=== PATIENT | male | born 1945 | race Caucasian/White ===

== ENCOUNTER 2021-11-15 13:23 | Inpatient (IN) | payer MEDICARE, OTHER, SELFPAY ==
[2021-11-15] VITALS (14 sets, daily range): BP systolic 136–173; BP diastolic 62–85; PULSE 50–70; RESP 15–18; TEMP 36.4–36.9; O2SAT 88–98; BMI 30.4
--- NOTE | 2021-11-15 | IR_ITS ---
APPROVED REPORT Patient Location: Outpatient [facility] Compliance Coordinator: BRIAN Jules RT (R) PROCEDURES Left heart catheterization Left ventriculogram Selective coronary angiogram Drug-eluting stent deployment to the mid dominant right coronary artery Drug-eluting stent deployment to the proximal mid LAD Right selective renal angiogram Left nonselective renal angiogram Informed consent was obtained prior to the procedure. COMPLICATIONS None Estimated Blood Loss: Less than 10 mls TECHNIQUE One percent lidocaine used to anesthetize the right anterior aspect of the wrist. The right radial artery was accessed via the Seldinger technique. A 6 Cambodian sheath was placed in the right radial artery. 2.5 mg of verapamil, 800 mcg of nitroglycerin, 1mg Lidocaine and 5000 U Heparin were given through the arterial sheath. The papa catheter was also used to perform left heart catheterization, left ventriculogram and selective coronary angiogram. At the end the diagnostic angiogram therapeutic heparin was administered giving a therapeutic ACT and the guide catheter was placed in the right coronary artery followed by a Choice PT extra-support wire. A 3.5 x 15 mm resolute Alloway stent was deployed at 18 francisca reducing the severe stenosis to 0%. The wire was then pulled back and placed into the left main artery with the wire being placed on the LAD. A 3 mm x 38 mm resolute Colby stent was then placed in the proximal to mid LAD and deployed at 24 francisca reducing the tandem critical stenosis to 0% LAUREN-3 flow was present down the LAD and right coronary before and after the procedure. At the end of the procedure the guide catheter was pulled back and right selective renal angiography was performed. Short sheath was exchanged for 110 cm long sheath. I was unable to do direct left coronary artery angiography despite catheter manipulation. At the end the procedure the apparatus was removed the sheath was removed and hemostasis was achieved using TR banding patient was transferred to the postop putting in stable condition ANGIOGRAPHIC RESULTS The left main artery Normal The left anterior descending artery Is a proximal complex 90% stenosis with a mid vessel 90% stenosis. LAUREN II flow was present initially. Following stenting LAUREN-3 flow was present The circumflex artery Is a nondominant vessel with mild 10% atheromatous plaque. 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 The midportion has a concentric 80% stenosis. The FARFAN ventriculogram reveals Left ventricular dilatation with ejection fraction of 35 to 40% The left ventricular end-diastolic pressure Severely elevated at 45 to 50 mmHg Right renal artery singular and has mild nonflow limiting proximal 10 to 20% atheromatous plaque Left renal artery appears singular and has an ostial 90% stenosis IMPRESSION Critical two-vessel coronary disease as described above Successful stenting of the proximal and mid LAD critical disease reduced to 0% with 1 drug-eluting stent Severe disease in the mid dominant right coronary artery with successful stenting reducing the stenosis to 0% with 1 drug-eluting stent Reduced ejection fraction accompanied by severe to critically elevated LVEDP Mild right renal artery stenosisL Severe left renal artery stenosis PLAN 1. Aspirin Plavix plus Coumadin for 30 days then discontinue the aspirin and continue Plavix and Coumadin 2. LDL less than 55 to be achieved with high intensity statin 3. Patient requires significant diuresis. Currently his LVEDP is critically elevated. Patient will require admission over the weekend followed by diuresis. 4. Start Lasix 40 mg IV every 12 hours closely monitor chemistry
--- NOTE | 2021-11-15 14:00 | SUR.PREOP ---
NOTIFIED DR GROVE THAT PATIENT HAS A ALLERGY TO IODINE, MD STATED TO HOLD OFF ON HEART CATH FOR ONE HOUR AND PRE MEDICATE FOR ALLERGY, SEE MAR FOR MED ORDERS AND DETAILS
--- NOTE | 2021-11-15 16:17 | CA_ITS ---
APPROVED REPORT EXAM: Comprehensive 2D, Doppler, and color-flow Echocardiogram Radiology Services Manager: Christal Lamb RVT Ht: 5 ft 8 in Wt: 180lbs BSA: 1.95 BP: 125/62 mmHg Indications: NSTEMI,CP,CAD,STENTS TDS-PT FLAT ON BACK S/P CATH 2D Dimensions LVOT 2.45 cm (M/F) 1.5-2.5 LA Volume 62.40 mL LA Volume Index 32.00 mL/m2 (M/F) 16-34 M-Mode Dimensions RVDd 2.94 cm (0.9-2.6) LA Diam 4.77 cm (1.9-4.0) LVDd 5.67 cm (3.5-5.7) Ao Diam 3.85 cm (2.0-3.7) LVDs 4.14 cm (3.5-5.7) IVSd 0.90 cm (0.6-1.1) PWd 0.90 cm (0.6-1.1) EF (Teich) 52.00% FS 27.00% EDV (Teich) 158.10 mL ESV (Teich) 75.90 mL LV Diastology E Decel Time 180.00 (160-240 msec) E/A Ratio 2.7 MED E' 5.20 (< 7 cm/sec) E'/MED E' Ratio 13.27 (>14) LAT E' 8.60 (<10 cm/sec) E/LAT E' Ratio 8.02 (>14) Aortic Valve AI PHT 3507.00 ms AO Peak GR. 3.30 mmHg Mitral Valve MV E Max Boubacar. 69.00 (40-130 cm/s) MV A Velocity 26.00 (40-130 cm/s) E/A Ratio 2.62 MV Decel. Time 180.00 (160-240 ms) MV PHT 53.00 ms Pulmonary Valve PV Peak Velocity 79.00 (50-150 cm/s) Tricuspid Valve TR P. Velocity 287.00 cm/s RAP Estimate 10.00 mmHg RVSP 43.00 mmHg Left Ventricle Technically difficult study because of the patient factors and poor acoustic windows. Left atrium is mildly enlarged, left ventricle is normal size mild concentric left ventricular hypertrophy, estimated ejection fraction approximately 50%, there appears to be mild hypokinesis involving the apex and moderate hypokinesis of the inferior basal wall. Grade 2 diastolic dysfunction seen with tissue Doppler evidence of raise left atrial pressure. Right Ventricle Right atrium and right ventricle are normal size and contractility. Aortic Valve Aortic valve is thickened and calcified without aortic stenosis, there is mild aortic insufficiency. Mitral Valve Mitral valve leaflets are minimally thickened, there is mild mitral regurgitation. Tricuspid Valve Tricuspid valve grossly normal, there is mild tricuspid regurgitation, tricuspid regurgitation jet velocity is inadequate for calculation of the right ventricular systolic pressure. Pulmonic Valve Pulmonic valve is poorly visualized. Great Vessels Aortic root is normal size. Inferior vena cava is poorly visualized. Pericardium No significant pericardial effusion noted. Conclusion 1. Mildly enlarged left atrium, normal left ventricular size, mild concentric left ventricular hypertrophy, estimated ejection fraction 50% with segmental wall motion abnormality described above, grade 2 diastolic dysfunction seen with tissue Doppler evidence of raise left atrial pressure. 2. Mild aortic, mitral and tricuspid regurgitation. 3. No significant pericardial effusion. 4. Inferior vena cava is poorly visualized. Electronically signed by : Case Johnson MD 11/17/2021 06:43:25
[2021-11-15 16:29] LABS: CATHL Activated Clotting Time > 400 SEC (74-125)
[2021-11-15 16:30] LABS: CATHL Activated Clotting Time > 400 SEC (74-125)
[2021-11-15 17:16] LABS: Microscopic, Urine URINE MICROSCOPIC (MICROSCOPIC)
[2021-11-15 17:20] LABS: Coronavirus 19, PCR Not Detected (NotDetected); Influenza A, PCR Not Detected (NotDetected); Influenza B, PCR Not Detected (NotDetected)
[2021-11-15 18:22] LABS: Appearance,Urine CLEAR (Clear); Bilirubin,Urine Negative (Negative); Blood, Urine 3+ (Negative); Color,Urine YELLOW (Yellow); Glucose,Urine (UA) Negative (Negative); Ketones,Urine Negative (Negative); Leukocyte Esterase,Urine Negative (Negative); Nitrate,Urine Negative (Negative); Protein,Urine Negative (Negative); Specific Gravity, Urine <= 1.005 (1.005-1.030); Urobilinogen,Urine 0.2 EU/dl (0.2)
[2021-11-15 18:33] LABS: RBC,Urine 20-50 #/hpf (0-3)
--- NOTE | 2021-11-15 20:53 | HMH.HP ---
*Admission Date: 11/15/21 *Chief complaint: chest pain *History of present illness: this patient presented to [facility] with progressive sob and chest pain and felt to has acute cad and was transfered to [facility] for card eval and was sent to cardiac cath lab manager and was admitted - [facility] History I have reviewed the patient's past medical history: Yes Medical History: Reports:: Atrial Fibrillation, Cardiomyopathy, Congestive Heart Failure, Myocardial Infarction Denies:: Diabetes Mellitus Type 1, Diabetes Mellitus Type 2, MRSA *Have you ever received a pneumonia vaccine?: No *Have you received a flu vaccine this season?: No Other Surgeries: Yes: Cardiac Catheterization - *Social History Smoking Status: Former smoker Tobacco Type: cigarettes Alcohol Intake: never *Occupational Status:: retired *Travel in the last 8 weeks: None Family Hx:: Coronary Artery Disease Review of Systems - Review of Systems Review of systems:: pertinent systems reviewed and negative unless documented below - Constitutional Denies fever(s) - Eyes Denies change in vision - ENT Denies sore throat - *Cardiovascular Reports chest pain at rest, Reports shortness of breath with activity - *Respiratory Denies cough - *Gastrointestinal Denies abdominal pain - *Genitourinary Denies blood in urine - *Musculoskeletal Denies joint pain - Integumentary/Breasts Denies rash - *Neurologic Denies headache(s), Denies seizure-like activity - Psychiatric Denies anxiety Meds Home Medications Medication Instructions Recorded Confirmed Type Aspirin [Aspirin 81mg chewable 81 mg PO DAILY 11/15/21 11/15/21 History tab] Furosemide [Lasix 40mg tab] 40 mg PO DAILY 11/15/21 11/15/21 History Metoprolol Succinate [Metoprolol 100 mg PO DAILY 11/15/21 11/15/21 History Succinate 100mg Tablet*] Warfarin Sodium 5 mg PO MOFR 11/15/21 11/16/21 History dilTIAZem HCL [Diltiazem HCl] 120 mg PO DAILY 11/15/21 11/15/21 History Warfarin Sodium 2.5 mg PO SUTUWETHSA 11/16/21 11/16/21 History Allergies Allergy/AdvReac Type Severity Reaction Status Date / Time Penicillins Allergy Verified 11/15/21 13:45 sotalol Allergy Verified 11/15/21 13:45 iodine AdvReac Severe Anaphylaxis Verified 11/15/21 13:43 codeine AdvReac Verified 11/15/21 13:45 Exam Vital signs and Labs for Last 24 Hours: Temp Pulse Resp BP Pulse Ox 98.4 F 63 16 153/68 H 91 L 11/15/21 16:25 11/15/21 18:40 11/15/21 18:40 11/15/21 18:40 11/15/21 18:40 Laboratory Results - last 24 hr 11/15/21 15:34: Activated Clotting Time > 400 H* 11/15/21 16:02: Activated Clotting Time > 400 H* 11/15/21 16:35: SARS-CoV-2 (PCR) Not detected, Influenza A Untype (PCR) Not detected, Influenza Type B (PCR) Not detected 11/15/21 17:05: Urine Color Yellow, Urine Appearance Clear, Urine pH 5.0, Ur Specific [place] <= 1.005, Urine Protein Negative, Urine Glucose (UA) Negative, Urine Ketones Negative, Urine Blood 3+, Urine Nitrate Negative, Urine Bilirubin Negative, Urine Urobilinogen 0.2, Ur Leukocyte Esterase Negative, Urine RBC 20-50 I & O for Last 24 hours: Intake & Output 11/13/21 11/14/21 11/15/21 11/16/21 11:59 11:59 11:59 11:59 Intake Total 360 / 360 Balance 360 / 360 Weight 199 lb 15.348 oz - Constitutional no acute distress, obese - *Routine HEENT Exam Head: Present: normocephalic Eye: Present: EOMI, PERRL ENT: Present: mucous membranes dry - *Routine Neck Exam Absent: JVD - *Routine Respiratory Exam Present: decreased breath sounds - *Routine Cardiovascular Exam Present: RRR, murmur, S4 - *Routine Abdominal Exam Present: soft - *Routine Rectal Exam Rectal:: deferred - *Routine Genitalia Exam Genitalia:: deferred - *Routine Extremities Exam Absent: calf tenderness - *Routine Skin Exam Present: intact - *Routine Neurological Exam Present: alert, oriented X3. Absent: motor deficit - Routine Psychiatric Exam Present: cooperative
--- NOTE | 2021-11-15 21:54 | PC.NURSE ---
2039: 2ML OF AIR REMOVED FROM TRACELET 2099: 2ML OF AIR REMOVED FROM TRACELET 2129: 2ML OF AIR REMOVED FROM TRACELET 2154: TRACELET REMOVED AND TELFA WITH TEGADERM APPLIED. WILL MONITOR SITE CLOSELY
[2021-11-16] VITALS (7 sets, daily range): BP systolic 129–151; BP diastolic 54–67; PULSE 60–86; RESP 16–20; TEMP 36.5–37; O2SAT 90–98; BMI 30.3
--- NOTE | 2021-11-16 04:37 | PC.NURSE ---
PT HAS RESTED WELL THIS SHIFT WITH NO COMPLAINTS. NO ACUTE CHANGES FROM PREVIOUS ASSESSMENT. CATHETERIZATION SITE IS CDI WITH DRESSING IN PLACE (R RADIAL). PT HAS SLEPT WITH BIPAP IN PLACE. VS STABLE CHARTED.
[2021-11-16 07:22] LABS: Basophils # 0.1 K/mm3 (0-0.2); Basophils % 0.7 % (0.1-2.0); Eosinophils % 0.1 % (0.1-12.0); Hematocrit 43.8 % (42.0-52.0); Lymphocytes # 0.3 K/mm3 (0.7-4.5); Mean Corpuscular Hemoglobin 32.6 pg (27.0-31.2); Mean Corpuscular Volume 101.8 fl (80-94); Mean Platelet Volume 9.2 fl (7.4-10.4); Monocytes # 0.1 K/mm3 (0.1-1.0); Neutrophils # 6.2 K/mm3 (1.8-7.8); Neutrophils % 92.2 % (37.0-80.0); Platelet Count 188 K/mm3 (142-424); Red Blood Count 4.31 M/mm3 (4.60-6.20); Red Cell Distribution Width 15.5 % (11.5-17.5); White Blood Count 6.7 K/mm3 (4.8-10.8)
[2021-11-16 07:28] LABS: Chloride 103 mmol/L (98-107); Potassium 3.8 mmoL/L (3.5-5.1); Sodium 139 mmol/L (136-145)
[2021-11-16 07:31] LABS: Blood Urea Nitrogen 27 mg/dl (9-20); Creatinine Clearance Estimated 48 mL/min (50-200); Estimated Glomerular Filt Rate 39 ml/min (>60); GFR (African American) 48 ML/MIN (>60)
[2021-11-16 07:32] LABS: Anion Gap 12.8 mEq/L (5-15); Calcium 9.7 mg/dl (8.4-10.2); Carbon Dioxide 27 mmol/L (22.0-30.0); Glucose 149 mg/dl (74-100)
[2021-11-16 07:33] LABS: MANUAL DIFFERENTIAL MANUAL DIFFERENTIAL (MANUAL DIFF)
--- NOTE | 2021-11-16 09:07 | P.PN_ITS ---
Internal Medicine - PN: Subj *Date: 11/16/21 *Time: 18:38 Interval history: feel better- no chest pain- reviewed labs Exam Vital signs and Labs for Last 24 Hours: Temp Pulse Resp BP Pulse Ox 98.0 F 63 20 137/62 94 L 11/16/21 04:00 11/16/21 04:00 11/16/21 04:00 11/16/21 04:00 11/16/21 07:04 Laboratory Results - last 24 hr 11/15/21 15:34: Activated Clotting Time > 400 H* 11/15/21 16:02: Activated Clotting Time > 400 H* 11/15/21 16:35: SARS-CoV-2 (PCR) Not detected, Influenza A Untype (PCR) Not detected, Influenza Type B (PCR) Not detected 11/15/21 17:05: Urine Color Yellow, Urine Appearance Clear, Urine pH 5.0, Ur Specific [place] <= 1.005, Urine Protein Negative, Urine Glucose (UA) Negative, Urine Ketones Negative, Urine Blood 3+, Urine Nitrate Negative, Urine Bilirubin Negative, Urine Urobilinogen 0.2, Ur Leukocyte Esterase Negative, Urine RBC 20- 50 11/16/21 06:08: WBC 6.7, RBC 4.31 L, Hgb 14.0 L, Hct 43.8, MCV 101.8 H, MCH 32.6 H, MCHC 32.0, RDW 15.5, Plt Count 188, MPV 9.2, Neut % (Auto) 92.2 H, Lymph % (Auto) 5.0 L, [place] % (Auto) 2.0, Eos % (Auto) 0.1, Baso % (Auto) 0.7, Neut # (Auto) 6.2, Lymph # (Auto) 0.3 L, [place] # (Auto) 0.1, Eos # (Auto) 0.0, Baso # (Auto) 0.1 11/16/21 06:08: Sodium 139, Potassium 3.8, Chloride 103, Carbon Dioxide 27, Anion Gap 12.8, BUN 27 H, Creatinine 1.70 H, Estimated Creat Clear 48, Estimated GFR 39 L, Est GFR ( Amer) 48 L, Glucose 149 H, Calcium 9.7 I & O for Last 24 hours: Intake & Output 06/0111/14/21 11/15/21 11/16/21 11:59 11:59 11:59 11:59 Intake Total 360 / 360 Output Total 1999 Balance -1640 / -1640 Weight 200 lb - Constitutional no acute distress - *Routine HEENT Exam Head: Present: normocephalic Eye: Present: EOMI, PERRL ENT: Present: mucous membranes dry - *Routine Neck Exam Present: supple. Absent: JVD - *Routine Respiratory Exam Present: CTA bilaterally - *Routine Cardiovascular Exam Present: RRR, murmur - *Routine Abdominal Exam Present: soft - *Routine Extremities Exam Absent: calf tenderness - *Routine Skin Exam Present: intact - *Routine Neurological Exam Present: alert, CN II-XII intact - Routine Psychiatric Exam Present: normal affect Assessment and Plan (1) CAD (coronary artery disease) Status: Acute Qualifiers: Coronary Disease-Associated Artery/Lesion type: [place] artery [place] vs. transplanted heart: [place] heart Associated angina: with unspecified form of angina Qualified Code(s): I25.119 - Atherosclerotic heart disease of [place] coronary artery with unspecified angina pectoris Category: Medical Code(s): I25.10 - Atherosclerotic heart disease of [place] coronary artery without angina pectoris (2) Elevated left ventricular end-diastolic pressure (LVEDP) Status: Acute Category: Medical Code(s): R94.30 - Abnormal result of cardiovascular function study, unspecified (3) Renal artery stenosis Status: Acute Category: Medical Code(s): I70.1 - Atherosclerosis of renal artery (4) Obesity (BMI 30-39.9) Status: Acute Category: Medical Code(s): E66.9 - Obesity, unspecified (5) Renal insufficiency Status: Acute Category: Medical Code(s): N28.9 - Disorder of kidney and ureter, unspecified
[2021-11-16 10:51] LABS: Lymphocytes % 6 % (10-50); Neutrophils % 94 % (42-76); Platelet Estimate Normal; RBC Morphology Normal; Total Cells Counted 100
--- NOTE | 2021-11-16 11:20 | HMH.PHAINT ---
MEDICATION RECONCILIATION COMPLETE VIA PATIENT INTERVIEW.
--- NOTE | 2021-11-16 11:39 | HMH.PHAVTE ---
[facility] Pharmacy VTE Monitoring - Patient Demographics Admission date: 11/15/21 Report Date: 11/16/21 Time: 11:39 Allergies/Adverse Reactions: Patient Allergies Penicillins Allergy (Verified 11/15/21 13:45) sotalol Allergy (Verified 11/15/21 13:45) iodine Adverse Reaction (Severe, Verified 11/15/21 13:43) Anaphylaxis codeine Adverse Reaction (Verified 11/15/21 13:45) Height: 1.73 m Weight: 90.718 kg Patient Problems: Current Active Problems CAD (coronary artery disease) (Acute) Elevated left ventricular end-diastolic pressure (LVEDP) (Acute) Renal artery stenosis (Acute) Obesity (BMI 30-39.9) (Acute) - VTE Risk Labs: VTE Related Lab Results Hgb 14.0 g/dL (14.1-18.0) L 11/16/21 06:08 Hct 43.8 % (42.0-52.0) 11/16/21 06:08 Plt Count 188 K/mm3 (142-424) 11/16/21 06:08 BUN 27 mg/dl (9-20) H 11/16/21 06:08 Creatinine 1.70 mg/dl (0.66-1.25) H 11/16/21 06:08 Estimated Creat Clear 48 mL/min (50-200) 11/16/21 06:08 Was VTE Risk Assessment Performed: Yes VTE Score: 6 VTE Risk Level: Moderate Risk - Prophylaxis VTE Prophylaxis Ordered?: Yes Types of VTE Prophylaxis: TEDS Knee High Location of Applied Device: Bilateral Lower Extremeties
[2021-11-16 15:04] LABS: INR 2.99 (0.9-1.1); Prothrombin Time 31.2 seconds (10.1-12.5)
--- NOTE | 2021-11-16 17:32 | PC.NURSE ---
PT IS ALERT AND ORIENTED X4. NO ACUTE CHANGES THIS SHIFT. RIGHT RADIAL CATH SITE AND DRESSING IS C/D/I. NO C/O N/V/D OR CHEST PAIN. HE IS RESTING COMFORTABLY EITH FAMILY AT BEDSIDE.
[2021-11-17] VITALS (7 sets, daily range): BP systolic 117–146; BP diastolic 51–77; PULSE 53–80; RESP 16–20; TEMP 36.4–36.8; O2SAT 96–98; BMI 30.3
[2021-11-17 07:26] LABS: Prothrombin Time 25.4 seconds (10.1-12.5)
[2021-11-17 10:10] LABS: Basophils # 0.1 K/mm3 (0-0.2); Basophils % 0.4 % (0.1-2.0); Hematocrit 39.6 % (42.0-52.0); Hemoglobin 13.3 g/dL (14.1-18.0); Lymphocytes # 0.6 K/mm3 (0.7-4.5); Lymphocytes % 4.1 % (10-50); Mean Corpuscular HGB Conc 33.6 g/dL (31.8-35.4); Mean Corpuscular Hemoglobin 33.9 pg (27.0-31.2); Mean Corpuscular Volume 100.9 fl (80-94); Mean Platelet Volume 9.7 fl (7.4-10.4); Monocytes # 0.8 K/mm3 (0.1-1.0); Monocytes % 5.3 % (1.7-9.3); Neutrophils # 13.1 K/mm3 (1.8-7.8); Neutrophils % 90.2 % (37.0-80.0); Platelet Count 206 K/mm3 (142-424); Red Blood Count 3.93 M/mm3 (4.60-6.20); Red Cell Distribution Width 15.6 % (11.5-17.5); White Blood Count 14.5 K/mm3 (4.8-10.8)
[2021-11-17 10:12] LABS: Chloride 101 mmol/L (98-107)
[2021-11-17 10:13] LABS: Potassium 3.2 mmoL/L (3.5-5.1); Sodium 135 mmol/L (136-145)
[2021-11-17 10:14] LABS: MANUAL DIFFERENTIAL MANUAL DIFFERENTIAL (MANUAL DIFF)
[2021-11-17 10:15] LABS: Blood Urea Nitrogen 38 mg/dl (9-20); Creatinine Clearance Estimated 51 mL/min (50-200); Estimated Glomerular Filt Rate 42 ml/min (>60); GFR (African American) 51 ML/MIN (>60)
[2021-11-17 10:16] LABS: Anion Gap 11.2 mEq/L (5-15); Carbon Dioxide 26 mmol/L (22.0-30.0); Glucose 142 mg/dl (74-100)
[2021-11-17 10:55] LABS: Lymphocytes % 9 % (10-50); Monocytes % 2 % (2-9); Neutrophils % 89 % (42-76); Total Cells Counted 100
[2021-11-17 10:56] LABS: Platelet Estimate Normal; RBC Morphology Normal
--- NOTE | 2021-11-17 11:45 | HMH.ACPN2 ---
Internal Medicine - PN: Subj *Date: 11/17/21 *Time: 19:31 Interval history: doing better this am - no chest pain Exam Vital signs and Labs for Last 24 Hours: Temp Pulse Resp BP Pulse Ox 97.5 F L 68 16 135/61 98 11/17/21 08:00 11/17/21 08:00 11/17/21 08:00 11/17/21 08:00 11/17/21 08:00 Laboratory Results - last 24 hr 11/16/21 14:20: PT 31.2 H, INR 2.99 H 11/17/21 06:37: PT 25.4 H, INR 2.40 H 11/17/21 06:37: WBC 14.5 H D, RBC 3.93 L, Hgb 13.3 L, Hct 39.6 L, MCV 100.9 H, MCH 33.9 H, MCHC 33.6, RDW 15.6, Plt Count 206, MPV 9.7, Neut % (Auto) 90.2 H, Lymph % (Auto) 4.1 L, [place] % (Auto) 5.3, Eos % (Auto) 0.0 L, Baso % (Auto) 0.4, Neut # (Auto) 13.1 H, Lymph # (Auto) 0.6 L, [place] # (Auto) 0.8, Eos # (Auto) 0.0, Baso # (Auto) 0.1, Total Counted 100, Neutrophils % (Manual) 89 H, Lymphocytes % (Manual) 9 L, Monocytes % (Manual) 2, Platelet Estimate Normal, RBC Morphology Normal 11/17/21 06:37: Sodium 135 L, Potassium 3.2 L, Chloride 101, Carbon Dioxide 26, Anion Gap 11.2, BUN 38 H D, Creatinine 1.60 H, Estimated Creat Clear 51, Estimated GFR 42 L, Est GFR ( Amer) 51 L, Glucose 142 H, Calcium 9.0 I & O for Last 24 hours: Intake & Output 11/14/21 11/15/21 11/16/21 11/17/21 11:59 11:59 11:59 11:59 Intake Total 720 / 720 1080 / 1080 Output Total 1999 2775 / 2775 Balance -1280 / -1280 -1695 / -1695 Weight 200 lb 199 lb 15.983 oz - Constitutional no acute distress - *Routine HEENT Exam Head: Present: normocephalic Eye: Present: EOMI, PERRL ENT: Present: mucous membranes dry - *Routine Neck Exam Absent: JVD - *Routine Respiratory Exam Present: CTA bilaterally - *Routine Cardiovascular Exam Present: RRR, murmur - *Routine Abdominal Exam Present: soft - *Routine Extremities Exam Absent: full ROM - *Routine Skin Exam Present: intact - *Routine Neurological Exam Present: alert, CN II-XII intact - Routine Psychiatric Exam Present: normal affect Assessment and Plan (1) CAD (coronary artery disease) Status: Acute Qualifiers: Coronary Disease-Associated Artery/Lesion type: [place] artery [place] vs. transplanted heart: [place] heart Associated angina: with unspecified form of angina Qualified Code(s): I25.119 - Atherosclerotic heart disease of [place] coronary artery with unspecified angina pectoris Category: Medical Code(s): I25.10 - Atherosclerotic heart disease of [place] coronary artery without angina pectoris (2) Elevated left ventricular end-diastolic pressure (LVEDP) Status: Acute Category: Medical Code(s): R94.30 - Abnormal result of cardiovascular function study, unspecified (3) Renal artery stenosis Status: Acute Category: Medical Code(s): I70.1 - Atherosclerosis of renal artery (4) Obesity (BMI 30-39.9) Status: Acute Category: Medical Code(s): E66.9 - Obesity, unspecified (5) Renal insufficiency Status: Acute Category: Medical Code(s): N28.9 - Disorder of kidney and ureter, unspecified
--- NOTE | 2021-11-17 19:15 | PC.NURSE ---
Pt had uneventful day. No change from last assessment. Will continue to monitor.
[2021-11-18] VITALS: BP 138/64; PULSE 58; RESP 18; TEMP 36.8; O2SAT 98
[2021-11-18 04:00] VITALS: BP 123/55; PULSE 50; PULSE 51; RESP 17; TEMP 36.4; O2SAT 99
[2021-11-18 05:00] VITALS: BMI 30.3
--- NOTE | 2021-11-18 05:37 | PC.NURSE ---
Pt is alert and oriented able to make all needs known. Pt continues to have a allen cath. noted that the urine is pink in color. The tubing was unsnapped from the stat lock and it pulled inside the bladder. The tubing was secured again in the stat lock. Pt assisted to the bathroom and able to walk independently. Pt dressing to right wrist was removed and a new dressing applied. The area was bruised and not swollen. Area was scabbed over. PT stated This was one of the better heart caths that I have had. It never hurt and still doesnt.
[2021-11-18 08:00] VITALS: BP 125/59; PULSE 59; PULSE 60; RESP 18; TEMP 36.6; O2SAT 99
[2021-11-18 08:26] LABS: INR 1.96 (0.9-1.1); Prothrombin Time 21.1 seconds (10.1-12.5)
[2021-11-18 09:13] LABS: Basophils # 0.1 K/mm3 (0-0.2); Basophils % 0.7 % (0.1-2.0); Eosinophils # 0.1 K/mm3 (0.0-0.4); Eosinophils % 0.8 % (0.1-12.0); Hemoglobin 14.6 g/dL (14.1-18.0); Lymphocytes # 0.8 K/mm3 (0.7-4.5); Lymphocytes % 9.2 % (10-50); Mean Corpuscular HGB Conc 33.1 g/dL (31.8-35.4); Mean Corpuscular Hemoglobin 33.1 pg (27.0-31.2); Mean Corpuscular Volume 100.3 fl (80-94); Monocytes # 0.7 K/mm3 (0.1-1.0); Monocytes % 8.1 % (1.7-9.3); Neutrophils # 6.9 K/mm3 (1.8-7.8); Neutrophils % 81.2 % (37.0-80.0); Platelet Count 232 K/mm3 (142-424); Red Blood Count 4.39 M/mm3 (4.60-6.20); Red Cell Distribution Width 15.4 % (11.5-17.5); White Blood Count 8.5 K/mm3 (4.8-10.8)
[2021-11-18 09:23] LABS: Chloride 97 mmol/L (98-107)
[2021-11-18 09:24] LABS: Potassium 3.5 mmoL/L (3.5-5.1); Sodium 136 mmol/L (136-145)
[2021-11-18 09:26] LABS: Blood Urea Nitrogen 39 mg/dl (9-20); Creatinine Clearance Estimated 51 mL/min (50-200); Estimated Glomerular Filt Rate 42 ml/min (>60); GFR (African American) 51 ML/MIN (>60)
[2021-11-18 09:27] LABS: Anion Gap 12.5 mEq/L (5-15); Carbon Dioxide 30 mmol/L (22.0-30.0); Glucose 148 mg/dl (74-100)
--- NOTE | 2021-11-18 10:23 | HMH.CNCARD ---
History of Present Illness Consult date: 11/18/21 Requesting physician: Alo Cordova Chief complaint: post stent follow up Additional Medical History:: HX CAD AFIb on coumadin cardiomyopathy History of present illness: 76 year old white male with prior hx of afib s/p 3 ablations on coumadin, CAD with prior stenting in 2004, and hx of cardiomyapthy who follows with Dr. Schmidt at [facility] was transferred to this facility on Thursday for soa to be evaluated by cardiology. patient reports that has experienced increasing and progressive soa over the past few months. Thursday morning had severe soa that was even present at rest. Patient went to [facility] and was transferred to this facility for cardiology consult due to [facility] not having any available beds. Upon transfer patient was taken to [facility] where he received stenting to prox and mid LAD, as well as, the mid dominant RCA. Echo showed EF of 50%. Renal artery stenosis was noted-mild DIANN and severe LAS present. Patient was noted to have an increased LVEDP of 45-50 so he was admitted over the weekend for diureses. Diuresed over 2 liters over weekend. Patient reports is feeling much better today. soa has significantly improved, denies cp. [facility] History Medical History: Reports:: Atrial Fibrillation, Cardiomyopathy, Congestive Heart Failure, Myocardial Infarction Denies:: Diabetes Mellitus Type 1, Diabetes Mellitus Type 2, MRSA *Have you ever received a pneumonia vaccine?: No *Have you received a flu vaccine this season?: No Other Surgeries: Yes: Cardiac Catheterization - *Social History Smoking Status: Former smoker Tobacco Type: cigarettes Alcohol Intake: never *Occupational Status:: retired *Travel in the last 8 weeks: None Family Hx:: Coronary Artery Disease Meds Home Medications Medication Instructions Recorded Confirmed Type Aspirin [Aspirin 81mg chewable 81 mg PO DAILY 11/15/21 11/15/21 History tab] Furosemide [Lasix 40mg tab] 40 mg PO DAILY 11/15/21 11/15/21 History Metoprolol Succinate [Metoprolol 100 mg PO DAILY 11/15/21 11/15/21 History Succinate 100mg Tablet*] Warfarin Sodium 5 mg PO MOFR 11/15/21 11/16/21 History dilTIAZem HCL [Diltiazem HCl] 120 mg PO DAILY 11/15/21 11/15/21 History Warfarin Sodium 2.5 mg PO SUTUWETHSA 11/16/21 11/16/21 History Allergies Allergy/AdvReac Type Severity Reaction Status Date / Time Penicillins Allergy Verified 11/15/21 13:45 sotalol Allergy Verified 11/15/21 13:45 iodine AdvReac Severe Anaphylaxis Verified 11/15/21 13:43 codeine AdvReac Verified 11/15/21 13:45 Exam Vital signs and Labs for Last 24 Hours: Temp Pulse Resp BP Pulse Ox 97.9 F 59 L 18 125/59 L 99 11/18/21 08:00 11/18/21 08:00 11/18/21 08:00 11/18/21 08:00 11/18/21 08:00 Laboratory Results - last 24 hr 11/17/21 06:37: Total Counted 100, Neutrophils % (Manual) 89 H, Lymphocytes % (Manual) 9 L, Monocytes % (Manual) 2, Platelet Estimate Normal, RBC Morphology Normal 11/18/21 08:09: PT 21.1 H, INR 1.96 H 11/18/21 09:05: WBC 8.5 D, RBC 4.39 L, Hgb 14.6, Hct 44.0, MCV 100.3 H, MCH 33.1 H, MCHC 33.1, RDW 15.4, Plt Count 232, MPV 10.0, Neut % (Auto) 81.2 H, Lymph % (Auto) 9.2 L, [place] % (Auto) 8.1, Eos % (Auto) 0.8, Baso % (Auto) 0.7, Neut # (Auto) 6.9, Lymph # (Auto) 0.8, [place] # (Auto) 0.7, Eos # (Auto) 0.1, Baso # (Auto) 0.1 11/18/21 09:05: Sodium 136, Potassium 3.5, Chloride 97 L, Carbon Dioxide 30, Anion Gap 12.5, BUN 39 H, Creatinine 1.60 H, Estimated Creat Clear 51, Estimated GFR 42 L, Est GFR ( Amer) 51 L, Glucose 148 H, Calcium 9.0 I & O for Last 24 hours: Intake & Output 11/15/21 11/16/21 11/17/21 11/18/21 23:59 23:59 23:59 23:59 Intake Total 360 / 360 1080 / 1080 1080 / 1080 120 / 120 Output Total 5570 / 4742 2875 / 8386 2099 / 2099 Balance 360 / -1640 -2820 / -0835 -6775 / -0705 -1979 / Weight 199 lb 15.348 oz 200 lb 199 lb 15.983 oz 200 lb - Constitutional no acute distres
[2021-11-18 12:00] VITALS: BP 108/48; PULSE 50; PULSE 55; RESP 18; TEMP 36.9; O2SAT 98
--- NOTE | 2021-11-18 12:06 | HMH.DCSUM ---
General - General Admission date:: 11/15/21 Discharge date: 11/18/21 HPI HPI: this patient presented to [facility] with progressive sob and chest pain and felt to has acute cad and was transfered to [facility] for card eval and was sent to [facility] and was admitted - Hospital Course Hospital Course: Abnormal Lab Results 11/18/21 08:09: PT 21.1 H, INR 1.96 H 11/18/21 09:05: RBC 4.39 L, MCV 100.3 H, MCH 33.1 H, Neut % (Auto) 81.2 H, Lymph % (Auto) 9.2 L 11/18/21 09:05: Chloride 97 L, BUN 39 H, Creatinine 1.60 H, Estimated GFR 42 L, Est GFR ( Amer) 51 L, Glucose 148 H -CARDIOLOGY CONSULT: Assessment and plan all Dx Assessment and Plan for all problems:: CAD/Nstemi - [facility] 11/15/2021- stenting to proximal and mid LAD and to mid dominant RCA - Continue aspirin, plavix, Coumadin, bb, statin, and shen when bp can tolerate. after 30 days, can hold aspirin and continue plavix and coumadin. Acute on chronic left systolic heart failure with elevated LVEDP- NYHA IV at presentation -LVEDP during heart cath 45-50. Patient diuresed over weekend > 2 liters, doing better -Echo 11/15/2021- EF 50%. Mild aortic,mitral, and tricuspid regurg noted. -Continue lasix 40mg QD at home. Renal artery stenosis - MILD DIANN, Severe LAS - Follow up with Dr. Canada outpatient. - Plavix, aspirin, and statin. shen/arb/arni for bp control when BP can tolerate Chronic renal insufficiency -Creatinine improved to 1.60 from 1.7 Hx of afib, chadsvasc score 7 - NSR currently - Continue home dose of dilt, toprol and coumadin. D CV stable for dc home. please follow up with Dr. Schmidt in [address] Canada for Renal artery stenosis in one week. DC medications Aspirin 81 mg QD Plavix 75 mg QD Coumadin 2.5mg on Thursday, Thursday, Thursday, , and Thursday. Coumadin 5mg Thursday and Thursday Toprol XL 100mg QD Crestor 40mg QD Lasix 40mg QD Discharge Plan (1) CAD (coronary artery disease)-[facility] 11/15/2021- stenting to proximal and mid LAD and to mid dominant RCA, Continue aspirin, plavix, Coumadin, bb, statin, and shen when bp can tolerate. after 30 days, can hold aspirin and continue plavix and coumadin. LDL less than 55 to be achieved with high intensity statin,follow up with Dr. Schmidt in [address] Canada for Renal artery stenosis in one week. (2) Elevated left ventricular end-diastolic pressure (LVEDP)-LVEDP during heart cath 45-50. Patient diuresed over weekend 2 liters, Echo 11/15/2021- EF 50%. Mild aortic,mitral, and tricuspid regurg noted. Continue lasix 40mg QD at home. (3) Renal artery stenosis-Severe left renal artery stenosis, based on heart cath, the severe left renal artery stenosis and needs to be followed by cardiology for more treatment or interventions (4) Renal insufficiency-Creatinine improved to 1.60 from 1.7 (5) Afib-NSR currently, Continue home dose of dilt, Toprol XL 100mg QD and coumadin 2.5mg on Thursday, Thursday, Thursday, , and Thursday. Coumadin 5mg Thursday and Thursday Objective Vital signs: Temp Pulse Resp BP Pulse Ox 97.9 F 59 L 18 125/59 L 99 11/18/21 08:00 11/18/21 08:00 11/18/21 08:00 11/18/21 08:00 11/18/21 08:00 no acute distress - *Routine HEENT Exam Head: Present: normocephalic Eye: Present: PERRL ENT: Present: mucous membranes moist - *Routine Neck Exam Present: supple - *Routine Respiratory Exam Present: CTA bilaterally - *Routine Cardiovascular Exam Present: RRR - *Routine Abdominal Exam Present: soft, normoactive bowel sounds. Absent: tenderness - *Routine Extremities Exam Absent: cyanosis, clubbing, edema - *Routine Skin Exam Present: warm. Absent: rash - *Routine Neurological Exam Present: alert, oriented X3 Results Labs on day of discharge: Labs from last 24 hours 11/18/21 11/18/21 11/18/21 09:05 09:05 08:09 WBC 8.5 D RBC 4.39 L Hgb 14.6 Hct 44.0 MCV 100.3 H
--- NOTE | 2021-11-18 14:19 | HMH.PHACLD ---
Ned Cronin has received discharge medication counseling on the following medications: PATIENT IS CURRENTLY TAKING ASPIRIN 81 MG DAILY AND METOPROLOL SUCCINATE 100 MG DAILY. MD ADDING PLAVIX 75 MG DAILY AND CRESTOR 40 MG HS. MD NOT STARTING ALEXANDRE/ARB UNTIL BLOOD PRESSURE CAN TOLERATE.
--- NOTE | 2021-11-21 14:59 | CARE MANAGER ---
Spoke with patient for post-discharge phone inteview, patient is doing well and has no issues. Today was his follow-up appointment with Dr. Canada.
== END 2021-11-18 13:48 | disposition home or self-care (01) | DRG 246 ==
PROVIDERS: Internal Medicine; Nurse Practitioner Family; Admitting Provider Emergency Medicine; PCP Emergency Medicine; Visit Provider Emergency Medicine
PROC: 027034Z Dilation of Coronary Artery, One Artery with Drug-eluting Intraluminal Device, Percutaneous Approach (ICD-10-PCS; principal; 2021-11-15 14:00)
DX: I21.4 Non-ST elevation (NSTEMI) myocardial infarction (principal); I50.23 Acute on chronic systolic (congestive) heart failure; I42.9 Cardiomyopathy, unspecified; Z87.891 Personal history of nicotine dependence; I25.2 Old myocardial infarction; I48.91 Unspecified atrial fibrillation; I25.10 Atherosclerotic heart disease of native coronary artery without angina pectoris; I70.1 Atherosclerosis of renal artery; E66.9 Obesity, unspecified; Z68.30 Body mass index [BMI] 30.0-30.9, adult; Z95.5 Presence of coronary angioplasty implant and graft; N18.9 Chronic kidney disease, unspecified
CPT/HCPCS: 36252; 36415; 80048; 81001; 85007; 85025; 85347; 85610; 92941; 93306; 93458; 99152; 99153; C1725; C1769; C1874; C9606; C9803; J1644; Q9967; U0003; U0005

== ENCOUNTER → 2021-11-21 11:38 | Outpatient (CLI) | payer MEDICARE, OTHER, SELFPAY ==
[2021-11-21 12:19] LABS: Hematocrit 41.1 % (42.0-52.0); Hemoglobin 13.8 g/dL (14.1-18.0)
[2021-11-21 12:48] LABS: Blood Urea Nitrogen 34 mg/dl (9-20); Estimated Glomerular Filt Rate 39 ml/min (>60); GFR (African American) 48 ML/MIN (>60)
== END ==
PROVIDERS: Internal Medicine; PCP Family Medicine; Visit Provider Emergency Medicine
DX: I48.0 Paroxysmal atrial fibrillation; I50.9 Heart failure, unspecified; I70.1 Atherosclerosis of renal artery; R11.0 Nausea; R94.30 Abnormal result of cardiovascular function study, unspecified; I25.118 Atherosclerotic heart disease of native coronary artery with other forms of angina pectoris
CPT/HCPCS: 36415; 82565; 84520; 85014; 85018

== ENCOUNTER → 2021-11-26 11:04 | Outpatient (CLI) | payer MEDICARE, OTHER, SELFPAY ==
[2021-11-26 11:23] LABS: Coronavirus 19, PCR Not Detected (NotDetected); Influenza A, PCR Not Detected (NotDetected); Influenza B, PCR Not Detected (NotDetected)
[2021-11-26 12:11] LABS: INR 2.76 (0.9-1.1); Prothrombin Time 28.9 seconds (10.1-12.5)
== END ==
PROVIDERS: PCP Family Medicine; Visit Provider Physician Assistant
DX: I70.1 Atherosclerosis of renal artery (principal); I25.119 Atherosclerotic heart disease of native coronary artery with unspecified angina pectoris; Z01.812 Encounter for preprocedural laboratory examination; Z20.822 Contact with and (suspected) exposure to COVID-19
CPT/HCPCS: 36415; 85610; C9803; U0003; U0005

== ENCOUNTER → 2021-11-27 08:22 | Day surgery (SDC) | payer MEDICARE, OTHER, SELFPAY ==
[2021-11-27 08:27] VITALS: BMI 29.6
[2021-11-27 08:52] VITALS: BP 137/82; PULSE 57; RESP 18; TEMP 36.8; O2SAT 95
[2021-11-27 09:00] VITALS: PULSE 61
[2021-11-27 09:57] LABS: Activated Partial Thrombo Time 46.7 seconds (22.8-30.6); INR 2.56 (0.9-1.1)
--- NOTE | 2021-11-27 10:55 | SUR.PREOP ---
pt had labs redrawn today for PT/INR levels. See labs for results. MD notified of results and cath rescheduled for Thursday.
== END ==
PROVIDERS: PCP Family Medicine; Visit Provider Internal Medicine
DX: Z53.09 Procedure and treatment not carried out because of other contraindication (principal); I70.1 Atherosclerosis of renal artery; I48.91 Unspecified atrial fibrillation; Z79.01 Long term (current) use of anticoagulants; R79.1 Abnormal coagulation profile
CPT/HCPCS: 85610; 85730

== ENCOUNTER 2021-12-02 08:02 | Day surgery (SDC) | payer MEDICARE, OTHER, SELFPAY ==
[2021-12-02] VITALS (14 sets, daily range): BP systolic 120–156; BP diastolic 56–79; PULSE 47–56; RESP 16–18; TEMP 36.9; O2SAT 87–97; BMI 29.6
--- NOTE | 2021-12-02 | IR_ITS ---
APPROVED REPORT Patient Location: Outpatient PROCEDURES Left renal artery selective angiogram Drug-eluting stent deployment to the ostial proximal left renal artery Selective angiogram of the left accessory renal artery Drug-eluting stent deployment to the left accessory renal artery INDICATION Renovascular hypertension, Renal artery stenosis, Chronic renal failure, Informed consent was obtained prior to the procedure. COMPLICATIONS None Estimated Blood Loss: Less than 10 mls TECHNIQUE 1% lidocaine used to anesthetize the right femoral groin. The right femoral artery was accessed via the Seldinger technique. A 7 Setswana sheath was placed in the right femoral artery and a short EDUARDO guide catheter was used to perform left renal artery selective angiography. Following this therapeutic heparin was administered and the guide catheter was placed in the left renal artery followed by a Choice PT extra-support wire. A 5 mm x 12 mm resolute Montague stent was deployed at 20 francisca reducing the stenosis to 0%. Distally there was a small edge dissection therefore a 4 mm x 12 mm resolute Colby stent was placed distal to the first stent yet still overlapping it and deployed at 20 francisca. The balloon was brought between the 2 stents and deployed at 28 francisca. Excellent angiographic results were obtained. Following this the guide catheter was pulled back and used to selectively intubate the accessory renal artery to the left kidney. Same wire was placed distally and a 5 mm x 15 mm resolute Montague stent was placed in the ostial proximal segment at 24 francisca reducing the severe stenosis to 0%. Excellent angiograph results were obtained. At the end of the procedure the apparatus was removed the groin was reprepped closure change sheath was removed good hemostasis was achieved using TR banding patient was transferred to the postop putting in stable condition ANGIOGRAPHIC RESULTS Left kidney has a dual arterial supply. The left renal artery has an ostial concentric 90% stenosis while the large accessory renal artery has an ostial 70 to 80% stenosis IMPRESSION Severe stenosis in the 2 large artery supplying the left kidney Successful drug-eluting stent deployment to the main left renal artery and the accessory left renal artery reducing the stenosis to 0% with 3 drug-eluting stents as described above PLAN 1. Dual antiplatelet therapy for 1 month combined with Coumadin. After 1 month aspirin may be discontinued 2. Risk factor modification Electronically signed by : Azael Canada MD 12/03/2021 15:05:57
[2021-12-02 09:02] LABS: INR 1.26 (0.9-1.1)
[2021-12-02 11:54] LABS: CATHL Activated Clotting Time 357 SEC (74-125)
--- NOTE | 2021-12-02 14:30 | HMH.PHACLD ---
Ned Cronin has received discharge medication counseling on the following medications: -ASA -PLAVIX -WARFARIN (ASKED ABOUT F/U IN COUMADIN CLINIC WITH ALEKSANDR REGARDING WARFARIN DOSE, OBTAINED PHONE NUMBER FOR ALEKSANDR TO CALL) -ROSUVASTATIN -METOPROLOL SUCCINATE
== END 2021-12-02 14:37 | disposition home or self-care (01) ==
PROVIDERS: PCP Family Medicine; Visit Provider Internal Medicine
DX: I77.1 Stricture of artery (principal); I70.1 Atherosclerosis of renal artery; N18.9 Chronic kidney disease, unspecified; I13.0 Hypertensive heart and chronic kidney disease with heart failure and stage 1 through stage 4 chronic kidney disease, or unspecified chronic kidney disease; I25.118 Atherosclerotic heart disease of native coronary artery with other forms of angina pectoris; I50.23 Acute on chronic systolic (congestive) heart failure; I48.0 Paroxysmal atrial fibrillation; I42.9 Cardiomyopathy, unspecified; E78.5 Hyperlipidemia, unspecified; Z79.01 Long term (current) use of anticoagulants
CPT/HCPCS: 37236; 85347; 85610; 99152; C1725; C1760; C1769; C1876; C1894; J1644; Q9967

== ENCOUNTER → 2021-12-10 09:16 | Outpatient (CLI) | payer MEDICARE, OTHER, SELFPAY ==
[2021-12-10 09:24] LABS: MANUAL DIFFERENTIAL MANUAL DIFFERENTIAL (MANUAL DIFF)
[2021-12-10 09:41] LABS: Basophils % 0.6 % (0.1-2.0); Eosinophils # 0.2 K/mm3 (0.0-0.4); Eosinophils % 3.2 % (0.1-12.0); Hematocrit 39.4 % (42.0-52.0); Hemoglobin 12.4 g/dL (14.1-18.0); Lymphocytes # 0.6 K/mm3 (0.7-4.5); Lymphocytes % 8.5 % (10-50); Mean Corpuscular HGB Conc 31.4 g/dL (31.8-35.4); Mean Corpuscular Hemoglobin 32.5 pg (27.0-31.2); Mean Corpuscular Volume 103.6 fl (80-94); Mean Platelet Volume 9.1 fl (7.4-10.4); Monocytes # 0.5 K/mm3 (0.1-1.0); Monocytes % 6.7 % (1.7-9.3); Neutrophils # 5.7 K/mm3 (1.8-7.8); Platelet Count 190 K/mm3 (142-424); Red Blood Count 3.81 M/mm3 (4.60-6.20); Red Cell Distribution Width 14.8 % (11.5-17.5)
[2021-12-10 10:34] LABS: Eosinophils % 4 % (0-3); Lymphocytes % 8 % (10-50); Macrocytosis 1+; Monocytes % 10 % (2-9); Neutrophils % 78 % (42-76); Total Cells Counted 100
[2021-12-10 10:36] LABS: Acanthocytes 1+; Platelet Estimate Normal
[2021-12-10 13:44] LABS: Chloride 103 mmol/L (98-107); Potassium 3.5 mmoL/L (3.5-5.1); Sodium 138 mmol/L (136-145)
[2021-12-10 13:47] LABS: Anion Gap 11.5 mEq/L (5-15); Blood Urea Nitrogen 21 mg/dl (9-20); Carbon Dioxide 27 mmol/L (22.0-30.0); Estimated Glomerular Filt Rate 37 ml/min (>60); GFR (African American) 45 ML/MIN (>60); Glucose 123 mg/dl (74-100)
== END ==
PROVIDERS: PCP Family Medicine; Visit Provider Internal Medicine
DX: I25.10 Atherosclerotic heart disease of native coronary artery without angina pectoris (principal); I70.1 Atherosclerosis of renal artery; N28.9 Disorder of kidney and ureter, unspecified
CPT/HCPCS: 36415; 80048; 85007; 85014; 85018; 85048; 85049

== ENCOUNTER 2021-12-13 12:54 | Outpatient (CLI) | payer MEDICARE, OTHER, SELFPAY ==
[2021-12-13 15:28] LABS: PHA INR Fingerstick 1.4 (0.9-1.1)
== END 2021-12-13 15:29 | disposition home or self-care (01) ==
PROVIDERS: PCP Family Medicine; Visit Provider Physician Assistant
DX: Z51.81 Encounter for therapeutic drug level monitoring (principal); Z79.01 Long term (current) use of anticoagulants; I48.0 Paroxysmal atrial fibrillation
CPT/HCPCS: 85610; 99211; G0463

== ENCOUNTER → 2021-12-17 09:16 | Outpatient (CLI) | payer MEDICARE, OTHER, SELFPAY ==
[2021-12-17 10:20] LABS: Alanine Aminotransferase 21 U/L (12-78); Albumin Level 3.5 g/dl (3.5-5.0); Alkaline Phosphatase 107 U/L (38-126); Aspartate Amino Transferase 29 U/L (17-59); Bilirubin,Direct 0.2 mg/dl (0.0-0.4); Bilirubin,Indirect 0.8 mg/dL (0.0-0.9); Bilirubin,Unconjugated 0.8 mg/dL (0.0-1.1); Chol/HDL Ratio 2.7 (1-3.5); Cholesterol 95 mg/dl (140-200); HDL Cholesterol 35 mg/dl (40-60); Total Protein,Serum 6.4 g/dl (6.3-8.2); Triglycerides 89 mg/dl (30-150); VLDL Cholesterol 18 mg/dL (0-40)
[2021-12-17 10:31] LABS: Direct LDL Cholesterol 39.38 mg/dL (100-129)
== END ==
PROVIDERS: PCP Family Medicine; Visit Provider Nurse Practitioner Family
DX: E78.2 Mixed hyperlipidemia (principal); I25.119 Atherosclerotic heart disease of native coronary artery with unspecified angina pectoris
CPT/HCPCS: 36415; 80061; 80076

== ENCOUNTER → 2021-12-18 11:39 | Outpatient (CLI) | payer MEDICARE, OTHER, SELFPAY ==
--- NOTE | 2021-12-18 11:50 | XR_ITS ---
FINAL REPORT CLINICAL HISTORY: amiodarone, CHF FINDINGS: Two views of the chest were obtained. Cardiomegaly is noted. The mediastinum is normal. There are left lung opacities, atelectasis or pneumonia.. There is no pneumothorax. The bony thorax is intact. IMPRESSION: Left lung atelectasis or pneumonia. Reviewed, Interpreted and Dictated by Emeka Milian III, MD Transcribed by Barbara Pastrana Authenticated and [facility]
[2021-12-18 12:46] LABS: Chloride 105 mmol/L (98-107)
[2021-12-18 12:47] LABS: Potassium 4.4 mmoL/L (3.5-5.1); Sodium 137 mmol/L (136-145)
[2021-12-18 12:50] LABS: Blood Urea Nitrogen 14 mg/dl (9-20); Estimated Glomerular Filt Rate 46 ml/min (>60); GFR (African American) 55 ML/MIN (>60)
[2021-12-18 12:52] LABS: Anion Gap 10.4 mEq/L (5-15); Calcium 9.1 mg/dl (8.4-10.2); Carbon Dioxide 26 mmol/L (22.0-30.0); Glucose 109 mg/dl (74-100)
[2021-12-18 13:27] LABS: Prostate Specific Ag Screen 2.5 ng/ml (0.0-4.0)
[2021-12-18 13:53] LABS: Thyroid Stimulating Hormone 3.32 uIU/mL (0.465-4.68)
== END ==
PROVIDERS: PCP Family Medicine; Visit Provider Physician Assistant
DX: N28.9 Disorder of kidney and ureter, unspecified (principal); Z12.5 Encounter for screening for malignant neoplasm of prostate; I48.91 Unspecified atrial fibrillation; Z76.89 Persons encountering health services in other specified circumstances
CPT/HCPCS: 36415; 71046; 80048; 84443; G0103

== ENCOUNTER 2021-12-18 18:16 | Inpatient (IN) | payer MEDICARE, OTHER, SELFPAY ==
--- NOTE | 2021-12-18 18:26 | ECG_ITS ---
APPROVED REPORT Exam: Resting ECG HR:77 bpm ECG Measurements Heart Rate 77 AXES OK 211 P 54 QRSd 110 QRS 65 QT 425 T 96 QTc 457 Conclusion SINUS RHYTHM WITH FIRST DEGREE AV BLOCK MODERATE T-WAVE ABNORMALITY, CONSIDER LATERAL ISCHEMIA [-0.1+ mV T-WAVE IN I/aVL/V5/V6] ABNORMAL ECG UNCONFIRMED REPORT Electronically signed by : Bob Rowan MD 12/19/2021 17:41:09
[2021-12-18 18:42] VITALS: BP 146/56; PULSE 73; RESP 18; TEMP 36.7; O2SAT 97; BMI 29.2
--- NOTE | 2021-12-18 18:58 | HMH.EDGENADL ---
ED Disposition Clinical Impression: Non-STEMI (non-ST elevated myocardial infarction), COVID-19 virus infection Disposition: Admitted As Inpatient Condition on Discharge: Fair Referrals: Miguel A Bernabe MD [Primary Care Provider] - - Critical Care Critical Care Time: No Attestation: On 12/18/21, the high probability of a clinically significant, sudden or life threatening deterioration of the following system(s) required my full and direct attention, intervention and personal management. The time I documented below is in addition to time spent performing reported procedures but includes the following listed in this critical care notation. Medical Decision Making - Jacobo Inquiry Pt receiving controlled substance: No Vital Signs: 12/18/21 18:42 Temperature 98.1 F Temperature Source Oral Pulse Rate [Left Radial] 73 Respiratory Rate 18 Blood Pressure [Right Arm] 146/56 H Blood Pressure Mean [Right Arm] 86 02 Sat by Pulse Oximetry 97 - Lab Data Lab Results 12/18/21 18:57: WBC 3.6 L, RBC 3.63 L, Hgb 11.6 L, Hct 34.0 L, MCV 93.7, MCH 32.0 H, MCHC 34.1, RDW 14.0, Plt Count 149, MPV 8.6, Neut % (Auto) 80.8 H, Lymph % (Auto) 7.5 L, Banner % (Auto) 10.2 H, Eos % (Auto) 0.9, Baso % (Auto) 0.6, Neut # (Auto) 2.9, Lymph # (Auto) 0.3 L, Banner # (Auto) 0.4, Eos # (Auto) 0.0, Baso # (Auto) 0.0 12/18/21 18:57: Sodium 136, Potassium 4.1, Chloride 103, Carbon Dioxide 26, Anion Gap 11.1, BUN 15, Creatinine 1.60 H, Estimated Creat Clear 49, Estimated GFR 42 L, Est GFR ( Amer) 51 L, Glucose 123 H, Calcium 9.1, Total Bilirubin 1.3, AST 37 D, ALT 24, Alkaline Phosphatase 109, Total Protein 7.2, Albumin 3.8, Globulin 3.4 H, Albumin/Globulin Ratio 1.1 12/18/21 18:57: Lactate 1.2 12/18/21 18:57: SARS-CoV-2 (PCR) Detected A, Influenza A Untype (PCR) Not detected, Influenza Type B (PCR) Not detected 12/18/21 18:57: Troponin I 0.20 H 12/18/21 18:57: PT 29.8 H, INR 2.85 H Result diagrams: 12/18/21 18:57 12/18/21 18:57 Orders (Tests/Meds): ORDERS Category Date Time Status Troponin I Q3H Lab 12/18/21 22:30 Ordered Troponin I Q3H Lab 12/19/21 01:30 Ordered Blood Culture Stat Micro 12/18/21 18:52 Received - Radiology Data #1 Image(s): Chest Image Reviewed: Yes I have reviewed radiologist's interpretation Procedure(s): XR chest 2V Accession Number(s): [id number] cc: Emeka Milian MD; Miguel A Bernabe MD~ FINAL REPORT CLINICAL HISTORY: amiodarone, CHF FINDINGS: Two views of the chest were obtained. Cardiomegaly is noted. The mediastinum is normal. There are left lung opacities, atelectasis or pneumonia.. There is no pneumothorax. The bony thorax is intact. IMPRESSION: Left lung atelectasis or pneumonia. Reviewed, Interpreted and Dictated by Emeka Milian III, MD Transcribed by Barbara Pastrana Authenticated and [facility] - ECG Data Tracing #1 EKG interpreted by Javier Kahn MD: Rhythm: sinus Rate: 77 Drake: normal Ectopy: none Conduction: normal ST Segment Changes: none T Wave Changes: Lateral inversion, new compared to previous EKGs Q Waves: none No evidence of acute ischemia or injury - Physician Consults Physician Consulted: Dread Time: 19:25 Reason -: Cardiology Eval/Care Comment/Response: EKG transmitted to him along with previous EKG and he has reviewed. Concern regarding lateral changes, but does not feel he needs to act now, request to be called back with troponin results. Additional Consult: Dread Time: 20:20 Reason -: Cardiology Eval/Care Comment/Response: Advised of elevated troponin. He requested the patient be admitted, serial cardiac enzymes. No changes in his medications at this time. Additional Consult: Art Time: 20:25 Reason -: Admission Comment/Response: Agrees to admit the patient to the hospital. We discussed the patient's clinical information, including
[2021-12-18 19:09] LABS: Basophils % 0.6 % (0.1-2.0); Eosinophils % 0.9 % (0.1-12.0); Hemoglobin 11.6 g/dL (14.1-18.0); Lymphocytes # 0.3 K/mm3 (0.7-4.5); Lymphocytes % 7.5 % (10-50); Mean Corpuscular HGB Conc 34.1 g/dL (31.8-35.4); Mean Corpuscular Volume 93.7 fl (80-94); Mean Platelet Volume 8.6 fl (7.4-10.4); Monocytes # 0.4 K/mm3 (0.1-1.0); Monocytes % 10.2 % (1.7-9.3); Neutrophils # 2.9 K/mm3 (1.8-7.8); Neutrophils % 80.8 % (37.0-80.0); Platelet Count 149 K/mm3 (142-424); Red Blood Count 3.63 M/mm3 (4.60-6.20); White Blood Count 3.6 K/mm3 (4.8-10.8)
[2021-12-18 19:14] LABS: Influenza A, PCR Not Detected (NotDetected); Influenza B, PCR Not Detected (NotDetected)
--- NOTE | 2021-12-18 19:21 | PC.NURSE ---
Dr. Canada paged for ED doctor
--- NOTE | 2021-12-18 19:25 | PC.NURSE ---
ED doctor on phone with Dr. Canada
[2021-12-18 19:34] LABS: Chloride 103 mmol/L (98-107); Coronavirus 19, PCR Detected (NotDetected); Potassium 4.1 mmoL/L (3.5-5.1); Sodium 136 mmol/L (136-145)
[2021-12-18 19:37] LABS: Alanine Aminotransferase 24 U/L (12-78); Albumin Level 3.8 g/dl (3.5-5.0); Albumin/Globulin Ratio 1.1 (1.1-1.8); Alkaline Phosphatase 109 U/L (38-126); Aspartate Amino Transferase 37 U/L (17-59); Bilirubin,Total 1.3 mg/dl (0.2-1.3); Blood Urea Nitrogen 15 mg/dl (9-20); Calcium 9.1 mg/dl (8.4-10.2); Creatinine Clearance Estimated 49 mL/min (50-200); Estimated Glomerular Filt Rate 42 ml/min (>60); GFR (African American) 51 ML/MIN (>60); Globulin 3.4 g/dL (1.3-3.2); Glucose 123 mg/dl (74-100); INR 2.85 (0.9-1.1); Prothrombin Time 29.8 seconds (10.1-12.5); Total Protein,Serum 7.2 g/dl (6.3-8.2)
[2021-12-18 19:38] LABS: Lactic Acid 1.2 mmol/L (0.7-2.1)
[2021-12-18 19:40] LABS: Anion Gap 11.1 mEq/L (5-15); Carbon Dioxide 26 mmol/L (22.0-30.0)
--- NOTE | 2021-12-18 20:13 | PC.NURSE ---
Dr. Canada paged for ED
[2021-12-18 20:39] VITALS: BP 137/57; PULSE 67; RESP 18; TEMP 37.3; O2SAT 94; BMI 28.5
--- NOTE | 2021-12-18 20:50 | PC.NURSE ---
Patient admitted to [facility] [place] to service of Dr. Bernabe with dx NSTEMI and positive covid.
[2021-12-18 21:46] VITALS: BP 139/58; PULSE 65; RESP 18; TEMP 36.7; O2SAT 97
--- NOTE | 2021-12-18 21:59 | HMH.PHAVTE ---
[facility] Pharmacy VTE Monitoring - Patient Demographics Admission date: 12/18/21 Report Date: 12/18/21 Time: 21:59 Allergies/Adverse Reactions: Patient Allergies Penicillins Allergy (Verified 12/18/21 11:04) sotalol Allergy (Verified 12/18/21 11:04) iodine Adverse Reaction (Severe, Verified 12/18/21 11:04) Anaphylaxis codeine Adverse Reaction (Verified 12/18/21 11:04) Height: 1.73 m Weight: 87.09 kg Patient Problems: Current Active Problems Non-STEMI (non-ST elevated myocardial infarction) (Acute) COVID-19 virus infection (Acute) - VTE Risk Labs: VTE Related Lab Results Hgb 11.6 g/dL (14.1-18.0) L 12/18/21 18:57 Hct 34.0 % (42.0-52.0) L 12/18/21 18:57 Plt Count 149 K/mm3 (142-424) 12/18/21 18:57 PT 29.8 seconds (10.1-12.5) H 12/18/21 18:57 INR 2.85 (0.9-1.1) H 12/18/21 18:57 BUN 15 mg/dl (9-20) 12/18/21 18:57 Creatinine 1.60 mg/dl (0.66-1.25) H 12/18/21 18:57 Estimated Creat Clear 49 mL/min (50-200) 12/18/21 18:57 Clinical Trial Participant: No - Prophylaxis VTE Prophylaxis Ordered?: Yes Types of VTE Prophylaxis: TEDS Knee High
--- NOTE | 2021-12-18 22:03 | PC.NURSE ---
PT ARRIVED TO FLOOR VIA W/C FROM ED W/STAFF @ [id number]
[2021-12-18 22:40] VITALS: PULSE 67; O2SAT 94
[2021-12-18 23:34] VITALS: BP 126/66; PULSE 69; RESP 18; TEMP 37.4; O2SAT 95
[2021-12-18 23:56] VITALS: PULSE 60
[2021-12-19 03:19] VITALS: BP 126/68; PULSE 86; RESP 18; TEMP 36.4; O2SAT 97
[2021-12-19 04:00] VITALS: PULSE 50
--- NOTE | 2021-12-19 04:00 | PC.NURSE ---
pt admitted this shift; pt a+o x4; 02 at 2L pnc with o2 sats 94-95%; pt wore home cpap machine through the night, lung sounds diminished; 1+ scant edema noted to BLE; telemetry reveal sinus to sinus roberto with 1st AV block, rare pvc and pac, no acute distress, VSS, troponins levels unchanged after 3 timed blood draws at 0.20, no skin issues, pt with history of renal stenosis with stents and states trouble voiding at times, no other issues noted.
[2021-12-19 04:38] VITALS: BMI 28.5
--- NOTE | 2021-12-19 06:05 | HMH.HP ---
*Admission Date: 12/18/21 *Chief complaint: Shortness of breath *History of present illness: 76-year-old male patient presents to the [facility] emergency department with reports of shortness of breath and concerns regarding pneumonia. He reports she was seen by PCP day before and was prescribed an inhaler which he has not started yet and had a chest x-ray performed that revealed atelectasis versus pneumonia in the left lung. He decided on coming to the emergency department to follow-up he also reports increasing cough and congestion since seen cardiology earlier earlier in the day. He denies any chest pain. He denies exposure to any illness, uses CPAP at night. He also reports she is on Coumadin, aspirin, and Plavix Troponins were positive Is positive for COVID-19 [facility] History I have reviewed the patient's past medical history: Yes Medical History: Reports:: Atrial Fibrillation, Cardiomyopathy, Congestive Heart Failure, Myocardial Infarction Denies:: Cancer, Diabetes Mellitus Type 1, Diabetes Mellitus Type 2, MRSA, Seizures *Have you ever received a pneumonia vaccine?: No *Have you received a flu vaccine this season?: No Other Surgeries: Yes: Angiogram, Cardiac Catheterization, Coronary Stent Amputation: No Fractures: No - *Social History Smoking Status: Former smoker Tobacco Type: cigarettes # Packs/Day (cigarettes): 0 Alcohol Intake: never *Occupational Status:: retired Housing: house Household Members: spouse *Travel in the last 8 weeks: None Family Hx:: Coronary Artery Disease Review of Systems - Review of Systems Review of systems:: pertinent systems reviewed and negative unless documented below - Constitutional Reports fatigue - Eyes Denies blurry vision, Denies double vision - ENT Denies difficulty swallowing, Denies nasal congestion - *Cardiovascular Reports shortness of breath, Reports shortness of breath with activity, Denies chest pain, Denies chest pain at rest - *Respiratory Reports change in phlegm color, Reports chest congestion, Reports cough, Reports shortness of breath, Reports shortness of breath with activity - *Gastrointestinal Denies abdominal pain, Denies loose stools - *Musculoskeletal Denies abnormal walking, Denies back pain, Denies body aches - Integumentary/Breasts Denies change in skin color, Denies new lesions - *Neurologic Reports weakness, Denies abnormal speech, Denies seizure-like activity - Psychiatric Denies anxiety, Denies sensing things others do not sense - Endocrine Denies cold intolerance, Denies increased urination - Hematologic/Lymphatic Denies easy bleeding, Denies easy bruising - Allergic/Immunologic Denies GI upset with certain foods, Denies itchy eyes Meds Home Medications Medication Instructions Recorded Confirmed Type Aspirin [Aspirin 81mg chewable 81 mg PO DAILY 11/15/21 12/18/21 History tab] Warfarin Sodium [Coumadin 5mg 2.5 mg PO MOWEFR 11/27/21 12/19/21 History tablet] Warfarin Sodium [Coumadin 5mg 5 mg PO SUTUTHSA 11/27/21 12/19/21 History tablet] metoprolol succinate 100 mg 100 mg PO DAILY #90 tab 12/02/21 12/18/21 Rx tablet,extended release 24 hr albuterol sulfate 90 mcg/actuation 2 puff IH QID PRN #8.5 g 12/17/21 12/18/21 Rx aerosol inhaler Clopidogrel Bisulfate [Clopidogrel 75 mg PO DAILY 12/19/21 12/19/21 History 75mg Tab] Furosemide [Furosemide 40MG tAB*] 40 mg PO DAILY 12/19/21 12/19/21 History Rosuvastatin Calcium 40 mg PO DAILY 12/19/21 12/19/21 History Allergies Allergy/AdvReac Type Severity Reaction Status Date / Time Penicillins Allergy Verified 12/18/21 11:04 sotalol Allergy Verified 12/18/21 11:04 iodine AdvReac Severe Anaphylaxis Verified 12/18/21 11:04 amiodarone AdvReac Intermediate Other Verified 12/18/21 22:48 codeine AdvReac Verified 12/18/21 11:04 Exam Vital signs and Labs for Last 24 Hours: Temp Pulse Resp BP Pulse Ox 97.6 F 50
--- NOTE | 2021-12-19 07:03 | PC.NURSE ---
Diego DICKINSON NOTIFIED OF CONSULT
--- NOTE | 2021-12-19 07:10 | ECG_ITS ---
APPROVED REPORT Exam: Resting ECG HR:83 bpm ECG Measurements Heart Rate 83 AXES QRSd 116 QRS -5 QT 384 T 130 QTc 424 Conclusion ATRIAL FLUTTER/TACHYCARDIA LOW QRS VOLTAGE IN EXTREMITY LEADS [QRS DEFLECTION < 0.5 mV IN LIMB LEADS] MODERATE INTRAVENTRICULAR CONDUCTION DELAY [105+ ms QRS DURATION, 80+ ms Q/S IN V1/V2, NO Q AND 60+ ms R IN I/aVL/V5/V6] ST DEVIATION AND MODERATE T-WAVE ABNORMALITY, CONSIDER LATERAL ISCHEMIA [-0.1+ mV T-WAVE IN I/aVL/V5/V6] ABNORMAL ECG UNCONFIRMED REPORT Electronically signed by : Bob Rowan MD 12/19/2021 17:40:21
--- NOTE | 2021-12-19 07:32 | HMH.PHAINT ---
MEDICATION RECONCILIATION COMPLETED ON PATIENT USING EXTERNAL FILL HISTORY FROM PHARMACY AND LIST FROM CARDIOLOGY OFFICE. -JACQUES CHAVARRIAD
[2021-12-19 08:00] VITALS: BP 127/65; PULSE 101; PULSE 80; RESP 18; TEMP 36.4; O2SAT 92
--- NOTE | 2021-12-19 11:53 | HMH.PULMCON ---
*Admission Date: 12/18/21 *Reason for consult:: COVID-19 pneumonia *History of present illness: Mr. 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 fib status post ablation on anticoagulation presented with worsening respiratory distress found to be COVID not having overnight pneumonia and pulmonary was called for further management. Patient received 2 doses of immunization with COVID-19 vaccinations. Did not receive any booster doses. Patient admits significant improvement in his respiratory status almost close to his baseline. [facility] History Medical History: Reports:: Atrial Fibrillation, Cardiomyopathy, Congestive Heart Failure, Hyperlipidemia, Hypertension, Myocardial Infarction Denies:: Cancer, Diabetes Mellitus Type 1, Diabetes Mellitus Type 2, MRSA, Seizures *Have you ever received a pneumonia vaccine?: No *Have you received a flu vaccine this season?: No Other Surgeries: Yes: Angiogram, Cardiac Catheterization, Coronary Stent Amputation: No Fractures: No - *Social History Smoking Status: Former smoker Tobacco Type: cigarettes # Packs/Day (cigarettes): 0 Alcohol Intake: never *Occupational Status:: retired Housing: house Household Members: spouse *Travel in the last 8 weeks: None Family Hx:: Coronary Artery Disease ROS - Cons Reports body ache(s), Reports fatigue, Denies fever(s) - Eyes Reports blurry vision - ENT Denies difficulty swallowing - Card Reports shortness of breath, Reports shortness of breath with activity - Resp Respiratory: Reports chest congestion, Reports cough, Denies excessive phlegm production, Reports cough with sputum production, Reports snoring, Denies wheezing - GI Gastrointestingal: Denies: abdominal pain - [place] Musculoskeletal: Reports back pain - Psych Denies thoughts of hurting/killing others, Denies thoughts of hurting/killing yourself Meds Home Medications Medication Instructions Recorded Confirmed Type Aspirin [Aspirin 81mg chewable 81 mg PO DAILY 11/15/21 12/18/21 History tab] Warfarin Sodium [Coumadin 5mg 2.5 mg PO MOWEFR 11/27/21 12/19/21 History tablet] Warfarin Sodium [Coumadin 5mg 5 mg PO SUTUTHSA 11/27/21 12/19/21 History tablet] metoprolol succinate 100 mg 100 mg PO DAILY #90 tab 12/02/21 12/18/21 Rx tablet,extended release 24 hr albuterol sulfate 90 mcg/actuation 2 puff IH QID PRN #8.5 g 12/17/21 12/18/21 Rx aerosol inhaler Clopidogrel Bisulfate [Clopidogrel 75 mg PO DAILY 12/19/21 12/19/21 History 75mg Tab] Furosemide [Furosemide 40MG tAB*] 40 mg PO DAILY 12/19/21 12/19/21 History Rosuvastatin Calcium 40 mg PO DAILY 12/19/21 12/19/21 History Allergies Allergy/AdvReac Type Severity Reaction Status Date / Time Penicillins Allergy Verified 12/18/21 11:04 sotalol Allergy Verified 12/18/21 11:04 iodine AdvReac Severe Anaphylaxis Verified 12/18/21 11:04 amiodarone AdvReac Intermediate Other Verified 12/18/21 22:48 codeine AdvReac Verified 12/18/21 11:04 Exam - Constitutional Constitutional:: Present: no acute distress, comfortable - HENMT Exam HENMT: Present: normocephalic - Eye Exam Eyes:: Present: normal appearance both eyes and related structures - Neck Exam Neck:: Present: normal visual inspection - Respiratory Exam Respiratory:: Present: able to speak in complete sentences, no respiratory distress - Cardiovascular Exam Cardiac:: Present: S1, S2 - GI Exam GI:: Present: soft - Skin Exam Skin: Present: warm, no rash - Neurological Exam Neurological: Present: alert, awake, normal cognition - Extremities Exam Extremities: Present: no cyanosis, no clubbing, no edema Internal Medicine - CN: Reslt - Labs CBC & Chem 7: 12/18/21 18:57 12/18/21 18:57 Labs: Short CBC 12/18/21 Range/Units 18:57 WBC 3.6 L (4.8-10.8) K/mm3 Hgb 11.6 L (14.1-18.0) g/dL Hct
--- NOTE | 2021-12-19 11:54 | PC.NURSE ---
Pt being taken over to the Covid unit at this time.
[2021-12-19 12:00] VITALS: PULSE 70
--- NOTE | 2021-12-19 14:17 | HMH.CNCARD ---
History of Present Illness Consult date: 12/19/21 Requesting physician: Miguel A Bernabe Consult reason: shortness of breath Chief complaint: Pneumonia, COVID, elevated troponins, A. flutter Additional Medical History:: 1. History of A. fib/atrial flutter with 3 separate ablation procedures (2009, [address] Schmidt) A. Chronic anticoagulation with warfarin 2. Hypertension 3. History of CHF with Cardiomyopathy A. Echo, 11/17/2021, mild LAE, normal LV size with mild concentric LVH. EF 50% with mild hypokinesis involving the apex and moderate hypokinesis of the inferior basal wall. Grade 2 diastolic dysfunction. Mild MR, TR and AR. 4. Renal artery stenosis status post stenting of dual artery supply to the left kidney with 3 MERVIN, 11/2021 5. Coronary artery disease with two-vessel stenting 11/2021 ANGIOGRAPHIC RESULTS The left main artery Normal The left anterior descending artery Is a proximal complex 90% stenosis with a mid vessel 90% stenosis. LAUREN II flow was present initially. Following stenting LAUREN-3 flow was present The circumflex artery Is a nondominant vessel with mild 10% atheromatous plaque. 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 The midportion has a concentric 80% stenosis. The FARFAN ventriculogram reveals Left ventricular dilatation with ejection fraction of 35 to 40% The left ventricular end-diastolic pressure Severely elevated at 45 to 50 mmHg Right renal artery singular and has mild nonflow limiting proximal 10 to 20% atheromatous plaque Left renal artery appears singular and has an ostial 90% stenosis IMPRESSION Critical two-vessel coronary disease as described above Successful stenting of the proximal and mid LAD critical disease reduced to 0% with 1 drug-eluting stent Severe disease in the mid dominant right coronary artery with successful stenting reducing the stenosis to 0% with 1 drug-eluting stent Reduced ejection fraction accompanied by severe to critically elevated LVEDP Mild right renal artery stenosisL Severe left renal artery stenosis PLAN 1. Aspirin Plavix plus Coumadin for 30 days then discontinue the aspirin and continue Plavix and Coumadin 2. LDL less than 55 to be achieved with high intensity statin 3. Patient requires significant diuresis. Currently his LVEDP is critically elevated. Patient will require admission over the weekend followed by diuresis. 4. Start Lasix 40 mg IV every 12 hours closely monitor chemistry panel. Patient is at increased risk for contrast acute tubular necrosis based on the LV dysfunction critically elevated LVEDP with baseline renal dysfunction and advanced age. 5. Has an outpatient we will address the severe left renal artery stenosis and proceed with right groin access for revascularization 6. Cardiac rehabilitation 7. Avoidance of tobacco products 8. Echocardiogram. If ejection fraction via echocardiogram is 35% or less patient should wear a LifeVest prior to discharge home 9. Standard therapy for ischemic heart disease 10. Standard therapy for systolic heart failure which should include carvedilol and ALEXANDRE inhibitor or Entresto Electronically signed by : Azael Canada MD 11/15/2021 16:17:51 History of present illness: 76-year-old male patient presents to the [facility] emergency department with reports of shortness of breath and concerns regarding pneumonia. He reports she was seen by PCP day before and was prescribed an inhaler which he has not started yet and had a chest x-ray performed that revealed atelectasis versus pneumonia in the left lung. He decided on coming to the emergency department to follow-up he also reports increasing cough and congestion since seen cardiology earlier in the day. He denies any chest pain. He denies exposure to any illness, uses CPAP at night. He also reports he is on Coumadin, aspirin, and Plavix Troponins were positive Is
[2021-12-19 16:00] VITALS: BP 113/56; PULSE 60; RESP 18; TEMP 36.9; O2SAT 95
--- NOTE | 2021-12-19 18:48 | PC.NURSE ---
Pt is alert and oriented x4. He remains on RA with O2 sats measuring mid-upper 90's. Afebrile this shift. He's ambulated to the bathroom with standby assist and tolerated well. Telemetry has been 1st degree av block. Bed is locked and in the lowest position. Call light within reach.
[2021-12-19 20:00] VITALS: BP 121/57; PULSE 63; PULSE 70; RESP 16; TEMP 36.8; O2SAT 95
[2021-12-20] VITALS: BP 141/57; PULSE 60; PULSE 66; RESP 20; TEMP 37.3; O2SAT 94
[2021-12-20 04:00] VITALS: BP 122/57; PULSE 60; PULSE 63; RESP 22; TEMP 37.1; O2SAT 94
[2021-12-20 04:43] VITALS: BMI 28.6
--- NOTE | 2021-12-20 05:05 | PC.NURSE ---
Addendum entered by Huong Gamble, RNA 12/20/21 05:20: HR= 60-66. Original Note: Pt is alert and oriented x4, goes to the bathroom independently. Pt wears BiPAP through night. O2 sat 93-95% on room air. Pt has rested throughout night and has had no complaints. Lung sounds are clear bilaterally.
[2021-12-20 06:42] LABS: Basophils % 1.1 % (0.1-2.0); Eosinophils % 1.4 % (0.1-12.0); Hematocrit 33.3 % (42.0-52.0); Hemoglobin 10.9 g/dL (14.1-18.0); Lymphocytes # 0.4 K/mm3 (0.7-4.5); Lymphocytes % 14.2 % (10-50); Mean Corpuscular HGB Conc 32.6 g/dL (31.8-35.4); Mean Corpuscular Hemoglobin 32.2 pg (27.0-31.2); Mean Corpuscular Volume 98.8 fl (80-94); Mean Platelet Volume 9.5 fl (7.4-10.4); Monocytes # 0.5 K/mm3 (0.1-1.0); Monocytes % 15.4 % (1.7-9.3); Neutrophils % 67.8 % (37.0-80.0); Platelet Count 168 K/mm3 (142-424); Red Blood Count 3.37 M/mm3 (4.60-6.20); White Blood Count 2.9 K/mm3 (4.8-10.8)
[2021-12-20 07:02] LABS: INR 2.75 (0.9-1.1); Prothrombin Time 28.8 seconds (10.1-12.5)
[2021-12-20 07:24] LABS: Anion Gap 11.8 mEq/L (5-15); Blood Urea Nitrogen 17 mg/dl (9-20); Calcium 8.3 mg/dl (8.4-10.2); Carbon Dioxide 25 mmol/L (22.0-30.0); Chloride 102 mmol/L (98-107); Creatinine Clearance Estimated 52 mL/min (50-200); Estimated Glomerular Filt Rate 46 ml/min (>60); GFR (African American) 55 ML/MIN (>60); Glucose 93 mg/dl (74-100); Potassium 3.8 mmoL/L (3.5-5.1); Sodium 135 mmol/L (136-145)
[2021-12-20 08:00] VITALS: BP 125/61; PULSE 94; RESP 20; TEMP 36.5; O2SAT 94
--- NOTE | 2021-12-20 09:04 | HMH.DCSUM ---
General - General Admission date:: 12/18/21 Discharge date: 12/20/21 HPI HPI: 76-year-old male patient presents to the [facility] emergency department with reports of shortness of breath and concerns regarding pneumonia. He reports she was seen by PCP day before and was prescribed an inhaler which he has not started yet and had a chest x-ray performed that revealed atelectasis versus pneumonia in the left lung. He decided on coming to the emergency department to follow-up he also reports increasing cough and congestion since seen cardiology earlier earlier in the day. He denies any chest pain. He denies exposure to any illness, uses CPAP at night. He also reports he is on Coumadin, aspirin, and Plavix Troponins were positive Is positive for COVID-19 Hospital Course Hospital Course: 76-year-old male patient presents to the [facility] emergency department with reports of shortness of breath and concerns regarding pneumonia. He reports she was seen by PCP day before and was prescribed an inhaler which he has not started yet and had a chest x-ray performed that revealed atelectasis versus pneumonia in the left lung. He decided on coming to the emergency department to follow-up he also reports increasing cough and congestion since seen cardiology earlier earlier in the day. He denies any chest pain. He denies exposure to any illness, uses CPAP at night. He also reports he is on Coumadin, aspirin, and Plavix Troponins were positive Is positive for COVID-19 Cardiology has seen and recommends: 1. Pneumonia with COVID. Defer to Pulmonary. 2. A. flutter with CVR. Likely reactionary to pulmonary issues. Continue warfarin and metoprolol. 3. Elevated troponins without acute EKG ST segment changes and no chest pain. Also, likely related to pulmonary issues/COVID infection. No further workup at this time. 4. CAD with recent coronary stenting. Continue DAPT until 01/01/2022 then stop ASA and continue plavix and warfarin. 5. DIANN with recent stenting of dual left renal arteries. Continue DAPT as noted above. Patient is stable from cardiac standpoint for discharge home when primary care and pulmonary see fit to discharge. Home medication recommendations: Metoprolol succinate 100 mg daily Warfarin as directed through Coumadin clinic Rosuvastatin 40 mg daily Plavix 75 mg daily Aspirin 81 mg daily until 01/01/2022 then stop Follow-up in our office as previously directed. Pulmonology has seen and recommends: Assessment and Plan for all problems:: #History of COPD: #COVID-19 pneumonia: Greater than 31-yrop-dxeo smoking history, carries a diagnosis COPD but not on any baseline inhalers. Recently prescribed albuterol. Not using any home oxygen. Received 2 dose of COVID-19 vaccine. Presents worsening respiratory distress, COVID-19 PCR positive. X-ray from 12/18/21 showed left lower lobe faint airspace disease with no dense consolidation. Patient examination today on room air saturating 95%. Does not appear to be in any respiratory distress. No wheezing on auscultation. He also carries a diagnosis sleep apnea, using NIV at night, not needing any oxygen with his NIV. Plan: -Given patient's mild symptoms -we will not initiate any active treatment for COVID-19 pneumonia. We will recommend treating the patient with Paxlovid x5 days to prevent progressing to severe COVID-19 pneumonia -Doxycycline x5 days. -Combivent Q6 hrs PRN #Thank you for involving pulmonary in this patient care. We will follow the patient in pulmonary clinic in 4 to 6 weeks with a full PFT and a 6-minute walk testing. COVID-19 Pneumonia Received Paxlovid Doxycycline x5 days. Combivent Q6 hrs PRN Non-STEMI (non-ST elevated myocardial infarction) No acute EKG ST segment changes and no chest pain. Also, likely related to pulmonary issues/COVID infection Afib Metoprolol, Coumadin CAD (coronary
--- NOTE | 2021-12-23 13:52 | CARE MANAGER ---
Contacted patient related to hospital discharge. States he is having some nausea due to antibiotics, but is doing better. Shortness of breath has improved. He is aware of follow up appointments and denies any questions or concerns. MEME Dugan
== END 2021-12-20 10:41 | disposition home or self-care (01) | DRG 177 ==
LOC: ER 20:26 → 2ND 12-19 01:36 → ICU 12-19 11:24
PROVIDERS: Nurse Practitioner Family; Admitting Provider Emergency Medicine; Emergency Provider Emergency Medicine; PCP Family Medicine; Visit Provider Family Medicine
DX: U07.1 COVID-19 (principal); I21.4 Non-ST elevation (NSTEMI) myocardial infarction; J12.82 Pneumonia due to coronavirus disease 2019; I42.9 Cardiomyopathy, unspecified; I50.20 Unspecified systolic (congestive) heart failure; I48.92 Unspecified atrial flutter; Z95.5 Presence of coronary angioplasty implant and graft; I48.0 Paroxysmal atrial fibrillation; I11.0 Hypertensive heart disease with heart failure; I25.118 Atherosclerotic heart disease of native coronary artery with other forms of angina pectoris; Z79.01 Long term (current) use of anticoagulants; Z87.891 Personal history of nicotine dependence; I70.1 Atherosclerosis of renal artery; Z82.49 Family history of ischemic heart disease and other diseases of the circulatory system; I25.2 Old myocardial infarction
CPT/HCPCS: 36415; 71046; 80048; 80053; 80061; 80076; 83605; 84443; 84484; 85025; 85610; 87040; 93005; 94640; 99285; G0103; C9803; U0003; U0005

== ENCOUNTER 2021-12-30 12:54 | Outpatient (CLI) | payer MEDICARE, OTHER, SELFPAY ==
[2021-12-30 13:42] LABS: INR 4.39 (0.9-1.1); Prothrombin Time 44.5 seconds (10.1-12.5)
[2021-12-30 14:36] LABS: PHA INR Fingerstick 4.1 (0.9-1.1)
== END 2021-12-30 14:56 | disposition home or self-care (01) ==
PROVIDERS: PCP Family Medicine; Visit Provider Physician Assistant
DX: Z51.81 Encounter for therapeutic drug level monitoring (principal); Z79.01 Long term (current) use of anticoagulants; I48.0 Paroxysmal atrial fibrillation
CPT/HCPCS: 36415; 85610; 99211; G0463

== ENCOUNTER → 2021-12-31 06:40 | Outpatient (CLI) | payer MEDICARE, OTHER, SELFPAY ==
[2021-12-30 18:48] LABS: Adenovirus,PCR Not Detected (NotDetected); Coronavirus 229E Not Detected (NotDetected); Coronavirus NL63 Not Detected (NotDetected); Coronavirus OC43 Not Detected (NotDetected); Coronovirus HKU1,PCR Not Detected (NotDetected); Human Metapneumovirus Not Detected (NotDetected)
[2021-12-30 18:50] LABS: Bordetella Pertussis Not Detected (NotDetected); Chlamydophila Pneumoniae, PCR Not Detected (NotDetected); Influenza AH1, 2009 Not Detected (NotDetected); Influenza AH1, PCR Not Detected (NotDetected); Influenza AH3,PCR Not Detected (NotDetected); Influenza B, PCR Not Detected (NotDetected); Mycoplasma Pneumoniae, PCR Not Detected (NotDetected); Parainfluenza 1, PCR Not Detected (NotDetected); Parainfluenza 2, PCR Not Detected (NotDetected); Parainfluenza 3, PCR Not Detected (NotDetected); Parainfluenza 4, PCR Not Detected (NotDetected); Respiratory Syncytial Virus Not Detected (NotDetected)
[2021-12-30 22:23] LABS: Influenza A, PCR Not Detected (NotDetected); Rhinovirus/Enterovirus Not Detected (NotDetected)
[2021-12-30 22:24] LABS: Coronavirus 19, PCR Detected (NotDetected)
== END ==
PROVIDERS: PCP Family Medicine; Visit Provider Family Medicine
DX: U07.1 COVID-19 (principal); I48.0 Paroxysmal atrial fibrillation
CPT/HCPCS: 87581; 87632; 87798; C9803; U0003; U0005

== ENCOUNTER 2022-01-09 12:58 | Outpatient (CLI) | payer MEDICARE, OTHER, SELFPAY ==
[2022-01-09 15:54] LABS: PHA INR Fingerstick 3.6 (0.9-1.1)
== END 2022-01-09 16:07 | disposition home or self-care (01) ==
LOC: ACC 12:59
PROVIDERS: PCP Family Medicine; Visit Provider Physician Assistant
DX: Z51.81 Encounter for therapeutic drug level monitoring (principal); Z79.01 Long term (current) use of anticoagulants; I48.0 Paroxysmal atrial fibrillation
CPT/HCPCS: 85610; 99211; G0463

== ENCOUNTER → 2022-01-30 06:31 | Outpatient (CLI) | payer MEDICARE, OTHER, SELFPAY | PROVIDERS: PCP Family Medicine; Visit Provider Family Medicine | DX: Z51.81 Encounter for therapeutic drug level monitoring (principal); Z79.01 Long term (current) use of anticoagulants; I48.0 Paroxysmal atrial fibrillation | CPT/HCPCS: 94762; C9803; U0003; U0005 ==

== ENCOUNTER 2022-01-30 12:55 | Outpatient (CLI) | payer MEDICARE, OTHER, SELFPAY ==
[2022-01-30 14:25] LABS: PHA INR Fingerstick 3.2 (0.9-1.1)
== END 2022-01-30 16:00 | disposition home or self-care (01) ==
PROVIDERS: PCP Family Medicine; Visit Provider Physician Assistant
DX: Z20.822 Contact with and (suspected) exposure to COVID-19 (principal); Z79.01 Long term (current) use of anticoagulants; R06.09 Other forms of dyspnea; Z51.81 Encounter for therapeutic drug level monitoring
CPT/HCPCS: 85610; 94762; 99211; C9803; G0463; U0003; U0005

== ENCOUNTER 2022-02-18 13:04 | Outpatient (CLI) | payer MEDICARE, OTHER, SELFPAY ==
[2022-02-18 14:07] LABS: PHA INR Fingerstick 2.8 (0.9-1.1)
== END 2022-02-18 14:36 ==
LOC: ACC 13:05
PROVIDERS: PCP Family Medicine; Visit Provider Physician Assistant
DX: Z51.81 Encounter for therapeutic drug level monitoring (principal); Z79.01 Long term (current) use of anticoagulants; I48.0 Paroxysmal atrial fibrillation
CPT/HCPCS: 85610; 99211; G0463

== ENCOUNTER → 2022-02-25 09:42 | Outpatient (CLI) | payer MEDICARE, OTHER, SELFPAY ==
[2022-02-25 10:35] VITALS: PULSE 58; PULSE 63
== END ==
PROVIDERS: PCP Family Medicine; Visit Provider Internal Medicine Pulmonary Disease
DX: R06.09 Other forms of dyspnea (principal)
CPT/HCPCS: 94060; 94618; 94640; 94727; 94729

== ENCOUNTER 2022-03-18 12:59 | Outpatient (CLI) | payer MEDICARE, OTHER, SELFPAY ==
[2022-03-18 15:52] LABS: PHA INR Fingerstick 2.3 (0.9-1.1)
== END 2022-03-18 16:21 ==
LOC: ACC 13:00
PROVIDERS: PCP Family Medicine; Visit Provider Physician Assistant
DX: Z51.81 Encounter for therapeutic drug level monitoring (principal); Z79.01 Long term (current) use of anticoagulants; I48.0 Paroxysmal atrial fibrillation
CPT/HCPCS: 85610; 99211; G0463

== ENCOUNTER → 2022-03-26 11:51 | Outpatient (CLI) | payer MEDICARE, OTHER, SELFPAY ==
--- NOTE | 2022-03-26 11:56 | XR_ITS ---
FINAL REPORT CLINICAL HISTORY: soa x 1 month COMPARISON: 12/18/2021 FINDINGS: TWO-VIEW CHEST There is cardiomegaly. The mediastinum is normal. There is mild bibasilar atelectasis or scar. There is no pneumothorax. IMPRESSION: No acute cardiopulmonary process. Reviewed, Interpreted and Dictated by Emeka Milian III, MD Transcribed by Jen Garcia Authenticated and [facility]
== END ==
PROVIDERS: PCP Family Medicine; Visit Provider Physician Assistant
DX: Z51.81 Encounter for therapeutic drug level monitoring (principal); Z79.01 Long term (current) use of anticoagulants; I48.0 Paroxysmal atrial fibrillation
CPT/HCPCS: 71046

== ENCOUNTER 2022-04-29 13:00 | Outpatient (CLI) | payer MEDICARE, OTHER, SELFPAY ==
[2022-04-29 15:27] LABS: PHA INR Fingerstick 3.5 (0.9-1.1)
== END 2022-04-29 15:30 ==
LOC: ACC 13:01
PROVIDERS: PCP Family Medicine; Visit Provider Physician Assistant
DX: Z51.81 Encounter for therapeutic drug level monitoring (principal); Z79.01 Long term (current) use of anticoagulants; I48.0 Paroxysmal atrial fibrillation
CPT/HCPCS: 85610; 99211; G0463

== ENCOUNTER 2022-06-18 12:56 | Outpatient (CLI) | payer MEDICARE, OTHER, SELFPAY ==
[2022-06-18 14:04] LABS: PHA INR Fingerstick 2.1 (0.9-1.1)
== END 2022-06-18 14:08 ==
LOC: ACC 12:56
PROVIDERS: PCP Family Medicine; Visit Provider Physician Assistant
DX: Z51.81 Encounter for therapeutic drug level monitoring (principal); Z79.01 Long term (current) use of anticoagulants; I48.0 Paroxysmal atrial fibrillation
CPT/HCPCS: 85610; 99211; G0463

== ENCOUNTER → 2022-07-01 08:30 | Outpatient (CLI) | payer MEDICARE, OTHER, SELFPAY ==
--- NOTE | 2022-07-01 08:38 | CA_ITS ---
APPROVED REPORT EXAM: Comprehensive 2D, Doppler, and color-flow Echocardiogram [facility] Staff Nurse: Aarti Ortega CRT Ht: 5 ft 8 in Wt: 191lbs BSA: 2.00 BP: 139/47 mmHg Indications: CVA/TIA, Non STEMI, CAD, covid 2019, CVA, Afib, SOB, Ef 50% on echo 11-15-21. 35-40% ef on heart cath 11-15-21 2D Dimensions LVOT 2.07 cm (M/F) 1.5-2.5 LA Volume 46.20 mL LA Volume Index 22.50 mL/m2 (M/F) 16-34 M-Mode Dimensions RVDd 2.97 cm (0.9-2.6) LA Diam 5.09 cm (1.9-4.0) LVDd 6.26 cm (3.5-5.7) Ao Diam 5.04 cm (2.0-3.7) LVDs 3.96 cm (3.5-5.7) IVSd 1.72 cm (0.6-1.1) PWd 0.93 cm (0.6-1.1) EF (Teich) 65.60% FS 36.70% EDV (Teich) 198.30 mL TAPSE 1.70 (<1.7) ESV (Teich) 68.30 mL LV Diastology E Decel Time 207.00 (160-240 msec) E/A Ratio 2.37 MED E' 5.70 (< 7 cm/sec) MED A' 4.50 cm/s E'/MED E' Ratio 16.35 (>14) LAT E' 7.00 (<10 cm/sec) LAT A' 4.00 cm/s E/LAT E' Ratio 13.31 (>14) Aortic Valve AI PHT 465.00 ms AO Peak GR. 6.30 mmHg Mitral Valve MV E Max Boubacar. 93.00 (40-130 cm/s) MV A Velocity 39.00 (40-130 cm/s) E/A Ratio 2.37 MV Decel. Time 207.00 (160-240 ms) MV PHT 61.00 ms Pulmonary Valve PV Peak Velocity 147.00 (50-150 cm/s) Tricuspid Valve TR P. Velocity 382.00 cm/s RAP Estimate 10.00 mmHg RVSP 68.30 mmHg Left Ventricle Left atrium is moderately enlarged the left ventricle is normal size mild concentric left ventricular hypertrophy, estimated ejection fraction 50% with no regional wall motion abnormality diastolic parameters are inconclusive. Right Ventricle Right atrium and right ventricle are mildly enlarged with normal contractility. Aortic Valve Aortic valve is thickened and calcified without aortic stenosis, there is trace aortic insufficiency. Mitral Valve Mitral valve leaflets are minimally thickened, there is mild mitral regurgitation. Tricuspid Valve Tricuspid valve grossly normal, there is mild tricuspid regurgitation, tricuspid regurgitation jet velocity is inadequate for calculation of the right ventricular systolic pressure. Pulmonic Valve Pulmonic valve is poorly visualized. Great Vessels Aortic root and ascending aorta appears to be mildly dilated. Inferior vena cava is mildly dilated with less than 50% inspiratory collapse. Pericardium No significant pericardial effusion noted. Conclusion 1. Biatrial enlargement, normal left ventricular size, mild concentric left ventricular hypertrophy, estimated ejection fraction 50% with no regional wall motion abnormality, diastolic parameters are inconclusive. 2. Mildly enlarged right ventricle with normal contractility. 3. Trace aortic, mild mitral and tricuspid regurgitation. 4. No significant pericardial effusion noted. 5. Inferior vena cava is mildly dilated with less than 50% inspiratory collapse. Electronically signed by : Case Johnson MD 07/02/2022 06:00:45
== END ==
PROVIDERS: PCP Family Medicine; Visit Provider Internal Medicine
DX: E78.2 Mixed hyperlipidemia (principal); I10 Essential (primary) hypertension; I25.119 Atherosclerotic heart disease of native coronary artery with unspecified angina pectoris; I48.0 Paroxysmal atrial fibrillation; I50.9 Heart failure, unspecified; I70.1 Atherosclerosis of renal artery; J44.9 Chronic obstructive pulmonary disease, unspecified; N28.9 Disorder of kidney and ureter, unspecified; R06.09 Other forms of dyspnea; Z86.73 Personal history of transient ischemic attack (TIA), and cerebral infarction without residual deficits
CPT/HCPCS: 93306

== ENCOUNTER → 2022-07-02 12:24 | Outpatient (CLI) | payer MEDICARE, OTHER, SELFPAY ==
[2022-07-02 12:49] LABS: Basophils # 0.1 K/mm3 (0-0.2); Basophils % 0.9 % (0.1-2.0); Eosinophils # 0.1 K/mm3 (0.0-0.4); Hematocrit 39.9 % (42.0-52.0); Hemoglobin 12.8 g/dL (14.1-18.0); Lymphocytes # 0.7 K/mm3 (0.7-4.5); Lymphocytes % 13.1 % (10-50); Mean Corpuscular HGB Conc 32.1 g/dL (31.8-35.4); Mean Corpuscular Hemoglobin 31.6 pg (27.0-31.2); Mean Corpuscular Volume 98.4 fl (80-94); Mean Platelet Volume 8.6 fl (7.4-10.4); Monocytes # 0.4 K/mm3 (0.1-1.0); Monocytes % 7.3 % (1.7-9.3); Neutrophils # 4.1 K/mm3 (1.8-7.8); Neutrophils % 76.7 % (37.0-80.0); Platelet Count 210 K/mm3 (142-424); Red Blood Count 4.06 M/mm3 (4.60-6.20); Red Cell Distribution Width 16.3 % (11.5-17.5); White Blood Count 5.3 K/mm3 (4.8-10.8)
[2022-07-02 14:09] LABS: Anion Gap 12.4 mEq/L (5-15); Bilirubin,Direct 0.3 mg/dl (0.0-0.4); Blood Urea Nitrogen 30 mg/dl (9-20); Calcium 9.7 mg/dl (8.4-10.2); Carbon Dioxide 26 mmol/L (22.0-30.0); Chloride 108 mmol/L (98-107); Estimated Glomerular Filt Rate 46 ml/min (>60); GFR (African American) 55 ML/MIN (>60); Glucose 83 mg/dl (74-100); Magnesium 2.3 mg/dl (1.6-2.3); Potassium 4.4 mmoL/L (3.5-5.1); Sodium 142 mmol/L (136-145)
[2022-07-02 14:10] LABS: Alanine Aminotransferase 29 U/L (12-78); Albumin Level 4.3 g/dl (3.5-5.0); Alkaline Phosphatase 94 U/L (38-126); Aspartate Amino Transferase 38 U/L (17-59); Bilirubin,Indirect 0.7 mg/dL (0.0-0.9); Bilirubin,Unconjugated 0.7 mg/dL (0.0-1.1); Chol/HDL Ratio 3.2 (1-3.5); Cholesterol 111 mg/dl (140-200); HDL Cholesterol 35 mg/dl (40-60); Total Protein,Serum 7.3 g/dl (6.3-8.2); Triglycerides 105 mg/dl (30-150); VLDL Cholesterol 21 mg/dL (0-40)
[2022-07-02 14:19] LABS: NT Pro Brain Natriuretic Pep. 2860 pg/mL (0-450)
[2022-07-02 14:21] LABS: Direct LDL Cholesterol 45.36 mg/dL (100-129)
[2022-07-02 14:26] LABS: Free T4 (Free Thyroxine) 1.14 ng/dl (0.78-2.19)
[2022-07-02 14:41] LABS: Thyroid Stimulating Hormone 3.66 uIU/mL (0.465-4.68)
== END ==
PROVIDERS: PCP Family Medicine; Visit Provider Physician Assistant
DX: E78.2 Mixed hyperlipidemia (principal); I10 Essential (primary) hypertension; I25.119 Atherosclerotic heart disease of native coronary artery with unspecified angina pectoris; I48.0 Paroxysmal atrial fibrillation; I50.9 Heart failure, unspecified; I70.1 Atherosclerosis of renal artery; J44.9 Chronic obstructive pulmonary disease, unspecified; N28.9 Disorder of kidney and ureter, unspecified; R06.09 Other forms of dyspnea; Z86.73 Personal history of transient ischemic attack (TIA), and cerebral infarction without residual deficits
CPT/HCPCS: 36415; 80048; 80061; 80076; 83735; 83880; 84439; 84443; 85025

== ENCOUNTER 2022-07-14 12:59 | Outpatient (RCR) | payer MEDICARE, OTHER, SELFPAY | END 2022-10-15 09:45 | disposition home or self-care (01) | LOC: PT 12:59 | PROVIDERS: Visit Provider Internal Medicine | DX: J44.9 Chronic obstructive pulmonary disease, unspecified (principal); I25.10 Atherosclerotic heart disease of native coronary artery without angina pectoris; R06.09 Other forms of dyspnea; I50.9 Heart failure, unspecified; I48.91 Unspecified atrial fibrillation; Z86.73 Personal history of transient ischemic attack (TIA), and cerebral infarction without residual deficits | CPT/HCPCS: 93798 ==

== ENCOUNTER 2022-07-16 13:12 | Outpatient (CLI) | payer MEDICARE, OTHER, SELFPAY ==
[2022-07-16 15:55] LABS: PHA INR Fingerstick 1.3 (0.9-1.1)
== END 2022-07-16 15:58 ==
LOC: ACC 13:14
PROVIDERS: PCP Family Medicine; Visit Provider Family Medicine
DX: Z51.81 Encounter for therapeutic drug level monitoring (principal); Z79.01 Long term (current) use of anticoagulants; I48.0 Paroxysmal atrial fibrillation
CPT/HCPCS: 85610; 99211; G0463

== ENCOUNTER 2022-07-30 13:56 | Outpatient (CLI) | payer MEDICARE, OTHER, SELFPAY ==
[2022-07-30 15:43] LABS: PHA INR Fingerstick 1.9 (0.9-1.1)
== END 2022-07-30 15:56 ==
LOC: ACC 13:57
PROVIDERS: PCP Family Medicine; Visit Provider Family Medicine
DX: Z51.81 Encounter for therapeutic drug level monitoring (principal); Z79.01 Long term (current) use of anticoagulants
CPT/HCPCS: 85610; 99211; G0463

== ENCOUNTER 2022-08-27 14:24 | Outpatient (CLI) | payer MEDICARE, OTHER, SELFPAY ==
[2022-08-27 15:06] LABS: PHA INR Fingerstick 2.4 (0.9-1.1)
== END 2022-08-27 15:08 ==
LOC: ACC 14:25
PROVIDERS: PCP Family Medicine; Visit Provider Family Medicine
DX: Z51.81 Encounter for therapeutic drug level monitoring (principal); Z79.01 Long term (current) use of anticoagulants; I48.0 Paroxysmal atrial fibrillation
CPT/HCPCS: 85610; 99211; G0463

== ENCOUNTER 2022-09-24 14:19 | Outpatient (CLI) | payer MEDICARE, OTHER, SELFPAY ==
[2022-09-24 15:29] LABS: PHA INR Fingerstick 2.1 (0.9-1.1)
== END 2022-09-24 15:37 ==
LOC: ACC 14:20
PROVIDERS: PCP Family Medicine; Visit Provider Family Medicine
DX: Z51.81 Encounter for therapeutic drug level monitoring (principal); Z79.01 Long term (current) use of anticoagulants; I48.0 Paroxysmal atrial fibrillation
CPT/HCPCS: 85610; 99211; G0463

== ENCOUNTER 2022-10-27 13:03 | Outpatient (CLI) | payer MEDICARE, OTHER, SELFPAY ==
[2022-10-27 14:40] LABS: PHA INR Fingerstick 2.3 (0.9-1.1)
== END 2022-10-27 15:07 ==
PROVIDERS: PCP Family Medicine; Visit Provider Physician Assistant
DX: Z51.81 Encounter for therapeutic drug level monitoring (principal); Z79.01 Long term (current) use of anticoagulants; I48.0 Paroxysmal atrial fibrillation
CPT/HCPCS: 85610; 99211; G0463

== ENCOUNTER 2022-11-21 16:29 | Emergency (ER) | payer MEDICARE, OTHER, SELFPAY ==
[2022-11-21 16:32] VITALS: BP 148/60; PULSE 60; RESP 16; TEMP 36.5; O2SAT 98; BMI 27.6
[2022-11-21 16:37] VITALS: BP 148/60; PULSE 60; O2SAT 98
--- NOTE | 2022-11-21 16:58 | HMH.EDLOEX ---
Discharge Plan Disposition Patient Disposition: Home, Self-Care Prescriptions Prescriptions: New cephalexin 500 mg capsule 500 mg PO QID 10 Days Qty: 40 0RF No Action albuterol sulfate 90 mcg/actuation HFA aerosol inhaler 2 puff IH QID PRN (Reason: shortness of breath or wheezing) Qty: 8.5 10RF diltiazem HCl 120 mg tablet 120 mg PO Bevespi Aerosphere 9-4.8 mcg HFA aerosol inhaler 2 puff inhalation BID 90 Days Qty: 10.7 3RF metoprolol succinate 100 mg tablet extended release 24 hr 100 mg PO DAILY Qty: 90 3RF warfarin 2.5 mg tablet 2.5 mg PO DAILY Qty: 90 3RF spironolactone [Aldactone] 25 mg tablet 25 mg PO DAILY Qty: 90 3RF furosemide 40 MG tablet 40 mg PO DAILY clopidogrel 75 MG tablet 75 mg PO DAILY rosuvastatin 40 MG tablet 40 mg PO DAILY Referrals Follow up/Referrals: Miguel A Bernabe MD [Primary Care Provider] - See instructions Activity Restrictions/Add. Instructions Additional Instructions/Restrictions: Follow-up with your primary care doctor in about 5 days if your symptoms do not improve. Return immediately to the emergency department if you feel worse in any way. Clinical Impressions Clinical Impression: Cellulitis Discharge ED Provider: Raymundo Craig Lower Extremity Injury [facility] General Chief Complaint: Extremity Injury, Lower Stated Complaint: right leg swollen,red and hot Time Seen by Provider: 11/21/22 16:54 Mode of Arrival: Ambulatory Source of Information: Patient Limitations: No Limitations Description of Symptoms (Recalled from ER Triage Doc. by RN): Presents to ED with complaints of bilteral LE injuries due to mechanical fall x 2 weeks ago. +Warfarin. Denies head trauma. History of Present Illness HPI Narrative: The patient presents to the emergency department 2 weeks after having fallen and injured his lower leg. He is accompanied by his . They are concerned for infection. The patient denies having had a fever. He denies having struck his head. There is no nausea vomiting or diarrhea. The patient is unsure of his last tetanus immunization Related Data Home Medications Medication Instructions Recorded Confirmed clopidogrel 75 mg tablet 75 mg PO DAILY PLATELET INHIBITOR 12/19/21 08/21/22 furosemide 40 mg tablet 40 mg PO DAILY Fluid 12/19/21 08/21/22 rosuvastatin 40 mg tablet 40 mg PO DAILY Cholesterol 12/19/21 08/21/22 diltiazem HCl 120 mg tablet 120 mg PO 03/17/22 08/21/22 Previous Rx's Medication Instructions Recorded metoprolol succinate 100 mg 100 mg PO DAILY htn #90 tabs 12/02/21 tablet,extended release 24 hr albuterol sulfate 90 mcg/actuation 2 puff inhalation QID PRN 12/17/21 aerosol inhaler shortness of breath or wheezing #8.5 grams warfarin 2.5 mg tablet 2.5 mg PO DAILY #90 tabs 04/30/22 spironolactone 25 mg tablet 25 mg PO DAILY #90 tabs 07/03/22 (Aldactone) glycopyrrolate 9 mcg-formoterol 2 puff inhalation BID 90 days 08/21/22 4.8 mcg HFA aerosol inhaler #10.7 grams (Bevespi Aerosphere) cephalexin 500 mg capsule 500 mg PO QID 10 days #40 caps 11/21/22 Allergies Allergy/AdvReac Type Severity Reaction Status Date / Time Penicillins Allergy Verified 08/21/22 14:23 sotalol Allergy Verified 08/21/22 14:23 iodine AdvReac Severe Anaphylaxis Verified 08/21/22 14:23 amiodarone AdvReac Intermediate Other Verified 08/21/22 14:23 codeine AdvReac Verified 08/21/22 14:23 PFSH [facility] Disclaimer: The information contained in this section may have been updated after the patient was seen, as this information can be updated by other users. Medical History Amiodarone pulmonary toxicity CHF (congestive heart failure) COPD (chronic obstructive pulmonary disease) Dyspnea on exertion History of 2019 novel coronavirus disease (COVID-19) History of coronary angiogram History of CVA (cerebrovascular accident) HLD (hyperlipidemia) Nausea Obstructive sleep apnea syndrome Pulmonary emphysema Restricti
[2022-11-21 17:00] VITALS: BP 143/53; PULSE 60; O2SAT 99
[2022-11-21 17:21] VITALS: BP 143/53; PULSE 60; RESP 16; TEMP 36.5; O2SAT 99
== END 2022-11-21 17:21 | disposition home or self-care (01) ==
LOC: ER 17:05
PROVIDERS: Emergency Provider Emergency Medicine; PCP Family Medicine
DX: I50.9 Heart failure, unspecified; J44.9 Chronic obstructive pulmonary disease, unspecified; E78.5 Hyperlipidemia, unspecified; G47.33 Obstructive sleep apnea (adult) (pediatric); Z86.73 Personal history of transient ischemic attack (TIA), and cerebral infarction without residual deficits; Z87.891 Personal history of nicotine dependence; Z79.01 Long term (current) use of anticoagulants; L03.115 Cellulitis of right lower limb; S80.811S Abrasion, right lower leg, sequela; W19.XXXS Unspecified fall, sequela; Z23 Encounter for immunization
CPT/HCPCS: 90715; 96372; 99283; 99284

== ENCOUNTER 2022-11-26 13:04 | Outpatient (CLI) | payer MEDICARE, OTHER, SELFPAY ==
[2022-11-26 13:28] LABS: PHA INR Fingerstick 1.9 (0.9-1.1)
== END 2022-11-26 13:27 ==
LOC: ACC 13:05
PROVIDERS: PCP Family Medicine; Visit Provider Physician Assistant
DX: Z51.81 Encounter for therapeutic drug level monitoring (principal); Z79.01 Long term (current) use of anticoagulants; I48.0 Paroxysmal atrial fibrillation
CPT/HCPCS: 85610; 99211; G0463

== ENCOUNTER 2022-12-24 12:50 | Outpatient (CLI) | payer MEDICARE, OTHER, SELFPAY ==
[2022-12-24 13:11] LABS: PHA INR Fingerstick 1.9 (0.9-1.1)
== END 2022-12-24 13:13 ==
LOC: ACC 12:51
PROVIDERS: PCP Family Medicine; Visit Provider Physician Assistant
DX: Z79.01 Long term (current) use of anticoagulants (principal); Z51.81 Encounter for therapeutic drug level monitoring; I48.0 Paroxysmal atrial fibrillation
CPT/HCPCS: 85610; 99211; G0463

== ENCOUNTER → 2022-12-30 13:36 | Outpatient (CLI) | payer MEDICARE, OTHER, SELFPAY ==
[2022-12-30 15:09] LABS: Free T4 (Free Thyroxine) 1.13 ng/dl (0.78-2.19)
[2022-12-30 15:47] LABS: Alanine Aminotransferase 28 U/L (12-78); Albumin Level 3.8 g/dl (3.5-5.0); Alkaline Phosphatase 101 U/L (38-126); Anion Gap 11.5 mEq/L (5-15); Aspartate Amino Transferase 40 U/L (17-59); Bilirubin,Indirect 0.7 mg/dL (0.0-0.9); Bilirubin,Total 0.7 mg/dl (0.2-1.3); Bilirubin,Unconjugated 0.7 mg/dL (0.0-1.1); Blood Urea Nitrogen 27 mg/dl (9-20); Calcium 9.7 mg/dl (8.4-10.2); Carbon Dioxide 26 mmol/L (22.0-30.0); Chloride 107 mmol/L (98-107); Chol/HDL Ratio 2.2 (1-3.5); Cholesterol 95 mg/dl (140-200); Estimated Glomerular Filt Rate 39 ml/min (>60); GFR (African American) 48 ML/MIN (>60); Glucose 102 mg/dl (74-100); HDL Cholesterol 44 mg/dl (40-60); Magnesium 2.3 mg/dl (1.6-2.3); Potassium 4.5 mmoL/L (3.5-5.1); Sodium 140 mmol/L (136-145); Total Protein,Serum 6.8 g/dl (6.3-8.2); Triglycerides 74 mg/dl (30-150); VLDL Cholesterol 15 mg/dL (0-40)
[2022-12-30 15:59] LABS: Direct LDL Cholesterol 38.34 mg/dL (100-129)
[2022-12-30 16:18] LABS: Thyroid Stimulating Hormone 4.47 uIU/mL (0.465-4.68)
[2022-12-30 22:45] LABS: Basophils # 0.1 K/mm3 (0-0.2); Basophils % 0.9 % (0.1-2.0); Eosinophils # 0.5 K/mm3 (0.0-0.4); Eosinophils % 9.4 % (0.1-12.0); Hematocrit 41.3 % (42.0-52.0); Hemoglobin 12.9 g/dL (14.1-18.0); Lymphocytes # 0.6 K/mm3 (0.7-4.5); Lymphocytes % 10.7 % (10-50); Mean Corpuscular HGB Conc 31.3 g/dL (31.8-35.4); Mean Corpuscular Hemoglobin 31.2 pg (27.0-31.2); Mean Corpuscular Volume 99.6 fl (80-94); Mean Platelet Volume 9.9 fl (7.4-10.4); Monocytes # 0.6 K/mm3 (0.1-1.0); Monocytes % 10.8 % (1.7-9.3); Neutrophils # 3.7 K/mm3 (1.8-7.8); Neutrophils % 68.3 % (37.0-80.0); Platelet Count 220 K/mm3 (142-424); Red Blood Count 4.14 M/mm3 (4.60-6.20); Red Cell Distribution Width 15.8 % (11.5-17.5); White Blood Count 5.4 K/mm3 (4.8-10.8)
== END ==
PROVIDERS: PCP Family Medicine; Visit Provider Nurse Practitioner
DX: E78.5 Hyperlipidemia, unspecified (principal); I10 Essential (primary) hypertension; I25.10 Atherosclerotic heart disease of native coronary artery without angina pectoris; I48.91 Unspecified atrial fibrillation; I50.9 Heart failure, unspecified; I70.1 Atherosclerosis of renal artery; N28.9 Disorder of kidney and ureter, unspecified; R06.09 Other forms of dyspnea; Z86.73 Personal history of transient ischemic attack (TIA), and cerebral infarction without residual deficits
CPT/HCPCS: 36415; 80048; 80061; 80076; 83735; 84439; 84443; 85025

== ENCOUNTER 2023-01-21 13:02 | Outpatient (CLI) | payer MEDICARE, OTHER, SELFPAY ==
[2023-01-21 13:27] LABS: PHA INR Fingerstick 1.8 (0.9-1.1)
== END 2023-01-21 13:29 ==
LOC: ACC 13:03
PROVIDERS: PCP Family Medicine; Visit Provider Family Medicine
DX: Z79.01 Long term (current) use of anticoagulants (principal); Z51.81 Encounter for therapeutic drug level monitoring; I48.0 Paroxysmal atrial fibrillation
CPT/HCPCS: 85610; 99211; G0463

== ENCOUNTER 2023-02-18 13:03 | Outpatient (CLI) | payer MEDICARE, OTHER, SELFPAY ==
[2023-02-18 15:05] LABS: PHA INR Fingerstick 1.8 (0.9-1.1)
== END 2023-02-18 15:49 ==
PROVIDERS: PCP Family Medicine; Visit Provider Physician Assistant
DX: Z79.01 Long term (current) use of anticoagulants (principal); Z51.81 Encounter for therapeutic drug level monitoring; I48.0 Paroxysmal atrial fibrillation
CPT/HCPCS: 85610; 99211; G0463

== ENCOUNTER 2023-03-18 12:46 | Outpatient (CLI) | payer MEDICARE, OTHER, SELFPAY ==
[2023-03-18 14:41] LABS: PHA INR Fingerstick 1.8 (0.9-1.1)
== END 2023-03-18 14:44 ==
LOC: ACC 12:47
PROVIDERS: PCP Family Medicine; Visit Provider Physician Assistant
DX: Z79.01 Long term (current) use of anticoagulants (principal); Z51.81 Encounter for therapeutic drug level monitoring; I48.0 Paroxysmal atrial fibrillation
CPT/HCPCS: 85610; 99211; G0463

== ENCOUNTER 2023-04-15 12:51 | Outpatient (CLI) | payer MEDICARE, OTHER, SELFPAY ==
[2023-04-15 13:57] LABS: PHA INR Fingerstick 1.5 (0.9-1.1)
== END 2023-04-15 14:05 ==
LOC: ACC 12:53
PROVIDERS: PCP Family Medicine; Visit Provider Physician Assistant
DX: Z79.01 Long term (current) use of anticoagulants (principal); Z51.81 Encounter for therapeutic drug level monitoring; I48.0 Paroxysmal atrial fibrillation
CPT/HCPCS: 85610; 99211; G0463

== ENCOUNTER 2023-04-29 12:56 | Outpatient (CLI) | payer MEDICARE, OTHER, SELFPAY ==
[2023-04-29 14:43] LABS: PHA INR Fingerstick 2.3 (0.9-1.1)
== END 2023-04-29 16:10 ==
LOC: ACC 12:57
PROVIDERS: PCP Family Medicine; Visit Provider Physician Assistant
DX: Z79.01 Long term (current) use of anticoagulants (principal); Z51.81 Encounter for therapeutic drug level monitoring; I48.0 Paroxysmal atrial fibrillation
CPT/HCPCS: 85610; 99211; G0463

== ENCOUNTER 2023-06-24 13:25 | Outpatient (CLI) | payer MEDICARE, OTHER, SELFPAY ==
[2023-06-24 14:43] LABS: PHA INR Fingerstick 2.7 (0.9-1.1)
== END 2023-06-24 14:59 ==
LOC: ACC 13:26
PROVIDERS: PCP Family Medicine; Visit Provider Physician Assistant
DX: Z79.01 Long term (current) use of anticoagulants (principal); Z51.81 Encounter for therapeutic drug level monitoring; I48.0 Paroxysmal atrial fibrillation
CPT/HCPCS: 85610; 99211; G0463

== ENCOUNTER 2023-07-16 06:15 | Outpatient (CLI) | payer MEDICARE, OTHER, SELFPAY ==
--- NOTE | 2023-07-16 06:22 | NM_ITS ---
APPROVED REPORT Exam: Nuclear Stress Test Indication: soa..palpitations..fatigue Patient Location: Outpatient Stress Tech: Erin Diez AR Tech:BRIAN Tovar RT(R)(N) Ht: 5 ft 8 in Wt: 182 lbs HR: 60 bpm BP: 143/80 mmHg BSA: 1.96 m2 Rhythm: NSR TID: 1.00 BMI: 27.6 History: soa..palpitations..fatigue Procedure: Patient exercised on Chencho protocol 6:16 minutes and sec, resting heart rate 60 bpm, resting blood pressure 143/80 mmHg, with exercise maximum heart rate achived was 116 bpm which is 81 % of the maximum predicted heart rate and blood pressure was 191/52 mmHg. Test was stopped due to fatigue. Patient denied any complaint of chest pain. Patient has suboptimal exercise capacity, achieved 3.5 METs of workload on treadmill, the blood pressure response to exercise was normal. Cardiac Stress and Resting SPECT Images: Cardiac Stress and Resting SPECT images were obtained using technetium 99m Myoview 30.9 mCi stress and 10.75 mCi at rest. Resting and stress imaging in supine and prone positions demonstrate a large sized, severe, predominantly fixed perfusion defect in the inferior LV wall from the base and extending distally towards the inferior apical region. Gated imaging demonstrates mild reduction in global LV systolic function. There is severe hypokinesis of the inferior LV wall. The LV apex is akinetic. LVEF is calculated at 41%. Conclusion: Nondiagnostic and suboptimal stress test in the setting of inability to achieve target HR at peak stress. Of note, the patient also developed 1 episode of 4-beat NSVT during recovery. Large sized, severe, predominantly fixed perfusion defect in the inferior LV wall from the base and extending distally towards the inferior apical region. There is a surrounding region of minimal reversibility. Gated imaging demonstrates mild reduction in global LV systolic function. There is severe hypokinesis of the inferior LV wall. The LV apex is akinetic. LVEF is calculated at 41%. Electronically signed by : Sondra Ricketts MD 07/22/2023 12:59:18
--- NOTE | 2023-07-16 07:41 | CA_ITS ---
APPROVED REPORT EXAM: Comprehensive 2D, Doppler, and color-flow Echocardiogram [employer] Consultant: Sylvia Moss RT(R) Ht: 5 ft 9 in Wt: 190lbs BSA: 2.02 BP: 142/55 mmHg Indications: dyspnea, COPD, ex smoker, HTN, NOGUEIRA, hyperlipidemia, CAD, AFIB, CHF, hx COVID, hx CVA, AR 2D Dimensions LA Volume 134.80 mL LA Volume Index 66.73 mL/m2 (M/F) 16-34 EF AP4 40.60 % GL Strain -9.9 % M-Mode Dimensions RVDd 3.25 cm (0.9-2.6) LA Diam 5.16 cm (1.9-4.0) LVDd 6.06 cm (3.5-5.7) LVDs 4.23 cm (3.5-5.7) IVSd 0.98 cm (0.6-1.1) PWd 0.85 cm (0.6-1.1) EF (Teich) 56.60% FS 30.20% EDV (Teich) 184.10 mL ESV (Teich) 79.90 mL LV Diastology E Decel Time 177 (160-240 msec) E/A Ratio 4.0 Aortic Valve JOMAR Index 1.36 cm2/m2 AoV Peak Boubacar. 121.0 (50-130 cm/s) AI PHT 569.00 ms AO Peak GR. 5.90 mmHg AO Mean GR. 2.90 (<5 mmHg) AO VTI 29.8 (18-25 cm) JOMAR (VTI) 2.82 (2.5-4.5 cm2) Mitral Valve MV E Max Boubacar. 87.0 (40-130 cm/s) MV A Velocity 22.0 (40-130 cm/s) E/A Ratio 3.96 MV PHT 52.0 ms Tricuspid Valve TR P. Velocity 354.00 cm/s RAP Estimate 15.00 mmHg RVSP 65.10 mmHg Left Ventricle The left ventricle is normal size. The left ventricular systolic function is normal. The left ventricular ejection fraction is within the normal range. There is increased LV wall thickness. There LV apex appears akinetic, cannot rule out apical aneurysm or thrombus. Grade 3 diastolic dysfunction is present. LVEF is 60%. Right Ventricle The right ventricle is normal size. The right ventricular systolic function is normal. Atria Left atrium is severely dilated. Right atrium is moderately dilated. There is no Doppler evidence of interatrial shunt. Aortic Valve The aortic valve is mildly thickened. There is no aortic valvular stenosis. Mild aortic regurgitation. Mitral Valve There is possible prolapse of the anterior leaflet of mitral valve. No evidence of mitral valve stenosis. At least moderate mitral regurgitation is present. The MR jet is eccentric and is posteriorly directed. The MR jet may possibly be underestimated due to eccentric jet. Tricuspid Valve The tricuspid valve leaflets are thin and pliable. Mild tricuspid regurgitation. RVSP is 50-55 mmHg. Pulmonic Valve The pulmonary valve is normal in structure. Trace pulmonic regurgitation. Great Vessels The aortic root is not well visualized. IVC is normal in size and collapses >50% with inspiration. Pericardium There is no pericardial effusion. Other Information Study Quality: Fair Conclusion Normal biventricular systolic function. Akinesis of the LV apex, cannot rule out apical anueyrms or apical thrombi (no ultrasound enhancing agent in this study). Biatrial dilation. Mild AI. Possible prolapse of the anterior MV leaflet. At least moderate MR is present (may be underestimated in the setting of eccentric MR jet). Mild TR. Elevated RVSP 50-55 mmHg. In the setting of persistent symptoms and at least moderate MR, further evaluation for the mechanism and severity of MR is recommended with HERNÁN. Electronically signed by : Sondra Ricketts MD 07/19/2023 18:52:24
[2023-07-16] MEDS: ISOTOPE MYOVIEW (PER STUDY) 1 DOSE IV (09:27)
[2023-07-16] MEDS: SODIUM CHLORIDE 0.9% 10ML SYR (RAD ONLY) 10 ML IV ×2 (09:27)
--- NOTE | 2023-07-16 09:27 | CA_ITS ---
APPROVED REPORT Exam: Exercise Treadmill Technologist: Erin Hylton, Ht: 5 ft 8 in Wt: 194 lbs BSA: 2.02 m2 HR: 95 bpm BP: 143/80 mmHg Rhythm: NSR Medical History Medications: Aspirin,,,,, Warfarin,,,,, Metoprolol,,,,, Albuterol,,,,, SpirOnolactone,,,,, RoSUVASTATIN,,,,, Furosemide,,,,, Stress Test Details Test: Modified Chencho HR Resting HR: 60 bpm Max Heart Rate (APMHR): 143 bpm Max HR Achieved: 116 bpm Target HR (85% APMHR): 122 bpm % of APMHR: 81 Recovery HR: 58 bpm HR response to stress: Blunted HR response to stress BP Resting BP: 168.0/60.0 mmHg Max BP: 191.0/52.0 mmHg Recovery BP: 179.0/58.0 mmHg BP response to stress: Normal blood pressure response to stress. ECG Resting ECG: NSR, PVCs, LPFB, cannot R/O old inferior LA, poor R wave progression, PVCs, PACs Stress ECG: < 0.[address] depression Arrhythmia: PVCs, PACs Recovery ECG: Return to baseline within 3 minutes of recovery Recovery Arrhythmia: PVCs, PACs, 4-beat NSVT Clinical Exercise duration: 06:16 min Highest Stage Achieved: III Exercise capacity: 3.5 METs Overall Exercise Capacity for Age: Poor Stress ECG Conclusion The patient was able to walk for a total of 6 minutes, 16 seconds on a modified Chencho protocol. He achieved a total of 3.5 METS. He has poor exercise capacity compared to age and sex matched peers. He has normal BP, but blunted HR, response to exercise. Max HR: 116 % of PM: 81% Max BP: 191/52 METs: 3.5 Test stopped due to: SOA Symptoms: SOA, no CP. Arrhythmias/Ectopy: In recovery there are PACs, PVCs, vent couplets, one vent triplet and one episode of NSVT in recovery ST-T Changes: < 0.[address] depression Conclusion: This is a nondiagnostic stress test due to suboptimal HR achieved. No ischemic EKG changes to HR achieved. During recovery, the patient developed 1 episode of 4-beat NSVT. Ovalisview images in progress. Test Summary REST 00:59 0.0 0.0 60 . . . . Stage 1 01:00 0.0 1.7 61 . . . . Stage 1 02:00 0.0 1.7 69 . . . . Stage 1 03:00 0.0 1.7 72 . 168/ 60 . . Stage 2 01:00 5.0 1.7 76 . . . . Stage 2 02:00 5.0 1.7 78 . . . . Stage 2 . . . . . . . Cardiolite injected Stage 2 03:00 5.0 1.7 112 . . . . Stage 3 00:16 10.0 1.7 113 . . . Stop exercise at 06:16 RECOVERY 01:00 0.0 0.0 112 . . . . RECOVERY 02:00 0.0 0.0 108 . . . . RECOVERY 03:00 0.0 0.0 103 . 162/ 69 . . RECOVERY 04:00 0.0 0.0 65 . 162/ 69 . . RECOVERY 05:00 0.0 0.0 57 . 191/ 52 . . RECOVERY 06:00 0.0 0.0 54 . 191/ 52 . . RECOVERY 07:00 0.0 0.0 58 . 179/ 58 . . RECOVERY 08:00 0.0 0.0 50 . 179/ 58 . . RECOVERY 08:53 0.0 0.0 54 . 165/ 54 . . Electronically signed by : Sondra Ricketts MD 07/22/2023 12:56:25
== END 2023-07-16 23:59 ==
PROVIDERS: PCP Family Medicine; Visit Provider Nurse Practitioner Family
DX: E78.5 Hyperlipidemia, unspecified (principal); I25.10 Atherosclerotic heart disease of native coronary artery without angina pectoris; I48.91 Unspecified atrial fibrillation; I50.9 Heart failure, unspecified; I70.1 Atherosclerosis of renal artery; J44.9 Chronic obstructive pulmonary disease, unspecified; N28.9 Disorder of kidney and ureter, unspecified; R06.09 Other forms of dyspnea; Z86.73 Personal history of transient ischemic attack (TIA), and cerebral infarction without residual deficits; R94.31 Abnormal electrocardiogram [ECG] [EKG]
CPT/HCPCS: 78452; 93017; 93018; 93306; A9502

== ENCOUNTER 2023-07-30 14:03 | Outpatient (CLI) | payer MEDICARE, OTHER, SELFPAY ==
[2023-07-30 15:02] LABS: Anion Gap 10.5 mEq/L (5-15); Blood Urea Nitrogen 25 mg/dl (9-20); Calcium 9.6 mg/dl (8.4-10.2); Carbon Dioxide 28 mmol/L (22.0-30.0); Chloride 106 mmol/L (98-107); Estimated Glomerular Filt Rate 39 ml/min (>60); GFR (African American) 48 ML/MIN (>60); Glucose 85 mg/dl (74-100); Potassium 4.5 mmoL/L (3.5-5.1); Sodium 140 mmol/L (136-145)
== END 2023-07-30 23:59 ==
PROVIDERS: PCP Family Medicine; Visit Provider Physician Assistant
DX: N18.9 Chronic kidney disease, unspecified (principal); I48.0 Paroxysmal atrial fibrillation
CPT/HCPCS: 36415; 80048

== ENCOUNTER 2023-08-05 12:55 | Outpatient (CLI) | payer MEDICARE, OTHER, SELFPAY ==
[2023-08-05 13:16] LABS: PHA INR Fingerstick 2.3 (0.9-1.1)
== END 2023-08-05 13:18 ==
LOC: ACC 12:56
PROVIDERS: PCP Family Medicine; Visit Provider Physician Assistant
DX: Z79.01 Long term (current) use of anticoagulants (principal); I48.0 Paroxysmal atrial fibrillation; Z51.81 Encounter for therapeutic drug level monitoring
CPT/HCPCS: 85610; 99211; G0463

== ENCOUNTER 2023-09-23 12:48 | Outpatient (CLI) | payer MEDICARE, OTHER, SELFPAY | END 2023-09-23 15:19 | LOC: ACC 12:48 | PROVIDERS: PCP Family Medicine; Visit Provider Physician Assistant | DX: Z51.81 Encounter for therapeutic drug level monitoring (principal); Z79.01 Long term (current) use of anticoagulants; I48.0 Paroxysmal atrial fibrillation | CPT/HCPCS: 85610; 99211; G0463 ==

== ENCOUNTER 2023-10-02 08:12 | Day surgery (SDC) | payer MEDICARE, OTHER, SELFPAY ==
[2023-10-02] VITALS (11 sets, daily range): BP systolic 148–213; BP diastolic 64–111; PULSE 51–60; RESP 17–20; O2SAT 90–96; BMI 29.0
--- NOTE | 2023-10-02 07:07 | IR_ITS ---
APPROVED REPORT Patient Location: Outpatient [employer] Supervisor: BRIAN Vieyra RT (R) PROCEDURES Left heart catheterization Selective coronary angiogram Bilateral selective renal angiography INDICATION Known multivessel coronary disease, Abnormal stress test, LV dysfunction, Accelerated angina pectoris, Chronic renal failure creatinine 1.9, Known renovascular hypertension, Known renal artery stenosis Informed consent was obtained prior to the procedure. COMPLICATIONS None Estimated Blood Loss: Less than 10 mls TECHNIQUE One percent lidocaine used to anesthetize the right anterior aspect of the wrist. The right radial artery was accessed via the Seldinger technique. A 6 Turkish sheath was placed in the right radial artery. 2.5 mg of Verapamil, 800 mcg of nitroglycerin, 1mg Lidocaine and 5000 U Heparin were given through the arterial sheath. The papa catheter was also used to perform left heart catheterization and selective coronary angiogram. At the end of the diagnostic angiogram a long JR4 catheter was used to perform bilateral selective renal angiography. At the end the procedure the apparatus was removed the sheath was removed and hemostasis was achieved and TR banding patient was transferred to the postop holding in stable condition ANGIOGRAPHIC RESULTS The left main artery Normal The left anterior descending artery Has proximal calcified 10 to 20% stenosis with a mid LAD stent which is widely patent free of in-stent restenosis with excellent proximal distal transitioning. A first diagonal artery is proximally occluded. The circumflex artery Is nondominant gives rise to a small to medium sized ramus intermedius which has proximal 70 to 80% stenosis however the vessel is 1.75 mm in diameter. The remaining circumflex artery is widely patent The right coronary artery Is a dominant vessel with an anterior takeoff which has a proximal aneurysm which is widely patent with no stenosis proximal or distal to the aneurysm transition. There is additional 30% mid vessel and distal right coronary stenoses The FARFAN ventriculogram reveals Not performed The left ventricular end-diastolic pressure 25 mmHg Right renal artery singular normal Left renal artery has a stent in the ostial proximal site which is widely patent free of in-stent restenosis. Distally there are 30% stenoses IMPRESSION Occluded first diagonal artery as described above Moderate to severe disease in a small ramus intermedius which is best managed medically as it is too small for percutaneous intervention Elevated LVEDP Patent renal arteries PLAN 1. Angina likely stemming from elevated LVEDP. Increased diuretics to improve dyspnea 2. Aggressive risk factor modification Electronically signed by : Azael Canada MD 10/02/2023 10:23:22
[2023-10-02 08:42] LABS: Chloride 106 mmol/L (98-107); Sodium 139 mmol/L (136-145)
[2023-10-02 08:43] LABS: Potassium 4.1 mmoL/L (3.5-5.1)
[2023-10-02 08:45] LABS: Blood Urea Nitrogen 27 mg/dl (9-20); Creatinine Clearance Estimated 40 mL/min (50-200); Estimated Glomerular Filt Rate 35 ml/min (>60); GFR (African American) 42 ML/MIN (>60)
[2023-10-02 08:46] LABS: Anion Gap 15.1 mEq/L (5-15); Calcium 10.3 mg/dl (8.4-10.2); Carbon Dioxide 22 mmol/L (22.0-30.0); Glucose 156 mg/dl (74-100)
[2023-10-02 08:47] LABS: INR 1.49 (0.9-1.1); Prothrombin Time 15.7 seconds (10.1-12.5)
[2023-10-02] MEDS: METHYLPREDNISOLONE SOD SUCC 125MG VIAL 125 MG IV (09:06)
[2023-10-02] MEDS: HEPARIN 1,000 UNITS/500ML NS (CATH LAB) 3000 UNIT IV (09:07)
[2023-10-02] MEDS: 0.9 % SODIUM CHLORIDE 500 ML 25 ML IV (09:07)
[2023-10-02] MEDS: LIDOCAINE 1% 10ML MDV 20 ML IJ (09:07)
[2023-10-02] MEDS: diphenhydrAMINE 50MG/ML VIAL 50 MG IV (09:07)
[2023-10-02] MEDS: HEPARIN 1,000 UNITS/ML 10ML VIAL (CATH LAB) 10000 UNIT IV (09:07)
[2023-10-02] MEDS: NITROGLYCERIN 800MCG/8ML SYR (CATH LAB) 800 MCG IA (09:07)
[2023-10-02] MEDS: FAMOTIDINE 20MG/2ML VIAL 20 MG IV (09:07)
[2023-10-02 09:09] LABS: Basophils % 0.4 % (0.1-2.0); Eosinophils % 0.2 % (0.1-12.0); Hematocrit 50.4 % (42.0-52.0); Hemoglobin 16.1 g/dL (14.1-18.0); Lymphocytes # 0.5 K/mm3 (0.7-4.5); Lymphocytes % 9.1 % (10-50); Mean Corpuscular Hemoglobin 33.6 pg (27.0-31.2); Mean Corpuscular Volume 105.2 fl (80-94); Mean Platelet Volume 9.2 fl (7.4-10.4); Monocytes # 0.1 K/mm3 (0.1-1.0); Neutrophils # 4.4 K/mm3 (1.8-7.8); Neutrophils % 88.4 % (37.0-80.0); Platelet Count 184 K/mm3 (142-424); Red Blood Count 4.79 M/mm3 (4.60-6.20); Red Cell Distribution Width 14.8 % (11.5-17.5)
[2023-10-02 09:14] LABS: MANUAL DIFFERENTIAL MANUAL DIFFERENTIAL (MANUAL DIFF)
[2023-10-02] MEDS: FENTANYL 100MCG/2ML VIAL 50 MCG IV (09:28)
[2023-10-02] MEDS: MIDAZOLAM HCL 1MG/1ML 5ML VIAL 1 MG IV (09:28)
[2023-10-02] MEDS: IOPAMIDOL-370 (76%);100ML BOTTLE 85 ML IV (09:50)
[2023-10-02 11:53] LABS: Lymphocytes % 8 % (10-50); Macrocytosis 1+; Monocytes % 1 % (2-9); Neutrophils % 91 % (42-76); Nucleated Red Blood Cells 2; Platelet Estimate Normal; Total Cells Counted 100
== END 2023-10-02 12:33 | disposition home or self-care (01) ==
LOC: CATHLAB 08:13
PROVIDERS: PCP Family Medicine; Visit Provider Internal Medicine
DX: R94.31 Abnormal electrocardiogram [ECG] [EKG] (principal); I11.0 Hypertensive heart disease with heart failure; R94.39 Abnormal result of other cardiovascular function study; J43.9 Emphysema, unspecified; I25.118 Atherosclerotic heart disease of native coronary artery with other forms of angina pectoris; I70.1 Atherosclerosis of renal artery; I48.0 Paroxysmal atrial fibrillation; R06.09 Other forms of dyspnea; E78.2 Mixed hyperlipidemia; Z86.73 Personal history of transient ischemic attack (TIA), and cerebral infarction without residual deficits; I50.9 Heart failure, unspecified; Z79.01 Long term (current) use of anticoagulants; Z79.899 Other long term (current) drug therapy; I15.0 Renovascular hypertension; Z95.828 Presence of other vascular implants and grafts; I34.0 Nonrheumatic mitral (valve) insufficiency
CPT/HCPCS: 36252; 80048; 85007; 85025; 85610; 93454; 99152; 99153; C1725; C1760; C1769; J1644; Q9967

== ENCOUNTER 2023-10-03 11:00 | Outpatient (CLI) | payer MEDICARE, OTHER, SELFPAY ==
[2023-10-03 12:26] LABS: Anion Gap 13.4 mEq/L (5-15); Blood Urea Nitrogen 35 mg/dl (9-20); Calcium 10.2 mg/dl (8.4-10.2); Carbon Dioxide 23 mmol/L (22.0-30.0); Chloride 109 mmol/L (98-107); Estimated Glomerular Filt Rate 29 ml/min (>60); GFR (African American) 35 ML/MIN (>60); Glucose 114 mg/dl (74-100); Potassium 4.4 mmoL/L (3.5-5.1); Sodium 141 mmol/L (136-145)
== END 2023-10-03 23:59 ==
LOC: LAB 11:01
PROVIDERS: PCP Family Medicine; Visit Provider Internal Medicine
DX: I25.10 Atherosclerotic heart disease of native coronary artery without angina pectoris (principal); Z95.5 Presence of coronary angioplasty implant and graft
CPT/HCPCS: 36415; 80048

== ENCOUNTER 2023-10-06 15:41 | Outpatient (CLI) | payer MEDICARE, OTHER, SELFPAY ==
[2023-10-06 16:01] LABS: Basophils % 0.5 % (0.1-2.0); Eosinophils # 0.1 K/mm3 (0.0-0.4); Eosinophils % 1.5 % (0.1-12.0); Hematocrit 44.4 % (42.0-52.0); Hemoglobin 14.5 g/dL (14.1-18.0); Lymphocytes # 0.8 K/mm3 (0.7-4.5); Lymphocytes % 12.9 % (10-50); Mean Corpuscular HGB Conc 32.6 g/dL (31.8-35.4); Mean Corpuscular Hemoglobin 33.5 pg (27.0-31.2); Mean Corpuscular Volume 102.5 fl (80-94); Mean Platelet Volume 9.2 fl (7.4-10.4); Monocytes # 0.5 K/mm3 (0.1-1.0); Monocytes % 8.8 % (1.7-9.3); Neutrophils # 4.5 K/mm3 (1.8-7.8); Neutrophils % 76.4 % (37.0-80.0); Platelet Count 139 K/mm3 (142-424); Red Blood Count 4.34 M/mm3 (4.60-6.20); Red Cell Distribution Width 14.9 % (11.5-17.5); White Blood Count 5.9 K/mm3 (4.8-10.8)
[2023-10-06 18:02] LABS: Alanine Aminotransferase 42 U/L (12-78); Alkaline Phosphatase 82 U/L (38-126); Aspartate Amino Transferase 41 U/L (17-59); Bilirubin,Direct 0.4 mg/dl (0.0-0.4); Bilirubin,Indirect 1.1 mg/dL (0.0-0.9); Bilirubin,Total 1.5 mg/dl (0.2-1.3); Bilirubin,Unconjugated 1.1 mg/dL (0.0-1.1); Chol/HDL Ratio 3.1 (1-3.5); Cholesterol 127 mg/dl (140-200); HDL Cholesterol 41 mg/dl (40-60); Total Protein,Serum 6.6 g/dl (6.3-8.2); Triglycerides 132 mg/dl (30-150); VLDL Cholesterol 26 mg/dL (0-40)
[2023-10-06 18:03] LABS: Anion Gap 11.4 mEq/L (5-15); Blood Urea Nitrogen 35 mg/dl (9-20); Calcium 9.8 mg/dl (8.4-10.2); Carbon Dioxide 22 mmol/L (22.0-30.0); Chloride 109 mmol/L (98-107); Estimated Glomerular Filt Rate 42 ml/min (>60); GFR (African American) 51 ML/MIN (>60); Glucose 114 mg/dl (74-100); Potassium 4.4 mmoL/L (3.5-5.1); Sodium 138 mmol/L (136-145)
[2023-10-06 18:13] LABS: Direct LDL Cholesterol 52.96 mg/dL (100-129)
[2023-10-06 18:18] LABS: Free T4 (Free Thyroxine) 1.21 ng/dl (0.78-2.19)
[2023-10-06 18:31] LABS: Thyroid Stimulating Hormone 3.93 uIU/mL (0.465-4.68)
== END 2023-10-06 23:59 | disposition home or self-care (01) ==
LOC: LAB 15:42
PROVIDERS: Nurse Practitioner Family; PCP Family Medicine; Visit Provider Physician Assistant
DX: R06.09 Other forms of dyspnea; I25.10 Atherosclerotic heart disease of native coronary artery without angina pectoris; J44.9 Chronic obstructive pulmonary disease, unspecified; I70.1 Atherosclerosis of renal artery; I48.91 Unspecified atrial fibrillation; N28.9 Disorder of kidney and ureter, unspecified; E11.9 Type 2 diabetes mellitus without complications; I11.9 Hypertensive heart disease without heart failure
CPT/HCPCS: 36415; 80048; 80061; 80076; 84439; 84443; 85025

== ENCOUNTER 2023-10-14 08:22 | Day surgery (SDC) | payer MEDICARE, OTHER, SELFPAY ==
[2023-10-13 11:37] VITALS: BMI 29.0
[2023-10-14] VITALS (8 sets, daily range): BP systolic 132–162; BP diastolic 61–78; PULSE 48–92; RESP 16–18; TEMP 36.1–36.6; O2SAT 90–97
[2023-10-14] MEDS: LACTATED RINGERS 1000ML 1,000 ML 25 ML IV (08:31)
--- NOTE | 2023-10-14 08:45 | ECG_ITS ---
APPROVED REPORT Exam: Resting ECG HR:87 bpm ECG Measurements Heart Rate 87 AXES SC 203 P 95 QRSd 128 QRS -18 QT 394 T 128 QTc 439 Conclusion SINUS RHYTHM MODERATE T-WAVE ABNORMALITY, CONSIDER LATERAL ISCHEMIA [-0.1+ mV T-WAVE IN I/aVL/V5/V6] ABNORMAL ECG UNCONFIRMED REPORT Electronically signed by : Bob Rowan MD 10/15/2023 21:29:34
--- NOTE | 2023-10-14 08:52 | EXP.ANES.CKL ---
[facility] Disclaimer: The information contained in this section may have been updated after the patient was seen, as this information can be updated by other users. Medical History Restrictive lung disease History of coronary angiogram Amiodarone pulmonary toxicity COPD (chronic obstructive pulmonary disease) Obstructive sleep apnea syndrome History of 2019 novel coronavirus disease (COVID-19) Pulmonary emphysema Stopped smoking with greater than 30 pack year history Dyspnea on exertion HLD (hyperlipidemia) History of CVA (cerebrovascular accident) Nausea CHF (congestive heart failure) Surgical History History of cardiac cath Family History Other Coronary artery disease Social History Smoking Status: Former smoker tobacco type: cigarettes packs per day: 0 alcohol intake: never substance use type: denies use current occupational status: retired Travel in the last 8 weeks: None household members: spouse housing: house current occupational exposures/hazards: No caffeine: Yes [facility] Anesthesia Checklist Patient Identification Patient Identification: Arm Band and Verbal (Name & ) Structural Data Admitted From: Home Planned Operative Procedure/s: HERNÁN Consent for Planned Operative Procedure(s) Verified: Yes NPO Status Verified Time NPO: 00:00 Additional verifications Anesthesia Reactions: Yes (difficulty coming out of anesthesia) Hx Blood Transfusions: No Airway Assessment Mallampati Score:: Class III C-Spine Mobility Assessed: Yes TMJ Mobility Assessed: Yes Dentition: Poor Dentition Neurological Assessment Level of Consciousness: Awake Hx Seizures: No Numbness or tingling in extremities: No Anesthesia Plan Anesthesia Risk discussed: Yes Anesthesia Plan: Verified ASA Class: III Anesthesia Type: MAC
[2023-10-14 09:00] LABS: Basophils # 0.1 K/mm3 (0-0.2); Basophils % 1.1 % (0.1-2.0); Eosinophils # 0.1 K/mm3 (0.0-0.4); Eosinophils % 2.4 % (0.1-12.0); Hematocrit 45.9 % (42.0-52.0); Hemoglobin 14.7 g/dL (14.1-18.0); Lymphocytes # 0.8 K/mm3 (0.7-4.5); Lymphocytes % 15.1 % (10-50); Mean Corpuscular HGB Conc 31.9 g/dL (31.8-35.4); Mean Corpuscular Hemoglobin 33.1 pg (27.0-31.2); Mean Corpuscular Volume 103.5 fl (80-94); Mean Platelet Volume 8.9 fl (7.4-10.4); Monocytes # 0.3 K/mm3 (0.1-1.0); Monocytes % 5.2 % (1.7-9.3); Neutrophils % 76.2 % (37.0-80.0); Platelet Count 160 K/mm3 (142-424); Red Blood Count 4.43 M/mm3 (4.60-6.20); Red Cell Distribution Width 15.2 % (11.5-17.5); White Blood Count 5.3 K/mm3 (4.8-10.8)
--- NOTE | 2023-10-14 09:06 | CA_ITS ---
APPROVED REPORT EXAM: Comprehensive 2D, Doppler, and color-flow Echocardiogram Cellophaner: Christal Lamb RVT Ht: 5 ft 8 in Wt: 191lbs BSA: 2.00 BP: 149/50 mmHg Indications: ASSESS MR,CHF,AR,A-FIB,CAD,COPD,CP,EX SMOKER,HLD,HTN Procedure After obtaining informed consent, patient underwent transesophageal echo in the [facility]. Type of Sedation : MAC Sedation was administered by Alexander Weston C.R.N.A. Sedation start time: 12:15 Case end Time: 12:30 Transesophageal probe was inserted and advanced into esophagus without difficulty by Dr. Master Ricketts. The HERNÁN was performed with complications. Complication encountered: Transient hypoxia Throughout the procedure, the blood pressure, pulse oximetry, cardiac rhythm, and rate were monitored. The patient tolerated the procedure without adverse effects. Recovery from conscious sedation was uneventful and vital signs were stable. Left Ventricle The left ventricle is normal size. The left ventricular systolic function is normal. The left ventricular ejection fraction is within the normal range. There is increased LV wall thickness. The LV apex is akinetic. A small apical aneurysm is present. LVEF is 55%. Right Ventricle The right ventricle is normal size. The right ventricular systolic function is normal. Atria The left atrium is severely dilated. The right atrium is mildly dilated. Small PFO is noted. Color Doppler demonstrates intermittent left to right interatrial shunt through the PFO. Aortic Valve The aortic valve is mildly thickened. The aortic valve is trileaflet. There is no aortic valvular stenosis. Mild aortic regurgitation. Mitral Valve There is borderline prolapse of the anterior mitral valve leaflet. No evidence of mitral valve stenosis. Mild to moderate mitral regurgitation noted. Tricuspid Valve The tricuspid valve leaflets are thin and pliable. Mild tricuspid regurgitation. RVSP is normal. Pulmonic Valve The pulmonary valve is normal in structure. Trace pulmonic regurgitation. Great Vessels The aortic root is normal in size. The ascending aorta is normal in size. Pericardium There is no pericardial effusion. Other Information Study Quality: Fair Conclusion Normal biventricular systolic function. The LV apex is akinetic. A small apical aneurysm is present. Biatrial dilation. Borderline prolapse of the anterior MV leaflet. Mild to moderate MR. Mild AI, mild TR. Small PFO is noted. Color Doppler demonstrates intermittent left to right interatrial shunt through the PFO. Intra-procedurally, the patient developed hypoxia, for which the HERNÁN probe had to be discontinued, and rapid response was called. The patient then underwent supportive care, after which his SpO2 quickly improved. once stabilized, the HERNÁN probe was re-introduced, no further complications. Post-procedure, he recovered well with no issues. Electronically signed by : Sondra Ricketts MD 10/18/2023 18:57:53
[2023-10-14 09:11] LABS: INR 1.72 (0.9-1.1); Prothrombin Time 17.9 seconds (10.1-12.5)
[2023-10-14 09:16] LABS: Anion Gap 10.8 mEq/L (5-15); Blood Urea Nitrogen 25 mg/dl (9-20); Carbon Dioxide 26 mmol/L (22.0-30.0); Chloride 109 mmol/L (98-107); Creatinine Clearance Estimated 42 mL/min (50-200); Estimated Glomerular Filt Rate 37 ml/min (>60); GFR (African American) 44 ML/MIN (>60); Glucose 102 mg/dl (74-100); Potassium 4.8 mmoL/L (3.5-5.1); Sodium 141 mmol/L (136-145)
== END 2023-10-14 12:57 | disposition home or self-care (01) ==
PROVIDERS: PCP Family Medicine; Visit Provider Internal Medicine
DX: R94.31 Abnormal electrocardiogram [ECG] [EKG] (principal); R94.39 Abnormal result of other cardiovascular function study; J43.9 Emphysema, unspecified; R06.09 Other forms of dyspnea; I25.118 Atherosclerotic heart disease of native coronary artery with other forms of angina pectoris; I70.1 Atherosclerosis of renal artery; N28.9 Disorder of kidney and ureter, unspecified; I11.0 Hypertensive heart disease with heart failure; I48.0 Paroxysmal atrial fibrillation; E78.2 Mixed hyperlipidemia; Z86.73 Personal history of transient ischemic attack (TIA), and cerebral infarction without residual deficits; I50.9 Heart failure, unspecified; I34.0 Nonrheumatic mitral (valve) insufficiency; Z86.16 Personal history of COVID-19; J44.9 Chronic obstructive pulmonary disease, unspecified; Z79.01 Long term (current) use of anticoagulants; Z79.899 Other long term (current) drug therapy
CPT/HCPCS: 80048; 85025; 85610; 93005; 93270; 93312; 93319

== ENCOUNTER 2023-10-30 12:50 | Outpatient (RCR) | payer MEDICARE, OTHER, SELFPAY | END 2024-01-29 10:30 | disposition home or self-care (01) | LOC: PT 12:50 | PROVIDERS: Visit Provider Nurse Practitioner Family | DX: I34.0 Nonrheumatic mitral (valve) insufficiency (principal); R06.09 Other forms of dyspnea; I25.119 Atherosclerotic heart disease of native coronary artery with unspecified angina pectoris | CPT/HCPCS: 93798 ==

== ENCOUNTER 2023-11-04 12:51 | Outpatient (CLI) | payer MEDICARE, OTHER, SELFPAY | END 2023-11-04 13:11 | LOC: ACC 12:52 | PROVIDERS: PCP Family Medicine; Visit Provider Physician Assistant | DX: Z79.01 Long term (current) use of anticoagulants (principal); Z51.81 Encounter for therapeutic drug level monitoring; I48.91 Unspecified atrial fibrillation | CPT/HCPCS: 85610; 99211; G0463 ==

== ENCOUNTER 2023-12-16 12:49 | Outpatient (CLI) | payer MEDICARE, OTHER, SELFPAY ==
[2023-12-16 14:00] LABS: PHA INR Fingerstick 1.7 (0.9-1.1)
== END 2023-12-16 14:11 ==
LOC: ACC 12:50
PROVIDERS: PCP Family Medicine; Visit Provider Physician Assistant
DX: Z79.01 Long term (current) use of anticoagulants (principal); I48.91 Unspecified atrial fibrillation
CPT/HCPCS: 85610; 99211; G0463

== ENCOUNTER 2023-12-23 09:44 | Outpatient (CLI) | payer MEDICARE, OTHER, SELFPAY ==
--- NOTE | 2023-12-23 09:50 | US_ITS ---
FINAL REPORT CLINICAL HISTORY: CALCULUS OF KIDNEY FINDINGS: The right kidney measures 9.6 cm in length. It is normal in echogenicity. There is no hydronephrosis. There are multiple right renal cysts, largest measures 10.7 cm. The left kidney measures 12.5 cm in length. It is normal in echogenicity. There is no hydronephrosis. There are several cysts in the left kidney measuring up to 9.0 cm. Two left renal stones are seen measuring up to 10 mm. The spleen measures in the upper limits of normal in size at 12.8 cm. IMPRESSION: Bilateral renal cysts. Left nephrolithiasis. Reviewed, Interpreted and Dictated by Emeka Milian III, MD Transcribed by Jen Garcia Authenticated and . [facility]
== END 2023-12-23 23:59 | disposition home or self-care (01) ==
LOC: RAD 09:45
PROVIDERS: PCP Family Medicine; Visit Provider Urology
DX: N20.0 Calculus of kidney (principal)
CPT/HCPCS: 76770

== ENCOUNTER 2024-01-25 12:56 | Outpatient (CLI) | payer MEDICARE, OTHER, SELFPAY ==
[2024-01-25 14:31] LABS: PHA INR Fingerstick 2.4 (0.9-1.1)
== END 2024-01-25 14:36 ==
LOC: ACC 12:57
PROVIDERS: PCP Family Medicine; Visit Provider Physician Assistant
DX: Z79.01 Long term (current) use of anticoagulants (principal); I48.91 Unspecified atrial fibrillation
CPT/HCPCS: 85610; 99211; G0463

== ENCOUNTER 2024-02-08 12:31 | Outpatient (CLI) | payer MEDICARE, OTHER, SELFPAY ==
[2024-02-08] MEDS: ALBUTEROL 0.083% 2.5 MG/3 ML NEB IH (13:34)
== END 2024-02-08 23:59 | disposition home or self-care (01) ==
LOC: RT 12:32
PROVIDERS: PCP Family Medicine; Visit Provider Internal Medicine Pulmonary Disease
DX: R06.09 Other forms of dyspnea (principal)
CPT/HCPCS: 94060; 94618; 94726; 94729; J7613

== ENCOUNTER 2024-03-07 13:12 | Outpatient (CLI) | payer MEDICARE, OTHER, SELFPAY ==
[2024-03-07 14:35] LABS: PHA INR Fingerstick 1.5 (0.9-1.1)
== END 2024-03-07 14:49 ==
LOC: ACC 13:13
PROVIDERS: PCP Family Medicine; Visit Provider Physician Assistant
DX: Z79.01 Long term (current) use of anticoagulants (principal); I48.0 Paroxysmal atrial fibrillation
CPT/HCPCS: 85610; 99211; G0463

== ENCOUNTER 2024-03-30 13:14 | Outpatient (CLI) | payer MEDICARE, OTHER, SELFPAY ==
[2024-03-30 14:27] LABS: PHA INR Fingerstick 2.4 (0.9-1.1)
== END 2024-03-30 15:45 ==
LOC: ACC 13:16
PROVIDERS: PCP Family Medicine; Visit Provider Physician Assistant
DX: Z79.01 Long term (current) use of anticoagulants (principal); I48.0 Paroxysmal atrial fibrillation
CPT/HCPCS: 85610; 99211; G0463

== ENCOUNTER 2024-05-11 13:08 | Outpatient (CLI) | payer MEDICARE, OTHER, SELFPAY ==
[2024-05-11 14:32] LABS: PHA INR Fingerstick 2.5 (0.9-1.1)
== END 2024-05-11 15:41 ==
LOC: ACC 13:10
PROVIDERS: PCP Family Medicine; Visit Provider Physician Assistant
DX: Z79.01 Long term (current) use of anticoagulants (principal); I48.91 Unspecified atrial fibrillation
CPT/HCPCS: 85610; 99211; G0463

== ENCOUNTER 2024-08-11 14:07 | Outpatient (CLI) | payer MEDICARE, OTHER, SELFPAY ==
[2024-08-11 15:14] LABS: Basophils # 0.1 K/mm3 (0-0.2); Basophils % 0.9 % (0.1-2.0); Eosinophils % 0.8 % (0.1-12.0); Hematocrit 47.4 % (42.0-52.0); Hemoglobin 15.6 g/dL (14.1-18.0); Lymphocytes # 0.7 K/mm3 (0.7-4.5); Lymphocytes % 13.1 % (10-50); Mean Corpuscular HGB Conc 32.9 g/dL (31.8-35.4); Mean Corpuscular Hemoglobin 32.6 pg (27.0-31.2); Mean Platelet Volume 10.7 fl (7.4-10.4); Monocytes # 0.4 K/mm3 (0.1-1.0); Neutrophils % 76.6 % (37.0-80.0); Platelet Count 175 K/mm3 (142-424); Red Blood Count 4.79 M/mm3 (4.60-6.20); Red Cell Distribution Width 14.5 % (11.5-17.5); White Blood Count 5.3 K/mm3 (4.8-10.8)
[2024-08-11 15:18] LABS: INR 2.25 (0.9-1.1); Prothrombin Time 23.3 seconds (10.1-12.5)
[2024-08-11 15:52] LABS: Alanine Aminotransferase 32 U/L (12-78); Albumin Level 4.1 g/dl (3.5-5.0); Alkaline Phosphatase 79 U/L (38-126); Anion Gap 10.7 mEq/L (5-15); Aspartate Amino Transferase 38 U/L (17-59); Bilirubin,Direct 0.3 mg/dl (0.0-0.4); Bilirubin,Indirect 1.3 mg/dL (0.0-0.9); Bilirubin,Total 1.6 mg/dl (0.2-1.3); Bilirubin,Unconjugated 1.3 mg/dL (0.0-1.1); Blood Urea Nitrogen 28 mg/dl (9-20); Carbon Dioxide 28 mmol/L (22.0-30.0); Chloride 106 mmol/L (98-107); Chol/HDL Ratio 2.9 (1-3.5); Cholesterol 111 mg/dl (140-200); Estimated Glomerular Filt Rate 39 ml/min (>60); GFR (African American) 47 ML/MIN (>60); Glucose 88 mg/dl (74-100); HDL Cholesterol 38 mg/dl (40-60); Potassium 4.7 mmoL/L (3.5-5.1); Sodium 140 mmol/L (136-145); Total Protein,Serum 6.3 g/dl (6.3-8.2); Triglycerides 98 mg/dl (30-150); VLDL Cholesterol 20 mg/dL (0-40)
[2024-08-11 16:03] LABS: Direct LDL Cholesterol 38.67 mg/dL (100-129)
== END 2024-08-11 23:59 | disposition home or self-care (01) ==
LOC: ACC 14:09 → LAB 14:17
PROVIDERS: Nurse Practitioner Family; PCP Family Medicine; Visit Provider Physician Assistant
DX: E78.5 Hyperlipidemia, unspecified (principal); I11.0 Hypertensive heart disease with heart failure; I50.9 Heart failure, unspecified; I25.10 Atherosclerotic heart disease of native coronary artery without angina pectoris; Z79.01 Long term (current) use of anticoagulants; Z87.891 Personal history of nicotine dependence
CPT/HCPCS: 36415; 80048; 80061; 80076; 84439; 84443; 85025; 85610

== ENCOUNTER 2024-08-29 06:26 | Inpatient (IN) | payer MEDICARE, OTHER, SELFPAY ==
[2024-08-29] VITALS (17 sets, daily range): BP systolic 117–150; BP diastolic 57–73; PULSE 70–90; RESP 16–24; TEMP 36.5–37.3; O2SAT 93–98; BMI 27.3
--- NOTE | 2024-08-29 06:37 | ECG_ITS ---
APPROVED REPORT Exam: Resting ECG HR:81 bpm ECG Measurements Heart Rate 81 AXES NJ 257 P 99 QRSd 118 QRS -51 QT 377 T 103 QTc 415 Conclusion SINUS RHYTHM WITH FIRST DEGREE AV BLOCK LEFT AXIS DEVIATION [QRS AXIS < -30] PATTERN CONSISTENT WITH PULMONARY DISEASE MODERATE INTRAVENTRICULAR CONDUCTION DELAY [110+ ms QRS DURATION] ST ELEVATION, PROBABLY EARLY REPOLARIZATION [ST ELEVATION WITH NORMALLY INFLECTED T-WAVE] ST DEVIATION AND MODERATE T-WAVE ABNORMALITY, CONSIDER LATERAL ISCHEMIA [-0.1+ mV T-WAVE IN I/aVL/V5/V6] ABNORMAL ECG UNCONFIRMED REPORT Electronically signed by : RADHA HOOD, 08/30/2024 06:57:23
--- NOTE | 2024-08-29 06:48 | CT_ITS ---
FINAL REPORT TECHNIQUE: Noncontrast exam This study was performed with techniques to keep radiation doses as low as reasonably achievable, (ALARA). Individualized dose reduction techniques using automated exposure control or adjustment of mA and/or kV according to the patient's size were employed. CLINICAL HISTORY: possible stroke, weak and dizzy COMPARISON: None FINDINGS: Moderate atrophy and chronic ischemic white matter changes are noted. There is an old right basal ganglia lacunar infarct noted. No cortical edema is present. There is no mass or hemorrhage. Ventricles are normal. Bone windows show no skull fracture or obvious obstructive lesion. Mild mucosal thickening is present in the maxillary sinuses. IMPRESSION: 1. No acute intracranial abnormality or obvious mass. 2. Moderate atrophy and chronic ischemic white matter changes as above. Reviewed, Interpreted and Dictated by Kyle Servin MD Transcribed by Jennifer Cabrales Authenticated and [facility]
--- NOTE | 2024-08-29 06:48 | CT_ITS ---
FINAL REPORT CLINICAL HISTORY: possible stroke weak and dizzy COMPARISON: None FINDINGS: CT NECK ANGIO, WITHOUT AND WITH CONTRAST TECHNIQUE: Thin section axial CT with contrast with multiplanar 3D MIP reconstruction. This study was performed with techniques to keep radiation doses as low as reasonably achievable, (ALARA). Individualized dose reduction techniques using automated exposure control or adjustment of mA and/or kV according to the patient's size were employed. NASCET criteria and technique was utilized during interpretation. FINDINGS: Aortic arch: Arch shows no significant narrowing. Great vessel origins are widely patent. Right carotid: No significant stenosis is seen of the cervical common or internal carotid artery. Left carotid: No significant stenosis is seen of the cervical common or internal carotid artery. Vertebrals: The vertebral arteries are codominant. No significant stenosis is present. IMPRESSION: No significant stenosis of the cervical carotid arteries This study was performed using automated techniques to achieve radiation exposure as low as reasonably Reviewed, Interpreted and Dictated by Klye Servin MD Transcribed by Jennifer Cabrales Authenticated and . [facility]
--- NOTE | 2024-08-29 06:48 | XR_ITS ---
FINAL REPORT TECHNIQUE: Single view chest CLINICAL HISTORY: weakness FINDINGS: A single view of the chest was obtained. The heart is enlarged. The lungs are clear. There is no pneumothorax. IMPRESSION: No acute cardiopulmonary process. Reviewed, Interpreted and Dictated by Kyle Servin MD Transcribed by Su Onofre Authenticated and [facility]
--- NOTE | 2024-08-29 06:48 | CT_ITS ---
FINAL REPORT CLINICAL HISTORY: possible stroke weak and dizzy COMPARISON: None FINDINGS: CTA HEAD TECHNIQUE: Thin section axial CT with contrast with 3D MIP reconstruction This study was performed with techniques to keep radiation doses as low as reasonably achievable, (ALARA). Individualized dose reduction techniques using automated exposure control or adjustment of mA and/or kV according to the patient's size were employed. FINDINGS: No aneurysm is seen. Major intracranial vessels are patent without significant stenosis. There is a large right posterior communicating artery which is responsible for the majority of the right posterior cerebral arterial supply.. IMPRESSION: Unremarkable This study was performed using automated techniques to achieve radiation exposure as low as reasonably achievable Reviewed, Interpreted and Dictated by Kyle Servin MD Transcribed by Jennifer Cabrales Authenticated and [facility]
[2024-08-29 06:59] LABS: Basophils # 0.1 K/mm3 (0-0.2); Basophils % 0.7 % (0.1-2.0); Eosinophils # 2.1 K/mm3 (0.0-0.4); Eosinophils % 31.5 % (0.1-12.0); Hematocrit 41.7 % (42.0-52.0); Hemoglobin 14.3 g/dL (14.1-18.0); Lymphocytes # 0.2 K/mm3 (0.7-4.5); Lymphocytes % 2.7 % (10-50); Mean Corpuscular HGB Conc 34.3 g/dL (31.8-35.4); Mean Corpuscular Hemoglobin 32.5 pg (27.0-31.2); Mean Corpuscular Volume 94.8 fl (80-94); Mean Platelet Volume 9.8 fl (7.4-10.4); Monocytes # 0.7 K/mm3 (0.1-1.0); Monocytes % 10.2 % (1.7-9.3); Neutrophils # 3.7 K/mm3 (1.8-7.8); Neutrophils % 54.6 % (37.0-80.0); Platelet Count 167 K/mm3 (142-424); Red Cell Distribution Width 13.8 % (11.5-17.5); White Blood Count 6.8 K/mm3 (4.8-10.8)
--- NOTE | 2024-08-29 07:06 | PC.NURSE ---
pt is at ct
[2024-08-29 07:15] LABS: Alanine Aminotransferase 27 U/L (12-78); Albumin Level 4.2 g/dl (3.5-5.0); Albumin/Globulin Ratio 1.4 (1.1-1.8); Alkaline Phosphatase 98 U/L (38-126); Aspartate Amino Transferase 37 U/L (17-59); Bilirubin,Total 1.3 mg/dl (0.2-1.3); Blood Urea Nitrogen 18 mg/dl (9-20); Calcium 9.7 mg/dl (8.4-10.2); Carbon Dioxide 21 mmol/L (22.0-30.0); Chloride 107 mmol/L (98-107); Creatinine Clearance Estimated 47 mL/min (50-200); Estimated Glomerular Filt Rate 45 ml/min (>60); GFR (African American) 55 ML/MIN (>60); Globulin 2.9 g/dL (1.3-3.2); Glucose 112 mg/dl (74-100); Sodium 136 mmol/L (136-145); Total Protein,Serum 7.1 g/dl (6.3-8.2)
[2024-08-29 07:16] LABS: Ethyl Alcohol < 10 mg/dl (0-10)
[2024-08-29 07:19] LABS: Activated Partial Thrombo Time 40.3 seconds (22.8-30.6); INR 2.59 (0.9-1.1); Prothrombin Time 26.4 seconds (10.1-12.5)
--- NOTE | 2024-08-29 07:19 | [facility].EDGENADL ---
Discharge Plan Disposition Patient Disposition: Admitted Condition: Fair Clinical Impressions Clinical Impression: Dizziness, Episode of generalized weakness, Influenza A, Elevated troponin, Hypophosphatemia, General weakness Discharge ED Provider: Saleem Hanna General Adult HPI <Saleem Hanna MD - Last Filed: 08/29/24 07:41> General Chief complaint: Weakness Stated complaint: weakness, vomiting, disoriented Time Seen by Provider: 08/29/24 06:30 Mode of Arrival: Wheelchair Source of Information: Patient and Relative Description of Symptoms (Recalled from ER Triage Doc. by RN): Pt presents to ED for dizziness, weakness, N/V that started approx 4 hours ago. Pt states he had the same symptoms about 2 weeks ago and was able to sleep them off. Pt states he just feels weak now and like he doesn't have balance. Pt is A&O*4 and family member is bedside. History of Present Illness HPI narrative: 79-year-old male with history of heart failure, mitral regurg, COPD, prior [place], hypertension hyperlipidemia, prior stroke, on warfarin presents for weakness and dizziness. He went to bed at 9 or 10 PM, approximately 8 hours prior to arrival and was feeling normal at that time. He noticed the dizziness when he woke up around 2 PM. He reports that he does have vertigo sometimes, but this feels different. The room is not spinning but he still feels very unstable. He also feels generally weak and a bit nauseous. He has had a cold for the last few days. Denies fever. No changes in medications recently. He had an episode similar to this couple weeks ago where he had acute sudden onset dizziness and weakness. They were out of town and did not get seen at that time and by the time they got back into town a day or so later he was basically back to normal. They are concerned he could be having a TIA or stroke. Patient denies any chest pain abdominal pain shortness of breath. Related Data Home Medications ?Medication ?Instructions ?Recorded ?Confirmed metoprolol succinate 100 mg 100 mg PO DAILY 08/29/24 08/29/24 tablet,extended release 24 hr rosuvastatin 40 mg tablet 40 mg PO HS 08/29/24 08/29/24 Previous Rx's ?Medication ?Instructions ?Recorded warfarin 2.5 mg tablet See Rx Instructions .Route 06/10/24 .COMPLEX #90 tabs Allergies Allergy/AdvReac Type Severity Reaction Status Date / Time Penicillins Allergy Verified 08/11/24 13:28 sotalol Allergy Verified 08/11/24 13:28 iodine AdvReac Severe Anaphylaxis Verified 08/11/24 13:28 amiodarone AdvReac Intermediate Other Verified 08/11/24 13:28 codeine AdvReac Verified 08/11/24 13:28 [facility] <Saleem Hanna MD - Last Filed: 08/29/24 07:41> [facility] Disclaimer: The information contained in this section may have been updated after the patient was seen, as this information can be updated by other users. Medical History Scalp lesion Renal artery stenosis Elevated left ventricular end-diastolic pressure (LVEDP) CAD (coronary artery disease) Afib Mitral valve insufficiency PFO (patent foramen ovale) Restrictive lung disease History of coronary angiogram Amiodarone pulmonary toxicity COPD (chronic obstructive pulmonary disease) Obstructive sleep apnea syndrome History of 2019 novel coronavirus disease (COVID-19) Pulmonary emphysema Stopped smoking with greater than 30 pack year history Dyspnea on exertion HLD (hyperlipidemia) History of CVA (cerebrovascular accident) Nausea CHF (congestive heart failure) Surgical History History of colonoscopy History of cardiac cath Family History Other Coronary artery disease Social History Smoking Status: Former smoker tobacco type: cigarettes packs per day: 0 alcohol intake: never substance use type: denies use current occupational status: retired Travel in the last 8 weeks: None household members: spouse housing: house current occupational exposures/hazards: No caffeine: Yes Have you lived/traveled outside [place] in past 30 days?: No Contact w/someone who lives/traveled outside US past 30 days?: No Exposure to someone with infectious disease in past 14 days?: No Do you have a fever (greater than 100.4 F or 38 C)?: No Have you tested positive for COVID-19: No Exposed to someone with COVID-19 in past 14 days?: No Do you have a sore throat?: No Do you have a cough?: No Do you have any weakness?: Yes Do you have any diarrhea?: No Are you experiencing any unusual bleeding?: No Do you have any muscle aches/pain?: No Do you have any abdominal pain?: No Are you experiencing loss of taste or smell?: No Other Medical History Have you received the Flu Vaccine for this season: No Have you received the Pneumonia Vaccine: No <Saleem Hanna MD - Last Filed: 08/29/24 07:41> ROS Obtained: Yes All systems reviewed & no additional complaints except as documented Physical Exam <Saleem Hanna MD - Last Filed: 08/29/24 07:41> General General appearance: alert and in no apparent distress Head Head exam: atraumatic and normocephalic Eye Eye exam: Present normal appearance, PERRL and EOMI ENT ENT exam: Present normal oropharynx and normal external ear exam Neck Neck exam: Present normal inspection and full ROM Chest Chest inspection: Present normal inspection and symmetric chest wall rise; Absent tenderness Respiratory Respiratory exam: Present normal lung sounds bilaterally; Absent respiratory distress Cardiovascular Cardiovascular exam: Present regular rate and normal rhythm Abdominal Exam Abdominal exam: Present soft; Absent distention, tenderness or guarding Extremities Exam Extremities exam: Present normal inspection; Absent edema or joint swelling Back Exam Back exam: Present normal inspection; Absent tenderness Neurological Exam Neurological exam: Present alert, oriented X3, CN II-XII intact and other (Positive Romberg); Absent normal gait or motor sensory deficit Psychiatric Psychiatric exam: Present normal affect and normal mood Skin Skin exam: Present warm, dry and normal color Lymphatic Lymphatic Findings: no adenopathy Medical Decision Making <Saleem Hanna MD - Last Filed: 08/29/24 07:41> Medical Records Medical records reviewed: Yes I reviewed the patient's medical records. Screening: Per USPSTF and CDC recommendations, given the prevalence of disease in our region, it is our hospital?s policy to screen for HIV and viral Hepatitis for all patients aged 18 and over and those with ongoing risk factors. Jacobo Inquiry Pt receiving controlled substance: No Jacobo was queried for this patient: No Vital Signs: 08/29/24 06:36 08/29/24 07:23 08/29/24 07:30 Temperature 97.9 F Temperature Source Oral Pulse Rate 84 84 Pulse Rate [Left] 82 Respiratory Rate 18 19 22 Blood Pressure 127/57 L 131/62 Blood Pressure [Right Arm] 150/68 H Blood Pressure Mean Blood Pressure Mean [Right Arm] 95 02 Sat by Pulse Oximetry 95 93 L 94 L Oxygen Delivery Method Room Air Room Air Room Air Oxygen Flow Rate (LPM) 08/29/24 08:00 08/29/24 08:30 08/29/24 09:00 Temperature Temperature Source Pulse Rate 79 79 80 Pulse Rate [Left] Respiratory Rate 22 22 16 Blood Pressure 128/68 138/61 143/68 H Blood Pressure [Right Arm] Blood Pressure Mean 74 Blood Pressure Mean [Right Arm] 02 Sat by Pulse Oximetry 93 L 93 L 95 Oxygen Delivery Method Room Air Room Air Oxygen Flow Rate (LPM) 08/29/24 09:30 08/29/24 10:30 08/29/24 11:00 Temperature Temperature Source Pulse Rate 78 79 80 Pulse Rate [Left] Respiratory Rate 24 17 22 Blood Pressure 136/67 128/64 124/64 Blood Pressure [Right Arm] Blood Pressure Mean 77 Blood Pressure Mean [Right Arm] 02 Sat by Pulse Oximetry 98 95 96 Oxygen Delivery Method Room Air Nasal Cannula Oxygen Flow Rate (LPM) 08/29/24 11:30 08/29/24 12:00 Temperature Temperature Source Pulse Rate 77 78 Pulse Rate [Left] Respiratory Rate 23 21 Blood Pressure 117/61 125/61 Blood Pressure [Right Arm] Blood Pressure Mean Blood Pressure Mean [Right Arm] 02 Sat by Pulse Oximetry 94 L 96 Oxygen Delivery Method Nasal Cannula Nasal Cannula Oxygen Flow Rate (LPM) 2 Lab Data Lab results reviewed: Yes I reviewed the patient's lab results. Lab Results 08/29/24 06:45: WBC 6.8, RBC 4.40 L, Hgb 14.3, Hct 41.7 L, MCV 94.8 H, MCH 32.5 H, MCHC 34.3, RDW 13.8, Plt Count 167, MPV 9.8, Neut % (Auto) 54.6, Lymph % (Auto) 2.7 L, [place] % (Auto) 10.2 H, Eos % (Auto) 31.5 H, Baso % (Auto) 0.7, Neut # (Auto) 3.7, Lymph # (Auto) 0.2 L, [place] # (Auto) 0.7, Eos # (Auto) 2.1 H, Baso # (Auto) 0.1, PT 26.4 H, INR 2.59 H, APTT 40.3 H, Sodium 136, Potassium 4.0, Chloride 107, Carbon Dioxide 21 L, Anion Gap 12.0, BUN 18, Creatinine 1.50 H, Estimated Creat Clear 47, Estimated GFR 45 L, Est GFR ( Amer) 55 L, Glucose 112 H, Calcium 9.7, Phosphorus 2.0 L, Magnesium 1.8, Total Bilirubin 1.3, AST 37, ALT 27, Alkaline Phosphatase 98, Troponin I 0.17 H, NT-Pro-B Natriuret Pep 8550 H, Total Protein 7.1, Albumin 4.2, Globulin 2.9, Albumin/Globulin Ratio 1.4, TSH 1.19, Thyroxine (T4) 8.0, Plasma/Serum Alcohol < 10, HCV Ab PROSPER w/Rflx PCR Qn Negative, HIV Ag/Ab Combo Qual Negative 08/29/24 07:15: SARS-CoV-2 (PCR) Not detected, Influenza A Untype (PCR) Detected A, Influenza Type B (PCR) Not detected 08/29/24 09:38: Troponin I 0.17 H 08/29/24 10:07: Urine Color Yellow, Urine Appearance Clear, Urine pH 6.5, Ur Specific [place] 1.020, Urine Protein 2+ A, Urine Glucose (UA) Negative, Urine Ketones Negative, Urine Blood 2+ A, Urine Nitrate Negative, Urine Bilirubin Negative, Urine Urobilinogen 0.2, Ur Leukocyte Esterase Negative, Urine RBC 3-5, Urine WBC None, Ur Squamous Epith Cells Occasional, Urine Bacteria Trace 08/29/24 10:09: Urine Opiates Screen Negative, Urine Methadone Screen Negative, Ur Barbituates Screen Negative, Ur Phencyclidine Scrn Negative, Ur Amphetamines Screen Negative, U Benzodiazepines Scrn Negative, Urine Cocaine Screen Negative, U Marijuana (THC) Screen Negative 08/29/24 06:45 08/29/24 06:45 Orders (Tests/Meds): ED MEDICATIONS Generic Name Dose Route Start Last Admin Trade Name Freq PRN Reason Stop Dose Admin Sodium Chloride 10 ml 08/29/24 06:48 08/29/24 07:27 Sodium Chloride 0.9% 10ml Flush Syringe IV 09/28/24 06:47 10 ml NEEDED PRN Administration Maintain IV Site Sodium Chloride 10 ml 08/29/24 08:45 08/29/24 08:46 Sodium Chloride 0.9% 10ml Syr (Rad Only) IV 09/28/24 08:44 10 ml NEEDED PRN Administration Maintain IV Site Discontinued Medications Generic Name Dose Route Start Last Admin Trade Name Ucheq PRN Reason Stop Dose Admin Diphenhydramine HCl 50 mg 08/29/24 07:19 08/29/24 07:26 Diphenhydramine 50mg/Ml Vial IV 08/29/24 07:20 50 mg ONCE ONE Administration Lactated Ringer's 1,000 mls @ 999 mls/hr 08/29/24 07:27 08/29/24 07:29 Lactated Ringer's 1000 Ml Bag IV 08/29/24 08:27 999 mls/hr .Q1H1M ONE Administration Iopamidol 80 ml 08/29/24 08:45 08/29/24 08:46 Iopamidol-370 (76%);100ml Bottle IV 08/29/24 08:46 80 ml ONCE ONE Administration Methylprednisolone Sodium Succinate 80 mg 08/29/24 07:19 08/29/24 07:26 Methylprednisolone Sod Succ 125mg Vial IV 08/29/24 07:20 80 mg ONCE ONE Administration Ondansetron HCl 4 mg 08/29/24 06:48 08/29/24 07:26 Ondansetron 4mg/2ml Vial IV 08/29/24 06:49 4 mg ONCE ONE Administration Potassium Phosphate 250 mg 08/29/24 08:35 08/29/24 09:00 K-Phos Neutral 250mg Tablet PO 08/29/24 08:36 250 mg ONCE ONE Administration Sodium Chloride 50 ml 08/29/24 08:45 08/29/24 08:46 0.9 % Sodium Chloride 50 Ml Vial IV 08/29/24 08:46 50 ml ONCE ONE Administration ORDERS Category Date Time Status CT angio head Stat Cat Scan 08/29/24 06:[address] angio neck Stat Cat Scan 08/29/24 06:[address] head/brain wo con Stat Cat Scan 08/29/24 06:48 Completed Cardiology Consult [Consult to Cardiology] [CONS] Cons 08/29/24 11:40 Active Routine XR chest portable Stat Exams 08/29/24 06:48 Completed Activated Partial Thrombo Time Stat Lab 08/29/24 06:45 Completed BNP [NT Pro Brain Natriuretic Pep.] Stat Lab 08/29/24 06:45 Completed Complete Blood Count Auto Diff Stat Lab 08/29/24 06:45 Completed Comprehensive Metabolic Panel Stat Lab 08/29/24 06:45 Completed Drug Screen,Urine Stat Lab 08/29/24 10:09 Completed Ethyl Alcohol Stat Lab 08/29/24 06:45 Completed HIV Combo Stat Lab 08/29/24 06:45 Completed Hepatitis C Ab Qual. W/ RFX Stat Lab 08/29/24 06:45 Completed Magnesium Stat Lab 08/29/24 06:45 Completed Phosphorous Stat Lab 08/29/24 06:45 Completed Prothrombin Time INR Stat Lab 08/29/24 06:45 Completed Rapid PCR Covid and Flu A/B Stat Lab 08/29/24 07:15 Completed T4 (Thyroxine) Stat Lab 08/29/24 06:45 Completed TSH [Thyroid Stimulating Hormone] Stat Lab 08/29/24 06:45 Completed Troponin I Q3H Lab 08/29/24 09:38 Completed Troponin I Q3H Lab 08/29/24 13:00 Ordered Troponin I Stat Lab 08/29/24 06:45 Completed Urinalysis and Microscopic Stat Lab 08/29/24 10:07 Completed CA echo doppler complete Routine Y 08/29/24 11:40 Ordered ECG Data Tracing #1: I reviewed this ECG and interpreted as documented below: Sinus rhythm with first-degree AV block, intraventricular conduction delay, there is some artifact that limits interpretation, no obvious STEMI ECG initial impression date: 08/29/24 ECG initial impression time: 06:37 Medical Decision Narrative: 79-year-old male with history of heart failure, mitral regurg, COPD, prior [place], hypertension hyperlipidemia, prior stroke, on warfarin presents for weakness and dizziness since approximately 2 AM. Last known normal when he went to bed at 10 PM.. History was obtained via interactive discussion with patient, family, chart review. On arrival, patient is [afebrile, hemodynamically stable, satting appropriately, alert, oriented x4, GCS 15], moving all extremities spontaneously. Full physical exam performed and significant for positive Romberg, no other focal neurologic deficit noted, NIH is 0. Blood sugar normal. Considered thrombolysis, but patient's NIH is 0 and he is out of the window based on time, he is also on warfarin and we do not know what is INR is. Differential includes but is not limited to TIA, stroke, arrhythmia, inner ear pathology secondary to viral illness, electrolyte derangement. Patient was given 1 L fluid bolus, Zofran for symptomatic management and correction of underlying abnormalities. Patient reports he has an allergy to iodine, but he has gotten heart caths in the recent past. Will pretreat with Benadryl and Solu-Medrol. Workup initiated including CT head, CTA head neck, broad-spectrum laboratory workup. Initial labs independently interpreted by me and show no significant leukocytosis, no significant electrolyte derangement or renal dysfunction from baseline, initial troponin elevated but consistent with prior results. CT head independently interpreted by me and shows no large head bleed, does show ex-vacuo dilatation. At this time care handed off to oncoming physician. <Freda Gordillo, - Last Filed: 08/29/24 12:17> Vital Signs: 08/29/24 06:36 08/29/24 07:23 08/29/24 07:30 Temperature 97.9 F Temperature Source Oral Pulse Rate 84 84 Pulse Rate [Left] 82 Respiratory Rate 18 19 22 Blood Pressure 127/57 L 131/62 Blood Pressure [Right Arm] 150/68 H Blood Pressure Mean Blood Pressure Mean [Right Arm] 95 02 Sat by Pulse Oximetry 95 93 L 94 L Oxygen Delivery Method Room Air Room Air Room Air Oxygen Flow Rate (LPM) 08/29/24 08:00 08/29/24 08:30 08/29/24 09:00 Temperature Temperature Source Pulse Rate 79 79 80 Pulse Rate [Left] Respiratory Rate 22 22 16 Blood Pressure 128/68 138/61 143/68 H Blood Pressure [Right Arm] Blood Pressure Mean 74 Blood Pressure Mean [Right Arm] 02 Sat by Pulse Oximetry 93 L 93 L 95 Oxygen Delivery Method Room Air Room Air Oxygen Flow Rate (LPM) 08/29/24 09:30 08/29/24 10:30 08/29/24 11:00 Temperature Temperature Source Pulse Rate 78 79 80 Pulse Rate [Left] Respiratory Rate 24 17 22 Blood Pressure 136/67 128/64 124/64 Blood Pressure [Right Arm] Blood Pressure Mean 77 Blood Pressure Mean [Right Arm] 02 Sat by Pulse Oximetry 98 95 96 Oxygen Delivery Method Room Air Nasal Cannula Oxygen Flow Rate (LPM) 08/29/24 11:30 08/29/24 12:00 Temperature Temperature Source Pulse Rate 77 78 Pulse Rate [Left] Respiratory Rate 23 21 Blood Pressure 117/61 125/61 Blood Pressure [Right Arm] Blood Pressure Mean Blood Pressure Mean [Right Arm] 02 Sat by Pulse Oximetry 94 L 96 Oxygen Delivery Method Nasal Cannula Nasal Cannula Oxygen Flow Rate (LPM) 2 Lab Data Lab Results 08/29/24 06:45: WBC 6.8, RBC 4.40 L, Hgb 14.3, Hct 41.7 L, MCV 94.8 H, MCH 32.5 H, MCHC 34.3, RDW 13.8, Plt Count 167, MPV 9.8, Neut % (Auto) 54.6, Lymph % (Auto) 2.7 L, [place] % (Auto) 10.2 H, Eos % (Auto) 31.5 H, Baso % (Auto) 0.7, Neut # (Auto) 3.7, Lymph # (Auto) 0.2 L, [place] # (Auto) 0.7, Eos # (Auto) 2.1 H, Baso # (Auto) 0.1, PT 26.4 H, INR 2.59 H, APTT 40.3 H, Sodium 136, Potassium 4.0, Chloride 107, Carbon Dioxide 21 L, Anion Gap 12.0, BUN 18, Creatinine 1.50 H, Estimated Creat Clear 47, Estimated GFR 45 L, Est GFR ( Amer) 55 L, Glucose 112 H, Calcium 9.7, Phosphorus 2.0 L, Magnesium 1.8, Total Bilirubin 1.3, AST 37, ALT 27, Alkaline Phosphatase 98, Troponin I 0.17 H, NT-Pro-B Natriuret Pep 8550 H, Total Protein 7.1, Albumin 4.2, Globulin 2.9, Albumin/Globulin Ratio 1.4, TSH 1.19, Thyroxine (T4) 8.0, Plasma/Serum Alcohol < 10, HCV Ab PROSPER w/Rflx PCR Qn Negative, HIV Ag/Ab Combo Qual Negative 08/29/24 07:15: SARS-CoV-2 (PCR) Not detected, Influenza A Untype (PCR) Detected A, Influenza Type B (PCR) Not detected 08/29/24 09:38: Troponin I 0.17 H 08/29/24 10:07: Urine Color Yellow, Urine Appearance Clear, Urine pH 6.5, Ur Specific [place] 1.020, Urine Protein 2+ A, Urine Glucose (UA) Negative, Urine Ketones Negative, Urine Blood 2+ A, Urine Nitrate Negative, Urine Bilirubin Negative, Urine Urobilinogen 0.2, Ur Leukocyte Esterase Negative, Urine RBC 3-5, Urine WBC None, Ur Squamous Epith Cells Occasional, Urine Bacteria Trace 08/29/24 10:09: Urine Opiates Screen Negative, Urine Methadone Screen Negative, Ur Barbituates Screen Negative, Ur Phencyclidine Scrn Negative, Ur Amphetamines Screen Negative, U Benzodiazepines Scrn Negative, Urine Cocaine Screen Negative, U Marijuana (THC) Screen Negative Orders (Tests/Meds): ED MEDICATIONS Generic Name Dose Route Start Last Admin Trade Name Freq PRN Reason Stop Dose Admin Sodium Chloride 10 ml 08/29/24 06:48 08/29/24 07:27 Sodium Chloride 0.9% 10ml Flush Syringe IV 09/28/24 06:47 10 ml NEEDED PRN Administration Maintain IV Site Sodium Chloride 10 ml 08/29/24 08:45 08/29/24 08:46 Sodium Chloride 0.9% 10ml Syr (Rad Only) IV 09/28/24 08:44 10 ml NEEDED PRN Administration Maintain IV Site Discontinued Medications Generic Name Dose Route Start Last Admin Trade Name Freq PRN Reason Stop Dose Admin Diphenhydramine HCl 50 mg 08/29/24 07:19 08/29/24 07:26 Diphenhydramine 50mg/Ml Vial IV 08/29/24 07:20 50 mg ONCE ONE Administration Lactated Ringer's 1,000 mls @ 999 mls/hr 08/29/24 07:27 08/29/24 07:29 Lactated Ringer's 1000 Ml Bag IV 08/29/24 08:27 999 mls/hr .Q1H1M ONE Administration Iopamidol 80 ml 08/29/24 08:45 08/29/24 08:46 Iopamidol-370 (76%);100ml Bottle IV 08/29/24 08:46 80 ml ONCE ONE Administration Methylprednisolone Sodium Succinate 80 mg 08/29/24 07:19 08/29/24 07:26 Methylprednisolone Sod Succ 125mg Vial IV 08/29/24 07:20 80 mg ONCE ONE Administration Ondansetron HCl 4 mg 08/29/24 06:48 08/29/24 07:26 Ondansetron 4mg/2ml Vial IV 08/29/24 06:49 4 mg ONCE ONE Administration Potassium Phosphate 250 mg 08/29/24 08:35 08/29/24 09:00 K-Phos Neutral 250mg Tablet PO 08/29/24 08:36 250 mg ONCE ONE Administration Sodium Chloride 50 ml 08/29/24 08:45 08/29/24 08:46 0.9 % Sodium Chloride 50 Ml Vial IV 08/29/24 08:46 50 ml ONCE ONE Administration ORDERS Category Date Time Status CT angio head Stat Cat Scan 08/29/24 06:[address] angio neck Stat Cat Scan 08/29/24 06:[address] head/brain wo con Stat Cat Scan 08/29/24 06:48 Completed Cardiology Consult [Consult to Cardiology] [CONS] Cons 08/29/24 11:40 Active Routine XR chest portable Stat Exams 08/29/24 06:48 Completed Activated Partial Thrombo Time Stat Lab 08/29/24 06:45 Completed BNP [NT Pro Brain Natriuretic Pep.] Stat Lab 08/29/24 06:45 Completed Complete Blood Count Auto Diff Stat Lab 08/29/24 06:45 Completed Comprehensive Metabolic Panel Stat Lab 08/29/24 06:45 Completed Drug Screen,Urine Stat Lab 08/29/24 10:09 Completed Ethyl Alcohol Stat Lab 08/29/24 06:45 Completed HIV Combo Stat Lab 08/29/24 06:45 Completed Hepatitis C Ab Qual. W/ RFX Stat Lab 08/29/24 06:45 Completed Magnesium Stat Lab 08/29/24 06:45 Completed Phosphorous Stat Lab 08/29/24 06:45 Completed Prothrombin Time INR Stat Lab 08/29/24 06:45 Completed Rapid PCR Covid and Flu A/B Stat Lab 08/29/24 07:15 Completed T4 (Thyroxine) Stat Lab 08/29/24 06:45 Completed TSH [Thyroid Stimulating Hormone] Stat Lab 08/29/24 06:45 Completed Troponin I Q3H Lab 08/29/24 09:38 Completed Troponin I Q3H Lab 08/29/24 13:00 Ordered Troponin I Stat Lab 08/29/24 06:45 Completed Urinalysis and Microscopic Stat Lab 08/29/24 10:07 Completed CA echo doppler complete Routine Y 08/29/24 11:40 Ordered ECG Data Tracing #2: I reviewed this ECG and interpreted as documented below: Normal sinus rhythm with a ventricular rate of 79 bpm. First-degree AV block. Nonspecific ST/T wave changes without acute STEMI. Some motion artifact ECG initial impression date: 08/29/24 ECG initial impression time: 08:39 Medical Decision Narrative: 79-year-old male with history of heart failure, mitral regurg, COPD, prior [place], hypertension hyperlipidemia, prior stroke, on warfarin presents for weakness and dizziness since approximately 2 AM. Last known normal when he went to bed at 10 PM.. History was obtained via interactive discussion with patient, family, chart review. On arrival, patient is [afebrile, hemodynamically stable, satting appropriately, alert, oriented x4, GCS 15], moving all extremities spontaneously. Full physical exam performed and significant for positive Romberg, no other focal neurologic deficit noted, NIH is 0. Blood sugar normal. Considered thrombolysis, but patient's NIH is 0 and he is out of the window based on time, he is also on warfarin and we do not know what is INR is. Differential includes but is not limited to TIA, stroke, arrhythmia, inner ear pathology secondary to viral illness, electrolyte derangement. Patient was given 1 L fluid bolus, Zofran for symptomatic management and correction of underlying abnormalities. Patient reports he has an allergy to iodine, but he has gotten heart caths in the recent past. Will pretreat with Benadryl and Solu-Medrol. Workup initiated including CT head, CTA head neck, broad-spectrum laboratory workup. Initial labs independently interpreted by me and show no significant leukocytosis, no significant electrolyte derangement or renal dysfunction from baseline, initial troponin elevated but consistent with prior results. CT head independently interpreted by me and shows no large head bleed, does show ex-vacuo dilatation. At this time care handed off to oncoming physician. DO Duy: I assumed care of the patient at 7 AM at time of departure previous provider. On my assessment, he is lying in bed in no acute distress with no significant concerns or complaints. He feels very dizzy, weak, and off balance when he gets up, but at rest he is doing okay. NIH stroke scale is 0 and he presents outside of any sort of window for thrombectomy or tPA based on duration of symptoms. He does have significant instability when he gets up. Workup is significant for elevated troponin with stable second troponin without significant delta. He also has a significantly elevated BNP when compared to prior labs. He has hypophosphatemia for which oral replacement was ordered. Kidney function is around his baseline. CBC is reassuring with no significant leukocytosis or anemia. Chest x-ray does not show any large focal pneumonia. Patient was pretreated for possible iodine allergy prior to obtaining CTAs with steroids and Benadryl. He tolerated CTA without difficulty without having an allergic reaction. CT head and CTAs on my independent interpretation do not demonstrate any acute hemorrhage, space-occupying lesion, or large vessel occlusion. Please see radiology read for final interpretation. He does have chronic microvascular changes. He did test positive for the flu. Overall, I feel patient is ill with flu A, dizziness, gait instability, elevated troponin, and hypophosphatemia. I feel he would benefit from admission for further evaluation and management. Given this, I called and had an interactive discussion with the hospitalist who admitted the patient in stable condition. Procedures <Saleem Hanna MD - Last Filed: 08/29/24 07:41> Risk/Benefits of Procedure(s) Were Explained: Yes Critical Care <Saleem Hanna MD - Last Filed: 08/29/24 07:41> Critical Care Time Critical Care Time: Yes Attestation: On 08/29/24, the high probability of a clinically significant, sudden or life threatening deterioration of the following system(s) required my full and direct attention, intervention and personal management. The time I documented below is in addition to time spent performing reported procedures but includes the following listed in this critical care notation. Total Time Total Critical Care Time: 35
[2024-08-29 07:23] LABS: Coronavirus 19, PCR Not Detected (NotDetected); Influenza B, PCR Not Detected (NotDetected)
[2024-08-29 07:26] LABS: Troponin I 0.17 ng/ml (0.00-0.034)
[2024-08-29] MEDS: diphenhydrAMINE 50MG/ML VIAL 50 MG IV (07:26)
[2024-08-29] MEDS: ONDANSETRON 4MG/2ML VIAL 4 MG IV (07:26)
[2024-08-29] MEDS: METHYLPREDNISOLONE SOD SUCC 125MG VIAL 80 MG IV (07:26)
[2024-08-29] MEDS: SODIUM CHLORIDE 0.9% 10ML FLUSH SYRINGE 10 ML IV (07:27)
[2024-08-29] MEDS: LACTATED RINGERS 1000ML 1,000 ML 999 ML IV (07:29)
[2024-08-29 07:35] LABS: Magnesium 1.8 mg/dl (1.6-2.3)
[2024-08-29 07:44] LABS: NT Pro Brain Natriuretic Pep. 8550 pg/mL (0-450)
[2024-08-29 07:52] LABS: Influenza A, PCR Detected (NotDetected)
[2024-08-29 08:34] LABS: HIV Combo NEGATIVE (Negative)
--- NOTE | 2024-08-29 08:38 | ECG_ITS ---
APPROVED REPORT Exam: Resting ECG HR:79 bpm ECG Measurements Heart Rate 79 AXES QRSd 104 QRS -56 QT 402 T 105 QTc 437 Conclusion SUPRAVENTRICULAR RHYTHM LEFT AXIS DEVIATION [QRS AXIS < -30] POSSIBLE ANTERIOR MYOCARDIAL INFARCTION , PROBABLY OLD [30 ms Q WAVE IN V3/V4, OR R < 0.2 mV IN V4] MODERATE T-WAVE ABNORMALITY, CONSIDER LATERAL ISCHEMIA [-0.1+ mV T-WAVE IN I/aVL/V5/V6] ABNORMAL ECG UNCONFIRMED REPORT Electronically signed by : RADHA HOOD, 08/30/2024 07:01:49
[2024-08-29 08:42] LABS: Hepatitis C Ab Qual. W/ RFX NEGATIVE (Negative)
[2024-08-29 08:46] LABS: Thyroid Stimulating Hormone 1.19 uIU/mL (0.465-4.68)
[2024-08-29] MEDS: IOPAMIDOL-370 (76%);100ML BOTTLE 80 ML IV (08:46)
[2024-08-29] MEDS: SODIUM CHLORIDE 0.9% 10ML SYR (RAD ONLY) 10 ML IV (08:46)
[2024-08-29] MEDS: 0.9 % SODIUM CHLORIDE 50 ML VIAL IV (08:46)
[2024-08-29] MEDS: K-PHOS NEUTRAL 250MG TABLET 250 MG PO (09:00)
--- NOTE | 2024-08-29 09:53 | PC.NURSE ---
Pt. sleeping, 2L applied. Pt states he wears O2 at home when he sleeps.
--- NOTE | 2024-08-29 09:55 | PC.NURSE ---
MEME COTO PLACED PT ON 2L OF O2 FOR WHEN SLEEPING
[2024-08-29 10:06] LABS: Troponin I 0.17 ng/ml (0.00-0.034)
--- NOTE | 2024-08-29 10:09 | PC.NURSE ---
UA SENT TO LAB
[2024-08-29 10:11] LABS: Microscopic, Urine URINE MICROSCOPIC (MICROSCOPIC)
[2024-08-29 10:23] LABS: Appearance,Urine Clear (Clear); Color,Urine Yellow (Yellow); PH,Urine 6.5 (5.0-8.5)
[2024-08-29 10:24] LABS: Bacteria,Urine Trace /lpf; Bilirubin,Urine Negative (Negative); Blood, Urine 2+ (Negative); Glucose,Urine (UA) Negative (Negative); Ketones,Urine Negative (Negative); Leukocyte Esterase,Urine Negative (Negative); Nitrate,Urine Negative (Negative); Protein,Urine 2+ (Negative); Squamous Epithelial Cell,Urine Occasional #/hpf (0-5); Urobilinogen,Urine 0.2 EU/dl (0.2)
[2024-08-29 10:25] LABS: Amphetamine/Metha Screen,Urine Negative ng/ml (<1000)
[2024-08-29 10:26] LABS: Barbiturates Screen,Urine Negative ng/ml (<200); Benzodiazepines Screen,Urine Negative ng/ml (<200)
[2024-08-29 10:27] LABS: Cocaine Screen,Urine Negative ng/ml (<300)
[2024-08-29 10:28] LABS: Cannabinoid Screen,Urine Negative ng/ml (<50); Methadone Screen,Urine Negative ng/ml (<300)
[2024-08-29 10:29] LABS: Phencyclidine Screen,Urine Negative ng/ml (<25)
[2024-08-29 10:30] LABS: Opiate Screen,Urine Negative ng/ml (<300)
--- NOTE | 2024-08-29 11:31 | PC.NURSE ---
DR CLAROS AT BEDSIDE TO UPDATE PT AND FAMILY
--- NOTE | 2024-08-29 11:34 | PC.NURSE ---
WENT ASKED PT IF HE WOULD LIKE TO TAKE A WALK HE STATED HE WAS TO TIRED AND DID NOT WANT TO AMBULATE AT THIS TIME, STATES ER PLANS TO ADMIT FOR [facility]
--- NOTE | 2024-08-29 11:38 | PC.NURSE ---
DR CLAROS SPEAKING WITH HOSPITALIST FOR ADMISSION
--- NOTE | 2024-08-29 11:40 | CA_ITS ---
APPROVED REPORT EXAM: Comprehensive 2D, Doppler, and color-flow Echocardiogram Field Crop Farmer: Sylvia Moss RT(R) Ht: 5 ft 8 in Wt: 180lbs BSA: 1.95 BP: 131/62 mmHg Indications: weakness, COPD, ex smoker, HTN, hyperlipdiemia, SOB, CAD, AFIB, CHF, hx CVA, AR, AMS, NSTEMI, DIANN, PFO seen on HERNÁN 2D Dimensions Left Atrium 4.89 cm M: 3.0 - 4.0 EF AP4 48.20 % LVOT 2.09 cm (M/F) 1.5-2.5 GL Strain -5.8 % M-Mode Dimensions RVDd 3.00 cm (0.9-2.6) LVDd 5.86 cm (3.5-5.7) Ao Diam 3.18 cm (2.0-3.7) LVDs 4.43 cm (3.5-5.7) IVSd 0.98 cm (0.6-1.1) PWd 0.89 cm (0.6-1.1) EF (Teich) 47.70% FS 24.40% EDV (Teich) 170.50 mL ESV (Teich) 89.10 mL LV Diastology E Decel Time 133 (160-240 msec) E/A Ratio 2.5 MED E' 7.4 (>= 7 cm/sec) E'/MED E' Ratio 11.66 (<= 14) LAT E' 10.2 (>= 10 cm/sec) E/LAT E' Ratio 8.46 (<= 14) Aortic Valve LVOT Max 118.0 (70-110 cm/s) JOMAR Index 2.00 cm2/m2 LVOT VTI 24.10 cm AoV Peak Boubacar. 109.0 (50-130 cm/s) AI PHT 444.00 ms AO Mean GR. 2.40 (<5 mmHg) AO VTI 21.2 (18-25 cm) JOMAR (VTI) 3.90 (2.5-4.5 cm2) Mitral Valve MV E Max Boub[place]ar. 86.0 (40-130 cm/s) MV A Velocity 35.0 (40-130 cm/s) E/A Ratio 2.49 MV Decel. Time 133 (160-240 ms) Tricuspid Valve TR P. Velocity 330.00 cm/s RAP Estimate 10.00 mmHg RVSP 53.70 mmHg Left Ventricle The left ventricle is normal size. The left ventricular systolic function is normal. The left ventricular ejection fraction is within the normal range. There is increased LV wall thickness. There is normal LV segmental wall motion. Diastolic function is indeterminate. LVEF is 55%. Right Ventricle The right ventricle is normal size. The right ventricular systolic function is normal. Atria Left atrium is moderately dilated. Right atrium is moderately dilated. Known history of PFO. The interatrial shunt is not well-visualized on the study. Aortic Valve Aortic valve is mildly thickened. Mild to moderate aortic regurgitation. There is no aortic valvular stenosis. Mitral Valve The mitral valve leaflets are mildly thickened. No evidence of mitral valve stenosis. Mild mitral regurgitation. Tricuspid Valve Tricuspid valve is grossly normal in structure and function. Mild tricuspid regurgitation. RVSP is 40 mmHg + RA pressure. Pulmonic Valve The pulmonary valve is normal in structure. Trace pulmonic regurgitation. Great Vessels The aortic root is normal in size. The IVC is not well-visualized. Pericardium There is no pericardial effusion. Other Information Study Quality: Fair Conclusion Normal biventricular systolic function. Biatrial dilation. Mild to moderate AI. Mild MR, mild TR. Elevated RVSP 40 mmHg + RA pressure. Known history of PFO. The interatrial shunt is not well-visualized on the study. Electronically signed by : Sondra Ricketts MD 08/29/2024 14:17:12
--- NOTE | 2024-08-29 11:50 | PC.NURSE ---
SHOES SALESPERSON NOTIFIED OF ADMISSION
--- NOTE | 2024-08-29 12:04 | PC.NURSE ---
Tried to assist pt with getting up in the chair to sit for lunch, pt stated that she was not ready to wake-up. Nursing spoke w/ pt and told her that it was noon and educated pt on benefits up sitting up in chair. Pt stated again that she was not ready and that she need 1 more hour before she got up to chair. Nursing encouraged pt to sit up in chair to eat lunch, pt stated she again wanted to wait an hour. Will encourage pt again @ 1300.
--- NOTE | 2024-08-29 12:14 | PC.NURSE ---
report called to Ghassan Welsh RN.
--- NOTE | 2024-08-29 12:29 | PC.NURSE ---
arrived by w/c from ED
--- NOTE | 2024-08-29 12:39 | P.HP_ITS ---
History of Present Illness *Admission Date: 08/29/24 *Reason for visit:: Dizziness, shortness of breath *History of present illness: Ned Cronin is a 79-year-old male with a medical history significant for A- fib/flutter (s/p multiple ablations on warfarin), mitral valve prolapse, mitral valve regurgitation, CAD with 5 stents, HFpEF, left ventricular aneurysm, renal artery stenosis s/p stents who presents with 2 episodes of lightheadedness and shortness of breath. He states the first episode occurred about 2 weeks ago at home during which he felt lightheaded and unstable to walk mildly short of breath. He states the second episode was the day of admission with similar symptoms. He denies chest pain, blurry vision, fever/chills, abdominal pain, urinary symptoms, diarrhea recently. No history of CVA, no recent medication changes. Workup in the ED significant for troponin 0.17, influenza A positive. CT/CTA head/neck unremarkable for acute findings. Case discussed with the ED provider and decision was made to admit patient for concerning findings of lightheadedness with complex cardiac history, NSTEMI. [facility] Disclaimer: The information contained in this section may have been updated after the patient was seen, as this information can be updated by other users. Medical History Scalp lesion Renal artery stenosis Elevated left ventricular end-diastolic pressure (LVEDP) CAD (coronary artery disease) Afib Mitral valve insufficiency PFO (patent foramen ovale) Restrictive lung disease History of coronary angiogram Amiodarone pulmonary toxicity COPD (chronic obstructive pulmonary disease) Obstructive sleep apnea syndrome History of 2019 novel coronavirus disease (COVID-19) Pulmonary emphysema Stopped smoking with greater than 30 pack year history Dyspnea on exertion HLD (hyperlipidemia) History of CVA (cerebrovascular accident) Nausea CHF (congestive heart failure) Surgical History History of colonoscopy History of cardiac cath Family History Other Coronary artery disease Family history of acute congestive heart failure Family history of hyperlipidemia Family history of hypertension Social History Smoking Status: Former smoker tobacco type: cigarettes packs per day: 0 alcohol intake: never substance use type: denies use current occupational status: retired Travel in the last 8 weeks: None household members: spouse housing: house current occupational exposures/hazards: No caffeine: Yes Have you lived/traveled outside US in past 30 days?: No Contact w/someone who lives/traveled outside US past 30 days?: No Exposure to someone with infectious disease in past 14 days?: No Do you have a fever (greater than 100.4 F or 38 C)?: No Have you tested positive for COVID-19: No Exposed to someone with COVID-19 in past 14 days?: No Do you have a sore throat?: No Do you have a cough?: No Do you have any weakness?: Yes Do you have any diarrhea?: No Are you experiencing any unusual bleeding?: No Do you have any muscle aches/pain?: No Do you have any abdominal pain?: No Are you experiencing loss of taste or smell?: No Other Medical History Have you received the Flu Vaccine for this season: No Have you received the Pneumonia Vaccine: No Meds Home Medications and Allergies Home Medications ?Medication ?Instructions ?Recorded ?Confirmed ?Type metoprolol succinate 100 mg 100 mg PO DAILY 08/29/24 08/29/24 History tablet,extended release 24 hr rosuvastatin 40 mg tablet 40 mg PO HS 08/29/24 08/29/24 History warfarin 2.5 mg tablet 2.5 mg PO SUTUTHSA 08/29/24 08/29/24 History warfarin 2.5 mg tablet 3.75 mg PO MOWEFR 08/29/24 08/29/24 History New Prescriptions to Start Prescriptions: Allergies Allergy/AdvReac Type Severity Reaction Status Date / Time Penicillins Allergy Verified 08/11/24 13:28 sotalol Allergy Verified 08/11/24 13:28 iodine AdvReac Severe Anaphylaxis Verified 08/11/24 13:28 amiodarone AdvReac Intermediate Other Verified 08/11/24 13:28 codeine AdvReac Verified 08/11/24 13:28 Exam Data for Last 24 hours Vital signs and Labs for Last 24 Hours: Temp Pulse Resp BP Pulse Ox O2 Del Method O2 Flow Rate 98.2 F 78 18 125/61 96 Nasal Cannula 2 08/29/24 12:17 08/29/24 12:17 08/29/24 12:17 08/29/24 12:17 08/29/24 12:00 08/29/24 12:17 08/29/24 12:17 Laboratory Results - last 24 hr 08/29/24 06:45: WBC 6.8, RBC 4.40 L, Hgb 14.3, Hct 41.7 L, MCV 94.8 H, MCH 32.5 H, MCHC 34.3, RDW 13.8, Plt Count 167, MPV 9.8, Neut % (Auto) 54.6, Lymph % (Auto) 2.7 L, [place] % (Auto) 10.2 H, Eos % (Auto) 31.5 H, Baso % (Auto) 0.7, Neut # (Auto) 3.7, Lymph # (Auto) 0.2 L, [place] # (Auto) 0.7, Eos # (Auto) 2.1 H, Baso # (Auto) 0.1, PT 26.4 H, INR 2.59 H, APTT 40.3 H, Sodium 136, Potassium 4.0, Chloride 107, Carbon Dioxide 21 L, Anion Gap 12.0, BUN 18, Creatinine 1.50 H, Estimated Creat Clear 47, Estimated GFR 45 L, Est GFR ( Amer) 55 L, Glucose 112 H, Calcium 9.7, Phosphorus 2.0 L, Magnesium 1.8, Total Bilirubin 1.3, AST 37, ALT 27, Alkaline Phosphatase 98, Troponin I 0.17 H, NT-Pro-B Natriuret Pep 8550 H, Total Protein 7.1, Albumin 4.2, Globulin 2.9, Albumin/Globulin Ratio 1.4, TSH 1.19, Thyroxine (T4) 8.0, Plasma/Serum Alcohol < 10, HCV Ab PROSPER w/Rflx PCR Qn Negative, HIV Ag/Ab Combo Qual Negative 08/29/24 07:15: SARS-CoV-2 (PCR) Not detected, Influenza A Untype (PCR) Detected A, Influenza Type B (PCR) Not detected 08/29/24 09:38: Troponin I 0.17 H 08/29/24 10:07: Urine Color Yellow, Urine Appearance Clear, Urine pH 6.5, Ur Specific [place] 1.020, Urine Protein 2+ A, Urine Glucose (UA) Negative, Urine Ketones Negative, Urine Blood 2+ A, Urine Nitrate Negative, Urine Bilirubin Negative, Urine Urobilinogen 0.2, Ur Leukocyte Esterase Negative, Urine RBC 3-5, Urine WBC None, Ur Squamous Epith Cells Occasional, Urine Bacteria Trace 08/29/24 10:09: Urine Opiates Screen Negative, Urine Methadone Screen Negative, Ur Barbituates Screen Negative, Ur Phencyclidine Scrn Negative, Ur Amphetamines Screen Negative, U Benzodiazepines Scrn Negative, Urine Cocaine Screen Negative, U Marijuana (THC) Screen Negative I & O for Last 24 hours: Intake & Output 08/26/24 08/27/24 08/28/24 08/29/24 23:59 23:59 23:59 23:59 Intake Total 1250 / 1250 Balance 1250 / 1250 Weight 81.647 kg Constitutional Constitutional: no acute distress *Routine HEENT Exam Head: Present normocephalic Eye: Present EOMI and PERRL ENT: Present mucous membranes moist *Routine Neck Exam Neck: Present supple; Absent lymphadenopathy *Routine Respiratory Exam Respiratory: Present CTA bilaterally *Routine Cardiovascular Exam Cardiovascular: Present RRR *Routine Abdominal Exam Abdominal: Present soft and normoactive bowel sounds; Absent tenderness *Routine Rectal Exam Rectal:: deferred *Routine Genitalia Exam Genitalia:: deferred *Routine Extremities Exam Extremities: Absent cyanosis, clubbing or edema *Routine Skin Exam Skin: Present warm; Absent rash *Routine Neurological Exam Neurological: Present alert and oriented X3 Assessment and Plan *Assessment and plan (1) Dizziness: Status: Acute Category: Medical Code(s): R42 - Dizziness and giddiness Plan Ned Cronin is a 79-year-old male with a medical history significant for A- fib/flutter (s/p multiple ablations on warfarin), mitral valve prolapse, mitral valve regurgitation, CAD with 5 stents, HFpEF, left ventricular aneurysm, renal artery stenosis s/p stents who presents with 2 episodes of lightheadedness and shortness of breath. He states the first episode occurred about 2 weeks ago at home during which he felt lightheaded and unstable to walk mildly short of breath. He states the second episode was the day of admission with similar symptoms. He denies chest pain, blurry vision, fever/chills, abdominal pain, urinary symptoms, diarrhea recently. No history of CVA, no recent medication changes. Workup in the ED significant for troponin 0.17, influenza A positive. CT/CTA head/neck unremarkable for acute findings. Case discussed with the ED provider and decision was made to admit patient for concerning findings of lightheadedness with complex cardiac history, NSTEMI. #Lightheadedness #NSTEMI #Influenza A #Complex cardiac history ? Patient reports 2 episodes of lightheadedness, shortness of breath over the past 2 weeks. Found to have NSTEMI and be flu positive. ? ECHO today also reveals what seems to be a new diagnosis of mild to moderate aortic regurgitation. Discussed to patient's complex cardiac history as below. ? At this time, it is unclear how much moderate new diagnosis of aortic regurgitation are contributing to symptoms, along with other cardiac conditions. ? Cardiology consulted, started heparin drip and considering inpatient LHC. ? Aspirin 81 mg, atorvastatin 80 mg, metoprolol succinate 100 mg. ? Continue Tamiflu 75 mg twice daily for 5 days. ? Continuous cardiac telemetry. ? Follow-up lipid panel, A1c, TSH, orthostatic vitals. #A-fib/flutter #Mitral valve prolapse #Mitral, tricuspid valve regurgitation #Aortic valve regurgitation #CAD with 5 stents #History of left ventricular aneurysm #Renal artery stenosis #Hyperlipidemia ? Aspirin, statin, metoprolol as above. ? Currently rate controlled. Hold home warfarin, currently on heparin drip. #CKD stage IIIa ? Stable. Creatinine 1.5, GFR 45. DNI DVT prophylaxis: Heparin drip as above.
--- NOTE | 2024-08-29 12:53 | HMH.PHAINT1 ---
Pharmacy Intervention Comments: MEDICATION RECONCILIATION COMPLETED ON PATIENT USING EXTERNAL FILL HISTORY FROM PHARMACY. -LONDON ANAND, JACQUESD
--- NOTE | 2024-08-29 13:46 | EXP.CARD.CON ---
History of Present Illness History of Present Illness Consult date: 08/29/24 Requesting physician: Ghassan Correia Consult reason: atrial fibrillation Chief complaint: dizziness and weakness History of present illness: 79-year-old white male established patient of our office with a history of CAD status post stenting 2021. Last cath was September 2023 which revealed small vessel disease and elevated end-diastolic pressure as the likely source of patient's chest pain. He also has known HFpEF with grade 3 diastolic dysfunction, paroxysmal atrial fibrillation status post 3 prior ablations, followed by Dr. Schmidt in [place]. Patient presented to the emergency room with complaints of dizziness and weakness which has been occurring episodically over the past several weeks. Symptoms last for approximately 12 to 13 hours then resolve spontaneously. He had 2 bad episodes yesterday so he presented to the emergency room today. Head CTA neg for acute process. Of note he has also had cough and congestion for the past several days and in the emergency room was found to be positive for influenza A. From a cardiac standpoint he has mild flat elevation of troponin at 0.17 and 0.17. proBNP elevated at 8550, EKG shows sinus rhythm with questionable anterolateral ST changes. He was admitted from the emergency room for further evaluation. He is currently asymptomatic at rest. [facility] Disclaimer: The information contained in this section may have been updated after the patient was seen, as this information can be updated by other users. Medical History Scalp lesion Renal artery stenosis Elevated left ventricular end-diastolic pressure (LVEDP) CAD (coronary artery disease) Afib Mitral valve insufficiency PFO (patent foramen ovale) Restrictive lung disease History of coronary angiogram Amiodarone pulmonary toxicity COPD (chronic obstructive pulmonary disease) Obstructive sleep apnea syndrome History of 2019 novel coronavirus disease (COVID-19) Pulmonary emphysema Stopped smoking with greater than 30 pack year history Dyspnea on exertion HLD (hyperlipidemia) History of CVA (cerebrovascular accident) Nausea CHF (congestive heart failure) Surgical History History of colonoscopy History of cardiac cath Family History Other Coronary artery disease Family history of acute congestive heart failure Family history of hyperlipidemia Family history of hypertension Social History Smoking Status: Former smoker tobacco type: cigarettes packs per day: 0 alcohol intake: never substance use type: denies use current occupational status: retired Travel in the last 8 weeks: None household members: spouse housing: house current occupational exposures/hazards: No caffeine: Yes Have you lived/traveled outside US in past 30 days?: No Contact w/someone who lives/traveled outside US past 30 days?: No Exposure to someone with infectious disease in past 14 days?: No Do you have a fever (greater than 100.4 F or 38 C)?: No Have you tested positive for COVID-19: No Exposed to someone with COVID-19 in past 14 days?: No Do you have a sore throat?: No Do you have a cough?: No Do you have any weakness?: Yes Do you have any diarrhea?: No Are you experiencing any unusual bleeding?: No Do you have any muscle aches/pain?: No Do you have any abdominal pain?: No Are you experiencing loss of taste or smell?: No Review of Systems Constitutional Constitutional: Reports fatigue and Reports weakness Eyes Eyes: Denies loss of vision ENT Ears, Nose, Mouth, and Throat: Denies hearing loss and Reports vertigo *Cardiovascular Cardiovascular: Denies chest pain, Denies dyspnea and Denies syncope *Respiratory Respiratory: Reports cough and Denies dyspnea *Gastrointestinal Gastrointestinal: Denies change in stool character, Denies nausea and Denies vomiting *Genitourinary Genitourinary: Denies difficulty urinating *Musculoskeletal Musculoskeletal: Denies muscle weakness Integumentary/Breasts Skin/Breast: Denies changing lesions *Neurologic Neurologic: Denies loss of vision, Denies syncope, Reports vertigo and Reports weakness Endocrine Endocrine: Reports fatigue Exam Data for Last 24 hours Vital signs and Labs for Last 24 Hours: Temp Pulse Resp BP Pulse Ox O2 Del Method O2 Flow Rate 99.2 F 78 22 125/61 96 Room Air 2 08/29/24 12:46 08/29/24 12:46 08/29/24 12:46 08/29/24 12:46 08/29/24 12:46 08/29/24 12:46 08/29/24 12:17 Laboratory Results - last 24 hr 08/29/24 06:45: WBC 6.8, RBC 4.40 L, Hgb 14.3, Hct 41.7 L, MCV 94.8 H, MCH 32.5 H, MCHC 34.3, RDW 13.8, Plt Count 167, MPV 9.8, Neut % (Auto) 54.6, Lymph % (Auto) 2.7 L, Hand % (Auto) 10.2 H, Eos % (Auto) 31.5 H, Baso % (Auto) 0.7, Neut # (Auto) 3.7, Lymph # (Auto) 0.2 L, Hand # (Auto) 0.7, Eos # (Auto) 2.1 H, Baso # (Auto) 0.1, PT 26.4 H, INR 2.59 H, APTT 40.3 H, Sodium 136, Potassium 4.0, Chloride 107, Carbon Dioxide 21 L, Anion Gap 12.0, BUN 18, Creatinine 1.50 H, Estimated Creat Clear 47, Estimated GFR 45 L, Est GFR ( Amer) 55 L, Glucose 112 H, Calcium 9.7, Phosphorus 2.0 L, Magnesium 1.8, Total Bilirubin 1.3, AST 37, ALT 27, Alkaline Phosphatase 98, Troponin I 0.17 H, NT-Pro-B Natriuret Pep 8550 H, Total Protein 7.1, Albumin 4.2, Globulin 2.9, Albumin/Globulin Ratio 1.4, TSH 1.19, Thyroxine (T4) 8.0, Plasma/Serum Alcohol < 10, HCV Ab PROSPER w/Rflx PCR Qn Negative, HIV Ag/Ab Combo Qual Negative 08/29/24 07:15: SARS-CoV-2 (PCR) Not detected, Influenza A Untype (PCR) Detected A, Influenza Type B (PCR) Not detected 08/29/24 09:38: Troponin I 0.17 H 08/29/24 10:07: Urine Color Yellow, Urine Appearance Clear, Urine pH 6.5, Ur Specific [place] 1.020, Urine Protein 2+ A, Urine Glucose (UA) Negative, Urine Ketones Negative, Urine Blood 2+ A, Urine Nitrate Negative, Urine Bilirubin Negative, Urine Urobilinogen 0.2, Ur Leukocyte Esterase Negative, Urine RBC 3-5, Urine WBC None, Ur Squamous Epith Cells Occasional, Urine Bacteria Trace 08/29/24 10:09: Urine Opiates Screen Negative, Urine Methadone Screen Negative, Ur Barbituates Screen Negative, Ur Phencyclidine Scrn Negative, Ur Amphetamines Screen Negative, U Benzodiazepines Scrn Negative, Urine Cocaine Screen Negative, U Marijuana (THC) Screen Negative I & O for Last 24 hours: Intake & Output 08/26/24 08/27/24 08/28/24 08/29/24 23:59 23:59 23:59 23:59 Intake Total 1250 / 1250 Balance 1250 / 1250 Weight 180 lb Meds Home Medications and Allergies Home Medications ?Medication ?Instructions ?Recorded ?Confirmed ?Type metoprolol succinate 100 mg 100 mg PO DAILY 08/29/24 08/29/24 History tablet,extended release 24 hr rosuvastatin 40 mg tablet 40 mg PO HS 08/29/24 08/29/24 History warfarin 2.5 mg tablet 2.5 mg PO SUTUTHSA 08/29/24 08/29/24 History warfarin 2.5 mg tablet 3.75 mg PO MOWEFR 08/29/24 08/29/24 History New Prescriptions to Start Prescriptions: Allergies Allergy/AdvReac Type Severity Reaction Status Date / Time Penicillins Allergy Verified 08/11/24 13:28 sotalol Allergy Verified 08/11/24 13:28 iodine AdvReac Severe Anaphylaxis Verified 08/11/24 13:28 amiodarone AdvReac Intermediate Other Verified 08/11/24 13:28 codeine AdvReac Verified 08/11/24 13:28 Assessment and Plan *Assessment and plan (1) Elevated troponin: Status: Acute Category: Medical Code(s): R79.89 - Other specified abnormal findings of blood chemistry (2) General weakness: Status: Acute Category: Medical Code(s): R53.1 - Weakness (3) Influenza A: Status: Acute Category: Medical Code(s): J10.1 - Influenza due to other identified influenza virus with other respiratory manifestations (4) Paroxysmal atrial fibrillation: Status: Acute Category: Medical Code(s): I48.0 - Paroxysmal atrial fibrillation Plan CAD with Elevated Troponin - flat elevation at 0.17 x2 without anginal symptoms - repeat EKG - check 2D ECHO - pt states historically he has felt severe SOA prior to stenting and has not had any of those symptoms recently - consider IP vs OP LHC - Hold Coumadin for possible LHC this admission - start ASA, Heparin - resume home dose Metoprolol and Statin Dizziness/Weakness - pt had been having episodic dizziness/postrual disturbance, and weakness episodes for weeks (prior to flu) - this is most suspicious for evolving sick sinus syndrome - continue telemetry monitoring here - will send him home with 1 month event monitor at discharge PAF - long hx, s/p 3 prior ablations, follows with EP in [place] - resume home dose metoprolol - change coumadin to heparin for possible LHC - will need event monitor at dc HFpEF - known hx of Grade III DD and biatrial dilation - proBNP 8k here but no evidence of vol overload - check 2D ECHO Influenza A - WBC nml, afebrile, on room air
[2024-08-29 13:49] LABS: Troponin I 0.17 ng/ml (0.00-0.034)
[2024-08-29] MEDS: ASPIRIN 325MG TABLET 325 MG PO (13:53)
--- NOTE | 2024-08-29 14:05 | P.CONPHA_ITS ---
[facility] Pharmacy Heparin Dosing Demographic Data Admission date:: 08/29/24 Date: 08/29/24 Time: 14:06 Allergies Allergy/AdvReac Type Severity Reaction Status Date / Time Penicillins Allergy Verified 08/11/24 13:28 sotalol Allergy Verified 08/11/24 13:28 iodine AdvReac Severe Anaphylaxis Verified 08/11/24 13:28 amiodarone AdvReac Intermediate Other Verified 08/11/24 13:28 codeine AdvReac Verified 08/11/24 13:28 Height: 1.73 m Weight: 81.6 kg Indication Medication therapy:: Heparin Current Active Problems (Updated 08/29/24 @ 13:50 by JAC Burden) Paroxysmal atrial fibrillation (Acute) General weakness (Acute) Hypophosphatemia (Acute) Elevated troponin (Acute) Influenza A (Acute) Episode of generalized weakness (Acute) Dizziness (Acute) CVA?: No Bleeding problem?: No Kidney disease?: No [place]?: No Desired PTT range:: 50-75 seconds Labs Anticoagulation Lab Results:: 08/29/24 06:45 Hgb 14.3 Hct 41.7 L Plt Count 167 Monitoring Dose Monitor 1: Date: 08/29/24 Time: 14:30 PTT Result:: 40.3 (BASELINE) Infusion Rate:: 1,000 UNITS/HR Comment:: NO BOLUS, INR 2.5 AND PATIENT IS SWITCHING FROM WARFARIN Dose Monitor 2: Date: 08/29/24 Time: 20:42 PTT Result:: 200.0 Infusion Rate:: HELD PER HOSPITALIST Dose Monitor 3: Date: 08/30/24 Time: 00:14 PTT Result:: 120.6 Infusion Rate:: HELD PER HOSPITALIST Dose Monitor 4: Date: 08/30/24 Time: 03:40 PTT Result:: 47.3 Infusion Rate:: 750 UNITS/HR Dose Monitor 5: Date: 08/30/24 Time: 10:20 PTT Result:: 97.9 Infusion Rate:: DECREASE RATE TO 500 UNITS/HR Dose Monitor 6: Date: 08/30/24 Time: 12:30 PTT Result:: 75.6 Infusion Rate:: 500 UNITS/HR Comment:: HEPARIN DRIP STOPPED AND WARFARIN RESUMED. Core Measures Is INR > or = 2 at discharge?: No Most Recent Labs:: Laboratory Results - last 24 hr 08/29/24 06:45: WBC 6.8, RBC 4.40 L, Hgb 14.3, Hct 41.7 L, MCV 94.8 H, MCH 32.5 H, MCHC 34.3, RDW 13.8, Plt Count 167, MPV 9.8, Neut % (Auto) 54.6, Lymph % (Auto) 2.7 L, [place] % (Auto) 10.2 H, Eos % (Auto) 31.5 H, Baso % (Auto) 0.7, Neut # (Auto) 3.7, Lymph # (Auto) 0.2 L, [place] # (Auto) 0.7, Eos # (Auto) 2.1 H, Baso # (Auto) 0.1, PT 26.4 H, INR 2.59 H, APTT 40.3 H, Sodium 136, Potassium 4.0, Chloride 107, Carbon Dioxide 21 L, Anion Gap 12.0, BUN 18, Creatinine 1.50 H, Estimated Creat Clear 47, Estimated GFR 45 L, Est GFR ( Amer) 55 L, Glucose 112 H, Calcium 9.7, Phosphorus 2.0 L, Magnesium 1.8, Total Bilirubin 1.3, AST 37, ALT 27, Alkaline Phosphatase 98, Troponin I 0.17 H, NT-Pro-B Natriuret Pep 8550 H, Total Protein 7.1, Albumin 4.2, Globulin 2.9, Albumin/Globulin Ratio 1.4, TSH 1.19, Thyroxine (T4) 8.0, Plasma/Serum Alcohol < 10, HCV Ab PROSPER w/Rflx PCR Qn Negative, HIV Ag/Ab Combo Qual Negative 08/29/24 07:15: SARS-CoV-2 (PCR) Not detected, Influenza A Untype (PCR) Detected A, Influenza Type B (PCR) Not detected 08/29/24 09:38: Troponin I 0.17 H 08/29/24 10:07: Urine Color Yellow, Urine Appearance Clear, Urine pH 6.5, Ur Specific [place] 1.020, Urine Protein 2+ A, Urine Glucose (UA) Negative, Urine Ketones Negative, Urine Blood 2+ A, Urine Nitrate Negative, Urine Bilirubin Negative, Urine Urobilinogen 0.2, Ur Leukocyte Esterase Negative, Urine RBC 3-5, Urine WBC None, Ur Squamous Epith Cells Occasional, Urine Bacteria Trace 08/29/24 10:09: Urine Opiates Screen Negative, Urine Methadone Screen Negative, Ur Barbituates Screen Negative, Ur Phencyclidine Scrn Negative, Ur Amphetamines Screen Negative, U Benzodiazepines Scrn Negative, Urine Cocaine Screen Negative, U Marijuana (THC) Screen Negative 08/29/24 13:15: Troponin I 0.17 H Were Heparin and Warfarin started on the same day?: Yes
[2024-08-29] MEDS: HEPARIN SODIUM,PORCINE/D5W 500 ML 20 UNIT IV (14:19)
[2024-08-29 14:33] LABS: PTT Heparin (inpatient only) 43.9 Seconds (50-75)
--- NOTE | 2024-08-29 14:37 | HMH.PTEV ---
Physical Therapy Evaluation Rehab PT IP Evaluation Start: 08/29/24 12:39 Freq: ONCE Status: Active Protocol: Document 08/29/24 14:12 PHORNE (Rec: 08/29/24 14:37 PHORNE [id number]) Subjective/History History History 79 yowm adm to [facility] with intermittent general weakness and bouts of dizziness. Found to be flu positive incidentally during work-up in the ED. Mildly elevated troponin noted with PMH of CAD with stent. Pt diagnosed with possible NSTEMI. He reports he lives with his , 3-4 CONOR the home, and he is generally independent with all mobility without an AD at baseline. Subjective Subjective Pt currently has no c/o and is readily agreeable to OOB mobility assessment. Per , He is much better now than he was this morning, I could barely help him to the car earlier. [facility] How much help from another person do you currently need... Turning from your back to your side None while in a flat bed without using bedrails? Moving from lying on back to sitting on None the side of a flat bed without using bedrails? Moving to and from a bed to a chair ( None including a wheelchair)? Standing up from a chair using your arms None ? (e.g., wheelchair, bedside chair) Walking in hospital room? None Climbing 3-5 steps with a railing? None Mobility Score 24 Mobility Level [facility] Mobility Calculator Mobility 8 Walk 250 feet or more Rehab PT IP Eval Objective Appearance Patient Behavior Appropriate Patient Orientation Person,Place,Time Difficulty following instructions none Speech Pattern Clear Ambulation Patient Able to Ambulate Yes Ambulation Observation IP General Gait Pattern Observation No Deviations/Normal Ambulation Distance (feet) 40 Ambulation Assistive Device None Ambulation Ability Independent Balance Ability to Arise Able, uses arms to help Sitting Balance Steady, safe Standing Balance Steady, wide stance Dynamic Sitting Balance Ability Good Dynamic Standing Balance Ability Good Transfers Bed Transfer Ability Independent Chair Transfer Ability Independent Sit to Stand Bed Transfer Ability Independent Sit to Stand Chair Transfer Ability Independent ROM All Extremities PT ROM Status WFL MMT All Extremities PT MMT WFL Rehab PT IP prob,goals,plan Problems Date of Evaluation: 08/29/24 Discharge Plan PT Discharge Plan Pt is currently appropriate to return home once medically stable for d/c. No acute therapy needs at this time. Eval Complexity Eval Charge Codes 83975 - High Complexity PHYSICIAN CERTIFICATION: I certify the specified therapy services for Ned R Cronin are required, authorized, and reviewed every 30 days.
--- NOTE | 2024-08-29 15:42 | PC.NURSE ---
pt o2 sat dropped to 80% while sleeping 2lnc applied
[2024-08-29] MEDS: ATORVASTATIN 40MG TABLET 80 MG PO (20:09)
[2024-08-29] MEDS: METOPROLOL SUCCINATE XL 100MG TABLET 100 MG PO (20:09)
--- NOTE | 2024-08-29 22:54 | EXP.EVENT.NO ---
Noted the patient is on heparin drip PTT PT/INR came back at greater than 200. Pharmacy notified of this also. Heparin drip on hold will recheck PT INR at midnight. 01:45 labs still above 120, orders to hold heparin and repeat labs at 3 AM. Nurse also noted that the pharmacist was notified per the lab slip but she will call him personally make sure he is aware and when we will restart the heparin and at what dosage.
--- NOTE | 2024-08-29 23:50 | PC.NURSE ---
Ernestine Macias APRN ordered to stop Heparin drip NOW, due to lab results. Consulted with pharmacy PTT/INR to be drawn in 1hr (0000).
[2024-08-30] VITALS (8 sets, daily range): BP systolic 110–127; BP diastolic 52–72; PULSE 60–84; RESP 18–20; TEMP 36.4–37.7; O2SAT 92–98; BMI 27.1
[2024-08-30 01:03] LABS: INR 2.91 (0.9-1.1); Prothrombin Time 29.3 seconds (10.1-12.5)
[2024-08-30 01:38] LABS: PTT Heparin (inpatient only) 120.6 Seconds (50-75)
[2024-08-30 04:16] LABS: PTT Heparin (inpatient only) 47.3 Seconds (50-75)
--- NOTE | 2024-08-30 04:16 | PC.NURSE ---
Pt is A&Ox4 and tolerating his CPAP with 3L well. Pt lungs sounds remain diminished. Pt Heparin drip was stopped per provider due to elevated PTT results, [facility] is aware of pause. Pt remains on telemetry with A-fib. Pt has rested well this shift and denies pain and needs
[2024-08-30] MEDS: HEPARIN SODIUM,PORCINE/D5W 500 ML 15 UNIT IV (04:46)
--- NOTE | 2024-08-30 04:53 | PC.NURSE ---
Pt PTT resulted @ 47.3. Ernestine Macias APRN, and Fab from [facility] pharmacy contacted and consulted. Heparin drip was resumed @ 750 units/ 15 ml/hr. PTT labs entered per Ernestine Macias for 1000 (6hr lab)
--- NOTE | 2024-08-30 07:12 | ECG_ITS ---
APPROVED REPORT Exam: Resting ECG HR:79 bpm ECG Measurements Heart Rate 79 AXES QRSd 110 QRS 64 QT 408 T 117 QTc 443 Conclusion ATRIAL FIBRILLATION WITH ABERRANT CONDUCTION OR VENTRICULAR PREMATURE COMPLEXES LOW QRS VOLTAGE IN EXTREMITY LEADS [QRS DEFLECTION < 0.5 mV IN LIMB LEADS] PATTERN CONSISTENT WITH PULMONARY DISEASE POSSIBLE INFERIOR MYOCARDIAL INFARCTION , PROBABLY OLD [30 ms Q WAVE IN II/aVF] MODERATE T-WAVE ABNORMALITY, CONSIDER LATERAL ISCHEMIA [-0.1+ mV T-WAVE IN I/aVL/V5/V6] ABNORMAL ECG UNCONFIRMED REPORT Electronically signed by : Bob Rowan MD 08/30/2024 08:54:24
[2024-08-30 07:23] LABS: Alanine Aminotransferase 26 U/L (12-78); Albumin Level 3.6 g/dl (3.5-5.0); Albumin/Globulin Ratio 1.3 (1.1-1.8); Alkaline Phosphatase 87 U/L (38-126); Anion Gap 8.3 mEq/L (5-15); Aspartate Amino Transferase 34 U/L (17-59); Bilirubin,Total 0.8 mg/dl (0.2-1.3); Blood Urea Nitrogen 25 mg/dl (9-20); Calcium 9.4 mg/dl (8.4-10.2); Carbon Dioxide 26 mmol/L (22.0-30.0); Chloride 105 mmol/L (98-107); Chol/HDL Ratio 2.2 (1-3.5); Cholesterol 82 mg/dl (140-200); Creatinine Clearance Estimated 41 mL/min (50-200); Estimated Glomerular Filt Rate 39 ml/min (>60); GFR (African American) 47 ML/MIN (>60); Globulin 2.7 g/dL (1.3-3.2); Glucose 115 mg/dl (74-100); HDL Cholesterol 38 mg/dl (40-60); Magnesium 2.2 mg/dl (1.6-2.3); Phosphorous 3.3 mg/dl (2.5-4.5); Potassium 4.3 mmoL/L (3.5-5.1); Sodium 135 mmol/L (136-145); Total Protein,Serum 6.3 g/dl (6.3-8.2); Triglycerides 48 mg/dl (30-150); VLDL Cholesterol 10 mg/dL (0-40)
[2024-08-30 07:25] LABS: Basophils % 0.1 % (0.1-2.0); Hematocrit 40.8 % (42.0-52.0); Hemoglobin 13.7 g/dL (14.1-18.0); Lymphocytes # 0.2 K/mm3 (0.7-4.5); Lymphocytes % 2.4 % (10-50); Mean Corpuscular HGB Conc 33.6 g/dL (31.8-35.4); Mean Corpuscular Hemoglobin 32.5 pg (27.0-31.2); Mean Corpuscular Volume 96.9 fl (80-94); Mean Platelet Volume 9.9 fl (7.4-10.4); Monocytes # 0.7 K/mm3 (0.1-1.0); Monocytes % 7.7 % (1.7-9.3); Neutrophils # 7.8 K/mm3 (1.8-7.8); Neutrophils % 89.5 % (37.0-80.0); Platelet Count 157 K/mm3 (142-424); Red Blood Count 4.21 M/mm3 (4.60-6.20); White Blood Count 8.7 K/mm3 (4.8-10.8)
[2024-08-30 07:36] LABS: Direct LDL Cholesterol < 30.00 mg/dL (100-129)
[2024-08-30 08:11] LABS: Vitamin B12 552 pg/mL (239-931)
[2024-08-30 08:42] LABS: Folate 5.75 ng/mL
[2024-08-30] MEDS: PAT OWN MED ***METOPROLOL SUCCINATE XL 100MG 100 MG PO (09:16)
[2024-08-30 09:50] LABS: Iron 35 ug/dL (49-181)
[2024-08-30 10:00] LABS: Total Iron Binding Capacity 334 ug/dL (261-462)
[2024-08-30 10:26] LABS: Ferritin 159 ng/ml (17.9-464)
[2024-08-30 10:30] LABS: Hemoglobin A1C 5.7 % (4.0-6.0)
[2024-08-30 10:58] LABS: PTT Heparin (inpatient only) 97.9 Seconds (50-75)
--- NOTE | 2024-08-30 11:38 | PC.NURSE ---
Heparin gtt changed to 10 ml/hr at 11:07 from phone call from pharmacy.
[2024-08-30] MEDS: OSELTAMIVIR 75MG CAPSULE 75 MG PO (11:43)
[2024-08-30 13:17] LABS: PTT Heparin (inpatient only) 75.6 Seconds (50-75)
--- NOTE | 2024-08-30 14:57 | EXP.CARD.PN ---
Subjective Subjective Date: 08/30/24 Time: 09:30 Interval history: No events overnight. ECHO shows no change from 2023, no events on telemetry, worsening Flu sx today with head congestion and cough. Exam Data for Last 24 hours Vital signs and Labs for Last 24 Hours: Temp Pulse Resp BP Pulse Ox O2 Del Method O2 Flow Rate 98.3 F 84 18 127/72 96 Nasal Cannula 2 08/30/24 12:00 08/30/24 12:00 08/30/24 12:00 08/30/24 12:00 08/30/24 12:00 08/30/24 12:49 08/30/24 12:49 Laboratory Results - last 24 hr 08/29/24 20:42: APTT 200.0 H* 08/30/24 00:14: PT 29.3 H, INR 2.91 H, APTT 120.6 H* 08/30/24 03:40: APTT 47.3 L 08/30/24 06:50: WBC 8.7 D, RBC 4.21 L, Hgb 13.7 L, Hct 40.8 L, MCV 96.9 H, MCH 32.5 H, MCHC 33.6, RDW 14.0, Plt Count 157, MPV 9.9, Neut % (Auto) 89.5 H, Lymph % (Auto) 2.4 L, [place] % (Auto) 7.7, Eos % (Auto) 0.0 L, Baso % (Auto) 0.1, Neut # (Auto) 7.8, Lymph # (Auto) 0.2 L, [place] # (Auto) 0.7, Eos # (Auto) 0.0, Baso # (Auto) 0.0, Sodium 135 L, Potassium 4.3, Chloride 105, Carbon Dioxide 26, Anion Gap 8.3, BUN 25 H D, Creatinine 1.70 H, Estimated Creat Clear 41, Estimated GFR 39 L, Est GFR ( Amer) 47 L, Glucose 115 H, Hemoglobin A1c 5.7, Calcium 9.4, Phosphorus 3.3 D, Magnesium 2.2 D, Iron 35 L, TIBC 334, Iron Saturation 10.72816 L, Ferritin 159, Total Bilirubin 0.8, AST 34, ALT 26, Alkaline Phosphatase 87, Total Protein 6.3, Albumin 3.6 D, Globulin 2.7, Albumin/Globulin Ratio 1.3, Triglycerides 48, Cholesterol 82 L, LDL Cholesterol Direct < 30.00 L, VLDL Cholesterol 10, HDL Cholesterol 38 L, Cholesterol/HDL Ratio 2.2, Vitamin B12 552, Folate 5.75 08/30/24 10:20: APTT 97.9 H* 08/30/24 12:40: APTT 75.6 H* I & O for Last 24 hours: Intake & Output 08/27/24 08/28/24 08/29/24 08/30/24 23:59 23:59 23:59 23:59 Intake Total 1529 1160 / 1160 Output Total 0 / 0 0 / 0 Balance 1529 116 / 1160 Weight 179 lb 14.355 oz 179 lb 0.246 oz Constitutional Constitutional: no acute distress and cooperative *Routine HEENT Exam Eye: Present PERRL Comments: sinus/nasal congestion *Routine Respiratory Exam Respiratory: Present CTA bilaterally; Absent accessory muscle use, wheezes or crackles *Routine Cardiovascular Exam Cardiovascular: Present RRR, Normal S1 and Normal S2; Absent murmur, gallop or rubs *Routine Abdominal Exam Abdominal: Present soft; Absent tenderness *Routine Extremities Exam Extremities: Present pulses intact; Absent cyanosis or edema *Routine Skin Exam Skin: Present intact; Absent erythema or wounds *Routine Neurological Exam Neurological: Present alert and oriented X3 Routine Psychiatric Exam Psychiatric: Present cooperative Progress Note: A&P Assessment and plan (1) Dizziness: Status: Acute (2) Paroxysmal atrial fibrillation: Status: Acute (3) Elevated troponin: Status: Acute (4) Influenza A: Status: Acute (5) Episode of generalized weakness: Status: Acute Assessment and Plan Assessment and Plan for All Diagnoses:: CAD with Elevated Troponin - flat elevation at 0.17 x2 without anginal symptoms - repeat EKG - ECHO - nml EF, no change c/w 2023 - pt states historically he has felt severe SOA prior to stenting and has not had any of those symptoms recently - considered inpatient LHC vs OP stress test. Given patients ongoing acute Flu will recommend close OP stress test within 1 week of discharge once recovered from Flu - ok to resume Coumadin - Cont ASA, DC Heparin - resume home dose Metoprolol and Statin Dizziness/Weakness - pt had been having episodic dizziness/postrual disturbance, and weakness episodes for weeks (prior to flu) - this is most suspicious for evolving sick sinus syndrome - Tele here without incident - ECHO here unchanged - will send him home with 1 month event monitor at discharge PAF - long hx, s/p 3 prior ablations, follows with EP in [place] - resume home dose metoprolol - resume Coumadin - will need 1 month event monitor at dc HFpEF - known hx of Grade III DD and biatrial dilation - proBNP 8k here but no evidence of vol overload in setting of Flu A - 2D ECHO unchanged - nml bi-v function, biatrial dilation, mild to mod AI, elevated RVSP 40mmHg Influenza A - WBC nml, afebrile, on room air CV stable at this time, will sign off. He needs Lexiscan-Myoview stress test within 1 week of discharge. He needs 1 month heart monitor placed at discharge. Office f/u with us 2 weeks.
[2024-08-30 15:11] LABS: PTT Heparin (inpatient only) 62.4 Seconds (50-75)
--- NOTE | 2024-08-30 15:26 | PC.NURSE ---
Pt. is aox 4 and TUNUNAK, up with assistance times one to chair,02-2L nc, on tele SA first degree AV block, consult cardiology, PT, cardiac diet, needs event monitor at D/C, 20g R AC SL, DNI, on droplet for flu, bed alarm active when family isn't present related to hx of falls.
[2024-08-30] MEDS: WARFARIN 5MG TABLET 2.5 MG PO (15:52)
--- NOTE | 2024-08-30 17:44 | P.PN_ITS ---
Subjective *Date: 08/30/24 *Time: 17:44 Interval history: Patient continues to require 2 L oxygen during the day. On CPAP overnight. Showing some mild improvement. No nausea or vomiting. Tolerating p.o. intake. Kidney function stable. Family at bedside. Medical Exam Vital signs and Labs for Last 24 Hours: Vital Signs Temp Pulse Pulse Resp BP Pulse Ox O2 Del Method 08/30/24 16:08 Nasal Cannula 08/30/24 16:00 98.4 F 82 18 123/62 96 Nasal Cannula 08/30/24 15:00 Nasal Cannula 08/30/24 12:49 Nasal Cannula 08/30/24 12:00 60 08/30/24 12:00 98.3 F 84 18 127/72 96 Nasal Cannula 08/30/24 10:06 Nasal Cannula 08/30/24 09:00 Nasal Cannula 08/30/24 08:00 Nasal Cannula 08/30/24 08:00 80 08/30/24 08:00 97.9 F 78 20 121/52 L 95 Nasal Cannula 08/30/24 06:40 CPAP 08/30/24 05:00 CPAP 08/30/24 04:00 75 08/30/24 04:00 98.1 F 81 18 127/62 98 CPAP 08/30/24 03:00 CPAP 08/30/24 00:44 CPAP 08/30/24 00:00 70 08/30/24 00:00 97.5 F L 64 18 122/65 98 CPAP 08/29/24 23:00 Room Air 08/29/24 20:36 Nasal Cannula 08/29/24 20:00 70 08/29/24 20:00 98.1 F 74 18 125/73 94 L Nasal Cannula 08/29/24 20:00 95 Nasal Cannula 08/29/24 18:20 Room Air O2 Flow Rate 08/30/24 16:08 2 08/30/24 16:00 2 08/30/24 15:00 2 08/30/24 12:49 2 08/30/24 12:00 08/30/24 12:00 2 08/30/24 10:06 2 08/30/24 09:00 2 08/30/24 08:00 2 08/30/24 08:00 08/30/24 08:00 2 08/30/24 06:40 3 08/30/24 05:00 3 08/30/24 04:00 08/30/24 04:00 3 08/30/24 03:00 3 08/30/24 00:44 3 08/30/24 00:00 08/30/24 00:00 3 08/29/24 23:00 08/29/24 20:36 2 08/29/24 20:00 08/29/24 20:00 2 08/29/24 20:00 2 08/29/24 18:20 Intake and Output 08/30/24 08/30/24 08/30/24 07:59 15:59 23:59 Intake Total 440 / 1160 720 / 1160 Output Total 0 / 0 0 / 0 0 / 0 Balance 440 / 1160 720 / 1160 0 / 1160 Intake: Intake, Oral Amount 360 / 1080 720 / 1080 Intake, Total IV Amount 80 / 80 Heparin Sodium,Porcine/D5w 500 80 / 80 ml @ 1,000 UNITS/HR 20 mls/hr IV .Q25H [facility] Rx#:[id number] Output: Output, Urine Amount 0 / 0 0 / 0 0 / 0 Other: Number of Unmeasured Voids 1 1 1 Weight 81.2 kg Patient Weight 08/30/24 23:59 Weight 81.2 kg Laboratory Results - last 24 hr 08/29/24 20:42: APTT 200.0 H* 08/30/24 00:14: PT 29.3 H, INR 2.91 H, APTT 120.6 H* 08/30/24 03:40: APTT 47.3 L 08/30/24 06:50: WBC 8.7 D, RBC 4.21 L, Hgb 13.7 L, Hct 40.8 L, MCV 96.9 H, MCH 32.5 H, MCHC 33.6, RDW 14.0, Plt Count 157, MPV 9.9, Neut % (Auto) 89.5 H, Lymph % (Auto) 2.4 L, [place] % (Auto) 7.7, Eos % (Auto) 0.0 L, Baso % (Auto) 0.1, Neut # (Auto) 7.8, Lymph # (Auto) 0.2 L, [place] # (Auto) 0.7, Eos # (Auto) 0.0, Baso # (Auto) 0.0, Sodium 135 L, Potassium 4.3, Chloride 105, Carbon Dioxide 26, Anion Gap 8.3, BUN 25 H D, Creatinine 1.70 H, Estimated Creat Clear 41, Estimated GFR 39 L, Est GFR ( Amer) 47 L, Glucose 115 H, Hemoglobin A1c 5.7, Calcium 9.4, Phosphorus 3.3 D, Magnesium 2.2 D, Iron 35 L, TIBC 334, Iron Saturation 10.80574 L, Ferritin 159, Total Bilirubin 0.8, AST 34, ALT 26, Alkaline Phosphatase 87, Total Protein 6.3, Albumin 3.6 D, Globulin 2.7, Albumin/Globulin Ratio 1.3, Triglycerides 48, Cholesterol 82 L, LDL Cholesterol Direct < 30.00 L, VLDL Cholesterol 10, HDL Cholesterol 38 L, Cholesterol/HDL Ratio 2.2, Vitamin B12 552, Folate 5.75 08/30/24 10:20: APTT 97.9 H* 08/30/24 12:40: APTT 75.6 H* 08/30/24 14:50: APTT 62.4 I & O for Labs for Last 24 Hours: Intake & Output 08/27/24 08/28/24 08/29/24 08/30/24 23:59 23:59 23:59 23:59 Intake Total 1529 1160 / 1160 Output Total 0 / 0 0 / 0 Balance 1529 1160 / 1160 Weight 81.6 kg 81.2 kg Constitutional: Present mild distress, chronically ill appearing and cooperative Head: Present atraumatic and normocephalic ENT: Present normal exam Respiratory: Present prolonged expiratory phase and rhonchi; Absent wheezes or crackles Cardiac: Present Reg Rate and Rhythm GI: Present soft and normal bowel sounds; Absent distention or tenderness Extremities: Present normal inspection and full ROM Skin: Present intact; Absent erythema Neuro: Present Grossly Intact, alert, awake, oriented x 3 and moves all extremities Assessment and Plan *Assessment and plan (1) Influenza A: Status: Acute Category: Medical Code(s): J10.1 - Influenza due to other identified influenza virus with other respiratory manifestations (2) Dizziness: Status: Acute Category: Medical Code(s): R42 - Dizziness and giddiness (3) Paroxysmal atrial fibrillation: Status: Acute Category: Medical Code(s): I48.0 - Paroxysmal atrial fibrillation (4) General weakness: Status: Acute Category: Medical Code(s): R53.1 - Weakness Plan Ned Cronin is a 79-year-old male with a medical history significant for A- fib/flutter (s/p multiple ablations on warfarin), mitral valve prolapse, mitral valve regurgitation, CAD with 5 stents, HFpEF, left ventricular aneurysm, renal artery stenosis s/p stents who presents with 2 episodes of lightheadedness and shortness of breath. He states the first episode occurred about 2 weeks ago at home during which he felt lightheaded and unstable to walk mildly short of breath. He states the second episode was the day of admission with similar symptoms. He denies chest pain, blurry vision, fever/chills, abdominal pain, urinary symptoms, diarrhea recently. No history of CVA, no recent medication changes. Workup in the ED significant for troponin 0.17, influenza A positive. CT/CTA head/neck unremarkable for acute findings. Case discussed with the ED provider and decision was made to admit patient for concerning findings of lightheadedness with complex cardiac history, NSTEMI. Showing some improvement today. No dizziness today. at bedside. Still on 2 L oxygen. Cardiology evaluated. Problems addressed as follows: #Lightheadedness #NSTEMI #Influenza A #Complex cardiac history ? Patient reports 2 episodes of lightheadedness, shortness of breath over the past 2 weeks. Found to have NSTEMI and be flu positive. ? ECHO 08/29/2024 reveals what seems to be a new diagnosis of mild to moderate aortic regurgitation. Discussed to patient's complex cardiac history as below. ? Discussed case with cardiology, recommend outpatient stress test and further management for ischemic workup. No inpatient cath at this time ? Aspirin 81 mg, atorvastatin 80 mg, metoprolol succinate 100 mg. - Discontinue heparin drip, resume home warfarin. INR ordered for the morning, level of 2.9 this morning. ? Continue Tamiflu 75 mg twice daily for 5 days. ? Continuous cardiac telemetry. -White count normal 8.7, hemoglobin 13.7. Repeat CBC, CMP, magnesium ordered for the morning. A1c normal at 5.7. -Continue supplemental oxygen as needed for goal sats greater 90%. Currently 2 L. If does well overnight, anticipate discharge tomorrow #A-fib/flutter #Mitral valve prolapse #Mitral, tricuspid valve regurgitation #Aortic valve regurgitation #CAD with 5 stents #History of left ventricular aneurysm #Renal artery stenosis #Hyperlipidemia ? Aspirin, statin, metoprolol as above. ? Currently rate controlled. Resume home warfarin, at goal between 2 and 3. #CKD stage IIIa ? Stable. BUN 25, creatinine 1.7. Cardiac diet DNI Warfarin
[2024-08-30] MEDS: ACETAMINOPHEN 325MG TAB 650 MG PO (19:55)
[2024-08-30] MEDS: ATORVASTATIN 40MG TABLET 80 MG PO (20:18)
[2024-08-30] MEDS: OSELTAMIVIR PHOSPHATE 6MG/ML ORAL SUSP 60ML 30 MG PO (20:18)
[2024-08-31] VITALS (8 sets, daily range): BP systolic 114–133; BP diastolic 51–64; PULSE 60–89; RESP 17–18; TEMP 36.1–37.4; O2SAT 91–97; BMI 27.0
--- NOTE | 2024-08-31 01:55 | EXP.HP ---
History of Present Illness *Admission Date: 08/29/24 *History of present illness: Ned Cronin is a 79-year-old male with a medical history significant for A-fib/flutter (s/p multiple ablations on warfarin), mitral valve prolapse, mitral valve regurgitation, CAD with 5 stents, HFpEF, left ventricular aneurysm, renal artery stenosis s/p stents who presents with 2 episodes of lightheadedness and shortness of breath. He states the first episode occurred about 2 weeks ago at home during which he felt lightheaded and unstable to walk mildly short of breath. He states the second episode was the day of admission with similar symptoms. He denies chest pain, blurry vision, fever/chills, abdominal pain, urinary symptoms, diarrhea recently. No history of CVA, no recent medication changes. Workup in the ED significant for troponin 0.17, influenza A positive. CT/CTA head/neck unremarkable for acute findings. Case discussed with the ED provider and decision was made to admit patient for concerning findings of lightheadedness with complex cardiac history, NSTEMI. [facility] Disclaimer: The information contained in this section may have been updated after the patient was seen, as this information can be updated by other users. Medical History Scalp lesion Renal artery stenosis Elevated left ventricular end-diastolic pressure (LVEDP) CAD (coronary artery disease) Afib Mitral valve insufficiency PFO (patent foramen ovale) Restrictive lung disease History of coronary angiogram Amiodarone pulmonary toxicity COPD (chronic obstructive pulmonary disease) Obstructive sleep apnea syndrome History of 2019 novel coronavirus disease (COVID-19) Pulmonary emphysema Stopped smoking with greater than 30 pack year history Dyspnea on exertion HLD (hyperlipidemia) History of CVA (cerebrovascular accident) Nausea CHF (congestive heart failure) Surgical History History of colonoscopy History of cardiac cath Family History Other Coronary artery disease Family history of acute congestive heart failure Family history of hyperlipidemia Family history of hypertension Social History Smoking Status: Former smoker tobacco type: cigarettes packs per day: 0 alcohol intake: never substance use type: denies use current occupational status: retired Travel in the last 8 weeks: None household members: spouse housing: house current occupational exposures/hazards: No caffeine: Yes Have you lived/traveled outside [place] in past 30 days?: No Contact w/someone who lives/traveled outside [place] past 30 days?: No Exposure to someone with infectious disease in past 14 days?: No Do you have a fever (greater than 100.4 F or 38 C)?: No Have you tested positive for COVID-19: No Exposed to someone with COVID-19 in past 14 days?: No Do you have a sore throat?: No Do you have a cough?: No Do you have any weakness?: Yes Do you have any diarrhea?: No Are you experiencing any unusual bleeding?: No Do you have any muscle aches/pain?: No Do you have any abdominal pain?: No Are you experiencing loss of taste or smell?: No Other Medical History Have you received the Flu Vaccine for this season: No Have you received the Pneumonia Vaccine: No Review of Systems Constitutional Constitutional: Reports weakness Eyes Eyes: Denies loss of vision ENT Ears, Nose, Mouth, and Throat: Reports vertigo *Cardiovascular Cardiovascular: Denies syncope *Neurologic Neurologic: Denies loss of vision, Denies syncope, Reports vertigo and Reports weakness Meds Home Medications and Allergies Home Medications ?Medication ?Instructions ?Recorded ?Confirmed ?Type metoprolol succinate 100 mg 100 mg PO DAILY 08/29/24 08/29/24 History tablet,extended release 24 hr rosuvastatin 40 mg tablet 40 mg PO HS 08/29/24 08/29/24 History warfarin 2.5 mg tablet 2.5 mg PO SUTUTHSA 08/29/24 08/29/24 History warfarin 2.5 mg tablet 3.75 mg PO MOWEFR 08/29/24 08/29/24 History New Prescriptions to Start Prescriptions: Allergies Allergy/AdvReac Type Severity Reaction Status Date / Time Penicillins Allergy Verified 08/11/24 13:28 sotalol Allergy Verified 08/11/24 13:28 iodine AdvReac Severe Anaphylaxis Verified 08/11/24 13:28 amiodarone AdvReac Intermediate Other Verified 08/11/24 13:28 codeine AdvReac Verified 08/11/24 13:28 Exam Data for Last 24 hours Vital signs and Labs for Last 24 Hours: Temp Pulse Resp BP Pulse Ox O2 Del Method O2 Flow Rate 97.6 F 60 18 123/61 96 CPAP 2 08/31/24 00:00 08/31/24 00:00 08/31/24 00:00 08/31/24 00:00 08/31/24 00:00 08/31/24 01:00 08/31/24 00:00 FiO2 28 08/30/24 21:34 Laboratory Results - last 24 hr 08/30/24 03:40: APTT 47.3 L 08/30/24 06:50: WBC 8.7 D, RBC 4.21 L, Hgb 13.7 L, Hct 40.8 L, MCV 96.9 H, MCH 32.5 H, MCHC 33.6, RDW 14.0, Plt Count 157, MPV 9.9, Neut % (Auto) 89.5 H, Lymph % (Auto) 2.4 L, Thomas % (Auto) 7.7, Eos % (Auto) 0.0 L, Baso % (Auto) 0.1, Neut # (Auto) 7.8, Lymph # (Auto) 0.2 L, Thomas # (Auto) 0.7, Eos # (Auto) 0.0, Baso # (Auto) 0.0, Sodium 135 L, Potassium 4.3, Chloride 105, Carbon Dioxide 26, Anion Gap 8.3, BUN 25 H D, Creatinine 1.70 H, Estimated Creat Clear 41, Estimated GFR 39 L, Est GFR ( Amer) 47 L, Glucose 115 H, Hemoglobin A1c 5.7, Calcium 9.4, Phosphorus 3.3 D, Magnesium 2.2 D, Iron 35 L, TIBC 334, Iron Saturation 10.48075 L, Ferritin 159, Total Bilirubin 0.8, AST 34, ALT 26, Alkaline Phosphatase 87, Total Protein 6.3, Albumin 3.6 D, Globulin 2.7, Albumin/Globulin Ratio 1.3, Triglycerides 48, Cholesterol 82 L, LDL Cholesterol Direct < 30.00 L, VLDL Cholesterol 10, HDL Cholesterol 38 L, Cholesterol/HDL Ratio 2.2, Vitamin B12 552, Folate 5.75 08/30/24 10:20: APTT 97.9 H* 08/30/24 12:40: APTT 75.6 H* 08/30/24 14:50: APTT 62.4 I & O for Last 24 hours: Intake & Output 08/28/24 08/29/24 08/30/24 08/31/24 05:59 05:59 05:59 05:59 Intake Total 1969 1140 / 1140 Output Total 0 / 0 0 / 0 Balance 1969 1140 / 1140 Weight 179 lb 0.246 oz
--- NOTE | 2024-08-31 03:58 | PC.NURSE ---
Patient is alert and oriented x4 + slightly hard of hearing. Pleasant affect noted. He was observed to have eyes closed, respirations even and unlabored, and no apparent distress throughout the night. Patient's personal CPAP machine is currently in place for bedtime use; during wakeful periods, the patient has been wearing 2 L of oxygen via nasal cannula. Oxygen saturations have remained >90%; other vital signs stable this shift. Patient reported that he continues to have a cough with sputum production. Upon auscultation of his lungs, expiratory rhonchi and diminished lung sounds were heard. Heart rate auscultation slightly irregular but bowel sounds within normal findings. Arrhythmias on telemetry varied (see monitor worker interventions). Scheduled medications were administered as appropriately per AUG. Tylenol was given once per AUG on behalf of an elevated temp; he has remained afebrile thus far. Patient continues to tolerate his diet without nausea/vomiting. He has been ambulating with at least x1 assistance; patient self-turns in bed without difficulties. At this time, the patient is resting in bed without any further complaints. No acute changes noted thus far. Bed alarm on. Call light within reach. Droplet precautions ongoing for Influenza A (untype).
[2024-08-31 07:12] LABS: Lymphocytes # 0.4 K/mm3 (0.7-4.5); Lymphocytes % 6.8 % (10-50); Mean Corpuscular HGB Conc 33.3 g/dL (31.8-35.4); Mean Corpuscular Hemoglobin 32.1 pg (27.0-31.2); Mean Corpuscular Volume 96.3 fl (80-94); Monocytes # 0.7 K/mm3 (0.1-1.0); Monocytes % 13.4 % (1.7-9.3); Neutrophils # 4.3 K/mm3 (1.8-7.8); Neutrophils % 79.4 % (37.0-80.0); Platelet Count 147 K/mm3 (142-424); Red Blood Count 4.05 M/mm3 (4.60-6.20); Red Cell Distribution Width 14.2 % (11.5-17.5); White Blood Count 5.4 K/mm3 (4.8-10.8)
[2024-08-31 07:17] LABS: Alanine Aminotransferase 24 U/L (12-78); Albumin Level 3.4 g/dl (3.5-5.0); Albumin/Globulin Ratio 1.3 (1.1-1.8); Alkaline Phosphatase 62 U/L (38-126); Anion Gap 5.2 mEq/L (5-15); Aspartate Amino Transferase 38 U/L (17-59); Bilirubin,Total 1.1 mg/dl (0.2-1.3); Blood Urea Nitrogen 27 mg/dl (9-20); Calcium 8.7 mg/dl (8.4-10.2); Carbon Dioxide 28 mmol/L (22.0-30.0); Chloride 104 mmol/L (98-107); Creatinine Clearance Estimated 44 mL/min (50-200); Estimated Glomerular Filt Rate 42 ml/min (>60); GFR (African American) 51 ML/MIN (>60); Globulin 2.6 g/dL (1.3-3.2); Glucose 95 mg/dl (74-100); Magnesium 2.1 mg/dl (1.6-2.3); Potassium 4.2 mmoL/L (3.5-5.1); Sodium 133 mmol/L (136-145)
[2024-08-31 07:20] LABS: INR 1.86 (0.9-1.1); Prothrombin Time 19.6 seconds (10.1-12.5)
[2024-08-31] MEDS: ENOXAPARIN 80MG/0.8ML SYRINGE 80 MG SUBCUT ×2 (08:36→20:19)
[2024-08-31] MEDS: OSELTAMIVIR PHOSPHATE 6MG/ML ORAL SUSP 60ML 30 MG PO ×2 (08:37→20:19)
[2024-08-31] MEDS: PAT OWN MED ***METOPROLOL SUCCINATE XL 100MG 100 MG PO (08:40)
[2024-08-31] MEDS: WARFARIN 5MG TABLET 5 MG PO (10:15)
--- NOTE | 2024-08-31 10:32 | PC.NURSE ---
87% on RA at rest.
--- NOTE | 2024-08-31 10:38 | P.PN_ITS ---
Subjective *Date: 08/31/24 *Time: 17:25 Interval history: Patient improved to 1 L oxygen today. Denies chest pain or shortness of breath. No nausea or vomiting. Still having significant cough. INR subtherapeutic at 1.8. Kidney function stable. Tolerating p.o. intake. In bedside chair on evaluation Medical Exam Vital signs and Labs for Last 24 Hours: Vital Signs Temp Pulse Pulse Resp BP Pulse Ox O2 Del Method 08/31/24 10:01 Nasal Cannula 08/31/24 08:56 Nasal Cannula 08/31/24 08:00 80 08/31/24 07:40 99.3 F 80 18 129/64 95 Nasal Cannula 08/31/24 07:37 Nasal Cannula 08/31/24 06:40 Nasal Cannula 08/31/24 05:00 CPAP 08/31/24 04:00 98.1 F 89 18 121/61 96 CPAP 08/31/24 04:00 80 08/31/24 03:00 CPAP 08/31/24 01:00 CPAP 08/31/24 00:00 80 08/31/24 00:00 97.6 F 60 18 123/61 96 CPAP 08/30/24 23:00 CPAP 08/30/24 21:34 Nasal Cannula 08/30/24 21:00 Nasal Cannula 08/30/24 20:25 99.1 F 08/30/24 20:00 80 08/30/24 20:00 83 18 92 L Nasal Cannula 08/30/24 19:45 99.9 F H 83 18 110/66 92 L Nasal Cannula 08/30/24 18:15 Nasal Cannula 08/30/24 16:08 Nasal Cannula 08/30/24 16:00 80 08/30/24 16:00 98.4 F 82 18 123/62 96 Nasal Cannula 08/30/24 15:00 Nasal Cannula 08/30/24 12:49 Nasal Cannula 08/30/24 12:00 60 08/30/24 12:00 98.3 F 84 18 127/72 96 Nasal Cannula O2 Flow Rate FiO2 08/31/24 10:01 2 08/31/24 08:56 2 08/31/24 08:00 08/31/24 07:40 2 08/31/24 07:37 2 08/31/24 06:40 2 08/31/24 05:00 08/31/24 04:00 2 08/31/24 04:00 08/31/24 03:00 08/31/24 01:00 08/31/24 00:00 08/31/24 00:00 2 08/30/24 23:00 08/30/24 21:34 2 28 08/30/24 21:00 2 08/30/24 20:25 08/30/24 20:00 08/30/24 20:00 2 08/30/24 19:45 2 08/30/24 18:15 2 08/30/24 16:08 2 08/30/24 16:00 08/30/24 16:00 2 08/30/24 15:00 2 08/30/24 12:49 2 08/30/24 12:00 08/30/24 12:00 2 Intake and Output 08/30/24 08/31/24 08/31/24 23:59 07:59 15:59 Intake Total 240 / 1580 660 / 660 Output Total 0 / 0 0 / 0 Balance 240 / 1580 660 / 660 Intake: Intake, Oral Amount 240 / 1500 660 / 660 Output: Output, Urine Amount 0 / 0 0 / 0 Other: Number of Unmeasured Voids 1 1 Weight 81 kg Patient Weight 08/31/24 23:59 Weight 81 kg Laboratory Results - last 24 hr 08/30/24 10:20: APTT 97.9 H* 08/30/24 12:40: APTT 75.6 H* 08/30/24 14:50: APTT 62.4 08/31/24 06:47: WBC 5.4 D, RBC 4.05 L, Hgb 13.0 L, Hct 39.0 L, MCV 96.3 H, MCH 32.1 H, MCHC 33.3, RDW 14.2, Plt Count 147, MPV 10.0, Neut % (Auto) 79.4, Lymph % (Auto) 6.8 L, [place] % (Auto) 13.4 H, Eos % (Auto) 0.0 L, Baso % (Auto) 0.0 L, Neut # (Auto) 4.3, Lymph # (Auto) 0.4 L, [place] # (Auto) 0.7, Eos # (Auto) 0.0, Baso # (Auto) 0.0, PT 19.6 H, INR 1.86 H, Sodium 133 L, Potassium 4.2, Chloride 104, Carbon Dioxide 28, Anion Gap 5.2, BUN 27 H, Creatinine 1.60 H, Estimated Creat Clear 44, Estimated GFR 42 L, Est GFR ( Amer) 51 L, Glucose 95, Calcium 8.7, Magnesium 2.1, Total Bilirubin 1.1, AST 38, ALT 24, Alkaline Phosphatase 62, Total Protein 6.0 L, Albumin 3.4 L, Globulin 2.6, Albumin/Globulin Ratio 1.3 I & O for Labs for Last 24 Hours: Intake & Output 08/28/24 08/29/24 08/30/24 08/31/24 23:59 23:59 23:59 23:59 Intake Total 1529 / 1579 660 / 660 Output Total 0 / 0 0 / 0 0 / 0 Balance 1529 / 1579 660 / 660 Weight 81.6 kg 81.2 kg 81 kg Constitutional: Present mild distress, chronically ill appearing and cooperative Head: Present atraumatic and normocephalic ENT: Present normal exam Respiratory: Present prolonged expiratory phase and rhonchi; Absent wheezes or crackles Cardiac: Present Reg Rate and Rhythm GI: Present soft and normal bowel sounds; Absent distention or tenderness Extremities: Present normal inspection and full ROM Skin: Present intact; Absent erythema Neuro: Present Grossly Intact, alert, awake, oriented x 3 and moves all extremities Assessment and Plan *Assessment and plan (1) Influenza A: Status: Acute Category: Medical Code(s): J10.1 - Influenza due to other identified influenza virus with other respiratory manifestations (2) Dizziness: Status: Acute Category: Medical Code(s): R42 - Dizziness and giddiness (3) Paroxysmal atrial fibrillation: Status: Acute Category: Medical Code(s): I48.0 - Paroxysmal atrial fibrillation (4) General weakness: Status: Acute Category: Medical Code(s): R53.1 - Weakness Plan Ned Cronin is a 79-year-old male with a medical history significant for A- fib/flutter (s/p multiple ablations on warfarin), mitral valve prolapse, mitral valve regurgitation, CAD with 5 stents, HFpEF, left ventricular aneurysm, renal artery stenosis s/p stents who presents with 2 episodes of lightheadedness and shortness of breath. He states the first episode occurred about 2 weeks ago at home during which he felt lightheaded and unstable to walk mildly short of breath. He states the second episode was the day of admission with similar symptoms. He denies chest pain, blurry vision, fever/chills, abdominal pain, urinary symptoms, diarrhea recently. No history of CVA, no recent medication changes. Workup in the ED significant for troponin 0.17, influenza A positive. CT/CTA head/neck unremarkable for acute findings. Case discussed with the ED provider and decision was made to admit patient for concerning findings of lightheadedness with complex cardiac history, NSTEMI. Showing some improvement today. No dizziness today. at bedside. Still on supplemental oxygen during the day, INR subtherapeutic today. Continues to require patient allison gement for 1 more day. Will plan for discharge tomorrow if INR doing better and continues to show improvement on oxygen. Problems addressed as follows: #Lightheadedness #NSTEMI #Influenza A #Complex cardiac history ? Patient reports 2 episodes of lightheadedness, shortness of breath over the past 2 weeks. Found to have NSTEMI and be flu positive. ? ECHO 08/29/2024 reveals what seems to be a new diagnosis of mild to moderate aortic regurgitation. Discussed to patient's complex cardiac history as below. ? Discussed case with cardiology, recommend outpatient stress test and further management for ischemic workup. No inpatient cath at this time ? Aspirin 81 mg, atorvastatin 80 mg, metoprolol succinate 100 mg. -Continuing home warfarin regimen, INR subtherapeutic today, down to 1.9. Warfarin 5 mg once today. Lovenox bridge. - Continue Tamiflu 75 mg twice daily for 5 days. ? Continuous cardiac telemetry. -White count normal 5.4, hemoglobin 13. Showing some improvement. Repeat CBC, CMP, magnesium ordered for the morning. A1c normal at 5.7. -Continue supplemental oxygen as needed for goal sats greater 90%. Currently 1 L. If does well overnight, anticipate discharge tomorrow #A-fib/flutter #Mitral valve prolapse #Mitral, tricuspid valve regurgitation #Aortic valve regurgitation #CAD with 5 stents #History of left ventricular aneurysm #Renal artery stenosis #Hyperlipidemia ? Aspirin, statin, metoprolol as above. ? Currently rate controlled. -INR subtherapeutic at 1.8, goal 2.5-3.5. Will give additional 5 mg dose of wa rfarin today. Will bridge with Lovenox 1 mg/kg twice daily. Repeat INR ordered for the morning. Anticipate discharge home tomorrow with bridging of Lovenox if necessary if not therapeutic or adjustment to warfarin regimen if therapeutic. Will have close follow-up with Coumadin clinic. #CKD stage IIIa: Stable. BUN 27, creatinine 1.6 Cardiac diet DNI Warfarin
[2024-08-31] MEDS: ATORVASTATIN 40MG TABLET 80 MG PO (20:19)
[2024-09-01] VITALS: BP 130/70; PULSE 70; PULSE 80; RESP 17; TEMP 36.7; O2SAT 96
[2024-09-01 04:00] VITALS: BP 123/67; PULSE 80; PULSE 83; RESP 19; TEMP 36.6; O2SAT 96; BMI 26.4
--- NOTE | 2024-09-01 04:25 | PC.NURSE ---
Patient is alert and oriented x4. He was observed to have eyes closed, respirations even/unlabored, and no apparent distress throughout the night. Patient continues to utilize his personal CPAP machine during resting periods; during wakeful periods, the patient has been tolerating 1 L of oxygen via nasal cannula. Oxygen saturations have remained >90% this shift. Expiratory rhonchi and diminished lung sounds remain present upon auscultation of his lungs. Irregular heart rate ongoing and bowel sounds within normal findings. Arrhythmias ongoing on telemetry. Scheduled medications administered as appropriately per AUG. Ambulation status has greatly improved; patient has been ambulating in his room/to the bathroom independently without difficulties + supervision with staff. At this time, the patient is resting in bed without any further complaints. Vital signs stable. No acute changes noted. Call light within reach. Droplet precautions ongoing for Influenza A (untype).
[2024-09-01 07:32] LABS: Basophils % 0.5 % (0.1-2.0); Eosinophils % 0.5 % (0.1-12.0); Hematocrit 41.3 % (42.0-52.0); Hemoglobin 13.7 g/dL (14.1-18.0); Lymphocytes # 0.5 K/mm3 (0.7-4.5); Lymphocytes % 14.4 % (10-50); Mean Corpuscular HGB Conc 33.2 g/dL (31.8-35.4); Mean Corpuscular Hemoglobin 32.3 pg (27.0-31.2); Mean Corpuscular Volume 97.4 fl (80-94); Monocytes # 0.5 K/mm3 (0.1-1.0); Monocytes % 14.4 % (1.7-9.3); Neutrophils # 2.6 K/mm3 (1.8-7.8); Neutrophils % 69.7 % (37.0-80.0); Platelet Count 150 K/mm3 (142-424); Red Blood Count 4.24 M/mm3 (4.60-6.20); Red Cell Distribution Width 14.3 % (11.5-17.5); White Blood Count 3.7 K/mm3 (4.8-10.8)
[2024-09-01 07:56] LABS: Alanine Aminotransferase 29 U/L (12-78); Albumin Level 3.5 g/dl (3.5-5.0); Albumin/Globulin Ratio 1.3 (1.1-1.8); Alkaline Phosphatase 80 U/L (38-126); Anion Gap 7.1 mEq/L (5-15); Aspartate Amino Transferase 49 U/L (17-59); Bilirubin,Total 1.1 mg/dl (0.2-1.3); Blood Urea Nitrogen 24 mg/dl (9-20); Calcium 9.5 mg/dl (8.4-10.2); Carbon Dioxide 30 mmol/L (22.0-30.0); Chloride 101 mmol/L (98-107); Creatinine Clearance Estimated 45 mL/min (50-200); Estimated Glomerular Filt Rate 45 ml/min (>60); GFR (African American) 55 ML/MIN (>60); Globulin 2.6 g/dL (1.3-3.2); Glucose 90 mg/dl (74-100); INR 2.03 (0.9-1.1); Magnesium 2.2 mg/dl (1.6-2.3); Potassium 4.1 mmoL/L (3.5-5.1); Prothrombin Time 21.2 seconds (10.1-12.5); Sodium 134 mmol/L (136-145); Total Protein,Serum 6.1 g/dl (6.3-8.2)
[2024-09-01 08:00] VITALS: BP 139/58; PULSE 70; RESP 19; TEMP 36.6; O2SAT 94
[2024-09-01] MEDS: METOPROLOL SUCCINATE XL 100MG TABLET 100 MG PO (08:58)
[2024-09-01] MEDS: OSELTAMIVIR PHOSPHATE 6MG/ML ORAL SUSP 60ML 30 MG PO (08:58)
--- NOTE | 2024-09-01 11:08 | EXP.DC.SUM ---
General Admission date:: 08/29/24 Discharge date: 09/01/24 HPI HPI HPI: Ned Cronin is a 79-year-old male with a medical history significant for A-fib/flutter (s/p multiple ablations on warfarin), mitral valve prolapse, mitral valve regurgitation, CAD with 5 stents, HFpEF, left ventricular aneurysm, renal artery stenosis s/p stents who presents with 2 episodes of lightheadedness and shortness of breath. He states the first episode occurred about 2 weeks ago at home during which he felt lightheaded and unstable to walk mildly short of breath. He states the second episode was the day of admission with similar symptoms. He denies chest pain, blurry vision, fever/chills, abdominal pain, urinary symptoms, diarrhea recently. No history of CVA, no recent medication changes. Workup in the ED significant for troponin 0.17, influenza A positive. CT/CTA head/neck unremarkable for acute findings. Case discussed with the ED provider and decision was made to admit patient for concerning findings of lightheadedness with complex cardiac history, NSTEMI. Hospital Course Hospital Course Hospital Course: Ned Cronin is a 79-year-old male with a medical history significant for A-fib/flutter (s/p multiple ablations on warfarin), mitral valve prolapse, mitral valve regurgitation, CAD with 5 stents, HFpEF, left ventricular aneurysm, renal artery stenosis s/p stents who presents with 2 episodes of lightheadedness and shortness of breath. He states the first episode occurred about 2 weeks ago at home during which he felt lightheaded and unstable to walk mildly short of breath. He states the second episode was the day of admission with similar symptoms. He denies chest pain, blurry vision, fever/chills, abdominal pain, urinary symptoms, diarrhea recently. No history of CVA, no recent medication changes. Workup in the ED significant for troponin 0.17, influenza A positive. CT/CTA head/neck unremarkable for acute findings. Case discussed with the ED provider and decision was made to admit patient for concerning findings of lightheadedness with complex cardiac history, NSTEMI. Surgical Yael improvement, weaned to room air during the day. O2 sat greater 90%. Stable discharge home to complete treatment for flu. Resume home warfarin regimen. INR therapeutic today. Problems addressed as follows: #Lightheadedness #NSTEMI #Influenza A #Complex cardiac history ? Patient reports 2 episodes of lightheadedness, shortness of breath over the past 2 weeks. Found to have NSTEMI and be flu positive. ECHO 08/29/2024 reveals what seems to be a new diagnosis of mild to moderate aortic regurgitation. Discussed to patient's complex cardiac history as below. Discussed case with cardiology, recommend outpatient stress test and further management for ischemic workup. No inpatient cath at this time. Aspirin 81 mg, atorvastatin 80 mg, metoprolol succinate 100 mg. Continuing home warfarin regimen, INR therapeutic today at 2. Resume regimen per home course of approximately 21 mg a week. Follow-up with Coumadin clinic next week. Discussed with pharmacy on day of discharge, they will schedule for INR and close follow-up next week. Will complete 5 days total of Tamiflu 75 mg twice daily. White count normal on day of discharge. Continue home regimen with CPAP and 3 L oxygen overnight. Stable on room air during the day. #A-fib/flutter #Mitral valve prolapse #Mitral, tricuspid valve regurgitation #Aortic valve regurgitation #CAD with 5 stents #History of left ventricular aneurysm #Renal artery stenosis #Hyperlipidemia ? Aspirin, statin, metoprolol as above. Currently rate controlled. INR therapeutic on day of discharge. Received additional 5 mg dose warfarin day before discharge and was bridged with Lovenox due to subtherapeutic level for 24 to 48 hours. Back to goal range of 2-3 at time of discharge. #CKD stage IIIa: Stable. BUN 27, creatinine 1.6 Exam Data for Last 24 hours Vital signs and Labs for Last 24 Hours: Temp Pulse Resp BP Pulse Ox O2 Del Method O2 Flow Rate 97.8 F 70 19 139/58 L 94 L Nasal Cannula 1 09/01/24 08:00 09/01/24 08:00 09/01/24 08:00 09/01/24 08:00 09/01/24 08:00 09/01/24 09:00 09/01/24 09:00 FiO2 28 08/30/24 21:34 Laboratory Results - last 24 hr 09/01/24 07:04: WBC 3.7 L D, RBC 4.24 L, Hgb 13.7 L, Hct 41.3 L, MCV 97.4 H, MCH 32.3 H, MCHC 33.2, RDW 14.3, Plt Count 150, MPV 10.0, Neut % (Auto) 69.7, Lymph % (Auto) 14.4, Dubois % (Auto) 14.4 H, Eos % (Auto) 0.5, Baso % (Auto) 0.5, Neut # (Auto) 2.6, Lymph # (Auto) 0.5 L, Dubois # (Auto) 0.5, Eos # (Auto) 0.0, Baso # (Auto) 0.0, PT 21.2 H, INR 2.03 H, Sodium 134 L, Potassium 4.1, Chloride 101, Carbon Dioxide 30, Anion Gap 7.1, BUN 24 H, Creatinine 1.50 H, Estimated Creat Clear 45, Estimated GFR 45 L, Est GFR ( Amer) 55 L, Glucose 90, Calcium 9.5, Magnesium 2.2, Total Bilirubin 1.1, AST 49 D, ALT 29, Alkaline Phosphatase 80, Total Protein 6.1 L, Albumin 3.5, Globulin 2.6, Albumin/Globulin Ratio 1.3 I & O for Last 24 hours: Intake & Output 08/29/24 08/30/24 08/31/24 09/01/24 23:59 23:59 23:59 23:59 Intake Total 1529 1400 / 1580 1100 / 1300 320 / 320 Output Total 0 / 0 0 / 0 0 / 100 100 / 100 Balance 1529 1400 / 1580 1100 / 1200 220 / 220 Weight 81.6 kg 81.2 kg 81 kg 79.1 kg Constitutional Constitutional: no acute distress, average body habitus and cooperative *Routine HEENT Exam Head: Present normocephalic Eye: Present PERRL ENT: Present mucous membranes moist Comments: sinus/nasal congestion *Routine Neck Exam Neck: Present supple *Routine Respiratory Exam Respiratory: Present CTA bilaterally; Absent accessory muscle use, wheezes or crackles *Routine Cardiovascular Exam Cardiovascular: Present RRR, Normal S1 and Normal S2; Absent murmur, gallop or rubs *Routine Abdominal Exam Abdominal: Present soft; Absent tenderness *Routine Rectal Exam Patient deferred: visual exam *Routine Exam Patient deferred: penile exam *Routine Extremities Exam Extremities: Present pulses intact; Absent cyanosis or edema *Routine Skin Exam Skin: Present intact; Absent erythema or wounds *Routine Neurological Exam Neurological: Present alert, oriented X3 and moving all extremities; Absent altered mental status Routine Psychiatric Exam Psychiatric: Present cooperative Results Data Completed and Pending Labs on day of discharge: Labs from last 24 hours 09/01/24 07:04 WBC 3.7 L D RBC 4.24 L Hgb 13.7 L Hct 41.3 L MCV 97.4 H MCH 32.3 H MCHC 33.2 RDW 14.3 Plt Count 150 MPV 10.0 Neut % (Auto) 69.7 Lymph % (Auto) 14.4 Dubois % (Auto) 14.4 H Eos % (Auto) 0.5 Baso % (Auto) 0.5 Neut # (Auto) 2.6 Lymph # (Auto) 0.5 L Dubois # (Auto) 0.5 Eos # (Auto) 0.0 Baso # (Auto) 0.0 PT 21.2 H INR 2.03 H Sodium 134 L Potassium 4.1 Chloride 101 Carbon Dioxide 30 Anion Gap 7.1 BUN 24 H Creatinine 1.50 H Estimated Creat Clear 45 Estimated GFR 45 L Est GFR ( Amer) 55 L Glucose 90 Calcium 9.5 Magnesium 2.2 Total Bilirubin 1.1 AST 49 D ALT 29 Alkaline Phosphatase 80 Total Protein 6.1 L Albumin 3.5 Globulin 2.6 Albumin/Globulin Ratio 1.3 DS: Diagnosis Discharge Diagnosis (1) Influenza A: Status: Acute Code(s): J10.1 - Influenza due to other identified influenza virus with other respiratory manifestations (2) Dizziness: Status: Acute Code(s): R42 - Dizziness and giddiness (3) Paroxysmal atrial fibrillation: Status: Acute Code(s): I48.0 - Paroxysmal atrial fibrillation (4) General weakness: Status: Acute Code(s): R53.1 - Weakness Meds Home Medications and Allergies Home Medications ?Medication ?Instructions ?Recorded ?Confirmed ?Type rosuvastatin 40 mg tablet 40 mg PO HS 08/29/24 08/29/24 History warfarin 2.5 mg tablet 2.5 mg PO SUTUTHSA 08/29/24 08/29/24 History warfarin 2.5 mg tablet 3.75 mg PO MOWEFR 08/29/24 08/29/24 History metoprolol succinate 100 mg 100 mg PO DAILY 30 days #30 tabs 09/01/24 Rx tablet,extended release 24 hr oseltamivir 6 mg/mL oral 30 mg (5 mL) PO BID 3 days #30 mL 09/01/24 Rx suspension (Tamiflu) New Prescriptions to Start Prescriptions: metoprolol succinate Doni Lilly oseltamivir [Tamiflu] Doni Lilly Allergies Allergy/AdvReac Type Severity Reaction Status Date / Time Penicillins Allergy Verified 08/11/24 13:28 sotalol Allergy Verified 08/11/24 13:28 iodine AdvReac Severe Anaphylaxis Verified 08/11/24 13:28 amiodarone AdvReac Intermediate Other Verified 08/11/24 13:28 codeine AdvReac Verified 08/11/24 13:28 Discharge Plan Disposition Patient Disposition: Home, Self-Care Condition: Fair Discharge Order Discharge Orders: Discharge Order (Routine); Ordered 09/01/24 Ordered By: Doni Lilly Follow up Plan Follow up with: Miguel A Bernabe MD [Primary Care Provider] - 09/08/24 8:20 am Master Ricketts MD [Staff Physician] - Enter time for follow up (Please call office for follow up appointment.) Prescriptions/Medication Reconciliation: New metoprolol succinate 100 mg Tablet Extended Release 24 Hr 100 mg PO DAILY 30 Days Qty: 30 0RF oseltamivir [Tamiflu] 6 mg/mL Suspension For Reconstitution 30 mg PO BID 3 Days Qty: 30 0RF Continued rosuvastatin 40 mg tablet 40 mg PO HS warfarin 2.5 mg tablet 2.5 mg PO SUTUTHSA warfarin 2.5 mg tablet 3.75 mg PO MOWEFR Problem Reconciliation Problems Reviewed?: Yes Patient Discharge Instructions ACTIVITY: Continue current activity DIET: continue same diet Patient Instructions: DI for Chest Pain, Dizziness, Nonvertigo, Coumadin Vitamin K/ Diet Print Language: Setswana Providers Primary Care Provider: Miguel A Bernabe Admit Provider: Ghassan Correia Attending Provider: Ghassan Correia
[2024-09-01 12:00] VITALS: BP 126/53; PULSE 77; RESP 19; TEMP 36.7; O2SAT 95
[2024-09-01] MEDS: WARFARIN 3MG TABLET 3 MG PO (12:48)
--- NOTE | 2024-09-02 13:46 | SW/DCPLANNER ---
Spoke to patient on the phone. Patient stated that he is doing well. Patient stated that he has not picked up his new medicine and that he is going to cancel it from clinic pharmacy. Patient stated that he has no concerns or questions at this time. Nydia apodaca
--- OUTSIDE RECORDS SUMMARY | 2024-09-22 13:45 | XMS_ITS ---
Author Organization Unknown TREATMENT PLAN [facility] Start Date Provider Encounter for Check-up [phone] [facility]
--- OUTSIDE RECORDS SUMMARY | 2024-09-22 13:45 | XMS_ITS | Data Portability ---
Author Organization [facility] [place]IE [place] CLOSED Address [address] [place] [address] Care Team Providers Care Boiling Off Winder Name Role Phone RICHARD CABELLO Primary Care Provider Assessment No assessment recorded. Plan of Treatment Reminders Order Date Submit Date Provider Last Modified By Organization Details Last Modified Time Details Appointments RECHECK 2024 11:45A Dequan DOE MD Not available Not available Not available Lab PSA, serum or plasma 2023 024 [facility], [address], [address], [place], [address], 12/06/2023 09:05:40 urinalysi s panel, auto 2023 024 [facility], [address], [address], [place], [address], 12/06/2023 09:05:38 culture, urine 2022 023 [facility], [address] [place] [address], [address], 10/11/2022 10:20:34 urinalysi s panel, auto 2022 023 [facility], [address], [address], [place], [address], 10/19/2022 10:21:30 PSA, serum or plasma 2022 023 [facility], [address], [address], [place], [address], 10/19/2022 10:21:30 urinalysi s panel, auto 2021 022 [facility], [address], [address], [place], [address], 10/06/2021 18:50:37 PSA, serum or plasma 2021 022 [facility], [address], [address], [place], [address], 10/06/2021 18:50:37 urinalysi s panel, auto 2020 021 [facility], [address], [address], [place], [address], 09/30/2020 16:18:23 Referral None recorded. Procedures None recorded. Surgeries None recorded. Imaging None recorded. Medication Orders None recorded. Patient TargetsNo targets recorded. Patient Instructions Encounter Date Encounter Id Patient Instructions Last Modified By Organization Details Last Modified Time 03/10/2019 [id number] healthy together [facility] Not availabl e 03/13/2019 22:04:03 kidney stone: care instructions [facility] Not available 03/13/2019 22:04:03 09/28/2020 [id number] kidney stone: care instructions [facility] Not available 09/30/2020 16:18:23 learning about diet for kidney stone prevention [facility] Not available 09/30/2020 16:18:23 Continue yearly follow-up BPH and renal stones. [email or web address] Not available 09/30/2020 16:19:15 10/09/2022 [id number] Prostate nodule feels benign, but is new. Correlate with PSA [email or web address] Not available 10/19/2022 10:21:08 Reason for Referral None Reported. Results Created Date Observation Date Name Description Value Unit Range Abnormal Flag Note LastModifiedBy Organization Detail LastModifiedTime 09/29/19 21 09/28/2020 urina lysis panel , auto Unknown Analyte Clean Catch Not Available [facility] [address] [place] [address] [address], [place], [address], 09/28/2020 10:02:26 09/29/19 21 09/28/2020 urina lysis panel , auto Unknown Analyte Yellow Not Available [facility] [address], [place], [address], 09/28/2020 10:02:26 09/29/19 21 09/28/2020 urina lysis panel , auto Unknown Analyte Clear Not Available [facility] [address], [place], [address], 09/28/2020 10:02:26 09/29/19 21 09/28/2020 urina lysis panel , auto Unknown Analyte 1.015 Not Available [facility] [address], [place], [address], 09/28/2020 10:02:26 09/29/19 21 09/28/2020 urina lysis panel , auto Unknown Analyte 1.003- 1.035 Not Available [facility] [address], [place], [address], 09/28/2020 10:02:26 09/29/19 21 09/28/2020 urina lysis panel , auto Unknown Analyte 6.0 Not Available [facility] [address], [place], [address], 09/28/2020 10:02:26 09/29/19 21 09/28/2020 urina lysis panel , auto Unknown Analyte 5.0-8. 0 Not Available [facility] [address], [place], [address], 09/28/2020 10:02:09/29/19 21 09/28/2020 urina lysis panel , auto Unknown Analyte Negati ve Not Available [facility] [place] [address], [place], [address], 09/28/2020 10:02:26 09/29/19 21 09/28/2020 urina lysis panel , auto Unknown Analyte Negati ve Not Available [facility] [address], [place], [address], 09/28/2020 10:02:26 09/29/19 21 09/28/2020 urina lysis panel , auto Unknown Analyte Negati ve Not Available [facility] [address], [place], [address], 09/28/2020 10:02:26 09/29/19 21 09/28/2020 urina lysis panel , auto Unknown Analyte Negati ve Not Available [facility] [address], [place], [address], 09/28/2020 10:02:26 09/29/19 21 09/28/2020 urina lysis panel , auto Unknown Analyte 30 mg/dl (+) Not Available [facility] [address], [place], [address], 09/28/2020 10:02:26 09/29/19 21 09/28/2020 urina lysis panel , auto Unknown Analyte Negati ve Not Available [facility] [address], [place], [address], 09/28/2020 10:02:09/29/19 21 09/28/2020 urina lysis panel , auto Unknown Analyte Normal Not Available [facility] [address], [place], [address], 09/28/2020 10:02:26 09/29/19 21 09/28/2020 urina lysis panel , auto Unknown Analyte Normal Not Available [facility] [address], [place], [address], 09/28/2020 10:02:26 09/29/19 21 09/28/2020 urina lysis panel , auto Unknown Analyte Negati ve Not Available [facility] [address], [place], [address], 09/28/2020 10:02:26 09/29/19 21 09/28/2020 urina lysis panel , auto Unknown Analyte Negati ve Not Available [facility] [address], [place], [address], 09/28/2020 10:02:26 09/29/19 21 09/28/2020 urina lysis panel , auto Unknown Analyte Normal Not Available [facility] [address], [place], [address], 09/28/2020 10:02:26 09/29/19 21 09/28/2020 urina lysis panel , auto Unknown Analyte Normal 1 mg/dl Not Available [facility] [address], [place], [address], 09/28/2020 10:02:26 09/29/19 21 09/28/2020 urina lysis panel , auto Unknown Analyte Negati ve Not Available [facility] [address], [place], [address], 09/28/2020 10:02:26 09/29/19 21 09/28/2020 urina lysis panel , auto Unknown Analyte Negati ve Not Available [facility] [address], [place], [address], 09/28/2020 10:02:26 09/29/19 21 09/28/2020 urina lysis panel , auto Unknown Analyte 250 Darren/ul Not Available [facility] [address], [place], [address], 09/28/2020 10:02:26 09/29/19 21 09/28/2020 urina lysis panel , auto Unknown Analyte Negati ve Not Available [facility] [address], [place], [address], 09/28/2020 10:02:26 10/04/19 22 10/03/2021 PSA, serum or plasm a PSA 0.42 NG/mL 0.0 - 4.0 Not Available [facility] [address], [place], [address], 10/03/2021 14:15:11 10/04/19 22 10/03/2021 urina lysis panel , auto Unknown Analyte Clean Catch Not Available [facility] [address], [place], [address], 10/03/2021 14:09:29 10/04/19 22 10/03/2021 urina lysis panel , auto Unknown Analyte Yellow Not Available [facility] [address], [place], [address], 10/03/2021 14:09:29 10/04/19 22 10/03/2021 urina lysis panel , auto Unknown Analyte Clear Not Available [facility] [address], [place], [address], 10/03/2021 14:09:29 10/04/19 22 10/03/2021 urina lysis panel , auto Unknown Analyte 1.020 Not Available [facility] [address], [place], [address], 10/03/2021 14:09:29 10/04/19 22 10/03/2021 urina lysis panel , auto Unknown Analyte 1.003- 1.035 Not Available [facility] [address], [place], [address], 10/03/2021 14:09:29 10/04/19 22 10/03/2021 urina lysis panel , auto Unknown Analyte 6.0 Not Available [facility] [address], [place], [address], 10/03/2021 14:09:29 10/04/19 22 10/03/2021 urina lysis panel , auto Unknown Analyte 5.0-8. 0 Not Available [facility] [address], [place], [address], 10/03/2021 14:09:29 10/04/19 22 10/03/2021 urina lysis panel , auto Unknown Analyte Negati ve Not Available [facility] [address], [place], [address], 10/03/2021 14:09:29 10/04/19 22 10/03/2021 urina lysis panel , auto Unknown Analyte Negati ve Not Available [facility] [address], [place], [address], 10/03/2021 14:09:29 10/04/19 22 10/03/2021 urina lysis panel , auto Unknown Analyte Negati ve Not Available [facility] [address], [place], [address], 10/03/2021 14:09:29 10/04/19 22 10/03/2021 urina lysis panel , auto Unknown Analyte Negati ve Not Available [facility] [address], [place], [address], 10/03/2021 14:09:29 10/04/19 22 10/03/2021 urina lysis panel , auto Unknown Analyte Negati ve Not Available [facility] [address], [place], [address], 10/03/2021 14:09:29 10/04/19 22 10/03/2021 urina lysis panel , auto Unknown Analyte Negati ve Not Available [facility] [address], [place], [address], 10/03/2021 14:09:29 10/04/19 22 10/03/2021 urina lysis panel , auto Unknown Analyte Normal Not Available [facility] [address], [place], [address], 10/03/2021 14:09:29 10/04/19 22 10/03/2021 urina lysis panel , auto Unknown Analyte Normal Not Available [facility] [address], [place], [address], 10/03/2021 14:09:29 10/04/19 22 10/03/2021 urina lysis panel , auto Unknown Analyte Negati ve Not Available [facility] [address], [place], [address], 10/03/2021 14:09:29 10/04/19 22 10/03/2021 urina lysis panel , auto Unknown Analyte Negati ve Not Available [facility] [address], [place], [address], 10/03/2021 14:09:29 10/04/19 22 10/03/2021 urina lysis panel , auto Unknown Analyte Normal Not Available [facility] [address], [place], [address], 10/03/2021 14:09:29 10/04/19 22 10/03/2021 urina lysis panel , auto Unknown Analyte Normal 1 mg/dl Not Available [facility] [address], [place], [address], 10/03/2021 14:09:29 10/04/19 22 10/03/2021 urina lysis panel , auto Unknown Analyte Negati ve Not Available [facility] [address], [place], [address], 10/03/2021 14:09:29 10/04/19 22 10/03/2021 urina lysis panel , auto Unknown Analyte Negati ve Not Available [facility] [address], [place], [address], 10/03/2021 14:09:29 10/04/19 22 10/03/2021 urina lysis panel , auto Unknown Analyte 50 Darern/ul Not Available [facility] [address], [place], [address], 10/03/2021 14:09:29 10/04/19 22 10/03/2021 urina lysis panel , auto Unknown Analyte Negati ve Not Available [facility] [address], [place], [address], 10/03/2021 14:09:29 10/10/19 23 10/09/2022 URINE CULTU RE results Sourc e: CCUR Colle cted: 10/09 16:31 Site: Recei maxine : 10/10 10:20 URINE CULTU RE FINAL 10/13 11:46 10/11 ISOLA TE #1 COLON Y COUNT : > 100,0 00 CFU/M L Proba ble Staph yloco ccus sp.; ID and sensi tivit y in progr ess. 10/13 See [facility] te Resul t(s) Below ISOLA ROSI AND SENSI TIVIT Y RESUL TS [place] te 01 Staph yloco ccus inter mediu s __ [facility] te ORG# 01 ANTIB IOTIC S KRISHNA INT __ Amox/ K Clav' ate(c ) <=4/2 R Amp/S ulbac moreno(c ) <=8/4 R Cefaz julián <=4 R Cipro floxa silvina <=1 S Genta micin <=4 S Levof loxac in <=1 S Nitro furan toin <=32 S Oxaci llin 0.5 R Rifam pin <=1 S Tetra cycli ne <=4 S Trime th/Morley lfa <=0.5 /9.5 S Vanco mycin 2 S Not Available [facility] [address], [place], [address], 10/13/2022 11:46:16 10/11/19 23 10/10/2022 PSA, serum or plasm a PSA 1.1 NG/mL 0.0 - 4.0 Not Available [facility] [address] [address], [place], [address], 10/10/2022 07:47:40 10/11/19 23 10/10/2022 urina lysis panel , auto Unknown Analyte Clean Catch Not Available [facility] [address], [place], [address], 10/10/2022 07:21:04 10/11/19 23 10/10/2022 urina lysis panel , auto Unknown Analyte Yellow Not Available [facility] [address], [place], [address], 10/10/2022 07:21:04 10/11/19 23 10/10/2022 urina lysis panel , auto Unknown Analyte Hazy Not Available [facility] [address], [place], [address], 10/10/2022 07:21:04 10/11/19 23 10/10/2022 urina lysis panel , auto Unknown Analyte 1.010 Not Available [facility] [address], [place], [address], 10/10/2022 07:21:04 10/11/19 23 10/10/2022 urina lysis panel , auto Unknown Analyte 1.003- 1.035 Not Available [facility] [address], [place], [address], 10/10/2022 07:21:04 10/11/19 23 10/10/2022 urina lysis panel , auto Unknown Analyte 7.0 Not Available [facility] [address], [place], [address], 10/10/2022 07:21:04 10/11/19 23 10/10/2022 urina lysis panel , auto Unknown Analyte 5.0-8. 0 Not Available [facility] [address], [place], [address], 10/10/2022 07:21:04 10/11/19 23 10/10/2022 urina lysis panel , auto Unknown Analyte 500 Alina/ul (++) Not Available [facility] [address], [place], [address], 10/10/2022 07:21:04 10/11/19 23 10/10/2022 urina lysis panel , auto Unknown Analyte Negati ve Not Available [facility] [address], [place], [address], 10/10/2022 07:21:04 10/11/19 23 10/10/2022 urina lysis panel , auto Unknown Analyte Negati ve Not Available [facility] [address], [place], [address], 10/10/2022 07:21:04 10/11/19 23 10/10/2022 urina lysis panel , auto Unknown Analyte Negati ve Not Available [facility] [address], [place], [address], 10/10/2022 07:21:04 10/11/19 23 10/10/2022 urina lysis panel , auto Unknown Analyte 100 mg/dl (++) Not Available [facility] [address], [place], [address], 10/10/2022 07:21:04 10/11/19 23 10/10/2022 urina lysis panel , auto Unknown Analyte Negati ve Not Available [facility] [address], [place], [address], 10/10/2022 07:21:04 10/11/19 23 10/10/2022 urina lysis panel , auto Unknown Analyte Normal Not Available [facility] [address], [place], [address], 10/10/2022 07:21:04 10/11/19 23 10/10/2022 urina lysis panel , auto Unknown Analyte Normal Not Available [facility] [address], [place], [address], 10/10/2022 07:21:04 10/11/19 23 10/10/2022 urina lysis panel , auto Unknown Analyte Negati ve Not Available [facility] [address], [place], [address], 10/10/2022 07:21:04 10/11/19 23 10/10/2022 urina lysis panel , auto Unknown Analyte Negati ve Not Available [facility] [address], [place], [address], 10/10/2022 07:21:04 10/11/19 23 10/10/2022 urina lysis panel , auto Unknown Analyte Normal Not Available [facility] [address], [place], [address], 10/10/2022 07:21:04 10/11/19 23 10/10/2022 urina lysis panel , auto Unknown Analyte Normal 1 mg/dl Not Available [facility] [address], [place], [address], 10/10/2022 07:21:04 10/11/19 23 10/10/2022 urina lysis panel , auto Unknown Analyte Negati ve Not Available [facility] [address], [place], [address], 10/10/2022 07:21:04 10/11/19 23 10/10/2022 urina lysis panel , auto Unknown Analyte Negati ve Not Available [facility] [address], [place], [address], 10/10/2022 07:21:04 10/11/19 23 10/10/2022 urina lysis panel , auto Unknown Analyte 250 Darren/ul Not Available [facility] [address], [place], [address], 10/10/2022 07:21:04 10/11/19 23 10/10/2022 urina lysis panel , auto Unknown Analyte Negati ve Not Available [facility] [address], [place], [address], 10/10/2022 07:21:04 12/02/19 24 12/02/2023 urina lysis panel , auto Unknown Analyte Clean Catch Not Available [facility] [address], [place], [address], 12/02/2023 12:28:39 12/02/19 24 12/02/2023 urina lysis panel , auto Unknown Analyte Yellow Not Available [facility] [address], [place], [address], 12/02/2023 12:28:39 12/02/19 24 12/02/2023 urina lysis panel , auto Unknown Analyte Clear Not Available [facility] [address], [place], [address], 12/02/2023 12:28:39 12/02/19 24 12/02/2023 urina lysis panel , auto Unknown Analyte 1.015 Not Available [facility] [address], [place], [address], 12/02/2023 12:28:39 12/02/19 24 12/02/2023 urina lysis panel , auto Unknown Analyte 1.003- 1.035 Not Available [facility] [address], [place], [address], 12/02/2023 12:28:39 12/02/19 24 12/02/2023 urina lysis panel , auto Unknown Analyte 6.0 Not Available [facility] [address], [place], [address], 12/02/2023 12:28:39 12/02/19 24 12/02/2023 urina lysis panel , auto Unknown Analyte 5.0-8. 0 Not Available [facility] [address], [place], [address], 12/02/2023 12:28:39 12/02/19 24 12/02/2023 urina lysis panel , auto Unknown Analyte Negati ve Not Available [facility] [address], [place], [address], 12/02/2023 12:28:39 12/02/19 24 12/02/2023 urina lysis panel , auto Unknown Analyte Negati ve Not Available [facility] [address], [place], [address], 12/02/2023 12:28:39 12/02/19 24 12/02/2023 urina lysis panel , auto Unknown Analyte Negati ve Not Available [facility] [address], [place], [address], 12/02/2023 12:28:39 12/02/19 24 12/02/2023 urina lysis panel , auto Unknown Analyte Negati ve Not Available [facility] [address], [place], [address], 12/02/2023 12:28:39 12/02/19 24 12/02/2023 urina lysis panel , auto Unknown Analyte Trace Not Available [facility] [address], [place], [address], 12/02/2023 12:28:39 12/02/19 24 12/02/2023 urina lysis panel , auto Unknown Analyte Negati ve Not Available [facility] [address], [place], [address], 12/02/2023 12:28:39 12/02/19 24 12/02/2023 urina lysis panel , auto Unknown Analyte Normal Not Available [facility] [address], [place], [address], 12/02/2023 12:28:39 12/02/19 24 12/02/2023 urina lysis panel , auto Unknown Analyte Normal Not Available [facility] [address], [place], [address], 12/02/2023 12:28:39 12/02/19 24 12/02/2023 urina lysis panel , auto Unknown Analyte Negati ve Not Available [facility] [address], [place], [address], 12/02/2023 12:28:39 12/02/19 24 12/02/2023 urina lysis panel , auto Unknown Analyte Negati ve Not Available [facility] [address], [place], [address], 12/02/2023 12:28:39 12/02/19 24 12/02/2023 urina lysis panel , auto Unknown Analyte Normal Not Available [facility] [address], [place], [address], 12/02/2023 12:28:39 12/02/19 24 12/02/2023 urina lysis panel , auto Unknown Analyte Normal 1 mg/dl Not Available [facility] [address], [place], [address], 12/02/2023 12:28:39 12/02/19 24 12/02/2023 urina lysis panel , auto Unknown Analyte Negati ve Not Available [facility] [address] [place] [address] [address], [place], [address], 12/02/2023 12:28:39 12/02/19 24 12/02/2023 urina lysis panel , auto Unknown Analyte Negati ve Not Available [facility] [address], [place], [address], 12/02/2023 12:28:39 12/02/19 24 12/02/2023 urina lysis panel , auto Unknown Analyte Negati ve Not Available [facility] [address], [place], [address], 12/02/2023 12:28:39 12/02/19 24 12/02/2023 urina lysis panel , auto Unknown Analyte Negati ve Not Available [facility] [address], [place], [address], 12/02/2023 12:28:39 12/02/19 24 12/02/2023 PSA, serum or plasm a PSA 0.67 NG/mL 0.0 - 4.0 Not Available [facility] [address], [place], [address], 12/02/2023 12:28:24 12/23/19 24 12/23/2023 US, retro perit oneum , limit ed No observ ation record ed. IMER Not Available 2023 17:14:52 Result Notes None recorded. Problems Name Problem SNOMED Code Status Onset Date Resolution Date Notes Provider Name and Address Organization Details Recorded Time Kidney stone 34605939 Active 2014 Provider: Slabaugh Jr, Rolf;St atus: Active Not Available [facility] 6 09:06:25 Ureteric stone 28296452 Active 2014 Provider: Rolf Doe Jr;St atus: Active Not Available [facility] 6 09:06:25 Calculus of kidney and ureter 331659643 Active 2014 From Automated Load;Prov ider: Rolf Doe Jr;St atus: Active Not Available [facility] 6 09:06:25 Sunday hematuria 864696253 Active 2015 From Automated Load;Prov ider: Rolf Doe Jr;St atus: Active Not Available [facility] 6 09:06:25 Epididymi tis 88616806 Active 2015 From Automated Load;Prov ider: Rolf Doe Jr;St atus: Active Not Available [facility] 6 09:06:25 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 00324912152 101 Active 2015 From Automated Load;Prov ider: Rolf Doe Jr;St atus: Active Not Available [facility] 6 09:06:25 Nocturia 651870659 Active 2015 From Automated Load;Prov ider: Rolf Doe Jr;St atus: Active Not Available [facility] 6 09:06:25 Prostate nodule 51667784796 9109 Active 2022 ROLF DOE JR, MD [address] [place] [address] [place], [address] , [facility] 3 10:20:35 Acute urinary tract infection 285040613 Active 2022 ROLF DOE JR, MD [address] [place] [address] [place], [address] , [facility] 3 10:20:35 Problem Notes None recorded. Procedures Surgical History None recorded. Imaging Results Imaging Date Name Status LastModified by Organiz [facility] Details LastModified Time 12/23/2023 US, retroperiton eum, limited completed IMER Information not available 12/23/2023 17:14:52 Procedure Notes None recorded. Medical Equipment None Reported. Allergies Allergen ID Allergen Name Allergen Category Reaction Reaction Severity Criticality Documentation Date Start Date Code Code System Note Provider Name and Address Organization Details Recorded Time [id number] Flomax medicatio n Not available Not available Not available 05/09/20162012 74665 3 RxNorm Comme nt: Creat ed By: [facility] rt ICC rt;Cr eated Date: 2012 1:16: 29 PM; Not Available [facility] 6 03:08:20 212657 sotalol hydrochlo ride medicatio n Not available Not available Not available 05/09/20162014 7008 RxNorm Comme nt: Creat ed By: Lewis bell Date: 2014 1:36: 35 PM; Not Available [facility] 6 06:21:01 740408 iodine medicatio n Not available Not available Not available 05/09/20162012 5933 RxNorm Comme nt: Creat ed By: [facility] rt [facility] rt;Cr eated Date: 2012 1:16: 40 PM; Not Available [facility] 6 09:08:45 771245 acetamino phen / hydrocodo ne medicatio n Not available Not available Not available 05/09/20162012 35105 2 RxNorm Comme nt: Creat ed By: [facility] rt ICC rt;Cr eated Date: 2012 1:16: 49 PM; Not Available [facility] 6 09:08:45 239431 Product containin g penicilli n (product) medicatio n Not available Not available Not available 05/09/20162012 60272 8001 SNOMED Comme nt: Creat ed By: [facility] rt ICC rt;Cr eated Date: 2012 1:17: 02 PM; Not Available [facility] 6 09:08:45 189314 codeine medicatio n Not available Not available Not available 05/09/20162012 2670 RxNorm Comme nt: Creat ed By: [facility] rt [facility] rt;Cr eated Date: 2012 1:16: 17 PM; Not Available [facility] 10:37:35 Medications Name Sig Start Date Stop Date Status Note LastModified by Organization Details LastModified Time furosemide 40 mg tablet Daily 03/04 completed Duratio n: 30 days;Fr equency : daily;Dequan pires on Descrip tion: furosem leisa; Dosage: 1; Route:o ral; refills :0; Quantit y:60 tablet Not Available Not Available Not Available metoprolol succinate ER 200 mg tablet,ext ended release 24 hr Two times a day 10/10 completed Frequen cy: bid;Med ication Descrip tion: metopro lol; Dosage: 1/2; Route:o ral; refills :0 Not Available Not Available Not Available warfarin 2.5 mg tablet Take 1 tablet every day by oral route. active Not Available Not Available No t Available doxycyclin e monohydrat e 100 mg capsule Take 1 capsule twice a day by oral route for 10 days. 2022 active Not Available Not Available Not Avai lable Cipro 500 mg tablet Two times a day 03/04 completed Duratio n: 10 days;Fr equency : bid;Med ication Descrip tion: ciprofl oxacin; Dosage: 1; Route:o ral; refills :0; Quantit y:20 tablet Not Available Not Available Not Available warfarin 5 mg tablet Daily 10/10 completed Frequen cy: daily;Dequan stephensica on Descrip tion: warfari n; Dosage: 1; Route:o ral; refills :0 Not Available Not Available Not Available diltiazem CD 120 mg capsule,ex tended release 24 hr Two times a day active Frequen cy: bid;Med ication Descrip tion: diltiaz em; Dosage: 1; Route:o ral; refills :0 Not Available Not Available Not Available aspirin 81 mg tablet Daily 10/10 completed Duratio n: 30 days;Fr equency : daily;Dequan stephensica on Descrip tion: aspirin ; Dosage: 1; Route:o ral; refills :0; Quantit y:30 tablet Not Available Not Available Not Available rosuvastat in active Not Available Not Available Not Available metoprolol succinate ER 100 mg capsule sprinkle, ext. release 24 hr Take 1 capsule every day by oral route. active Not Available Not Available No t Available Vitals Date Recorded Body height Body mass index (BMI) Body weight Heart rate Systolic blood pressure Diastolic blood pressure Provider Name and Address Organization Details Last Updated DateTime 9 172.72 cm 30.6 kg/m2 22304.0 7 g 65 /min 127 mm[Hg] 67 mm[Hg] Izabel [facility] 9 13:40:21 Date Recorded Body weight Body mass index (BMI) Body height Provider Name and Address Organization Details Last Updated DateTime 09/28/2020 34913.07 g 30.6 kg/m2 172.72 cm Izabel [facility] 09/28/2020 10:04:47 Date Recorded Body height Body mass index (BMI) Body weight Provider Name and Address Organization Details Last Updated DateTime 10/03/2021 172.72 cm 30.6 kg/m2 01968.07 g Eloise Malika [facility] 10/03/2021 14:08:58 Date Recorded Body height Body mass index (BMI) Body weight Provider Name and Address Organization Details Last Updated DateTime 10/09/2022 172.72 cm 27.7 kg/m2 38657.81 g Addis Keron [facility] 10/10/2022 07:19:58 Social History Question Answer Notes LastModified by Organizat ion Details LastModified Time Tobacco Smoking Status [facility]10[facility]2017 10:57:31 What Is Your Level Of Alcohol Consumption? None [email or web address] Information not available 09/02/2018 How Much Tobacco Do You Chew? None [email or web address] Information not available 09/02/2018 What Was The Date Of Your Most Recent Tobacco Screening? 09/02/2018 Information n ot available 08/02/2019 How Much Tobacco Do You Smoke? No [email or web address] Information not available 03/10/2019 Sex: Unknown Functional Status None recorded. Mental Status None recorded. Family History Relationship Description Onset Age of this Age Resolved Age Notes LastModified by Organization Details LastModified Time Father No current problems or disability stephanie Not available 14:10:04 Mother No current problems or disability stephanie Not available 14:10:04 Medical History No medical history recorded. Past Encounters Encounter ID Performer Location Encounter Start Date Encounter Closed Date Diagnosis/Indication Diagnosis SNOMED-CT Code Diagnosis ICD10 Code Diagnosis Note [id number] ROLF DOE JR, MD [facility] [address] [address] 0 08/08/2016 10:21:41 08/14/2016 15:49:51 Lower urinary tract symptoms due to benign prostatic hypertrophy 7792530013 9101 N40.1 Kidney stone 67992754 N2 0.0 [id number] ROLF DOE JR, MD [facility] [address] [address] 0 02/12/2017 12:48:37 02/13/2017 08:34:28 Lower urinary tract symptoms due to benign prostatic hypertrophy 6435740900 9101 N40.1 Kidney stone 10599784 N2 0.0 [id number] ROLF DOE JR, MD [facility] [address] [address] 0 09/03/2017 12:54:23 09/03/2017 13:53:06 Lower urinary tract symptoms due to benign prostatic hypertrophy 5508167049 9101 N40.1 Kidney stone 58306307 N2 0.0 [id number] ROLF DOE JR, MD [facility] [address] [address] 03/04/2018 14:56:13 03/04/2018 15:36:34 Lower urinary tract symptoms due to benign prostatic hypertrophy 9645826711 9101 N40.1 Kidney stone 03143210 N2 0.0 [id number] ROLF DOE JR, MD [facility] [address] [address] 0 09/02/2018 13:13:25 09/02/2018 14:09:12 Lower urinary tract symptoms due to benign prostatic hypertrophy 6481823203 9101 N40.1 Kidney stone 43333786 N2 0.0 [id number] ROLF DOE JR, MD [facility] [address] [place] [address] RD,[place] [address] 03/10/2019 13:17:58 03/10/2019 13:38:20 Lower urinary tract symptoms due to benign prostatic hypertrophy 1298714896 9101 N40.1 Calculus o f kidney and ureter 348798533 N20.2 [id number] ROLF DOE JR, MD [facility] [address] [place] [address] RD,[place] [address] 09/28/2020 09:27:05 09/28/2020 10:16:01 Kidney stone 98159217 N20.0 Lower urin colby tract symptoms due to benign prostatic hypertrophy 4046000921 9101 N40.1 [id number] ROLF DOE JR, MD [facility] [address] [place] [address] RD,[place] [address] 10/03/2021 13:46:04 10/03/2021 14:34:07 Kidney stone 34948266 N20.0 Lower urin colby tract symptoms due to benign prostatic hypertrophy 4030314433 9101 N40.1 [id number] ROLF DOE JR, MD [facility] [address] [place] [address] RD,[place] [address] 10/09/2022 13:43:22 10/09/2022 14:04:42 Acute urinary tract infection 472535265 N39.0 Prostate nodule 25077176 01 10497 N40.2 Kidney stone 56260064 N2 0.0 Lower urin colby tract symptoms due to benign prostatic hypertrophy 5101704198 9101 N40.1 [id number] ROLF DOE JR, MD [facility] [address] [place] [address] [address] [place] [address] 12/02/2023 11:21:32 12/02/2023 13:42:22 Calculus of kidney and ureter 484830678 N20.2 Lower urin colby tract symptoms due to benign prostatic hypertrophy 5868216865 9101 N40.1 Health Concerns Section Related Observation LastModified by Organization Detai ls LastModified Time None Recorded Concern Status LastModified by Organization Details LastModified Time None Recorded Advance Directives Directive None Recorded Payers Encounter Date Sequence Insurance Name Policy Number Policy Curiel Covered Member ID Curiel Member ID Guarantor Name 03/10/2019 1 [place] Ned R Cronin [id number] Ned R Cronin 03/10/2019 2 [employer] [place] Ned R Cronin [id number] Ned R Cronin 09/28/2020 1 [place] Ned R Cronin [id number] Ned R Cronin 09/28/2020 2 [employer] [place] End R Cronin [id number] Ned R Cronin 10/03/2021 1 [place] Ned R Cronin [id number] Ned R Cronin 10/03/2021 2 [employer] [place] Ned R Cronin [id number] Ned R Cronin 10/09/2022 1 [place] Ned R Cronin [id number] Ned R Cronin 10/09/2022 2 [employer] [place] Ned R Cronin [id number] Ned R Cronin 12/02/2023 1 [place] Ned R Cronin [id number] Ned R Cronin 12/02/2023 2 [employer] [place] Ned R Cronin [id number] Ned R Cronin Notes Date Note Type Note Provider Name and Address Organization Details Recorded Time 03/10/2019 text/html In for f/u of BP H and nephrolithiasis. he underwent Urolift procedure on 04/16/2016 with resolution of LUTS. He is quite pleased with outcome of procedure. he does have ah/o nephrolithiasis which is followed conservatively. KUB is reviewed today revealing nonobstructing right nephrolithiasis. Denies recent stone episode/flank pain. ROLF DOE JR, MD [address] [place], [address], [facility] 03/13/2019 22:04:14 09/28/2020 text/html In for f/u of BP H and nephrolithiasis. he underwent Urolift procedure on 04/16/2016 with resolution of LUTS. He is quite pleased with outcome of procedure. he does have ah/o nephrolithiasis which is followed conservatively. KUB is reviewed today revealing nonobstructing right nephrolithiasis, stable. Denies recent stone episode/flank pain. ROLF DOE JR, MD [facility] [place], [address], [facility] 09/30/2020 16:21:03 10/03/2021 text/html In for f/u of BP H and nephrolithiasis. he underwent Urolift procedure on 04/16/2016 with resolution of LUTS. He is quite pleased with outcome of procedure. he does have ah/o nephrolithiasis which is followed conservatively. KUB is reviewed today revealing nonobstructing nephrolithiasis, stable. Denies recent stone episode/flank pain. ROLF DOE JR, MD [address] [place], [address], [facility] 10/06/2021 18:50:55 10/09/2022 text/html In for f/u of BP H and nephrolithiasis. he underwent Urolift procedure on 04/16/2016 with resolution of LUTS. He is quite pleased with outcome of procedure. he does have ah/o nephrolithiasis which is followed conservatively. KUB is reviewed today revealing nonobstructing nephrolithiasis, stable. Denies recent stone episode/flank pain. ROLF DOE JR, MD [facility] [place], [address], [facility] 10/19/2022 10:21:34 12/02/2023 text/html In for f/u of BP H and nephrolithiasis. he underwent Urolift procedure on 04/16/2016 with resolution of LUTS. He is quite pleased with outcome of procedure. he does have ah/o nephrolithiasis which is followed conservatively. KUB is reviewed today revealing nonobstructing nephrolithiasis, stable. Denies recent stone episode/flank pain. ROLF DOE JR, MD [address] [place], [address], [facility] 12/06/2023 09:05:42
== END 2024-09-01 13:05 | disposition home or self-care (01) | DRG 193 ==
LOC: ER 11:39 → 2ND 12:18
PROVIDERS: Internal Medicine Adolescent Medicine; Nurse Practitioner Family; Physician Assistant; Admitting Provider Student in an Organized Health Care Education/Training Program; Emergency Provider Emergency Medicine; PCP Family Medicine; Visit Provider Student in an Organized Health Care Education/Training Program
DX: J10.1 Influenza due to other identified influenza virus with other respiratory manifestations (principal); I21.4 Non-ST elevation (NSTEMI) myocardial infarction; I50.30 Unspecified diastolic (congestive) heart failure; I48.92 Unspecified atrial flutter; I48.0 Paroxysmal atrial fibrillation; Z95.5 Presence of coronary angioplasty implant and graft; I25.10 Atherosclerotic heart disease of native coronary artery without angina pectoris; I70.1 Atherosclerosis of renal artery; N18.31 Chronic kidney disease, stage 3a; R42 Dizziness and giddiness; Z88.0 Allergy status to penicillin; Z95.828 Presence of other vascular implants and grafts; I07.1 Rheumatic tricuspid insufficiency; I35.1 Nonrheumatic aortic (valve) insufficiency; E78.5 Hyperlipidemia, unspecified; I34.1 Nonrheumatic mitral (valve) prolapse; Z79.01 Long term (current) use of anticoagulants; Z79.899 Other long term (current) drug therapy; Z82.49 Family history of ischemic heart disease and other diseases of the circulatory system; Z87.891 Personal history of nicotine dependence; Z88.8 Allergy status to other drugs, medicaments and biological substances; Z88.5 Allergy status to narcotic agent
CPT/HCPCS: 36415; 70450; 70496; 70498; 71045; 80053; 80061; 80307; 80320; 81001; 82607; 82728; 82746; 83036; 83540; 83550; 83735; 83880; 84100; 84436; 84443; 84484; 85025; 85610; 85730; 86803; 87389; 87636; 93005; 93270; 93272; 93306; 97163; 99291; J1200; J1650; J2405; J2919; J7120; Q9967

== ENCOUNTER 2024-10-05 12:44 | Outpatient (CLI) | payer MEDICARE, OTHER, SELFPAY ==
--- NOTE | 2024-10-05 | CA_ITS ---
APPROVED REPORT Exam: Pharmacologic Technologist: Erin Hylton Ht: 5 ft 8 in Wt: 173 lbs BSA: 1.92 m2 HR: 87 bpm BP: 155/65 mmHg Stress Test Details Test: Lexiscan Reason for pharmacologic stress test: physical limitation. HR Resting HR: 87 bpm Max Heart Rate (APMHR): 142 bpm Max HR Achieved: 102 bpm Target HR (85% APMHR): 121 bpm % of APMHR: 72 Recovery HR: 102 bpm BP Resting BP: 155.0/65.0 mmHg Max BP: 167.0/83.0 mmHg Recovery BP: 167.0/83.0 mmHg ECG Resting ECG: A-fib, PRWP anteriorly Stress ECG Conclusion Symptoms: None. Arrhythmias/Ectopy: Occasional PVC's. ST-T Changes: <1.[address] Segment changes. Conclusion: Non-Diagnostic Lexiscan stress. Electronically signed by : Sondra Ricketts MD 10/05/2024 22:51:13
--- NOTE | 2024-10-05 13:00 | NM_ITS ---
APPROVED REPORT Exam: Nuclear Stress Test Indication: soa Patient Location: Outpatient Stress Tech: Erin Diez HI Tech:BRIAN Tovar RT(R)(N) Ht: 5 ft 8 in Wt: 173 lbs HR: 81 bpm BP: 155/65 mmHg BSA: 1.92 m2 TID: 0.95 BMI: 26.3 History: Dyspnea Procedure: Patient received 0.4 mg of intravenous Lexiscan, resting heart rate 81 bpm, resting blood pressure 155/65 mmHg, with Lexiscan maximum heart rate achieved was 99 bpm which is 85 % of the maximum predicted heart rate and blood pressure was 161/88 mmHg. With Lexiscan, patient denied any complaint of chest pain. Cardiac Stress and Resting SPECT Images: Cardiac Stress and Resting SPECT images were obtained using technetium 99m Myoview 32.3 mCi stress and 10.35 mCi at rest. Resting and stress imaging in supine and prone positions demonstrate a large sized, severe, predominantly fixed perfusion defect in the inferior and apical LV laird. There is minimal reversibility towards the basal inferior LV wall. Gated imaging and straits mild reduction in global LV systolic function. There is severe hypokinesis of the inferior LV wall. There is akinesis of the apical LV wall. LVEF is calculated at 46%. Conclusion: Large sized, severe, predominantly fixed perfusion defect in the inferior and apical LV laird. There is minimal reversibility towards the basal inferior LV wall. Gated imaging and straits mild reduction in global LV systolic function. There is severe hypokinesis of the inferior LV wall. There is akinesis of the apical LV wall. LVEF is calculated at 46%. Electronically signed by : Sondra Ricketts MD 10/05/2024 22:48:34
[2024-10-05] MEDS: ISOTOPE MYOVIEW (PER STUDY) 1 DOSE IV (15:07)
[2024-10-05] MEDS: REGADENOSON 0.4MG/5ML SYRINGE 0.4 MG IV (15:07)
[2024-10-05] MEDS: SODIUM CHLORIDE 0.9% 10ML SYR (RAD ONLY) 10 ML IV ×2 (15:08)
== END 2024-10-05 23:59 | disposition home or self-care (01) ==
LOC: RAD 12:45
PROVIDERS: PCP Family Medicine; Visit Provider Internal Medicine
DX: I25.10 Atherosclerotic heart disease of native coronary artery without angina pectoris (principal); R06.09 Other forms of dyspnea
CPT/HCPCS: 78452; 93017; 93018; A9502; J2785

== ENCOUNTER 2024-10-26 15:21 | Outpatient (CLI) | payer MEDICARE, OTHER, SELFPAY ==
[2024-10-26 16:43] LABS: Prothrombin Time 65.7 seconds (10.1-12.5)
[2024-10-26 16:44] LABS: INR 7.13 (0.9-1.1)
== END 2024-10-26 23:59 | disposition home or self-care (01) ==
LOC: LAB 15:22
PROVIDERS: PCP Family Medicine; Visit Provider Internal Medicine
DX: Z79.01 Long term (current) use of anticoagulants (principal); I47.20 Ventricular tachycardia, unspecified; R79.89 Other specified abnormal findings of blood chemistry; I25.10 Atherosclerotic heart disease of native coronary artery without angina pectoris; R94.39 Abnormal result of other cardiovascular function study; I48.0 Paroxysmal atrial fibrillation; Z87.891 Personal history of nicotine dependence
CPT/HCPCS: 36415; 85610

== ENCOUNTER 2024-10-31 12:54 | Outpatient (CLI) | payer MEDICARE, OTHER, SELFPAY ==
--- OUTSIDE RECORDS SUMMARY | 2024-10-31 12:59 | XMS_ITS | Data Portability ---
Author Organization [facility] KATHIE Kramer [place] CLOSED Address [address] [facility] [place] [address] Care Team Providers Care Washer Repairman Name Role Phone RICHARD CABELLO Primary Care Provider Assessment No assessment recorded. Plan of Treatment Reminders Order Date Submit Date Provider Last Modified By Organization Details Last Modified Time Details Appointments RECHECK 2024 11:45A Dequan DOE MD Not available Not available Not available Lab PSA, serum or plasma 2023 024 [facility], [address], [address], [place], [address], 12/06/2023 09:05:40 urinalysi s panel, auto 2023 024 [facility], [address], [address], [place], [address], 12/06/2023 09:05:38 culture, urine 2022 023 [facility], [address] [place] [address], [address], 10/11/2022 10:20:34 urinalysi s panel, auto 2022 023 [facility], [address], [address], [place], [address], 10/19/2022 10:21:30 PSA, serum or plasma 2022 023 [facility], [address], [address], [place], [address], 10/19/2022 10:21:30 urinalysi s panel, auto 2021 022 [facility], [address], [address], [place], [address], 10/06/2021 18:50:37 PSA, serum or plasma 2021 022 [facility], [address], [address], [place], [address], 10/06/2021 18:50:37 urinalysi s panel, auto 2020 021 [facility], [address], [address], [place], [address], 09/30/2020 16:18:23 Referral None recorded. Procedures None recorded. Surgeries None recorded. Imaging None recorded. Medication Orders None recorded. Patient TargetsNo targets recorded. Patient Instructions Encounter Date Encounter Id Patient Instructions Last Modified By Organization Details Last Modified Time 03/10/2019 [id number] healthy together [facility] Not availabl e 03/13/2019 22:04:03 kidney stone: care instructions [facility] Not available 03/13/2019 22:04:03 09/28/2020 [id number] kidney stone: care instructions [facility] Not available 09/30/2020 16:18:23 learning about diet for kidney stone prevention [facility] Not available 09/30/2020 16:18:23 Continue yearly follow-up BPH and renal stones. [email or web address] Not available 09/30/2020 16:19:15 10/09/2022 [id number] Prostate nodule feels benign, but is new. Correlate with PSA [email or web address] Not available 10/19/2022 10:21:08 Reason for Referral None Reported. Results Created Date Observation Date Name Description Value Unit Range Abnormal Flag Note LastModifiedBy Organization Detail LastModifiedTime 09/29/19 21 09/28/2020 urina lysis panel , auto Unknown Analyte Clean Catch Not Available [facility] [address] [place] [address] [address], [place], [address], 09/28/2020 10:02:26 09/29/19 21 09/28/2020 urina lysis panel , auto Unknown Analyte Yellow Not Available [facility] [address], [place], [address], 09/28/2020 10:02:26 09/29/19 21 09/28/2020 urina lysis panel , auto Unknown Analyte Clear Not Available [facility] [address], [place], [address], 09/28/2020 10:02:26 09/29/19 21 09/28/2020 urina lysis panel , auto Unknown Analyte 1.015 Not Available [facility] [address], [place], [address], 09/28/2020 10:02:26 09/29/19 21 09/28/2020 urina lysis panel , auto Unknown Analyte 1.003- 1.035 Not Available [facility] [address], [place], [address], 09/28/2020 10:02:26 09/29/19 21 09/28/2020 urina lysis panel , auto Unknown Analyte 6.0 Not Available [facility] [address], [place], [address], 09/28/2020 10:02:26 09/29/19 21 09/28/2020 urina lysis panel , auto Unknown Analyte 5.0-8. 0 Not Available [facility] [address], [place], [address], 09/28/2020 10:02:09/29/19 21 09/28/2020 urina lysis panel , auto Unknown Analyte Negati ve Not Available [facility] [place] [address], [place], [address], 09/28/2020 10:02:26 09/29/19 21 09/28/2020 urina lysis panel , auto Unknown Analyte Negati ve Not Available [facility] [address], [place], [address], 09/28/2020 10:02:26 09/29/19 21 09/28/2020 urina lysis panel , auto Unknown Analyte Negati ve Not Available [facility] [address], [place], [address], 09/28/2020 10:02:26 09/29/19 21 09/28/2020 urina lysis panel , auto Unknown Analyte Negati ve Not Available [facility] [address], [place], [address], 09/28/2020 10:02:26 09/29/19 21 09/28/2020 urina lysis panel , auto Unknown Analyte 30 mg/dl (+) Not Available [facility] [address], [place], [address], 09/28/2020 10:02:26 09/29/19 21 09/28/2020 urina lysis panel , auto Unknown Analyte Negati ve Not Available [facility] [address], [place], [address], 09/28/2020 10:02:09/29/19 21 09/28/2020 urina lysis panel , auto Unknown Analyte Normal Not Available [facility] [address], [place], [address], 09/28/2020 10:02:26 09/29/19 21 09/28/2020 urina lysis panel , auto Unknown Analyte Normal Not Available [facility] [address], [place], [address], 09/28/2020 10:02:26 09/29/19 21 09/28/2020 urina lysis panel , auto Unknown Analyte Negati ve Not Available [facility] [address], [place], [address], 09/28/2020 10:02:26 09/29/19 21 09/28/2020 urina lysis panel , auto Unknown Analyte Negati ve Not Available [facility] [address], [place], [address], 09/28/2020 10:02:26 09/29/19 21 09/28/2020 urina lysis panel , auto Unknown Analyte Normal Not Available [facility] [address], [place], [address], 09/28/2020 10:02:26 09/29/19 21 09/28/2020 urina lysis panel , auto Unknown Analyte Normal 1 mg/dl Not Available [facility] [address], [place], [address], 09/28/2020 10:02:26 09/29/19 21 09/28/2020 urina lysis panel , auto Unknown Analyte Negati ve Not Available [facility] [address], [place], [address], 09/28/2020 10:02:26 09/29/19 21 09/28/2020 urina lysis panel , auto Unknown Analyte Negati ve Not Available [facility] [address], [place], [address], 09/28/2020 10:02:26 09/29/19 21 09/28/2020 urina lysis panel , auto Unknown Analyte 250 Darren/ul Not Available [facility] [address], [place], [address], 09/28/2020 10:02:26 09/29/19 21 09/28/2020 urina lysis panel , auto Unknown Analyte Negati ve Not Available [facility] [address], [place], [address], 09/28/2020 10:02:26 10/04/19 22 10/03/2021 PSA, serum or plasm a PSA 0.42 NG/mL 0.0 - 4.0 Not Available [facility] [address], [place], [address], 10/03/2021 14:15:11 10/04/19 22 10/03/2021 urina lysis panel , auto Unknown Analyte Clean Catch Not Available [facility] [address], [place], [address], 10/03/2021 14:09:29 10/04/19 22 10/03/2021 urina lysis panel , auto Unknown Analyte Yellow Not Available [facility] [address] [facility] [address], [place], [address], 10/03/2021 14:09:29 10/04/19 22 10/03/2021 urina lysis panel , auto Unknown Analyte Clear Not Available [facility] [address] [facility] [address], [place], [address], 10/03/2021 14:09:29 10/04/19 22 10/03/2021 urina lysis panel , auto Unknown Analyte 1.020 Not Available [facility] [address], [place], [address], 10/03/2021 14:09:29 10/04/19 22 10/03/2021 urina lysis panel , auto Unknown Analyte 1.003- 1.035 Not Available [facility] [address], [place], [address], 10/03/2021 14:09:29 10/04/19 22 10/03/2021 urina lysis panel , auto Unknown Analyte 6.0 Not Available [facility] [address], [place], [address], 10/03/2021 14:09:29 10/04/19 22 10/03/2021 urina lysis panel , auto Unknown Analyte 5.0-8. 0 Not Available [facility] [address], [place], [address], 10/03/2021 14:09:29 10/04/19 22 10/03/2021 urina lysis panel , auto Unknown Analyte Negati ve Not Available [facility] [address], [place], [address], 10/03/2021 14:09:29 10/04/19 22 10/03/2021 urina lysis panel , auto Unknown Analyte Negati ve Not Available [facility] [address], [place], [address], 10/03/2021 14:09:29 10/04/19 22 10/03/2021 urina lysis panel , auto Unknown Analyte Negati ve Not Available [facility] [address], [place], [address], 10/03/2021 14:09:29 10/04/19 22 10/03/2021 urina lysis panel , auto Unknown Analyte Negati ve Not Available [facility] [address], [place], [address], 10/03/2021 14:09:29 10/04/19 22 10/03/2021 urina lysis panel , auto Unknown Analyte Negati ve Not Available [facility] [address], [place], [address], 10/03/2021 14:09:29 10/04/19 22 10/03/2021 urina lysis panel , auto Unknown Analyte Negati ve Not Available [facility] [address], [place], [address], 10/03/2021 14:09:29 10/04/19 22 10/03/2021 urina lysis panel , auto Unknown Analyte Normal Not Available [facility] [address], [place], [address], 10/03/2021 14:09:29 10/04/19 22 10/03/2021 urina lysis panel , auto Unknown Analyte Normal Not Available [facility] [address], [place], [address], 10/03/2021 14:09:29 10/04/19 22 10/03/2021 urina lysis panel , auto Unknown Analyte Negati ve Not Available [facility] [address], [place], [address], 10/03/2021 14:09:29 10/04/19 22 10/03/2021 urina lysis panel , auto Unknown Analyte Negati ve Not Available [facility] [address], [place], [address], 10/03/2021 14:09:29 10/04/19 22 10/03/2021 urina lysis panel , auto Unknown Analyte Normal Not Available [facility] [address], [place], [address], 10/03/2021 14:09:29 10/04/19 22 10/03/2021 urina lysis panel , auto Unknown Analyte Normal 1 mg/dl Not Available [facility] [address], [place], [address], 10/03/2021 14:09:29 10/04/19 22 10/03/2021 urina lysis panel , auto Unknown Analyte Negati ve Not Available [facility] [address], [place], [address], 10/03/2021 14:09:29 10/04/19 22 10/03/2021 urina lysis panel , auto Unknown Analyte Negati ve Not Available [facility] [address], [place], [address], 10/03/2021 14:09:29 10/04/19 22 10/03/2021 urina lysis panel , auto Unknown Analyte 50 Darren/ul Not Available [facility] [address], [place], [address], 10/03/2021 14:09:29 10/04/19 22 10/03/2021 urina lysis panel , auto Unknown Analyte Negati ve Not Available [facility] [address], [place], [address], 10/03/2021 14:09:29 10/10/19 23 10/09/2022 URINE CULTU RE results Sourc e: CCUR Colle cted: 10/09 16:31 Site: Recei maxine : 10/10 10:20 URINE CULTU RE FINAL 10/13 11:46 10/11 ISOLA TE #1 COLON Y COUNT : > 100,0 00 CFU/M L Proba ble Staph yloco ccus sp.; ID and sensi tivit y in progr ess. 10/13 See [facility] te Resul t(s) Below ISOLA ROSI AND SENSI TIVIT Y RESUL TS [facility] te 01 Staph yloco ccus inter mediu s __ [facility] te ORG# 01 ANTIB IOTIC S KRISHNA [...] S Vanco mycin 2 S Not Available [facility] [address] [facility], [place], [address], 10/13/2022 11:46:16 10/11/19 23 10/10/2022 PSA, serum or plasm a PSA 1.1 NG/mL 0.0 - 4.0 Not Available [facility] [address] [facility] [address], [place], [address], 10/10/2022 07:47:40 10/11/19 23 10/10/2022 urina lysis panel , auto Unknown Analyte Clean Catch Not Available [facility] [address], [place], [address], 10/10/2022 07:21:04 10/11/19 23 10/10/2022 urina lysis panel , auto Unknown Analyte Yellow Not Available [facility] [address], [place], [address], 10/10/2022 07:21:04 10/11/19 23 10/10/2022 urina lysis panel , auto Unknown Analyte Hazy Not Available [facility] [address], [place], [address], 10/10/2022 07:21:04 10/11/19 23 10/10/2022 urina lysis panel , auto Unknown Analyte 1.010 Not Available [facility] [address], [place], [address], 10/10/2022 07:21:04 10/11/19 23 10/10/2022 urina lysis panel , auto Unknown Analyte 1.003- 1.035 Not Available [facility] [address], [place], [address], 10/10/2022 07:21:04 10/11/19 23 10/10/2022 urina lysis panel , auto Unknown Analyte 7.0 Not Available [facility] [address], [place], [address], 10/10/2022 07:21:04 10/11/19 23 10/10/2022 urina lysis panel , auto Unknown Analyte 5.0-8. 0 Not Available [facility] [address], [place], [address], 10/10/2022 07:21:04 10/11/19 23 10/10/2022 urina lysis panel , auto Unknown Analyte 500 Alina/ul (++) Not Available [facility] [address], [place], [address], 10/10/2022 07:21:04 10/11/19 23 10/10/2022 urina lysis panel , auto Unknown Analyte Negati ve Not Available [facility] [address], [place], [address], 10/10/2022 07:21:04 10/11/19 23 10/10/2022 urina lysis panel , auto Unknown Analyte Negati ve Not Available [facility] [address], [place], [address], 10/10/2022 07:21:04 10/11/19 23 10/10/2022 urina lysis panel , auto Unknown Analyte Negati ve Not Available [facility] [address], [place], [address], 10/10/2022 07:21:04 10/11/19 23 10/10/2022 urina lysis panel , auto Unknown Analyte 100 mg/dl (++) Not Available [facility] [address], [place], [address], 10/10/2022 07:21:04 10/11/19 23 10/10/2022 urina lysis panel , auto Unknown Analyte Negati ve Not Available [facility] [address], [place], [address], 10/10/2022 07:21:04 10/11/19 23 10/10/2022 urina lysis panel , auto Unknown Analyte Normal Not Available [facility] [address], [place], [address], 10/10/2022 07:21:04 10/11/19 23 10/10/2022 urina lysis panel , auto Unknown Analyte Normal Not Available [facility] [address], [place], [address], 10/10/2022 07:21:04 10/11/19 23 10/10/2022 urina lysis panel , auto Unknown Analyte Negati ve Not Available [facility] [address], [place], [address], 10/10/2022 07:21:04 10/11/19 23 10/10/2022 urina lysis panel , auto Unknown Analyte Negati ve Not Available [facility] [address], [place], [address], 10/10/2022 07:21:04 10/11/19 23 10/10/2022 urina lysis panel , auto Unknown Analyte Normal Not Available [facility] [address], [place], [address], 10/10/2022 07:21:04 10/11/19 23 10/10/2022 urina lysis panel , auto Unknown Analyte Normal 1 mg/dl Not Available [facility] [address], [place], [address], 10/10/2022 07:21:04 10/11/19 23 10/10/2022 urina lysis panel , auto Unknown Analyte Negati ve Not Available [facility] [address], [place], [address], 10/10/2022 07:21:04 10/11/19 23 10/10/2022 urina lysis panel , auto Unknown Analyte Negati ve Not Available [facility] [address], [place], [address], 10/10/2022 07:21:04 10/11/19 23 10/10/2022 urina lysis panel , auto Unknown Analyte 250 Darren/ul Not Available [facility] [address], [place], [address], 10/10/2022 07:21:04 10/11/19 23 10/10/2022 urina lysis panel , auto Unknown Analyte Negati ve Not Available [facility] [address], [place], [address], 10/10/2022 07:21:04 12/02/19 24 12/02/2023 urina lysis panel , auto Unknown Analyte Clean Catch Not Available [facility] [address], [place], [address], 12/02/2023 12:28:39 12/02/19 24 12/02/2023 urina lysis panel , auto Unknown Analyte Yellow Not Available [facility] [address], [place], [address], 12/02/2023 12:28:39 12/02/19 24 12/02/2023 urina lysis panel , auto Unknown Analyte Clear Not Available [facility] [address], [place], [address], 12/02/2023 12:28:39 12/02/19 24 12/02/2023 urina lysis panel , auto Unknown Analyte 1.015 Not Available [facility] [address], [place], [address], 12/02/2023 12:28:39 12/02/19 24 12/02/2023 urina lysis panel , auto Unknown Analyte 1.003- 1.035 Not Available [facility] [address], [place], [address], 12/02/2023 12:28:39 12/02/19 24 12/02/2023 urina lysis panel , auto Unknown Analyte 6.0 Not Available [facility] [address], [place], [address], 12/02/2023 12:28:39 12/02/19 24 12/02/2023 urina lysis panel , auto Unknown Analyte 5.0-8. 0 Not Available [facility] [address], [place], [address], 12/02/2023 12:28:39 12/02/19 24 12/02/2023 urina lysis panel , auto Unknown Analyte Negati ve Not Available [facility] [address], [place], [address], 12/02/2023 12:28:39 12/02/19 24 12/02/2023 urina lysis panel , auto Unknown Analyte Negati ve Not Available [facility] [address], [place], [address], 12/02/2023 12:28:39 12/02/19 24 12/02/2023 urina lysis panel , auto Unknown Analyte Negati ve Not Available [facility] [address], [place], [address], 12/02/2023 12:28:39 12/02/19 24 12/02/2023 urina lysis panel , auto Unknown Analyte Negati ve Not Available [facility] [address], [place], [address], 12/02/2023 12:28:39 12/02/19 24 12/02/2023 urina lysis panel , auto Unknown Analyte Trace Not Available [facility] [address], [place], [address], 12/02/2023 12:28:39 12/02/19 24 12/02/2023 urina lysis panel , auto Unknown Analyte Negati ve Not Available [facility] [address], [place], [address], 12/02/2023 12:28:39 12/02/19 24 12/02/2023 urina lysis panel , auto Unknown Analyte Normal Not Available [facility] [address], [place], [address], 12/02/2023 12:28:39 12/02/19 24 12/02/2023 urina lysis panel , auto Unknown Analyte Normal Not Available [facility] [address], [place], [address], 12/02/2023 12:28:39 12/02/19 24 12/02/2023 urina lysis panel , auto Unknown Analyte Negati ve Not Available [facility] [address], [place], [address], 12/02/2023 12:28:39 12/02/19 24 12/02/2023 urina lysis panel , auto Unknown Analyte Negati ve Not Available [facility] [address], [place], [address], 12/02/2023 12:28:39 12/02/19 24 12/02/2023 urina lysis panel , auto Unknown Analyte Normal Not Available [facility] [address], [place], [address], 12/02/2023 12:28:39 12/02/19 24 12/02/2023 urina lysis panel , auto Unknown Analyte Normal 1 mg/dl Not Available [facility] [address], [place], [address], 12/02/2023 12:28:39 12/02/19 24 12/02/2023 urina lysis panel , auto Unknown Analyte Negati ve Not Available [facility] [address] [place] [address] [address], [place], [address], 12/02/2023 12:28:39 12/02/19 24 12/02/2023 urina lysis panel , auto Unknown Analyte Negati ve Not Available [facility] [address], [place], [address], 12/02/2023 12:28:39 12/02/19 24 12/02/2023 urina lysis panel , auto Unknown Analyte Negati ve Not Available [facility] [address], [place], [address], 12/02/2023 12:28:39 12/02/19 24 12/02/2023 urina lysis panel , auto Unknown Analyte Negati ve Not Available [facility] [address], [place], [address], 12/02/2023 12:28:39 12/02/19 24 12/02/2023 PSA, serum or plasm a PSA 0.67 NG/mL 0.0 - 4.0 Not Available [facility] [address], [place], [address], 12/02/2023 12:28:24 12/23/19 24 12/23/2023 US, retro perit oneum , limit ed No observ ation record ed. IMER Not Available 2023 17:14:52 Result Notes None recorded. Problems Name Problem SNOMED Code Status Onset Date Resolution Date Notes Provider Name and Address Organization Details Recorded Time Kidney stone 29971873 Active 2014 Provider: Slabaugh Jr, Rolf;St atus: Active Not Available [facility] 6 09:06:25 Ureteric stone 04880117 Active 2014 Provider: Rolf Doe Jr;St atus: Active Not Available [facility] 6 09:06:25 Calculus of kidney and ureter 351123051 Active 2014 From Automated Load;Prov ider: Rolf Doe Jr;St atus: Active Not Available [facility] 6 09:06:25 Sunday hematuria 538732927 Active 2015 From Automated Load;Prov ider: Rolf Doe Jr;St atus: Active Not Available [facility] 6 09:06:25 Epididymi tis 49161877 Active 2015 From Automated Load;Prov ider: Rolf Doe Jr;St atus: Active Not Available [facility] 6 09:06:25 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 55347025246 101 Active 2015 From Automated Load;Prov ider: Rolf Doe Jr;St atus: Active Not Available [facility] 6 09:06:25 Nocturia 582858847 Active 2015 From Automated Load;Prov ider: Rolf Doe Jr;St atus: Active Not Available [facility] 6 09:06:25 Prostate nodule 42110510861 9109 Active 2022 ROLF DOE JR, MD [address] [place] [address] [place], [address] , [facility] 3 10:20:35 Acute urinary tract infection 852944526 Active 2022 ROLF DOE JR, MD [address] [place] [address] [place], [address] , [facility] 3 10:20:35 Problem Notes None recorded. Procedures Surgical History None recorded. Imaging Results Imaging Date Name Status LastModified by Organiz [facility] Details LastModified Time 12/23/2023 US, retroperiton eum, limited completed IMER Information not available 12/23/2023 17:14:52 Procedure Notes None recorded. Medical Equipment None Reported. Allergies Allergen ID Allergen Name Allergen Category Reaction Reaction Severity Criticality Documentation Date Start Date Code Code System Note Provider Name and Address Organization Details Recorded Time 978944 Flomax medicatio n Not available Not available Not available 05/09/20162012 38075 3 RxNorm Comme nt: Creat ed By: [facility] rt ICC rt;Cr eated Date: 2012 1:16: 29 PM; Not Available [facility] 6 03:08:20 167036 sotalol hydrochlo ride medicatio n Not available Not available Not available 05/09/20162014 7008 RxNorm Comme nt: Creat ed By: Lewis bell Date: 2014 1:36: 35 PM; Not Available [facility] 6 06:21:01 307304 iodine medicatio n Not available Not available Not available 05/09/20162012 5933 RxNorm Comme nt: Creat ed By: [facility] rt [facility] rt;Cr eated Date: 2012 1:16: 40 PM; Not Available [facility] 6 09:08:45 401831 acetamino phen / hydrocodo ne medicatio n Not available Not available Not available 05/09/20162012 29183 2 RxNorm Comme nt: Creat ed By: [facility] rt ICC rt;Cr eated Date: 2012 1:16: 49 PM; Not Available [facility] 6 09:08:45 054532 Product containin g penicilli n (product) medicatio n Not available Not available Not available 05/09/20162012 75238 8001 SNOMED Comme nt: Creat ed By: [facility] rt ICC rt;Cr eated Date: 2012 1:17: 02 PM; Not Available [facility] 6 09:08:45 802414 codeine medicatio n Not available Not available Not available 05/09/20162012 2670 RxNorm Comme nt: Creat ed By: [facility] rt [facility] rt;Cr eated Date: 2012 1:16: 17 PM; Not Available [facility] 10:37:35 Medications Name Sig Start Date Stop [...] Updated DateTime 9 172.72 cm 30.6 kg/m2 74762.0 7 g 65 /min 127 mm[Hg] 67 mm[Hg] Izabel [facility] 9 13:40:21 Date Recorded Body weight Body mass index (BMI) Body height Provider Name and Address Organization Details Last Updated DateTime 09/28/2020 28325.07 g 30.6 kg/m2 172.72 cm Izabel [facility] 09/28/2020 10:04:47 Date Recorded Body height Body mass index (BMI) Body weight Provider Name and Address Organization Details Last Updated DateTime 10/03/2021 172.72 cm 30.6 kg/m2 78178.07 g Eloise Malika [facility] 10/03/2021 14:08:58 Date Recorded Body height Body mass index (BMI) Body weight Provider Name and Address Organization Details Last Updated DateTime 10/09/2022 172.72 cm 27.7 kg/m2 11723.81 g Addis Cabrales [facility] 10/10/2022 07:19:58 Social History Question Answer Notes LastModified by Organizat ion Details LastModified Time Tobacco Smoking Status [facility]10[facility]2017 10:57:31 How Much Tobacco Do You Chew? None Information not available 09/02/2018 What Was The Date Of Your Most Recent Tobacco Screening? 09/02/2018 Information n ot available 08/02/2019 How Much Tobacco Do You Smoke? No [email or web address] Information not available 03/10/2019 Sex: Unknown Functional Status Question Answer Note LastModified by Organization D etails LastModified Time What is your level of alcohol consumption? None Information not available 09/02/2018 Mental Status None recorded. Family History Relationship [...] SNOMED-CT Code Diagnosis ICD10 Code Diagnosis Note [id number] ROLF DOE JR, MD [facility] [address] [place] [address] 08/08/2016 10:21:41 08/14/2016 15:49:51 Lower urinary tract symptoms due to benign prostatic hypertrophy 9423848202 9101 N40.1 Kidney stone 95588432 N2 0.0 [id number] ROLF DOE JR, MD [facility] [address] [place] [address] 0 02/12/2017 12:48:37 02/13/2017 08:34:28 Lower urinary tract symptoms due to benign prostatic hypertrophy 5439765150 9101 N40.1 Kidney stone 47563023 N2 0.0 [id number] ROLF DOE JR, MD [facility] [address] [address] 09/03/2017 12:54:23 09/03/2017 13:53:06 Lower urinary tract symptoms due to benign prostatic hypertrophy 0371087047 9101 N40.1 Kidney stone 02821517 N2 0.0 [id number] ROLF DOE JR, MD [facility] [address] [facility] [address] [place] [address] 0 03/04/2018 14:56:13 03/04/2018 15:36:34 Lower urinary tract symptoms due to benign prostatic hypertrophy 2799411087 9101 N40.1 Kidney stone 62476551 N2 0.0 [id number] ROLF DOE JR, MD [facility] [address] [place] [address] 0 09/02/2018 13:13:25 09/02/2018 14:09:12 Lower urinary tract symptoms due to benign prostatic hypertrophy 0352537249 9101 N40.1 Kidney stone 07219531 N2 0.0 [id number] ROLF DOE JR, MD [facility] [address] [place] [address] RD,[place] [address] 03/10/2019 13:17:58 03/10/2019 13:38:20 Lower urinary tract symptoms due to benign prostatic hypertrophy 8711352443 9101 N40.1 Calculus o f kidney and ureter 724359440 N20.2 [id number] ROLF DOE JR, MD [facility] [address] [place] [address] [address] 09/28/2020 09:27:05 09/28/2020 10:16:01 Kidney stone 62894638 N20.0 Lower urin colby tract symptoms due to benign prostatic hypertrophy 6487599813 9101 N40.1 [id number] ROLF DOE JR, MD [facility] [address] [place] [address] RD,[place] [address] 0 10/03/2021 13:46:04 10/03/2021 14:34:07 Kidney stone 23733588 N20.0 Lower urin colby tract symptoms due to benign prostatic hypertrophy 1792311501 9101 N40.1 [id number] ROLF DOE JR, MD [facility] [address] [place] [address] RD,[place] [address] 0 10/09/2022 13:43:22 10/09/2022 14:04:42 Acute urinary tract infection 215754674 N39.0 Prostate nodule 53486982 01 60796 N40.2 Kidney stone 22854246 N2 0.0 Lower urin colby tract symptoms due to benign prostatic hypertrophy 0354455990 9101 N40.1 [id number] ROLF DOE JR, MD [facility] [address] [place] [address] [address],[place] [address] 0 12/02/2023 11:21:32 12/02/2023 13:42:22 Calculus of kidney and ureter 992657085 N20.2 Lower urin colby tract symptoms due to benign prostatic hypertrophy 0140076644 9101 N40.1 Health Concerns Section Related Observation LastModified by Organization Detai ls LastModified Time None Recorded Concern Status LastModified by Organization Details LastModified Time None Recorded Advance Directives Directive None Recorded Payers Insurance Date Sequence Insurance Name Policy Number Policy Curiel Covered Member ID Curiel Member ID Guarantor Name 12/02/2023 1 [place] Ned Cronin [id number] Ned Cronin 12/10/2023 2 [employer] [place] Ned Cronin [id number] Ned Cronin 12/02/2023 2 [employer] [place] (MEDICARE SUPPLEMENT) Ned Cronin Notes Date Note Type Note Provider [...] stone episode/flank pain. ROLF DOE JR, MD [address] [place] [address] [place], [address], [facility] 03/13/2019 22:04:14 09/28/2020 text/html In for f/u of BP H and nephrolithiasis. he underwent Urolift procedure on 04/16/2016 with resolution of LUTS. He is quite pleased with outcome of procedure. he does have ah/o nephrolithiasis which is followed conservatively. KUB is reviewed today revealing nonobstructing right nephrolithiasis, stable. Denies recent stone episode/flank pain. MD Yina CORBETT [address] [place], [address], [facility] 09/30/2020 16:21:03 10/03/2021 text/html In for f/u of BP H and nephrolithiasis. he underwent Urolift procedure on 04/16/2016 with resolution of LUTS. He is quite pleased with outcome of procedure. he does have ah/o nephrolithiasis which is followed conservatively. KUB is reviewed today revealing nonobstructing nephrolithiasis, stable. Denies recent stone episode/flank pain. ROLF DOE JR, MD [address] [place] [address], [address], [facility] 10/06/2021 18:50:55 10/09/2022 text/html In for f/u of BP H and nephrolithiasis. he underwent Urolift procedure on 04/16/2016 with resolution of LUTS. He is quite pleased with outcome of procedure. he does have ah/o nephrolithiasis which is followed conservatively. KUB is reviewed today revealing nonobstructing nephrolithiasis, stable. Denies recent stone episode/flank pain. ROLF DOE JR, [place], [address], [facility] 10/19/2022 10:21:34 12/02/2023 text/html In for f/u of BP H and nephrolithiasis. he underwent Urolift procedure on 04/16/2016 with resolution of LUTS. He is quite pleased with outcome of procedure. he does have ah/o nephrolithiasis which is followed conservatively. KUB is reviewed today revealing nonobstructing nephrolithiasis, stable. Denies recent stone episode/flank pain. ROLF DOE JR, MD [address] [place] [address], [address], [facility] 12/06/2023 09:05:42
[2024-10-31 15:44] LABS: PHA INR Fingerstick 3.3 (0.9-1.1)
== END 2024-10-31 16:11 ==
LOC: ACC 12:57
PROVIDERS: PCP Family Medicine; Visit Provider Physician Assistant
DX: Z79.01 Long term (current) use of anticoagulants (principal); I48.91 Unspecified atrial fibrillation
CPT/HCPCS: 85610; 99211; G0463

== ENCOUNTER 2024-11-02 08:11 | Day surgery (SDC) | payer MEDICARE, OTHER, SELFPAY ==
[2024-11-02] VITALS (13 sets, daily range): BP systolic 117–151; BP diastolic 59–78; PULSE 57–92; RESP 18–20; O2SAT 89–97; BMI 26.3
--- NOTE | 2024-11-02 06:58 | IR_ITS ---
APPROVED REPORT Patient Location: Outpatient Draw Off Worker: Alo Carlisle, RT (R) PROCEDURES Left heart catheterization Left ventriculogram Selective coronary angiogram INDICATION Abnormal Myoview, Coronary artery disease Informed consent was obtained prior to the procedure. COMPLICATIONS NONE Estimated Blood Loss: LESS THAN 10 ML TECHNIQUE One percent lidocaine used to anesthetize the right anterior aspect of the wrist. The right radial artery was accessed via the Seldinger technique. A 6 Fijian sheath was placed in the right radial artery. 2.5 mg of Verapamil, 800 mcg of nitroglycerin, 1mg Lidocaine and 5000 U Heparin were given through the arterial sheath. The EBU 4.5 catheter was also used to perform left heart catheterization, left ventriculogram and selective coronary angiogram. At the end of the procedure the sheath was removed good hemostasis was achieved using Traclet band, patient was transferred to the postop holding area in stable condition. ANGIOGRAPHIC RESULTS The left main artery Normal The left anterior descending artery Has a stent in the proximal to mid segment which is widely patent free of in-stent restenosis. The stent does cover a small to medium sized aneurysm in the mid LAD. There is additional 30% stenosis distal to the transition of the stent. The remaining LAD is widely patent The circumflex artery Gives rise to medium size ramus intermedius which has a proximal 80 and 70% stenosis. The vessel was approximately 2.25 mm in diameter. The circumflex artery itself is widely patent with mild disease The right coronary artery Is dominant has an anterior takeoff which has a proximal small to medium sized eccentric aneurysmal dilatation with additional 20% proximal stenoses and mid vessel 30 to 40% stenosis. 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 Medical management with risk factor modification Electronically signed by : Azael Canada MD 11/02/2024 12:02:54
[2024-11-02 08:44] LABS: Basophils # 0.1 K/mm3 (0-0.2); Basophils % 1.4 % (0.1-2.0); Eosinophils # 0.7 Kmm3 (0.0-0.4); Hemoglobin 13.5 g/dL (14.1-18.0); Immature Granulocytes # 0.04 10^3uL; Immature Granulocytes % 0.6 %; Lymphocytes # 0.7 K/mm3 (0.7-4.5); Lymphocytes % 10.5 % (10-50); Mean Corpuscular HGB Conc 32.1 g/dL (31.8-35.4); Mean Corpuscular Hemoglobin 31.9 pg (27.0-31.2); Mean Corpuscular Volume 99.3 fl (80-94); Mean Platelet Volume 9.2 fl (7.4-10.4); Monocytes # 0.6 K/mm3 (0.1-1.0); Monocytes % 8.8 % (1.7-9.3); Neutrophils # 4.3 K/mm3 (1.8-7.8); Neutrophils % 67.7 % (37.0-80.0); Nucleated Red Blood Cells # 0 10^3/uL; Nucleated Red Blood Cells % 0 %; Platelet Count 261 K/mm3 (142-424); Red Blood Count 4.23 M/mm3 (4.60-6.20); Red Cell Distribution Width 14.8 % (11.5-17.5); White Blood Count 6.4 K/mm3 (4.8-10.8)
[2024-11-02 08:58] LABS: INR 1.78 (0.9-1.1); Prothrombin Time 18.9 seconds (10.1-12.5)
[2024-11-02 08:59] LABS: Blood Urea Nitrogen 17 mg/dl (9-20); Calcium 9.9 mg/dl (8.4-10.2); Carbon Dioxide 28 mmol/L (22.0-30.0); Chloride 99 mmol/L (98-107); Creatinine Clearance Estimated 45 mL/min (50-200); Estimated Glomerular Filt Rate 45 ml/min (>60); GFR (African American) 55 ML/MIN (>60); Glucose 93 mg/dl (74-100); Sodium 137 mmol/L (136-145)
[2024-11-02] MEDS: diphenhydrAMINE 50MG/ML VIAL 50 MG IV (10:24)
[2024-11-02] MEDS: 0.9 % SODIUM CHLORIDE 500 ML 25 ML IV (10:25)
[2024-11-02] MEDS: NITROGLYCERIN 800MCG/8ML SYR (CATH LAB) 800 MCG IA (10:25)
[2024-11-02] MEDS: LIDOCAINE 1% 10ML MDV 10 ML IJ (10:25)
[2024-11-02] MEDS: VERAPAMIL 2.5MG/ML 2ML VIAL 2.5 MG IV (10:25)
[2024-11-02] MEDS: HEPARIN 1,000 UNITS/500ML NS (CATH LAB) 3000 UNIT IV (10:26)
[2024-11-02] MEDS: FAMOTIDINE 20MG/2ML VIAL 20 MG IV (10:28)
[2024-11-02] MEDS: METHYLPREDNISOLONE SOD SUCC 125MG VIAL 125 MG IV (10:28)
[2024-11-02] MEDS: HEPARIN 1,000 UNITS/ML 10ML VIAL (CATH LAB) 5000 UNIT IV (10:30)
[2024-11-02] MEDS: MIDAZOLAM HCL 1MG/ML 5ML VIAL 1 MG IV (10:48)
[2024-11-02] MEDS: FENTANYL 100MCG/2ML VIAL 50 MCG IV (10:49)
[2024-11-02] MEDS: IOPAMIDOL-370 (76%);100ML BOTTLE 50 ML IV (14:47)
== END 2024-11-02 13:47 | disposition home or self-care (01) ==
LOC: CATHLAB 08:12
PROVIDERS: PCP Family Medicine; Visit Provider Internal Medicine
PROC: 4A023N7 Measurement of Cardiac Sampling and Pressure, Left Heart, Percutaneous Approach (ICD-10-PCS; CPT 93452; principal; 2024-11-02 07:00)
PROC: 5A2204Z Restoration of Cardiac Rhythm, Single (ICD-10-PCS; 2024-11-02 07:00)
DX: I25.118 Atherosclerotic heart disease of native coronary artery with other forms of angina pectoris (principal); I47.20 Ventricular tachycardia, unspecified; I48.0 Paroxysmal atrial fibrillation; R79.89 Other specified abnormal findings of blood chemistry; R94.39 Abnormal result of other cardiovascular function study; I70.1 Atherosclerosis of renal artery; Z79.01 Long term (current) use of anticoagulants; J44.9 Chronic obstructive pulmonary disease, unspecified; Z91.041 Radiographic dye allergy status; Z88.0 Allergy status to penicillin; Z88.5 Allergy status to narcotic agent; Z88.8 Allergy status to other drugs, medicaments and biological substances; Z87.891 Personal history of nicotine dependence; Z95.5 Presence of coronary angioplasty implant and graft
CPT/HCPCS: 80048; 85025; 85610; 92961; 93458; 99152; C1725; C1760; C1769; J1200; J1644; J2919; J3010; Q9967

== ENCOUNTER 2024-11-09 09:55 | Outpatient (CLI) | payer MEDICARE, OTHER, SELFPAY ==
[2024-11-09 12:33] LABS: Prostate Specific Ag Screen 0.9 ng/ml (0.0-4.0)
[2024-11-09 13:46] LABS: PHA INR Fingerstick 3.3 (0.9-1.1)
== END 2024-11-09 23:59 | disposition home or self-care (01) ==
PROVIDERS: PCP Family Medicine; Visit Provider Physician Assistant
DX: Z12.5 Encounter for screening for malignant neoplasm of prostate (principal); Z79.01 Long term (current) use of anticoagulants; I48.91 Unspecified atrial fibrillation
CPT/HCPCS: 36415; 85610; 99211; G0103; G0463

== ENCOUNTER 2024-11-23 12:54 | Outpatient (CLI) | payer MEDICARE, OTHER, SELFPAY ==
--- OUTSIDE RECORDS SUMMARY | 2024-11-23 12:56 | XMS_ITS | Data Portability ---
Author Organization [facility] KATHIE Angeles [place] [employer] Address [address] [place] [address] Care Team Providers Care Patient Transportation Driver Name Role Phone RICHARD CABELLO Primary Care Provider Assessment No assessment recorded. Plan of Treatment Reminders Order Date Submit Date Provider Last Modified By Organization Details Last Modified Time Details Appointments RECHECK 2024 11:45A Dequan DOE MD Not available Not available Not available Lab PSA, serum or plasma 2023 024 [facility], [address], [address], [place], [address], 12/06/2023 09:05:40 urinalysi s panel, auto 2023 024 [facility], [address], [address], [place], [address], 12/06/2023 09:05:38 culture, urine 2022 023 [facility], [address] [place] [address], [address], 10/11/2022 10:20:34 urinalysi s panel, auto 2022 023 [facility], [address], [address], [place], [address], 10/19/2022 10:21:30 PSA, serum or plasma 2022 023 [facility], [address], [address], [place], [address], 10/19/2022 10:21:30 urinalysi s panel, auto 2021 022 [facility], [address], [address], [place], [address], 10/06/2021 18:50:37 PSA, serum or plasma 2021 022 [facility], [address], [address], [place], [address], 10/06/2021 18:50:37 urinalysi s panel, auto 2020 021 [facility], [address], [address], [place], [address], 09/30/2020 16:18:23 Referral None recorded. Procedures None recorded. Surgeries None recorded. Imaging None recorded. Medication Orders None recorded. Patient TargetsNo targets recorded. Patient Instructions Encounter Date Encounter Id Patient Instructions Last Modified By Organization Details Last Modified Time 03/10/2019 [id number] [facility] Not availabl e 03/13/2019 22:04:03 kidney stone: [facility] Not available 03/13/2019 22:04:03 09/28/2020 [id number] kidney stone: care [facility] Not available 09/30/2020 16:18:23 learning about diet for kidney stone prevention [facility] Not available 09/30/2020 16:18:23 Continue yearly follow-up BPH and renal stones. [email or web address] Not available 09/30/2020 16:19:15 10/09/2022 [id number] Prostate nodule feels benign, but is new. Correlate with PSA [email or web address] Not available 10/19/2022 10:21:08 Reason for Referral None Reported. Results Created Date Observation Date Name Description Value Unit Range Abnormal Flag Note LastModifiedBy Organization Detail LastModifiedTime 09/29/19 21 09/28/2020 urina lysis panel , auto Unknown Analyte Clean Catch Not Available [facility] [address] [place] [address] [address], [place], [address], 09/28/2020 10:02:26 09/29/19 21 09/28/2020 urina lysis panel , auto Unknown Analyte Yellow Not Available [facility] [address], [place], [address], 09/28/2020 10:02:26 09/29/19 21 09/28/2020 urina lysis panel , auto Unknown Analyte Clear Not Available [facility] [address], [place], [address], 09/28/2020 10:02:26 09/29/19 21 09/28/2020 urina lysis panel , auto Unknown Analyte 1.015 Not Available [facility] [address], [place], [address], 09/28/2020 10:02:26 09/29/19 21 09/28/2020 urina lysis panel , auto Unknown Analyte 1.003- 1.035 Not Available [facility] [address], [place], [address], 09/28/2020 10:02:26 09/29/19 21 09/28/2020 urina lysis panel , auto Unknown Analyte 6.0 Not Available [facility] [address], [place], [address], 09/28/2020 10:02:26 09/29/19 21 09/28/2020 urina lysis panel , auto Unknown Analyte 5.0-8. 0 Not Available [facility] [address], [place], [address], 09/28/2020 10:02:09/29/19 21 09/28/2020 urina lysis panel , auto Unknown Analyte Negati ve Not Available [facility] [place] [address], [place], [address], 09/28/2020 10:02:26 09/29/19 21 09/28/2020 urina lysis panel , auto Unknown Analyte Negati ve Not Available [facility] [address], [place], [address], 09/28/2020 10:02:26 09/29/19 21 09/28/2020 urina lysis panel , auto Unknown Analyte Negati ve Not Available [facility] [address], [place], [address], 09/28/2020 10:02:26 09/29/19 21 09/28/2020 urina lysis panel , auto Unknown Analyte Negati ve Not Available [facility] [address], [place], [address], 09/28/2020 10:02:26 09/29/19 21 09/28/2020 urina lysis panel , auto Unknown Analyte 30 mg/dl (+) Not Available [facility] [address], [place], [address], 09/28/2020 10:02:26 09/29/19 21 09/28/2020 urina lysis panel , auto Unknown Analyte Negati ve Not Available [facility] [address], [place], [address], 09/28/2020 10:02:09/29/19 21 09/28/2020 urina lysis panel , auto Unknown Analyte Normal Not Available [facility] [address], [place], [address], 09/28/2020 10:02:26 09/29/19 21 09/28/2020 urina lysis panel , auto Unknown Analyte Normal Not Available [facility] [address], [place], [address], 09/28/2020 10:02:26 09/29/19 21 09/28/2020 urina lysis panel , auto Unknown Analyte Negati ve Not Available [facility] [address], [place], [address], 09/28/2020 10:02:26 09/29/19 21 09/28/2020 urina lysis panel , auto Unknown Analyte Negati ve Not Available [facility] [address], [place], [address], 09/28/2020 10:02:26 09/29/19 21 09/28/2020 urina lysis panel , auto Unknown Analyte Normal Not Available [facility] [address], [place], [address], 09/28/2020 10:02:26 09/29/19 21 09/28/2020 urina lysis panel , auto Unknown Analyte Normal 1 mg/dl Not Available [facility] [address], [place], [address], 09/28/2020 10:02:26 09/29/19 21 09/28/2020 urina lysis panel , auto Unknown Analyte Negati ve Not Available [facility] [address], [place], [address], 09/28/2020 10:02:26 09/29/19 21 09/28/2020 urina lysis panel , auto Unknown Analyte Negati ve Not Available [facility] [address], [place], [address], 09/28/2020 10:02:26 09/29/19 21 09/28/2020 urina lysis panel , auto Unknown Analyte 250 Darren/ul Not Available [facility] [address], [place], [address], 09/28/2020 10:02:26 09/29/19 21 09/28/2020 urina lysis panel , auto Unknown Analyte Negati ve Not Available [facility] [address], [place], [address], 09/28/2020 10:02:26 10/04/19 22 10/03/2021 PSA, serum or plasm a PSA 0.42 NG/mL 0.0 - 4.0 Not Available [facility] [address], [place], [address], 10/03/2021 14:15:11 10/04/19 22 10/03/2021 urina lysis panel , auto Unknown Analyte Clean Catch Not Available [facility] [address], [place], [address], 10/03/2021 14:09:29 10/04/19 22 10/03/2021 urina lysis panel , auto Unknown Analyte Yellow Not Available [facility] [address] [address], [place], [address], 10/03/2021 14:09:29 10/04/19 22 10/03/2021 urina lysis panel , auto Unknown Analyte Clear Not Available [facility] [address] [address], [place], [address], 10/03/2021 14:09:29 10/04/19 22 10/03/2021 urina lysis panel , auto Unknown Analyte 1.020 Not Available [facility] [address], [place], [address], 10/03/2021 14:09:29 10/04/19 22 10/03/2021 urina lysis panel , auto Unknown Analyte 1.003- 1.035 Not Available [facility] [address], [place], [address], 10/03/2021 14:09:29 10/04/19 22 10/03/2021 urina lysis panel , auto Unknown Analyte 6.0 Not Available [facility] [address], [place], [address], 10/03/2021 14:09:29 10/04/19 22 10/03/2021 urina lysis panel , auto Unknown Analyte 5.0-8. 0 Not Available [facility] [address], [place], [address], 10/03/2021 14:09:29 10/04/19 22 10/03/2021 urina lysis panel , auto Unknown Analyte Negati ve Not Available [facility] [address], [place], [address], 10/03/2021 14:09:29 10/04/19 22 10/03/2021 urina lysis panel , auto Unknown Analyte Negati ve Not Available [facility] [address], [place], [address], 10/03/2021 14:09:29 10/04/19 22 10/03/2021 urina lysis panel , auto Unknown Analyte Negati ve Not Available [facility] [address], [place], [address], 10/03/2021 14:09:29 10/04/19 22 10/03/2021 urina lysis panel , auto Unknown Analyte Negati ve Not Available [facility] [address], [place], [address], 10/03/2021 14:09:29 10/04/19 22 10/03/2021 urina lysis panel , auto Unknown Analyte Negati ve Not Available [facility] [address], [place], [address], 10/03/2021 14:09:29 10/04/19 22 10/03/2021 urina lysis panel , auto Unknown Analyte Negati ve Not Available [facility] [address], [place], [address], 10/03/2021 14:09:29 10/04/19 22 10/03/2021 urina lysis panel , auto Unknown Analyte Normal Not Available [facility] [address], [place], [address], 10/03/2021 14:09:29 10/04/19 22 10/03/2021 urina lysis panel , auto Unknown Analyte Normal Not Available [facility] [address], [place], [address], 10/03/2021 14:09:29 10/04/19 22 10/03/2021 urina lysis panel , auto Unknown Analyte Negati ve Not Available [facility] [address], [place], [address], 10/03/2021 14:09:29 10/04/19 22 10/03/2021 urina lysis panel , auto Unknown Analyte Negati ve Not Available [facility] [address], [place], [address], 10/03/2021 14:09:29 10/04/19 22 10/03/2021 urina lysis panel , auto Unknown Analyte Normal Not Available [facility] [address], [place], [address], 10/03/2021 14:09:29 10/04/19 22 10/03/2021 urina lysis panel , auto Unknown Analyte Normal 1 mg/dl Not Available [facility] [address], [place], [address], 10/03/2021 14:09:29 10/04/19 22 10/03/2021 urina lysis panel , auto Unknown Analyte Negati ve Not Available [facility] [address], [place], [address], 10/03/2021 14:09:29 10/04/19 22 10/03/2021 urina lysis panel , auto Unknown Analyte Negati ve Not Available [facility] [address], [place], [address], 10/03/2021 14:09:29 10/04/19 22 10/03/2021 urina lysis panel , auto Unknown Analyte 50 Darren/ul Not Available [facility] [address], [place], [address], 10/03/2021 14:09:29 10/04/19 22 10/03/2021 urina lysis panel , auto Unknown Analyte Negati ve Not Available [facility] [address], [place], [address], 10/03/2021 14:09:29 10/10/19 23 10/09/2022 URINE CULTU RE results Sourc e: CCUR Colle cted: 10/09 16:31 Site: Recei maxine : 10/10 10:20 URINE CULTU RE FINAL 10/13 11:46 10/11 ISOLA TE #1 COLON Y COUNT : > 100,0 00 CFU/M L Proba ble Staph yloco ccus sp.; ID and sensi tivit y in progr ess. 10/13 See Spark[facility] te Resul t(s) Below ISOLA ROSI AND SENSI TIVIT Y RESUL TS Spark[facility] te 01 Staph yloco ccus inter mediu s __ Spark[facility] te ORG# 01 ANTIB IOTIC S KRISHNA [...] S Vanco mycin 2 S Not Available [facility] [address], [place], [address], 10/13/2022 11:46:16 10/11/19 23 10/10/2022 PSA, serum or plasm a PSA 1.1 NG/mL 0.0 - 4.0 Not Available [facility] [address] [facility] [address], [place], [address], 10/10/2022 07:47:40 10/11/19 23 10/10/2022 urina lysis panel , auto Unknown Analyte Clean Catch Not Available [facility] [address], [place], [address], 10/10/2022 07:21:04 10/11/19 23 10/10/2022 urina lysis panel , auto Unknown Analyte Yellow Not Available [facility] [address], [place], [address], 10/10/2022 07:21:04 10/11/19 23 10/10/2022 urina lysis panel , auto Unknown Analyte Hazy Not Available [facility] [address], [place], [address], 10/10/2022 07:21:04 10/11/19 23 10/10/2022 urina lysis panel , auto Unknown Analyte 1.010 Not Available [facility] [address], [place], [address], 10/10/2022 07:21:04 10/11/19 23 10/10/2022 urina lysis panel , auto Unknown Analyte 1.003- 1.035 Not Available [facility] [address], [place], [address], 10/10/2022 07:21:04 10/11/19 23 10/10/2022 urina lysis panel , auto Unknown Analyte 7.0 Not Available [facility] [address], [place], [address], 10/10/2022 07:21:04 10/11/19 23 10/10/2022 urina lysis panel , auto Unknown Analyte 5.0-8. 0 Not Available [facility] [address], [place], [address], 10/10/2022 07:21:04 10/11/19 23 10/10/2022 urina lysis panel , auto Unknown Analyte 500 Alina/ul (++) Not Available [facility] [address], [place], [address], 10/10/2022 07:21:04 10/11/19 23 10/10/2022 urina lysis panel , auto Unknown Analyte Negati ve Not Available [facility] [address], [place], [address], 10/10/2022 07:21:04 10/11/19 23 10/10/2022 urina lysis panel , auto Unknown Analyte Negati ve Not Available [facility] [address], [place], [address], 10/10/2022 07:21:04 10/11/19 23 10/10/2022 urina lysis panel , auto Unknown Analyte Negati ve Not Available [facility] [address], [place], [address], 10/10/2022 07:21:04 10/11/19 23 10/10/2022 urina lysis panel , auto Unknown Analyte 100 mg/dl (++) Not Available [facility] [address], [place], [address], 10/10/2022 07:21:04 10/11/19 23 10/10/2022 urina lysis panel , auto Unknown Analyte Negati ve Not Available [facility] [address], [place], [address], 10/10/2022 07:21:04 10/11/19 23 10/10/2022 urina lysis panel , auto Unknown Analyte Normal Not Available [facility] [address], [place], [address], 10/10/2022 07:21:04 10/11/19 23 10/10/2022 urina lysis panel , auto Unknown Analyte Normal Not Available [facility] [address], [place], [address], 10/10/2022 07:21:04 10/11/19 23 10/10/2022 urina lysis panel , auto Unknown Analyte Negati ve Not Available [facility] [address], [place], [address], 10/10/2022 07:21:04 10/11/19 23 10/10/2022 urina lysis panel , auto Unknown Analyte Negati ve Not Available [facility] [address], [place], [address], 10/10/2022 07:21:04 10/11/19 23 10/10/2022 urina lysis panel , auto Unknown Analyte Normal Not Available [facility] [address], [place], [address], 10/10/2022 07:21:04 10/11/19 23 10/10/2022 urina lysis panel , auto Unknown Analyte Normal 1 mg/dl Not Available [facility] [address], [place], [address], 10/10/2022 07:21:04 10/11/19 23 10/10/2022 urina lysis panel , auto Unknown Analyte Negati ve Not Available [facility] [address], [place], [address], 10/10/2022 07:21:04 10/11/19 23 10/10/2022 urina lysis panel , auto Unknown Analyte Negati ve Not Available [facility] [address], [place], [address], 10/10/2022 07:21:04 10/11/19 23 10/10/2022 urina lysis panel , auto Unknown Analyte 250 Darren/ul Not Available [facility] [address], [place], [address], 10/10/2022 07:21:04 10/11/19 23 10/10/2022 urina lysis panel , auto Unknown Analyte Negati ve Not Available [facility] [address], [place], [address], 10/10/2022 07:21:04 12/02/19 24 12/02/2023 urina lysis panel , auto Unknown Analyte Clean Catch Not Available [facility] [address], [place], [address], 12/02/2023 12:28:39 12/02/19 24 12/02/2023 urina lysis panel , auto Unknown Analyte Yellow Not Available [facility] [address], [place], [address], 12/02/2023 12:28:39 12/02/19 24 12/02/2023 urina lysis panel , auto Unknown Analyte Clear Not Available [facility] [address], [place], [address], 12/02/2023 12:28:39 12/02/19 24 12/02/2023 urina lysis panel , auto Unknown Analyte 1.015 Not Available [facility] [address], [place], [address], 12/02/2023 12:28:39 12/02/19 24 12/02/2023 urina lysis panel , auto Unknown Analyte 1.003- 1.035 Not Available [facility] [address], [place], [address], 12/02/2023 12:28:39 12/02/19 24 12/02/2023 urina lysis panel , auto Unknown Analyte 6.0 Not Available [facility] [address], [place], [address], 12/02/2023 12:28:39 12/02/19 24 12/02/2023 urina lysis panel , auto Unknown Analyte 5.0-8. 0 Not Available [facility] [address], [place], [address], 12/02/2023 12:28:39 12/02/19 24 12/02/2023 urina lysis panel , auto Unknown Analyte Negati ve Not Available [facility] [address], [place], [address], 12/02/2023 12:28:39 12/02/19 24 12/02/2023 urina lysis panel , auto Unknown Analyte Negati ve Not Available [facility] [address], [place], [address], 12/02/2023 12:28:39 12/02/19 24 12/02/2023 urina lysis panel , auto Unknown Analyte Negati ve Not Available [facility] [address], [place], [address], 12/02/2023 12:28:39 12/02/19 24 12/02/2023 urina lysis panel , auto Unknown Analyte Negati ve Not Available [facility] [address], [place], [address], 12/02/2023 12:28:39 12/02/19 24 12/02/2023 urina lysis panel , auto Unknown Analyte Trace Not Available [facility] System [address], [place], [address], 12/02/2023 12:28:39 12/02/19 24 12/02/2023 urina lysis panel , auto Unknown Analyte Negati ve Not Available [facility] [address], [place], [address], 12/02/2023 12:28:39 12/02/19 24 12/02/2023 urina lysis panel , auto Unknown Analyte Normal Not Available [facility] [address], [place], [address], 12/02/2023 12:28:39 12/02/19 24 12/02/2023 urina lysis panel , auto Unknown Analyte Normal Not Available [facility] [address], [place], [address], 12/02/2023 12:28:39 12/02/19 24 12/02/2023 urina lysis panel , auto Unknown Analyte Negati ve Not Available [facility] [address], [place], [address], 12/02/2023 12:28:39 12/02/19 24 12/02/2023 urina lysis panel , auto Unknown Analyte Negati ve Not Available [facility] [address], [place], [address], 12/02/2023 12:28:39 12/02/19 24 12/02/2023 urina lysis panel , auto Unknown Analyte Normal Not Available [facility] [address], [place], [address], 12/02/2023 12:28:39 12/02/19 24 12/02/2023 urina lysis panel , auto Unknown Analyte Normal 1 mg/dl Not Available [facility] [address], [place], [address], 12/02/2023 12:28:39 12/02/19 24 12/02/2023 urina lysis panel , auto Unknown Analyte Negati ve Not Available [facility] [address] [place] [address] [address], [place], [address], 12/02/2023 12:28:39 12/02/19 24 12/02/2023 urina lysis panel , auto Unknown Analyte Negati ve Not Available [facility] [address], [place], [address], 12/02/2023 12:28:39 12/02/19 24 12/02/2023 urina lysis panel , auto Unknown Analyte Negati ve Not Available [facility] [address], [place], [address], 12/02/2023 12:28:39 12/02/19 24 12/02/2023 urina lysis panel , auto Unknown Analyte Negati ve Not Available [facility] [address], [place], [address], 12/02/2023 12:28:39 12/02/19 24 12/02/2023 PSA, serum or plasm a PSA 0.67 NG/mL 0.0 - 4.0 Not Available [facility] [address], [place], [address], 12/02/2023 12:28:24 12/23/19 24 12/23/2023 US, retro perit oneum , limit ed No observ ation record ed. IMER Not Available 2023 17:14:52 Result Notes None recorded. Problems Name Problem SNOMED Code Status Onset Date Resolution Date Notes Provider Name and Address Organization Details Recorded Time Kidney stone 17438229 Active 2014 Provider: Slabaugh Jr, Rolf;St atus: Active Not Available [facility] 6 09:06:25 Ureteric stone 27517004 Active 2014 Provider: Rolf Doe Jr;St at[facility]: Active Not Available [facility] 6 09:06:25 Calculus of kidney and ureter 037408362 Active 2014 From Automated Load;Prov ider: Rolf Doe Jr;St atus: Active Not Available [facility] 6 09:06:25 Sunday hematuria 729859332 Active 2015 From Automated Load;Prov ider: Rolf Doe Jr;St atus: Active Not Available [facility] 6 09:06:25 Epididymi tis 82666234 Active 2015 From Automated Load;Prov ider: Rolf Doe Jr;St atus: Active Not Available [facility] 6 09:06:25 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 32783987967 101 Active 2015 From Automated Load;Prov ider: Rolf Doe Jr;St atus: Active Not Available [facility] 6 09:06:25 Nocturia 702736016 Active 2015 From Automated Load;Prov ider: Rolf Doe Jr;St atus: Active Not Available [facility] 6 09:06:25 Prostate nodule 43216150434 9109 Active 2022 ROLF DOE JR, MD [address] [place] [address], [address] , [facility] 3 10:20:35 Acute urinary tract infection 563865273 Active 2022 ROLF DOE JR, MD [address] [place] [address] [place], [address] , [facility] 3 10:20:35 Problem Notes None recorded. Medical Equipment None Reported. Allergies Allergen ID Allergen Name Allergen Category Reaction Reaction Severity Criticality Documentation Date Start Date Code Code System Note Provider Name and Address Organization Details Recorded Time [id number] Flomax medicatio n Not available Not available Not available 05/09/20162012 39550 3 RxNorm Comme nt: Creat ed By: [facility] rt ICC rt;Cr eated Date: 2012 1:16: 29 PM; Not Available [facility] 6 03:08:20 227241 sotalol hydrochlo ride medicatio n Not available Not available Not available 05/09/20162014 7008 RxNorm Comme nt: Creat ed By: Lewis Li ;Carolyna arabella Date: 2014 1:36: 35 PM; Not Available [facility] 6 06:21:01 903049 iodine medicatio n Not available Not available Not available 05/09/20162012 5933 RxNorm Comme nt: Creat ed By: [facility] rt [facility] rt;Cr eated Date: 2012 1:16: 40 PM; Not Available [facility] 6 09:08:45 988371 acetamino phen / hydrocodo ne medicatio n Not available Not available Not available 05/09/20162012 28378 2 RxNorm Comme nt: Creat ed By: [facility] rt ICC rt;Cr eated Date: 2012 1:16: 49 PM; Not Available [facility] 6 09:08:45 367682 Product containin g penicilli n (product) medicatio n Not available Not available Not available 05/09/20162012 05747 8001 SNOMED Comme nt: Creat ed By: [facility] rt [facility] rt;Cr eated Date: 2012 1:17: 02 PM; Not Available [facility] 6 09:08:45 432666 codeine medicatio n Not available Not available Not available 05/09/20162012 2670 RxNorm Comme nt: Creat ed By: [facility] rt [facility] rt;Cr eated Date: 2012 1:16: 17 PM; Not Available [facility] 6 10:37:35 Medications Name Sig Start Date Stop Date Status Note LastModified by Organization Details LastModified Time furosemide 40 mg tablet Daily 03/04 completed Duratio n: 30 days;Fr equency : daily;Dequan simpson on Descrip tion: furosem leisa; Dosage: 1; [...] equency : daily;Dequan pires on Descrip tion: aspirin ; Dosage: 1; Route:o ral; refills :0; Quantit y:30 tablet Not Available Not Available Not Available rosuvastat in active Not Available Not Available Not Available metoprolol succinate ER 100 mg capsule sprinkle, ext. release 24 hr Take 1 capsule every day by oral route. active Not Available Not Available No t Available Vitals Date Recorded Body weight Body mass index (BMI) Body height Provider Name and Address Organization Details Last Updated DateTime 09/28/2020 50394.07 g 30.6 kg/m2 172.72 cm Izabel Haley [facility] 09/28/2020 10:04:47 Date Recorded Body height Body mass index (BMI) Body weight Provider Name and Address Organization Details Last Updated DateTime 10/03/2021 172.72 cm 30.6 kg/m2 89711.07 g Eloise Daly [facility] 10/03/2021 14:08:58 Date Recorded Body height Body mass index (BMI) Body weight Provider Name and Address Organization Details Last Updated DateTime 10/09/2022 172.72 cm 27.7 kg/m2 11871.81 g Addis Cabrales [facility] 10/10/2022 07:19:58 Date Recorded Body height Body mass index (BMI) Body weight Heart rate Systolic blood pressure Diastolic blood pressure Provider Name and Address Organization Details Last Updated DateTime 9 172.72 cm 30.6 kg/m2 55237.0 7 g 65 /min 127 mm[Hg] 67 mm[Hg] [facility] 9 13:40:21 Social History Question Answer Notes LastModified by Organizat ion Details LastModified Time Tobacco Smoking Status [facility] 10:57:31 How Much Tobacco Do You Chew? None Information not available 09/02/2018 What Was The Date Of Your Most Recent Tobacco Screening? 09/02/2018 Information n ot available 08/02/2019 How Much Tobacco Do You Smoke? No [email or web address] Information not available 03/10/2019 Sex: Unknown Functional [...] SNOMED-CT Code Diagnosis ICD10 Code Diagnosis Note [id number] ROLF DOE JR, MD [facility] [address] [place] [address] 08/08/2016 10:21:41 08/14/2016 15:49:51 Lower urinary tract symptoms due to benign prostatic hypertrophy 0271034596 9101 N40.1 Kidney stone 55062125 N2 0.0 [id number] ROLF DOE JR, MD [facility] [address] 02/12/2017 12:48:37 02/13/2017 08:34:28 Lower urinary tract symptoms due to benign prostatic hypertrophy 4157229902 9101 N40.1 Kidney stone 84483907 N2 0.0 [id number] ROLF DOE JR, MD [facility] [address] [place] [address] 0 09/03/2017 12:54:23 09/03/2017 13:53:06 Lower urinary tract symptoms due to benign prostatic hypertrophy 2671442639 9101 N40.1 Kidney stone 05614318 N2 0.0 [id number] ROLF DOE JR, MD [facility] [address] [place] [address] 0 03/04/2018 14:56:13 03/04/2018 15:36:34 Lower urinary tract symptoms due to benign prostatic hypertrophy 4509036066 9101 N40.1 Kidney stone 81660388 N2 0.0 [id number] ROLF DOE JR, MD [facility] [address] 0 09/02/2018 13:13:25 09/02/2018 14:09:12 Lower urinary tract symptoms due to benign prostatic hypertrophy 6772322747 9101 N40.1 Kidney stone 84456820 N2 0.0 [id number] ROLF DOE JR, MD [facility] [address] [place] [address] 0 03/10/2019 13:17:58 03/10/2019 13:38:20 Lower urinary tract symptoms due to benign prostatic hypertrophy 8779043736 9101 N40.1 Calculus o f kidney and ureter 876892144 N20.2 [id number] ROLF DOE JR, MD [facility] [address] [place], [place] [address] 09/28/2020 09:27:05 09/28/2020 10:16:01 Kidney stone 62733572 N20.0 Lower urin colby tract symptoms due to benign prostatic hypertrophy 8576321915 9101 N40.1 [id number] ROLF DOE JR, MD [facility] [address]ATIONWin [address] [address] 10/03/2021 13:46:04 10/03/2021 14:34:07 Kidney stone 45880285 N20.0 Lower urin colby tract symptoms due to benign prostatic hypertrophy 5142838948 9101 N40.1 [id number] ROLF DOE JR, MD [facility] [address] [place] [address] 10/09/2022 13:43:22 10/09/2022 14:04:42 Acute urinary tract infection 992142968 N39.0 Prostate nodule 28481020 01 06203 N40.2 Kidney stone 25934069 N2 0.0 Lower urin colby tract symptoms due to benign prostatic hypertrophy 0667094206 9101 N40.1 [id number] ROLF DOE JR, MD [facility] [address] [place], [place] [address] 12/02/2023 11:21:32 12/02/2023 13:42:22 Calculus of kidney and ureter 998045163 N20.2 Lower urin colby tract symptoms due to benign prostatic hypertrophy 6019038125 9101 N40.1 Health Concerns Section Related Observation LastModified by Organization Detai ls LastModified Time None Recorded Concern Status LastModified by Organization Details LastModified Time None Recorded Advance Directives Directive None Recorded Payers Insurance Date Sequence Insurance Name Policy Number Policy Curiel Covered Member ID Curiel Member ID Guarantor Name 12/02/2023 1 [place] Ned Cronin [id number] Ned Cronin 12/10/2023 2 [employer] Cronin [id number] Ned Cronin 12/02/2023 2 [employer] (MEDICARE SUPPLEMENT) Ned Cronin Notes Date Note [...] stone episode/flank pain. ROLF DOE JR, MD [address] [place] [address], [phone], [facility] 03/13/2019 22:04:14 09/28/2020 text/html In for f/u of BP H and nephrolithiasis. he underwent Urolift procedure on 04/16/2016 with resolution of LUTS. He is quite pleased with outcome of procedure. he does have ah/o nephrolithiasis which is followed conservatively. KUB is reviewed today revealing nonobstructing right nephrolithiasis, stable. Denies recent stone episode/flank pain. ROLF DOE JR, MD [address] [place] [address], [address], [facility] 09/30/2020 16:21:03 10/03/2021 text/html In for f/u of BP H and nephrolithiasis. he underwent Urolift procedure on 04/16/2016 with resolution of LUTS. He is quite pleased with outcome of procedure. he does have ah/o nephrolithiasis which is followed conservatively. KUB is reviewed today revealing nonobstructing nephrolithiasis, stable. Denies recent stone episode/flank pain. ROLF DOE JR, MD [address] [place] [address] [place], [address], [facility] 10/06/2021 18:50:55 10/09/2022 text/html In for f/u of BP H and nephrolithiasis. he underwent Urolift procedure on 04/16/2016 with resolution of LUTS. He is quite pleased with outcome of procedure. he does have ah/o nephrolithiasis which is followed conservatively. KUB is reviewed today revealing nonobstructing nephrolithiasis, stable. Denies recent stone episode/flank pain. ROLF DOE JR, MD [address] [place] [address], [address], [facility] 10/19/2022 10:21:34 12/02/2023 text/html In for f/u of BP H and nephrolithiasis. he underwent Urolift procedure on 04/16/2016 with resolution of LUTS. He is quite pleased with outcome of procedure. he does have ah/o nephrolithiasis which is followed conservatively. KUB is reviewed today revealing nonobstructing nephrolithiasis, stable. Denies recent stone episode/flank pain. ROLF DOE JR, MD [facility] [place], [address], [facility] 12/06/2023 09:05:42
[2024-11-23 13:45] LABS: PHA INR Fingerstick 2.6 (0.9-1.1)
== END 2024-11-23 13:48 ==
LOC: ACC 12:54
PROVIDERS: PCP Family Medicine; Visit Provider Physician Assistant
DX: I48.0 Paroxysmal atrial fibrillation (principal); Z79.01 Long term (current) use of anticoagulants
CPT/HCPCS: 85610; 99211; G0463

== ENCOUNTER 2025-01-04 12:50 | Outpatient (CLI) | payer MEDICARE, OTHER, SELFPAY ==
--- OUTSIDE RECORDS SUMMARY | 2016-02-06 12:57 | XMS_ITS | Encounter Summary ---
Author Organization [facility] Address [address] [place] [address] Care Team Providers Care Vmware Consultant Name Role Phone Jong Gutiérrez MD Primary Care Provider [phone] Encounter Details Date Type Department Care Team (Late st Contact Info) Description 02/06/2016 12:57 PM EDT Hospital Encounter [facility] PULMONARY & CRITICAL CARE MEDICINE [address] [place] [phone] Social History Tobacco Use Types Packs/Day Years Used Date Smoking Tobacco: Former Cigarettes 1 40 1 965 - 2005 Smokeless Tobacco: Never Alcohol Use Standard Drinks/Week Comments Yes 0 (1 standard drink = 0.6 oz pur e alcohol) rarely Abuse Screen Answer Date Recorded Unsafe at Home or Work/School Not on file Feels Threatened by Someone? Not on file 02/2023 Does Anyone Keep You from Co ntacting Others or Doint Things Outside the Home? Not on file 03/23/2023 Physical Sign of Abuse Present Not on file 1 Housing Stability Answer Date Recorded Current Living Arrangements Not on file 02/2023 Potentially Unsafe Housing Conditions Not on colton e 03/23/2023 Family and Community Support Answer Evaristo e Recorded Help with Day-to-Day Activities Not on file 03/23/2023 Lonely or Isolated Not on file 03/23/2023 Employment Answer Date Recorded Do you want help finding or keeping work or a manjit b? Not on file 03/23/2023 Disabilities Answer Date Recorded Concentrating, Remembering, or Making Decisions Difficulty Not on file 03/23/2023 Doing Errands Independently Difficulty Not on fi le 03/23/2023 Education Answer Date Recorded Help with school or training? Not on file Preferred Language Not on file 03/23/2023 Sex and Gender Information Value Date Recorded Sex Assigned at Not on file Legal Sex Male 10:41 AM EDT Gender Identity Not on file Sexual Orientation Not on file documented as of this encounter Plan of Treatment Upcoming Encounters Date Type Department Care Team (Late st Contact Info) Description 01/25/2025 2:30 PM EDT Office Visit [facility] CARDIOLOGY [address] [facility] [address] [place] [address] Lam Schmidt MD [address] [facility] [address] [address] [place], [place] [id number] documented as of this encounter Procedures Procedure Name Priority Date/Time Associated Diagnosis Comments XR CHEST PA AND LATERAL Routine 02/06/2016 1:00 PM EDT Hemoptysis documented in this encounter Results * XR chest pa and lateral (02/06/2016 1:00 PM EDT) Narrative Aleksandra Overton MA - 02/06/2016 1:00 PM EDT Results sent to electronic scanner operator, signed report will be scanned into [employer] once available. Please see performing physicians notes. [...] documented as of this encounter Care Teams Vmware Consultant Relationship Specialty Start Date End Date Jong Gutiérrez MD [address] [place] [address] PCP - General 07/11/15 08/06/16 documented as of this encounter
--- OUTSIDE RECORDS SUMMARY | 2019-08-24 13:25 | XMS_ITS | Encounter Summary ---
Author Organization [facility] Address [address] [place] [address] Care Team Providers Care Parish Nurse Name Role Phone Zo Dailey Primary Care Provider [phone] Encounter Details Date Type Department Care Team (Late st Contact Info) Description 08/24/2019 1:25 PM EDT Hospital Encounter [facility] PULMONARY & CRITICAL CARE MEDICINE [address] [place] [address] Social History Tobacco Use Types Packs/Day [...] Description 01/25/2025 2:30 PM EDT Office Visit [facility] C[facility]IOLOGY [address] [facility] [address] [place] [address] Lam Schmidt MD [address] [facility] [address] [place] [address] documented as of this encounter Procedures Procedure [...] silhouette which is stable. Emile Lyon MD us Emile Lyon MD IMG DIAGNOSTIC IMAGING ORDERABLES Final Result documented in this encounter Visit Diagnoses Not on filedocumented in this encounter Additional Health Concerns Infection Onset Date Last Indicated Resolved Time COVID Screen (preop/placement) 04/23/2020 04/23/2020 04/23/2020 6:13 PM EST COVID (rule out) 11/13/2020 11/14/2020 11/20/2020 9:08 PM EDT documented as of this encounter Care Teams Parish Nurse Relationship Specialty Start Date End Date Zo Dailey DO [facility] [place] [address] PCP - General Family Medicine 08/07/16 01/21/22 documented as of this encounter
--- OUTSIDE RECORDS SUMMARY | 2025-01-04 12:53 | XMS_ITS | Clinical Summary ---
[facility] Address [address] [place] [address] Care Team Providers Care Parts Salvager Name Role Phone Miguel A Bernabe MD Primary Care Provider [phone] Allergies Active Allergy Reactions Criticality Noted Date Comments Amiodarone 03/06/2016 Codeine 01/30/2016 Iodinated Contrast Media 01/30/2016 Contrast media Penicillins 01/30/2016 Sotalol 01/30/2016 Medications furosemide (LASIX) 40 MG tablet TAKE 1 TABLET BY MOUTH ONCE DAILY 30 tablet 5 02/25/20 17 Active Additional Information Patient taking differently: 40 mg Daily, Reported on 01/07/2023 albuterol sulfate HFA 108 (90 Base) MCG/ACT inhaler Inhale 2 puffs Every 6 (Six) Hours As Needed for Wheezing. 3 inhaler 3 08/24/19 20 Active metoprolol succinate XL (TOPROL-XL) 100 MG 24 hr tablet Take 1 tablet by mouth Daily. 90 tablet 3 11/21/19 21 Active warfarin (COUMADIN) 5 MG tabletIndication s:Paroxysmal atrial fibrillation TAKE 1/2 TO 1 TABLET EVERY DAY DIRECTED BY THE ANTICOGULATION CLINIC. 90 tablet 1 01/15/20 21 Active Vitamin D, Cholecalciferol, 50 MCG (2000 UT) capsule Take 1 capsule by mouth Daily. 02/24/20 21 Active Zinc 50 MG tablet Take 1 tablet by mouth. 02/24/20 21 Active Magnesium 200 MG tablet Take 1 tablet by mouth 2 (Two) Times a Day. Active rosuvastatin (CRESTOR) 40 MG tablet Take 1 tablet by mouth Daily. 12/04/19 22 Active clopidogrel (PLAVIX) 75 MG tablet 1 tablet Daily. 12/04/19 Active spironolactone (ALDACTONE) 25 MG tablet Take 1 tablet by mouth Daily. 12/06/19 Active Active Problems Problem Noted Date Diagnosed Date Prostate nodule 10/19/2022 COPD (chronic obstructive pulmonary disease) 04/2020 Dependence on nocturnal oxygen therapy 7 Atrial flutter 03/06/2016 Overview (03/06/2016): 1. Atrial flutter, status post electrophysiology study with radiofrequency ablation of a right atrial isthmus-dependent flutter on 04/10/2003. History of MD (myocardial infarction) 03/06/2016 Overview (03/06/2016): 1. Myocardial infarction, 02/02/2002: Left heart catheterization, 02/02/2002: Circumflex 95%, status post stent, ejection fraction 75%, 1-2+ aortic insufficiency: a. Echocardiogram on 02/02/2002: Intraventricular septum 1.5 cm, LV posterior wall 1.2 cm, mild left atrial enlargement, 4.5 cm, hypertrophic motion with left ventricular ejection fraction 70%. b. Adenosine Cardiolite, 03/23/2002: Normal response to adenosine, depressed ejection fraction at 48% with anteroapical hypokinesis. c. 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 d. Echocardiogram, 01/04/2003: Left ventricular ejection fraction 75%, mild mitral regurgitation, mild aortic insufficiency, mild tricuspid regurgitation, and concentric left ventricular hypertrophy noted. e. Echocardiogram in October 2005 with left ventricular ejection fraction of 55%, mild concentric left ventricular hypertrophy, apical hypertrophy, moderate mitral regurgitation, left atrial size 4.7 cm. History of CVA (cerebrovascular accident) 2015 Hyperlipidemia 03/06/2016 Warfarin anticoagulation 03/06/2016 Hemoptysis 02/06/2016 Overview (05/07/2016): Mild, intermittent due to bronchiectasis Bronchiectasis 01/30/2016 Overview (01/30/2016): Mild Dyspnea 01/30/2016 AR (obstructive sleep apnea) 01/30/2016 Overview (08/07/2016): Auto BIPAP CAD (coronary artery disease) 01/30/2016 Overview (01/30/2016): History of coronary artery stenting in 2001 and follow-up catheterization in December 2006 reported subtotal occlusion of the small proximal obtuse marginal branch of the circumflex. Dyslipidemia 01/30/2016 Hypertension 01/30/2016 Hypertrophic cardiomyopathy 01/30/2016 Overview (03/06/2016): a. Left heart catheterization, 12/31/2006, Dr. Pierce: With subtotal occlusion of small proximal obtuse marginal branch of the circumflex. Normal left ventricular function. b. Transesophageal echocardiogram, 01/08/2007: Eccentric mild jet of aortic insufficiency, small patent foramen ovale with left to right flow, no thrombus, no ventricular septal defect, moderate mitral regurgitation. c. HERNÁN, May 2007, with moderate concentric left ventricular hypertrophy, mild mitral regurgitation, aortic insufficiency, normal left ventricular function. d. Echocardiogram, January 2010: Normal left ventricular size and function, mild mitral regurgitation, right ventricular pressure 35 mmHg, moderate tricuspid regurgitation. e. 09/08/2013: Right and left heart catheterization: Right atrial mean pressure 6 mmHg, right ventricular pressure 30/6 mmHg. Pulmonary artery mean is 25 mmHg. Pulmonary capillary wedge position mean 12 mmHg. Left heart pressures - aortic 120/60, left ventricular 120/12 mmHg. No pullback gradient assessed by pigtail catheter. Paroxysmal atrial fibrillation 01/30/2016 Overview (03/06/2016): a. Diagnosed on 03/01/2002. b. Initiation of amiodarone for atrial fibrillation in May 2002. c. Discontinuation of amiodarone, 02/03/2007. d. Pulmonary vein ablation, 06/09/2007. e. Recurrent episodes of paroxysmal atrial fibrillation, November 2012: Echocardiogram, 02/02/2013; EF 55% to 60%, diastolic dysfunction, moderate aortic regurgitation, moderate mitral regurgitation. f. QT prolongation on sotalol and intolerance to Multaq, fall 2012. g. Recurrent episodes of symptomatic paroxysmal atrial fibrillation; August 2013. h. Status post successful electrophysiology study and radiofrequency ablation of pulmonary veins as well as 2 separate left atrial flutters, 1 left atrial rotator and pulmonary veins utilizing Topera therapy on 03/06/2014. i. Initiation of amiodarone therapy. j. External cardioversion to normal sinus rhythm, 06/26/2014, with return to atrial fibrillation 07/01/2014. Lower urinary tract symptoms due to benign prostatic hyperplasia 01/18/2016 Nocturia 01/18/2016 Epididymitis 01/03/2016 hematuria 12/28/2015 Kidney stone 03/02/2015 Ureteric stone 03/02/2015 Calculus of kidney and ureter 03/01/2015 Nephrolithiasis Urinary tract infection Resolved Problems Problem Noted Date Diagnosed Date Resolved Date Hypersomnia 05/07/2016 05/26/2018 Overview (03/06/2017): Improved on BIPAP Abnormal chest x-ray 01/30/2016 016 Overview (01/30/2016): Improved Infiltrates Immunizations Immunization Administration Dates Next Due COVID-19 (MODERNA) 1st,2nd,3rd Dose Monovalent 0 08/08/2020,07/11/2020 Influenza, Unspecified 05/10/2018 Tdap 11/21/2022 Family History Medical History Relation Name Comments No Known Problems Daughter Heart attack Father Other Father mitral valve pr olapse secondary to rheumatic heart disease Heart disease Mother congestive hea rt failure Hypertension Mother Stroke Mother Cancer Sister lung No Known Problems Son Relation Name Status Comments Daughter Father Mother Sister (Age 65) Son Social History Tobacco Use Types Packs/Day Years Used Date Smoking Tobacco: Former Cigarettes 1 40 1 965 - 2005 Smokeless Tobacco: Never Tobacco Cessation:Counseling Given: Not Answered Alcohol Use Standard Drinks/Week Comments Yes 0 [...] on file Sexual Orientation Not on file Last Filed Vital Signs Vital Sign Reading Time Taken Comments Blood Pressure 150/62 01/27/2024 3:36 PM EDT Pulse 79 01/27/2024 3:36 PM EDT Temperature 36.7 C (98.1 F) 04/04/2021 2:48 PM EDT Respiratory Rate 16 03/06/2017 11:34 AM EDT Oxygen Saturation 94% 01/27/2024 3:36 PM EDT Inhaled Oxygen Concentration - - Weight 86.2 kg (190 lb) 01/27/2024 3:36 PM EDT Height 172.7 cm (5' 8 ) 01/27/2024 3:36 PM EDT Body Mass Index 28.89 01/27/2024 3:36 PM EDT Plan of Treatment Upcoming Encounters Date Type Department Care Team (Late st Contact Info) Description 01/25/2025 2:30 PM EDT Office Visit [facility] [address] [place] [address] Lam Schmidt MD [address] [place] [address] Health Maintenance Due Date Last Done Comments Pneumococcal Vaccine 50+ (1 of 2 - PCV) 1965 COLOGUARD 1991 COLON CANCER SCREENING 5 YEA R SIGMOIDOSCOPY 1991 COLONOSCOPY 1991 [address] CANCER SCREENING 1991 CT COLONOGRAPHY 1991 FECAL OCCULT BLOOD TEST 1991 FIT Testing (1 year) 1991 ZOSTER VACCINE (1 of 2) 02/15/1996 LIPID PANEL 09/09/2015 09/08/2014 ANNUAL WELLNESS VISIT 09/19/2016 HEPATITIS C SCREENING 09/19/2016 RSV Vaccine - Adults (1 - 1- dose 75+ series) 2021 COVID-19 Vaccine (3 - season) 2024, 07/11/2020 INFLUENZA VACCINE 03/15/2025 05/10/2018 TDAP/TD VACCINES (2 - Td or Tdap) 11/21/2032 023 LUNG CANCER SCREENING Discontinued 09/08/2014, 014 Procedures Procedure Name Priority Date/Time Associated Diagnosis Comments CT CHEST WO CONTRAST DIAGNOSTIC Routine 09/08/2014 6:06 PM EDT LIPID PANEL Routine 09/08/2014 9:22 AM EDT from Last 3 Months or Most Recently Relevant to Health Maintenance Results * CT chest wo contrast (09/08/2014 6:06 PM EDT) Anatomical Region Laterality Modality Chest N/A Computed Tomogra phy 09/08/2014 6:06 PM EDT Narrative 09/08/2014 6:47 PM EDT EXAMINATION: CT CHEST WITHOUT CONTRAST INDICATION: Pre bronchoscopy. TECHNIQUE: Multislice helical CT without contrast. The radiation dose reduction device was turned on for each scan per the ALARA (As Low as Reasonably Achievable) protocol. COMPARISON: 03/06/2014. FINDINGS: The visible portions of the thyroid gland are normal. There is no significant axillary adenopathy. The aorta branches in a bovine type pattern. There is no significant mediastinal adenopathy. The heart size is grossly unremarkable. Minimal pericardial fluid is present. Calcifications are present throughout the left coronary artery. The course and caliber of the esophagus is normal. Numerous cysts are scattered throughout the kidneys. There is moderate renal cortical thinning bilaterally. Clips overlie the gallbladder fossa. The remaining visible abdominal organs are normal. Mild diffuse bronchiectasis is present. There is some scarring in the medial segment of the right middle lobe, posterior portion of the right lower lobe, and posterior portion of the left lower lobe. Mild interstitial opacities are present in the left lower lobe of the ground glass type. The left upper lobe is grossly unremarkable. The osseous structures of the chest are normal. IMPRESSION- 1. Ground glass interstitial opacities in the left lower lobe. 2. Mild bronchiectasis. 3. Marked renal cortical thinning. 4. Bilateral renal cysts. DICTATED: 09/08/2014 EDITED: 09/08/2014 Reading Radiologist- RAGHAV MONTANEZ Releasing Radiologist- RAGHAV MONTANEZ Released Date Time- 09/09/14 1324 Network Development Coordinator- L.S. Procedure Note Raghav Lange MD - 03/07/2015 EXAMINATION: CT CHEST WITHOUT CONTRAST INDICATION: Pre bronchoscopy. TECHNIQUE: Multislice helical CT without contrast. The radiation dose reduction device was turned on for each scan per the ALARA (As Low as Reasonably Achievable) protocol. COMPARISON: 03/06/2014. FINDINGS: The visible portions of the thyroid gland are normal. There is no significant axillary adenopathy. The aorta branches in a bovine type pattern. There is no significant mediastinal adenopathy. The heart size is grossly unremarkable. Minimal pericardial fluid is present. Calcifications are present throughout the left coronary artery. The course and caliber of the esophagus is normal. Numerous cysts are scattered throughout the kidneys. There is moderate renal cortical thinning bilaterally. Clips overlie the gallbladder fossa. The remaining visible abdominal organs are normal. Mild diffuse bronchiectasis is present. There is some scarring in the medial segment of the right middle lobe, posterior portion of the right lower lobe, and posterior portion of the left lower lobe. Mild interstitial opacities are present in the left lower lobe of the ground glass type. The left upper lobe is grossly unremarkable. The osseous structures of the chest are normal. IMPRESSION- 1. Ground glass interstitial opacities in the left lower lobe. 2. Mild bronchiectasis. 3. Marked renal cortical thinning. 4. Bilateral renal cysts. DICTATED: 09/08/2014 EDITED: 09/08/2014 Reading Radiologist- RAGHAV MONTANEZ Releasing Radiologist- RAGHAV MONTANEZ Released Date Time- 09/09/14 1324 Network Development Coordinator- Rodrick us Emile Lyon MD IMG CT ORDERABLES Anne-Marie l Result * (ABNORMAL) Lipid panel (09/08/2014 9:22 AM EDT) Total Cholesterol 184 0 - 200 mg/dL LABORATORY Comment: DF by IF @ 09/08/2014 09:41 Cholesterol Reference Ranges: Desirable: less than 200 mg/dL Borderline: 200-239 mg/dL High: greater than 239 mg/dL Triglycerides 85 0 - 150 mg/dL LABORATORY Comment: DF by IF @ 09/08/2014 09:41 Triglyceride Reference Ranges: Normal less than 150 mg/dL Borderline 150-199 mg/dL High 200-499 mg/dL Very High greater than 499 mg/dL HDL Cholesterol 40 40 - 60 mg/dL LABORATORY Comment: DF by IF @ 09/08/2014 09:41 HDL Cholesterol Reference Ranges: Low less than 40 mg/dL High greater than 59 mg/dL LDL Cholesterol 133(H) 0 - 130 mg/dL LABORATORY Comment: US by IF @ 09/08/2014 09:41 LDL Cholesterol Reference Ranges: Optimal less than 100 mg/dL Near Optimal 100-129 mg/dL Borderline 130-159 mg/dL High 160-189 mg/dL Very High greater than 189 mg/dL Blood specimen (specimen) 09/08/2014 9:22 AM EDT Narrative LABORATORY - 09/08/2014 9:41 AM EDT Specimen Type: Blood us Alo Pastrana MD LAB BLOOD ORDERABLES Final Re sult LABORATORY [address] [place] [address], [place] [phone] from Last 3 Months or Most Recently Relevant to Health Maintenance Insurance MEDICARE [place] [address] Care Teams Parts Salvager Relationship Specialty Start Date End Date Miguel A Bernabe MD [address] [place] [address] PCP - General Family Medicine 01/22/22
--- OUTSIDE RECORDS SUMMARY | 2025-01-04 12:53 | XMS_ITS | Continuity of Care Document ---
Author Organization [facility] Address [address] [place] [address] [address] [place] [address] Care Team Providers Care Sql Dba Name Role Phone RICHARD CABELLO Primary Care Provider Assessment Encounter Date Assessment Date Assessment LastModified by Organization Details LastModified Time 12/14/2024 12/14/2024 79-year-old male with Benign Prostatic Hyperplasia BPH) for follow-up. Underwent UroLift in 2015, on combination therapy. Prostate biopsy in 2020 showed high-grade Prostatic Intraepithelial Neoplasia PIM). Reports improved nocturia, rising two to three times per night. Continues prostate medications without needing refills. PSA test done, with monitoring every six months. Benign Prostatic Hyperplasia (Bph): - Continue combination therapy. - PSA monitoring every six months. High-Grade Prostatic Intraepithelial Neoplasia (Pim): - Monitor for new symptoms. 79-year-old male with nephrolithiasis and benign prostatic hyperplasia for follow-up. Nephrolithiasis stable with nonobstructing right nephrolithiasis and possible left nephrolithiasis. Benign prostatic hyperplasia managed with Urolift in 2015. PSA level 0.9, no prostate cancer concerns. Nephrolithiasis: - Continue monitoring with no immediate intervention required. [email or web address] Not available 12/14/2024 11:59:23 Plan of Treatment Reminders Order Date Submit Date Provider Last Modified By Organization Details Last Modified Time Details Appointments RECHECK 2024 02:30P M ROLF DOE MD Not available Not available Not available Lab urinalysi s panel, auto 2024 025 [email or web address] [facility], [address], [address], [place], [address], 12/14/2024 11:57:21 Referral None recorded. Procedures None recorded. Surgeries None recorded. Imaging None recorded. Medication Orders alfuzosin ER 10 mg tablet,ex tended release 24 hr 2024 07/ 025 [facility], [address], [address], 12/14/2024 11:57:29 Patient TargetsNo targets recorded. Patient Instructions Encounter Date Encounter Id Patient Instructions Last Modified By Organization Details Last Modified Time 12/14/2024 [id number] - Continue takin g your prostate medications as prescribed. - Return for PSA testing in six months. - Report any new symptoms or changes to your healthcare provider. - Start taking the prescribed Alpha sindhu and monitor your blood pressure regularly. - Schedule a follow-up appointment in three to four months to evaluate your symptoms. [email or web address] Not available 12/14/2024 11:59:24 Reason for Referral None Reported. Results Created Date Observation Date Name Description Value Unit Range Abnormal Flag Note LastModifiedBy Organization Detail LastModifiedTime 12/15/19 25 12/14/2024 urina lysis panel , auto Unknown Analyte Clean Catch Not Available [facility] [address], [place], [address], 12/14/2024 11:30:02 12/15/19 25 12/14/2024 urina lysis panel , auto Unknown Analyte Yellow Not Available [facility] [address], [place], [address], 12/14/2024 11:30:02 12/15/19 25 12/14/2024 urina lysis panel , auto Unknown Analyte Clear Not Available [facility] [address], [place], [address], 12/14/2024 11:30:02 12/15/19 25 12/14/2024 urina lysis panel , auto Unknown Analyte 1.020 Not Available [facility] [address], [place], [address], 12/14/2024 11:30:02 12/15/19 25 12/14/2024 urina lysis panel , auto Unknown Analyte 1.003 - 1.030 Not Available [facility] [address], [place], [address], 12/14/2024 11:30:02 12/15/19 25 12/14/2024 urina lysis panel , auto Unknown Analyte 5.0 Not Available [facility] [address], [place], [address], 12/14/2024 11:30:02 12/15/19 25 12/14/2024 urina lysis panel , auto Unknown Analyte 5.0 - 8.0 Not Available [facility] [address], [place], [address], 12/14/2024 11:30:02 12/15/19 25 12/14/2024 urina lysis panel , auto Unknown Analyte Negati ve Not Available [facility] [address], [place], [address], 12/14/2024 11:30:02 12/15/19 25 12/14/2024 urina lysis panel , auto Unknown Analyte Negati ve Not Available [facility] [address], [place], [address], 12/14/2024 11:30:02 12/15/19 25 12/14/2024 urina lysis panel , auto Unknown Analyte Negati ve Not Available [facility] [address], [place], [address], 12/14/2024 11:30:02 12/15/19 25 12/14/2024 urina lysis panel , auto Unknown Analyte Negati ve Not Available [facility] [address], [place], [address], 12/14/2024 11:30:02 12/15/19 25 12/14/2024 urina lysis panel , auto Unknown Analyte 100 mg/dL Not Available [facility] [address], [place], [address], 12/14/2024 11:30:02 12/15/19 25 12/14/2024 urina lysis panel , auto Unknown Analyte Negati ve Not Available [facility] [address], [place], [address], 12/14/2024 11:30:02 12/15/19 25 12/14/2024 urina lysis panel , auto Unknown Analyte Normal Not Available [facility] [address], [place], [address], 12/14/2024 11:30:02 12/15/19 25 12/14/2024 urina lysis panel , auto Unknown Analyte Normal Not Available [facility] [address], [place], [address], 12/14/2024 11:30:02 12/15/19 25 12/14/2024 urina lysis panel , auto Unknown Analyte Negati ve Not Available [facility] [address], [place], [address], 12/14/2024 11:30:02 12/15/19 25 12/14/2024 urina lysis panel , auto Unknown Analyte Negati ve Not Available [facility] [address], [place], [address], 12/14/2024 11:30:02 12/15/19 25 12/14/2024 urina lysis panel , auto Unknown Analyte Normal Not Available [facility] [address], [place], [address], 12/14/2024 11:30:02 12/15/19 25 12/14/2024 urina lysis panel , auto Unknown Analyte Normal Not Available [facility] [address], [place], [address], 12/14/2024 11:30:02 12/15/19 25 12/14/2024 urina lysis panel , auto Unknown Analyte Negati ve Not Available [facility] [address], [place], [address], 12/14/2024 11:30:02 12/15/19 25 12/14/2024 urina lysis panel , auto Unknown Analyte Negati ve Not Available [facility] [address], [place], [address], 12/14/2024 11:30:02 12/15/19 25 12/14/2024 urina lysis panel , auto Unknown Analyte Negati ve Not Available [facility] [address], [place], [address], 12/14/2024 11:30:02 12/15/19 25 12/14/2024 urina lysis panel , auto Unknown Analyte Negati ve Not Available [facility] [address], [place], [address], 12/14/2024 11:30:02 Result Notes None recorded. Problems Name Problem SNOMED Code Status Onset Date Resolution Date Notes Provider Name and Address Organization Details Recorded Time Calculus of kidney and ureter 850272773 Active 2014 From Automated Load;Prov ider: Rolf Doe Jr;St atus: Active Not Available [facility] 6 09:06:25 Kidney stone 76570022 Active 2014 Provider: Rolf Doe Jr;St atus: Active Not Available [facility] 6 09:06:25 Ureteric stone 30829937 Active 2014 Provider: Rolf Doe Jr;St atus: Active Not Available [facility] 6 09:06:25 Sunday hematuria 234686712 Active 2015 From Automated Load;Prov ider: Rolf Doe Jr;St atus: Active Not Available [facility] 6 09:06:25 Epididymi tis 40172426 Active 2015 From Automated Load;Prov ider: Rolf Doe Jr;St atus: Active Not Available [facility] 6 09:06:25 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 53151261483 101 Active 2015 From Automated Load;Prov ider: Rolf Doe Jr;St atus: Active Not Available [facility] 6 09:06:25 Nocturia 447672880 Active 2015 From Automated Load;Prov ider: Rolf Doe Jr;St atus: Active Not Available [facility] 6 09:06:25 Prostate nodule 50690089981 9109 Active 2022 ROLF DOE JR, MD [address] [place] [address], [address] , [facility] 3 10:20:35 Acute urinary tract infection 876677000 Active 2022 ROLF DOE JR, MD [address] [place] [address], [address] , [facility] 3 10:20:35 Problem Notes None recorded. Medical Equipment None Reported. Allergies Allergen ID Allergen Name Allergen Category Reaction Reaction Severity Criticality Documentation Date Start Date Code Code System Note Provider Name and Address Organization Details Recorded Time 247691 Flomax medicatio n Not available Not available Not available 05/09/20162012 68238 3 RxNorm Comme nt: Creat ed By: [facility] rt RAMIREZ rt;Cr eated Date: 2012 1:16: 29 PM; Not Available [facility] 6 03:08:20 [id number] sotalol hydrochlo ride medicatio n Not available Not available Not available 05/09/20162014 7008 RxNorm Comme nt: Creat ed By: Lewis bell Date: 2014 1:36: 35 PM; Not Available [facility] 6 06:21:01 452901 iodine medicatio n Not available Not available Not available 05/09/20162012 5933 RxNorm Comme nt: Creat ed By: [facility] rt ICCha rt;Cr eated Date: 2012 1:16: 40 PM; Not Available [facility] 6 09:08:45 389436 acetamino phen / hydrocodo ne medicatio n Not available Not available Not available 05/09/20162012 64115 2 RxNorm Comme nt: Creat ed By: [facility] rt ICC rt;Cr eated Date: 2012 1:16: 49 PM; Not Available [facility] 6 09:08:45 [id number] Product containin g penicilli n (product) medicatio n Not available Not available Not available 05/09/20162012 95945 8001 SNOMED Comme nt: Creat ed By: [facility] rt [facility] rt;Cr eated Date: 2012 1:17: 02 PM; Not Available [facility] 6 09:08:45 [id number] codeine medicatio n Not available Not available Not available 05/09/20162012 2670 RxNorm Comme nt: Creat ed By: [facility] rt [facility] rt;Cr eated Date: 2012 1:16: 17 PM; Not Available [facility] 6 10:37:35 Medications Name Sig Start Date Stop Date Status Note LastModified by Organization Details LastModified Time furosemide 40 mg tablet Daily 03/04 completed Duratio n: 30 days;Fr equency : daily;M edicati on Descrip tion: furosem leisa; Dosage: 1; [...] mg tablet Daily 10/10 completed Frequen cy: daily;M edicati on Descrip tion: warfari n; Dosage: 1; [...] completed Duratio n: 30 days;Fr equency : daily;M tatiana on Descrip tion: aspirin ; Dosage: 1; Route:o ral; refills :0; Quantit y:30 tablet Not Available Not Available Not Available alfuzosin ER 10 mg tablet,ext ended release 24 hr Take 1 tablet every day by oral route. 2024 active Not Available Not Available Not Avai lable rosuvastat in active Not Available Not Available Not Available metoprolol succinate ER 100 mg capsule sprinkle, ext. release 24 hr Take 1 capsule every day by oral route. active Not Available Not Available No t Available Vitals Date Recorded Body weight Provider Name an d Address Organization Details Last Updated DateTime 12/14/2024 02494.63 g Ewa Wiseman [facility] 12/14/2024 11:54:20 Social History Question Answer Notes LastModified by Organizat ion Details LastModified Time Tobacco Smoking Status [facility] 04[facility]10[facility]2017 10:57:31 How Much Tobacco Do You Chew? None [email or web address] Information not available 09/02/2018 What Was The Date Of Your Most Recent Tobacco Screening? 12/14/2024 [email or web address] Information not available 12/14/2024 How Much Tobacco Do You Smoke? No [email or web address] Information not available 03/10/2019 Sex: Unknown Functional Status Question Answer Note LastModified by Organization D etails LastModified Time What is your level of alcohol consumption? None [email or web address] Information not available 09/02/2018 Mental Status None [...] SNOMED-CT Code Diagnosis ICD10 Code Diagnosis Note [id number] ROLF DOE JR, MD [facility] [address] [place] [address] 12/14/2024 11:19:09 12/14/2024 12:07:42 Lower urinary tract symptoms due to benign prostatic hypertrophy [id number] 9101 N40.1 - Initiate treatment with an Alpha sindhu, monitor blood pressure due to potential hypotensiv e effects. - Follow-up in three to four months to assess symptom improvemen t. Kidney stone 98659177 N2 0.0 Health Concerns Section Related Observation LastModified by Organization Detai ls LastModified Time None Recorded Concern Status LastModified by Organization Details LastModified Time None Recorded Payers Encounter Date Sequence Insurance Name Policy Number Policy Curiel Covered Member ID Curiel Member ID Guarantor Name 12/14/2024 1 MEDICARE-ID (MEDICARE) Ned Cronin [id number] Ned Cronin 12/14/2024 2 [facility] (MEDICARE SUPPLEMENT) Ned Cronin [id number] Ned Cronin Notes Date Note Type Note Provider Name and Address Organization Details Recorded Time 12/14/2024 text/html The patient is a 79-year-old male presenting with follow-up for Benign Prostatic Hyperplasia (BPH) management. He underwent a UroLift procedure in 2015 and is on combination therapy. In 2020, a prostate biopsy showed high-grade Prostatic Intraepithelial Neoplasia (PIM). The patient reports improved nocturia, now rising two to three times per night. He continues his prostate medications without needing refills. A PSA test was done, with monitoring planned every six months. The patient is a 79-year-old male presenting for follow-up of nephrolithiasis and benign prostatic hyperplasia. History of nephrolithiasis with stable nonobstructing right nephrolithiasis and possible left nephrolithiasis. Underwent Urolift procedure in 2015 for benign prostatic hyperplasia. PSA level 0.9 as of November 09, 2024, with no current prostate cancer concerns. ROLF DOE JR, MD [address] [place] [address], [address], [facility] 12/18/2024 10:04:17
--- OUTSIDE RECORDS SUMMARY | 2025-01-04 12:53 | XMS_ITS | Data Portability ---
Author Organization [place] - KATHIE Kramer MAR[facility] CLOSED Address [address] [place] [address] Care Team Providers Care Case Assembler Name Role Phone RICHARD CABELLO Primary Care [...] urinalysi s panel, auto 2024 025 miryam [facility], [address], [address], [place], [address], 12/14/2024 11:57:21 PSA, serum or plasma 2023 024 [facility], [address], [address], [place], [address], 12/06/2023 09:05:40 urinalysi s panel, auto 2023 024 [facility], [address], [address], [place], [address], 12/06/2023 09:05:38 culture, urine 2022 023 [facility], [address] [place] [address], [address], 10/11/2022 10:20:34 urinalysi s panel, auto 2022 023 [facility], [address], [address], [place], [address], 10/19/2022 10:21:30 PSA, serum or plasma 2022 023 [facility], [address], [address], [place], [address], 10/19/2022 10:21:30 urinalysi s panel, auto 2021 022 [facility], [address], [address], [place], [address], 10/06/2021 18:50:37 PSA, serum or plasma 2021 022 [facility], [address], [address], [place], [address], 10/06/2021 18:50:37 urinalysi s panel, auto 2020 021 [facility], [address], [address], [place], [address], 09/30/2020 16:18:23 Referral None recorded. Procedures None recorded. Surgeries None recorded. Imaging None recorded. Medication Orders alfuzosin ER 10 mg tablet,ex tended release 24 hr 2024 025 [facility], [address], [address], 12/14/2024 11:57:29 Patient TargetsNo targets recorded. Patient Instructions Encounter Date Encounter Id Patient Instructions Last Modified By Organization Details Last Modified Time 09/28/2020 [id number] kidney stone: care instructions [facility] Not available 09/30/2020 16:18:23 learning about diet for [facility] 09/30/2020 16:18:23 Continue yearly follow-up [facility] and [facility]. [facility] 09/30/2020 16:19:15 10/09/2022 [id number] Prostate nodule feels benign, but is new. [facility]relate with [facility] 10/19/2022 10:21:08 12/14/2024 [id number] - Continue takin g your prostate medications [...] auto Unknown Analyte Clean Catch Not Available [facility] [address], [place], [address], 09/28/2020 10:02:26 09/29/19 21 09/28/2020 urina lysis panel , auto Unknown Analyte Yellow Not Available [facility] [address], [place], [address], 09/28/2020 10:02:09/29/19 21 09/28/2020 urina lysis panel , auto Unknown Analyte Clear Not Available [facility] [address], [place], [address], 09/28/2020 10:02:26 09/29/19 21 09/28/2020 urina lysis panel , auto Unknown Analyte 1.015 Not Available [facility] [address], [place], [address], 09/28/2020 10:02:26 09/29/19 21 09/28/2020 urina lysis panel , auto Unknown Analyte 1.003- 1.035 Not Available [facility] [address], [place], [address], 09/28/2020 10:02:26 09/29/19 21 09/28/2020 urina lysis panel , auto Unknown Analyte 6.0 Not Available [facility] [address], [place], [address], 09/28/2020 10:02:26 09/29/19 21 09/28/2020 urina lysis panel , auto Unknown Analyte 5.0-8. 0 Not Available [facility] [address], [place], [address], 09/28/2020 10:02:09/29/19 21 09/28/2020 urina lysis panel , auto Unknown Analyte Negati ve Not Available [facility] [address], [place], [address], 09/28/2020 10:02:09/29/19 21 09/28/2020 urina lysis panel , auto Unknown Analyte Negati ve Not Available [facility] [address], [place], [address], 09/28/2020 10:02:09/29/19 21 09/28/2020 urina lysis panel , auto Unknown Analyte Negati ve Not Available [facility] [address], [place], [address], 09/28/2020 10:02:09/29/19 21 09/28/2020 urina lysis panel , auto Unknown Analyte Negati ve Not Available [facility] [address], [place], [address], 09/28/2020 10:02:09/29/19 21 09/28/2020 urina lysis panel , auto Unknown Analyte 30 mg/dl (+) Not Available [facility] [address], [place], [address], 09/28/2020 10:02:26 09/29/19 21 09/28/2020 urina lysis panel , auto Unknown Analyte Negati ve Not Available [facility] [address], [place], [address], 09/28/2020 10:02:26 09/29/19 21 09/28/2020 urina lysis panel , auto Unknown Analyte Normal Not Available [facility] [address], [place], [address], 09/28/2020 10:02:09/29/1909/28/2020 urina lysis panel , auto Unknown Analyte Normal Not Available [facility] [address], [place], [address], 09/28/2020 10:02:26 09/29/19 21 09/28/2020 urina lysis panel , auto Unknown Analyte Negati ve Not Available [facility] [address], [place], [address], 09/28/2020 10:02:26 09/29/19 21 09/28/2020 urina lysis panel , auto Unknown Analyte Negati ve Not Available [facility] [address], [place], [address], 09/28/2020 10:02:26 09/29/19 21 09/28/2020 urina lysis panel , auto Unknown Analyte Normal Not Available [facility] [address], [place], [address], 09/28/2020 10:02:26 09/29/19 21 09/28/2020 urina lysis panel , auto Unknown Analyte Normal 1 mg/dl Not Available [facility] [address] [facility] [address], [place], [address], 09/28/2020 10:02:26 09/29/19 21 09/28/2020 urina lysis panel , auto Unknown Analyte Negati ve Not Available [facility] [address], [place], [address], 09/28/2020 10:02:26 09/29/1909/28/2020 urina lysis panel , auto Unknown Analyte Negati ve Not Available [facility] [address], [place], [address], 09/28/2020 10:02:26 09/29/19 21 09/28/2020 urina lysis panel , auto Unknown Analyte 250 Darren/ul Not Available [facility] [address], [place], [address], 09/28/2020 10:02:26 09/29/19 21 09/28/2020 urina lysis panel , auto Unknown Analyte Negati ve Not Available [facility] [address], [place], [address], 09/28/2020 10:02:26 10/04/19 22 10/03/2021 PSA, serum or plasm a PSA 0.42 NG/mL 0.0 - 4.0 Not Available [facility] [address], [place], [address], 10/03/2021 14:15:11 10/04/19 22 10/03/2021 urina lysis panel , auto Unknown Analyte Clean Catch Not Available [facility] [address], [place], [address], 10/03/2021 14:09:29 10/04/19 22 10/03/2021 urina lysis panel , auto Unknown Analyte Yellow Not Available [facility] [address], [place], [address], 10/03/2021 14:09:29 10/04/19 22 10/03/2021 urina lysis panel , auto Unknown Analyte Clear Not Available [facility] [address], [place], [address], 10/03/2021 14:09:29 10/04/19 22 10/03/2021 urina lysis panel , auto Unknown Analyte 1.020 Not Available [facility] [address], [place], [address], 10/03/2021 14:09:29 10/04/19 22 10/03/2021 urina lysis panel , auto Unknown Analyte 1.003- 1.035 Not Available [facility] [address], [place], [address], 10/03/2021 14:09:29 10/04/19 22 10/03/2021 urina lysis panel , auto Unknown Analyte 6.0 Not Available [facility] [address], [place], [address], 10/03/2021 14:09:29 10/04/19 22 10/03/2021 urina lysis panel , auto Unknown Analyte 5.0-8. 0 Not Available [facility] [address], [place], [address], 10/03/2021 14:09:29 10/04/19 22 10/03/2021 urina lysis panel , auto Unknown Analyte Negati ve Not Available [facility] [address], [place], [address], 10/03/2021 14:09:29 10/04/19 22 10/03/2021 urina lysis panel , auto Unknown Analyte Negati ve Not Available [facility] [address], [place], [address], 10/03/2021 14:09:29 10/04/19 22 10/03/2021 urina lysis panel , auto Unknown Analyte Negati ve Not Available [facility] [address], [place], [address], 10/03/2021 14:09:29 10/04/19 22 10/03/2021 urina lysis panel , auto Unknown Analyte Negati ve Not Available [facility] [address], [place], [address], 10/03/2021 14:09:29 10/04/19 22 10/03/2021 urina lysis panel , auto Unknown Analyte Negati ve Not Available [facility] [address], [place], [address], 10/03/2021 14:09:29 10/04/19 22 10/03/2021 urina lysis panel , auto Unknown Analyte Negati ve Not Available [facility] [address], [place], [address], 10/03/2021 14:09:29 10/04/19 22 10/03/2021 urina lysis panel , auto Unknown Analyte Normal Not Available [facility] [address], [place], [address], 10/03/2021 14:09:29 10/04/19 22 10/03/2021 urina lysis panel , auto Unknown Analyte Normal Not Available [facility] [address], [place], [address], 10/03/2021 14:09:29 10/04/19 22 10/03/2021 urina lysis panel , auto Unknown Analyte Negati ve Not Available [facility] [address], [place], [address], 10/03/2021 14:09:29 10/04/19 22 10/03/2021 urina lysis panel , auto Unknown Analyte Negati ve Not Available [facility] [address], [place], [address], 10/03/2021 14:09:29 10/04/19 22 10/03/2021 urina lysis panel , auto Unknown Analyte Normal Not Available [facility] [address], [place], [address], 10/03/2021 14:09:29 10/04/19 22 10/03/2021 urina lysis panel , auto Unknown Analyte Normal 1 mg/dl Not Available [facility] [address], [place], [address], 10/03/2021 14:09:29 10/04/19 22 10/03/2021 urina lysis panel , auto Unknown Analyte Negati ve Not Available [facility] [address] [facility] [address], [place], [address], 10/03/2021 14:09:29 10/04/19 22 10/03/2021 urina lysis panel , auto Unknown Analyte Negati ve Not Available [facility] [address] [facility] [address], [place], [address], 10/03/2021 14:09:29 10/04/19 22 10/03/2021 urina lysis panel , auto Unknown Analyte 50 Darren/ul Not Available [facility] [address] [facility] [address], [place], [address], 10/03/2021 14:09:29 10/04/19 22 10/03/2021 urina lysis panel , auto Unknown Analyte Negati ve Not Available [facility] [address] [place] [address] [address], [place], [address], 10/03/2021 14:09:29 10/10/19 23 10/09/2022 URINE CULTU RE results Sourc e: CCUR Colle cted: 10/09 16:31 Site: Recei maxine : 10/10 10:20 URINE CULTU RE FINAL 10/13 11:46 10/11 ISOLA TE #1 COLON Y COUNT : > 100,0 00 CFU/M L Proba ble Staph yloco ccus sp.; ID and sensi tivit y in progr ess. 10/13 See [place] Resul t(s) Below ISOLA ROSI AND SENSI TIVIT Y RESUL TS [place] 01 Staph yloco ccus inter mediu s __ [place] ORG# 01 ANTIB IOTIC S KRISHNA [...] S Vanco mycin 2 S Not Available [facility] [address] [place] [address], [address], 10/13/2022 11:46:16 10/11/19 23 10/10/2022 PSA, serum or plasm a PSA 1.1 NG/mL 0.0 - 4.0 Not Available [facility] [address], [place], [address], 10/10/2022 07:47:40 10/11/19 23 10/10/2022 urina lysis panel , auto Unknown Analyte Clean Catch Not Available [facility] [address], [place], [address], 10/10/2022 07:21:04 10/11/19 23 10/10/2022 urina lysis panel , auto Unknown Analyte Yellow Not Available [facility] [address], [place], [address], 10/10/2022 07:21:04 10/11/19 23 10/10/2022 urina lysis panel , auto Unknown Analyte Hazy Not Available [facility] [address], [place], [address], 10/10/2022 07:21:04 10/11/19 23 10/10/2022 urina lysis panel , auto Unknown Analyte 1.010 Not Available [facility] [address], [place], [address], 10/10/2022 07:21:04 10/11/19 23 10/10/2022 urina lysis panel , auto Unknown Analyte 1.003- 1.035 Not Available [facility] [address], [place], [address], 10/10/2022 07:21:04 10/11/19 23 10/10/2022 urina lysis panel , auto Unknown Analyte 7.0 Not Available [facility] [address], [place], [address], 10/10/2022 07:21:04 10/11/19 23 10/10/2022 urina lysis panel , auto Unknown Analyte 5.0-8. 0 Not Available [facility] [address], [place], [address], 10/10/2022 07:21:04 10/11/19 23 10/10/2022 urina lysis panel , auto Unknown Analyte 500 Alina/ul (++) Not Available [facility] [address], [place], [address], 10/10/2022 07:21:04 10/11/19 23 10/10/2022 urina lysis panel , auto Unknown Analyte Negati ve Not Available [facility] [address], [place], [address], 10/10/2022 07:21:04 10/11/19 23 10/10/2022 urina lysis panel , auto Unknown Analyte Negati ve Not Available [facility] [address], [place], [address], 10/10/2022 07:21:04 10/11/19 23 10/10/2022 urina lysis panel , auto Unknown Analyte Negati ve Not Available [facility] [address], [place], [address], 10/10/2022 07:21:04 10/11/19 23 10/10/2022 urina lysis panel , auto Unknown Analyte 100 mg/dl (++) Not Available [facility] [address], [place], [address], 10/10/2022 07:21:04 10/11/19 23 10/10/2022 urina lysis panel , auto Unknown Analyte Negati ve Not Available [facility] [address], [place], [address], 10/10/2022 07:21:04 10/11/19 23 10/10/2022 urina lysis panel , auto Unknown Analyte Normal Not Available [facility] [address], [place], [address], 10/10/2022 07:21:04 10/11/19 23 10/10/2022 urina lysis panel , auto Unknown Analyte Normal Not Available [facility] [address], [place], [address], 10/10/2022 07:21:04 10/11/19 23 10/10/2022 urina lysis panel , auto Unknown Analyte Negati ve Not Available [facility] [address], [place], [address], 10/10/2022 07:21:04 10/11/19 23 10/10/2022 urina lysis panel , auto Unknown Analyte Negati ve Not Available [facility] [address], [place], [address], 10/10/2022 07:21:04 10/11/19 23 10/10/2022 urina lysis panel , auto Unknown Analyte Normal Not Available [facility] [address], [place], [address], 10/10/2022 07:21:04 10/11/19 23 10/10/2022 urina lysis panel , auto Unknown Analyte Normal 1 mg/dl Not Available [facility] [address], [place], [address], 10/10/2022 07:21:04 10/11/19 23 10/10/2022 urina lysis panel , auto Unknown Analyte Negati ve Not Available [facility] [address], [place], [address], 10/10/2022 07:21:04 10/11/19 23 10/10/2022 urina lysis panel , auto Unknown Analyte Negati ve Not Available [facility] [address], [place], [address], 10/10/2022 07:21:04 10/11/19 23 10/10/2022 urina lysis panel , auto Unknown Analyte 250 Darren/ul Not Available [facility] [address], [place], [address], 10/10/2022 07:21:04 10/11/19 23 10/10/2022 urina lysis panel , auto Unknown Analyte Negati ve Not Available [facility] [address], [place], [address], 10/10/2022 07:21:04 12/02/19 24 12/02/2023 urina lysis panel , auto Unknown Analyte Clean Catch Not Available [facility] [address], [place], [address], 12/02/2023 12:28:39 12/02/19 24 12/02/2023 urina lysis panel , auto Unknown Analyte Yellow Not Available [facility] [address], [place], [address], 12/02/2023 12:28:39 12/02/19 24 12/02/2023 urina lysis panel , auto Unknown Analyte Clear Not Available [facility] [address], [place], [address], 12/02/2023 12:28:39 12/02/19 24 12/02/2023 urina lysis panel , auto Unknown Analyte 1.015 Not Available [facility] [address], [place], [address], 12/02/2023 12:28:39 12/02/19 24 12/02/2023 urina lysis panel , auto Unknown Analyte 1.003- 1.035 Not Available [facility] [address], [place], [address], 12/02/2023 12:28:39 12/02/19 24 12/02/2023 urina lysis panel , auto Unknown Analyte 6.0 Not Available [facility] [address], [place], [address], 12/02/2023 12:28:39 12/02/19 24 12/02/2023 urina lysis panel , auto Unknown Analyte 5.0-8. 0 Not Available [facility] [address], [place], [address], 12/02/2023 12:28:39 12/02/19 24 12/02/2023 urina lysis panel , auto Unknown Analyte Negati ve Not Available [facility] [address], [place], [address], 12/02/2023 12:28:39 12/02/19 24 12/02/2023 urina lysis panel , auto Unknown Analyte Negati ve Not Available [facility] [address], [place], [address], 12/02/2023 12:28:39 12/02/19 24 12/02/2023 urina lysis panel , auto Unknown Analyte Negati ve Not Available [facility] [address], [place], [address], 12/02/2023 12:28:39 12/02/19 24 12/02/2023 urina lysis panel , auto Unknown Analyte Negati ve Not Available [facility] [address], [place], [address], 12/02/2023 12:28:39 12/02/19 24 12/02/2023 urina lysis panel , auto Unknown Analyte Trace Not Available [facility] [address], [place], [address], 12/02/2023 12:28:39 12/02/19 24 12/02/2023 urina lysis panel , auto Unknown Analyte Negati ve Not Available [facility] [address], [place], [address], 12/02/2023 12:28:39 12/02/19 24 12/02/2023 urina lysis panel , auto Unknown Analyte Normal Not Available [facility] [address], [place], [address], 12/02/2023 12:28:39 12/02/19 24 12/02/2023 urina lysis panel , auto Unknown Analyte Normal Not Available [facility] [address], [place], [address], 12/02/2023 12:28:39 12/02/19 24 12/02/2023 urina lysis panel , auto Unknown Analyte Negati ve Not Available [facility] [address], [place], [address], 12/02/2023 12:28:39 12/02/19 24 12/02/2023 urina lysis panel , auto Unknown Analyte Negati ve Not Available [facility] [address], [place], [address], 12/02/2023 12:28:39 12/02/19 24 12/02/2023 urina lysis panel , auto Unknown Analyte Normal Not Available [facility] [address], [place], [address], 12/02/2023 12:28:39 12/02/19 24 12/02/2023 urina lysis panel , auto Unknown Analyte Normal 1 mg/dl Not Available [facility] [address], [place], [address], 12/02/2023 12:28:39 12/02/19 24 12/02/2023 urina lysis panel , auto Unknown Analyte Negati ve Not Available [facility] [address], [place], [address], 12/02/2023 12:28:39 12/02/19 24 12/02/2023 urina lysis panel , auto Unknown Analyte Negati ve Not Available [facility] [address], [place], [address], 12/02/2023 12:28:39 12/02/19 24 12/02/2023 urina lysis panel , auto Unknown Analyte Negati ve Not Available [facility] [address], [place], [address], 12/02/2023 12:28:39 12/02/19 24 12/02/2023 urina lysis panel , auto Unknown Analyte Negati ve Not Available [facility] [address] [facility] [address], [place], [address], 12/02/2023 12:28:39 12/02/19 24 12/02/2023 PSA, serum or plasm a PSA 0.67 NG/mL 0.0 - 4.0 Not Available [facility] [address] [address], [place], [address], 12/02/2023 12:28:24 12/15/19 25 12/14/2024 urina lysis panel , auto Unknown Analyte Clean Catch Not Available [facility] [address] [facility] [address], [place], [address], 12/14/2024 11:30:02 12/15/19 25 12/14/2024 urina lysis panel , auto Unknown Analyte Yellow Not Available [facility] [address], [place], [address], 12/14/2024 11:30:02 12/15/19 25 12/14/2024 urina lysis panel , auto Unknown Analyte Clear Not Available [facility] [address], [place], [address], 12/14/2024 11:30:02 12/15/19 25 12/14/2024 urina lysis panel , auto Unknown Analyte 1.020 Not Available [facility] [address], [place], [address], 12/14/2024 11:30:02 12/15/19 25 12/14/2024 urina lysis panel , auto Unknown Analyte 1.003 - 1.030 Not Available [facility] [address], [place], [address], 12/14/2024 11:30:02 12/15/19 25 12/14/2024 urina lysis panel , auto Unknown Analyte 5.0 Not Available [facility] [address], [place], [address], 12/14/2024 11:30:02 12/15/19 25 12/14/2024 urina lysis panel , auto Unknown Analyte 5.0 - 8.0 Not Available [facility] [address], [place], [address], 12/14/2024 11:30:02 12/15/19 25 12/14/2024 urina lysis panel , auto Unknown Analyte Negati ve Not Available [facility] [address], [place], [address], 12/14/2024 11:30:02 12/15/19 25 12/14/2024 urina lysis panel , auto Unknown Analyte Negati ve Not Available [facility] [address], [place], [address], 12/14/2024 11:30:02 12/15/19 25 12/14/2024 urina lysis panel , auto Unknown Analyte Negati ve Not Available [facility] [address], [place], [address], 12/14/2024 11:30:02 12/15/19 25 12/14/2024 urina lysis panel , auto Unknown Analyte Negati ve Not Available [facility] [address], [place], [address], 12/14/2024 11:30:02 12/15/19 25 12/14/2024 urina lysis panel , auto Unknown Analyte 100 mg/dL Not Available [facility] [address], [place], [address], 12/14/2024 11:30:02 12/15/19 25 12/14/2024 urina lysis panel , auto Unknown Analyte Negati ve Not Available [facility] [address], [place], [address], 12/14/2024 11:30:02 12/15/19 25 12/14/2024 urina lysis panel , auto Unknown Analyte Normal Not Available [facility] [address], [place], [address], 12/14/2024 11:30:02 12/15/19 25 12/14/2024 urina lysis panel , auto Unknown Analyte Normal Not Available [facility] [address], [place], [address], 12/14/2024 11:30:02 12/15/19 25 12/14/2024 urina lysis panel , auto Unknown Analyte Negati ve Not Available [facility] [address], [place], [address], 12/14/2024 11:30:02 12/15/19 25 12/14/2024 urina lysis panel , auto Unknown Analyte Negati ve Not Available [facility] [address], [place], [address], 12/14/2024 11:30:02 12/15/19 25 12/14/2024 urina lysis panel , auto Unknown Analyte Normal Not Available [facility] [address], [place], [address], 12/14/2024 11:30:02 12/15/19 25 12/14/2024 urina lysis panel , auto Unknown Analyte Normal Not Available [facility] [address], [place], [address], 12/14/2024 11:30:02 12/15/19 25 12/14/2024 urina lysis panel , auto Unknown Analyte Negati ve Not Available [facility] [address], [place], [address], 12/14/2024 11:30:02 12/15/19 25 12/14/2024 urina lysis panel , auto Unknown Analyte Negati ve Not Available [facility] [address], [place], [address], 12/14/2024 11:30:02 12/15/19 25 12/14/2024 urina lysis panel , auto Unknown Analyte Negati ve Not Available [facility] [address], [place], [address], 12/14/2024 11:30:02 12/15/19 25 12/14/2024 urina lysis panel , auto Unknown Analyte Negati ve Not Available [facility] [address], [place], [address], 12/14/2024 11:30:02 12/23/19 24 12/23/2023 US, retro perit oneum , limit ed No observ ation record ed. IMER Not Available 2023 17:14:52 Result Notes None recorded. Problems Name Problem SNOMED Code Status Onset Date Resolution Date Notes Provider Name and Address Organization Details Recorded Time Calculus of kidney and ureter 562336925 Active 2014 From Automated Load;Prov ider: Rolf Doe Jr;St atus: Active Not Available [facility] 6 09:06:25 Kidney stone 13326944 Active 2014 Provider: Pietro Doe JrSt atus: Active Not Available [facility] 6 09:06:25 Ureteric stone 71962267 Active 2014 Provider: Rolf Doe Jr;St atus: Active Not Available [facility] 6 09:06:25 Sunady hematuria 656937455 Active 2015 From Automated Load;Prov ider: Rolf Doe Jr;St atus: Active Not Available [facility] 6 09:06:25 Epididymi tis 20904549 Active 2015 From Automated Load;Prov ider: Rolf Doe Jr;St atus: Active Not Available [facility] 6 09:06:25 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 47250007665 101 Active 2015 From Automated Load;Prov ider: Rolf Doe Jr; atus: Active Not Available [facility] 6 09:06:25 Nocturia 941095939 Active 2015 From Automated Load;Prov ider: Rolf Doe Jr; atus: Active Not Available [facility] 6 09:06:25 Prostate nodule 17742196971 9109 Active 2022 ROLF DOE JR, MD [address] [place] [address], [address] , [facility] 3 10:20:35 Acute urinary tract infection 754264263 Active 2022 ROLF DOE JR, MD [address] [place] [address], [address] , [facility] 3 10:20:35 Problem Notes None recorded. Medical Equipment None Reported. Allergies Allergen ID Allergen Name Allergen Category Reaction Reaction Severity Criticality Documentation Date Start Date Code Code System Note Provider Name and Address Organization Details Recorded Time 563325 Flomax medicatio n Not available Not available Not available 05/09/20162012 83374 3 RxNorm Comme nt: Creat ed By: Fabiano Mario rt;Cr eated Date: 2012 1:16: 29 PM; Not Available [facility] 6 03:08:20 295055 sotalol hydrochlo ride medicatio n Not available Not available Not available 05/09/20162014 7008 RxNorm Comme nt: Creat ed By: Lewis bell Date: 2014 1:36: 35 PM; Not Available [facility] 6 06:21:01 111723 iodine medicatio n Not available Not available Not available 05/09/20162012 5933 RxNorm Comme nt: Creat ed By: [facility] rt ICCha rt;Cr eated Date: 2012 1:16: 40 PM; Not Available [facility] 6 09:08:45 683758 acetamino phen / hydrocodo ne medicatio n Not available Not available Not available 05/09/20162012 67900 2 RxNorm Comme nt: Creat ed By: [facility] rt;Cr eated Date: 2012 1:16: 49 PM; Not Available [facility] 6 09:08:45 108293 Product containin g penicilli n (product) medicatio n Not available Not available Not available 05/09/20162012 60246 8001 SNOMED Comme nt: Creat ed By: [facility] rt;Cr eated Date: 2012 1:17: 02 PM; Not Available [facility] 6 09:08:45 834695 codeine medicatio n Not available Not available Not available 05/09/20162012 2670 RxNorm Comme nt: Creat ed By: [facility] rt;Cr eated Date: 2012 1:16: 17 PM; Not Available [facility] 6 10:37:35 Medications Name Sig Start Date [...] tablet Daily 10/10 completed Frequen cy: daily;Dequan edicati on Descrip tion: warfari n; Dosage: [...] Duratio n: 30 days;Fr equency : daily;Dequan edicati on Descrip tion: aspirin ; Dosage: 1; [...] Address Organization Details Last Updated DateTime 09/28/2020 45526.07 g 30.6 kg/m2 172.72 cm Izabel Haley [facility] 09/28/2020 10:04:47 Date Recorded Body height Body mass index (BMI) Body weight Provider Name and Address Organization Details Last Updated DateTime 10/03/2021 172.72 cm 30.6 kg/m2 82673.07 g Eloise Daly [facility] 10/03/2021 14:08:58 Date Recorded Body height Body mass index (BMI) Body weight Provider Name and Address Organization Details Last Updated DateTime 10/09/2022 172.72 cm 27.7 kg/m2 27202.81 g Addis Cabrales [facility] 10/10/2022 07:19:58 Date Recorded Body weight Provider Name an d Address Organization Details Last Updated DateTime 12/14/2024 57284.63 g Ewa Wiseman [facility] 12/14/2024 11:54:20 Social History Question Answer Notes LastModified by Organizat ion Details LastModified Time Tobacco Smoking Status Never Smoker Ella turk, [facility] 04/10/2017 10:57:31 How Much Tobacco Do You Chew? None [email or web address] Information not available 09/02/2018 What Was The Date Of Your Most Recent Tobacco Screening? 12/14/2024 [email or web address] Information not available 12/14/2024 How Much Tobacco Do You Smoke? No [email or web address] Information not available 03/10/2019 Sex: Unknown Functional [...] SNOMED-CT Code Diagnosis ICD10 Code Diagnosis Note [id number] ROLF DOE JR, MD [facility] [address] [place] [address] 08/08/2016 10:21:41 08/14/2016 15:49:51 Lower urinary tract symptoms due to benign prostatic hypertrophy 9784670284 9101 N40.1 Kidney stone 13161242 N2 0.0 [id number] ROLF DOE JR, MD [facility] [address] [place] [address] 02/12/2017 12:48:37 02/13/2017 08:34:28 Lower urinary tract symptoms due to benign prostatic hypertrophy 3714602478 9101 N40.1 Kidney stone 01138387 N2 0.0 [id number] ROLF DOE JR, MD [facility] [address] [place] [address] 09/03/2017 12:54:23 09/03/2017 13:53:06 Lower urinary tract symptoms due to benign prostatic hypertrophy 0986126705 9101 N40.1 Kidney stone 79095796 N2 0.0 [id number] ROLF DOE JR, MD [facility] [address] [address] 03/04/2018 14:56:13 03/04/2018 15:36:34 Lower urinary tract symptoms due to benign prostatic hypertrophy 8800651131 9101 N40.1 Kidney stone 43513648 N2 0.0 [id number] ROLF DOE JR, MD [facility] [address] [address] 0 09/02/2018 13:13:25 09/02/2018 14:09:12 Lower urinary tract symptoms due to benign prostatic hypertrophy 6732202770 9101 N40.1 Kidney stone 60621376 N2 0.0 [id number] ROLF DOE JR, MD [facility] [address] [address] 03/10/2019 13:17:58 03/10/2019 13:38:20 Lower urinary tract symptoms due to benign prostatic hypertrophy 0162266562 9101 N40.1 Calculus o f kidney and ureter 971158267 N20.2 [id number] ROLF DOE JR, MD [facility] [address] [address] 09/28/2020 09:27:05 09/28/2020 10:16:01 Kidney stone 78095713 N20.0 Lower urin colby tract symptoms due to benign prostatic hypertrophy 3428845207 9101 N40.1 [id number] ROLF DOE JR, MD [facility] [address] [address] 0 10/03/2021 13:46:04 10/03/2021 14:34:07 Kidney stone 36811154 N20.0 Lower urin colby tract symptoms due to benign prostatic hypertrophy 2985918233 9101 N40.1 [id number] ROLF DOE JR, MD [facility] [address] [place] [address] 10/09/2022 13:43:22 10/09/2022 14:04:42 Acute urinary tract infection 169867089 N39.0 Prostate nodule 45921612 01 12624 N40.2 Kidney stone 62314991 N2 0.0 Lower urin colby tract symptoms due to benign prostatic hypertrophy 4718170155 9101 N40.1 [id number] ROLF DOE JR, MD [facility] [address] [address] 12/02/2023 11:21:32 12/02/2023 13:42:22 Calculus of kidney and ureter 964661140 N20.2 Lower urin colby tract symptoms due to benign prostatic hypertrophy 5250769477 9101 N40.1 [id number] ROLF DOE JR, MD [facility] [address],[place] [address] 12/14/2024 11:19:09 12/14/2024 12:07:42 Lower urinary tract symptoms due to benign prostatic hypertrophy 6262884852 9101 N40.1 - Initiate treatment with an Alpha sindhu, monitor blood pressure due to potential hypotensiv e effects. - Follow-up in three to four months to assess symptom improvemen t. Kidney stone 98337439 N2 0.0 Health Concerns Section Related Observation LastModified by Organization Detai ls LastModified Time None Recorded Concern Status LastModified by Organization Details LastModified Time None Recorded Advance Directives Directive None Recorded Payers Insurance Date Sequence Insurance Name Policy Number Policy Curiel Covered Member ID Curiel Member ID Guarantor Name 12/13/2024 1 [place] Ned Cronin [id number] Ned Cronin 12/14/2024 3 [facility] Ned Cronin [id number] Ned Cronin 12/02/2023 2 [employer] (MEDICARE SUPPLEMENT) Ned Cronin 12/14/2024 2 [employer] (MEDICARE SUPPLEMENT) Ned Cronin [id number] Ned Cronin Notes Date Note Type Note Provider Name and Address Organization Details Recorded Time 09/28/2020 text/html In for f/u of BP H and nephrolithiasis. he underwent Urolift procedure on 04/16/2016 with resolution of LUTS. He is quite pleased with outcome of procedure. he does have ah/o nephrolithiasis which is followed conservatively. KUB is reviewed today revealing nonobstructing right nephrolithiasis, stable. Denies recent stone episode/flank pain. ROLF DOE JR, MD [address] [place] [address], [address], [facility] 09/30/2020 16:21:03 10/03/2021 text/html In for f/u of BP H and nephrolithiasis. he underwent Urolift procedure on 04/16/2016 with resolution of LUTS. He is quite pleased with outcome of procedure. he does have ah/o nephrolithiasis which is followed conservatively. KUB is reviewed today revealing nonobstructing nephrolithiasis, stable. Denies recent stone episode/flank pain. ROLF DOE JR, MD [address] [place] [address], [address], [facility] 10/06/2021 18:50:55 10/09/2022 text/html In for f/u of BP H and nephrolithiasis. he underwent Urolift procedure on 04/16/2016 with resolution of LUTS. He is quite pleased with outcome of procedure. he does have ah/o nephrolithiasis which is followed conservatively. KUB is reviewed today revealing nonobstructing nephrolithiasis, stable. Denies recent stone episode/flank pain. ROLF DOE JR, MD [address] [place] [address], [address], [facility] 10/19/2022 10:21:34 12/02/2023 text/html In for f/u of BP H and nephrolithiasis. he underwent Urolift procedure on 04/16/2016 with resolution of LUTS. He is quite pleased with outcome of procedure. he does have ah/o nephrolithiasis which is followed conservatively. KUB is reviewed today revealing nonobstructing nephrolithiasis, stable. Denies recent stone episode/flank pain. ROLF DOE JR, MD [address] [place] [address], [address], [facility] 12/06/2023 09:05:42 12/14/2024 text/html The patient is a 79-year-old [...] prostate cancer concerns. ROLF DOE JR, MD [address] [place] [address] [place], [address], [facility] 12/18/2024 10:04:17
--- OUTSIDE RECORDS SUMMARY | 2025-01-04 12:53 | XMS_ITS | Encounter Summary ---
[facility] [address] [place] [id number] Care Team Providers Care Engineer Of System Development Name Role Phone Miguel A Bernabe MD Primary Care Provider [phone] Encounter Details Date Type Department Care Team (Late st Contact Info) Description 05/02/2015 External CPT II [facility] - [facility] Social History Tobacco Use Types Packs/Day Years Used Date Smoking Tobacco: Never Assessed Sex and Gender Information Value Date Recorded Sex Assigned at Not on file Legal Sex Male 10:41 AM EDT Gender Identity Not on file Sexual Orientation Not on file documented as of this encounter Plan of Treatment Upcoming Encounters Date Type Department Care Team (Late st Contact Info) Description 01/25/2025 2:30 PM EDT Office Visit [facility] [address] [place] [address] Lam Schmidt MD [address] [place] [address] documented as of this encounter Visit Diagnoses Not on filedocumented in this encounter Additional Health Concerns Infection Onset Date Last Indicated Resolved Time COVID Screen (preop/placement) 04/23/2020 04/23/2020 04/23/2020 6:13 PM EST COVID (rule out) 11/13/2020 11/14/2020 11/20/2020 9:08 PM EDT documented as of this encounter Care Teams Engineer Of System Development Relationship Specialty Start Date End Date Miguel A Bernabe MD [address] [place], [place] [id number] PCP - General Family Medicine 01/22/22 documented as of this encounter
[2025-01-04 14:11] LABS: PHA INR Fingerstick 2.2 (0.9-1.1)
== END 2025-01-04 14:12 ==
LOC: ACC 12:51
PROVIDERS: PCP Family Medicine; Visit Provider Physician Assistant
DX: I48.0 Paroxysmal atrial fibrillation (principal); Z79.01 Long term (current) use of anticoagulants
CPT/HCPCS: 85610; 99211; G0463

== ENCOUNTER 2025-02-15 13:56 | Outpatient (CLI) | payer MEDICARE, OTHER, SELFPAY ==
[2025-02-15 14:37] LABS: PHA INR Fingerstick 2.5 (0.9-1.1)
== END 2025-02-15 14:38 ==
LOC: ACC 13:57
PROVIDERS: PCP Family Medicine; Visit Provider Physician Assistant
DX: I48.91 Unspecified atrial fibrillation (principal); Z79.01 Long term (current) use of anticoagulants
CPT/HCPCS: 85610; 99211; G0463

== ENCOUNTER 2025-03-27 15:19 | Outpatient (CLI) | payer MEDICARE, OTHER, SELFPAY ==
--- OUTSIDE RECORDS SUMMARY | 2016-02-06 12:57 | XMS_ITS | Encounter Summary ---
Author Organization [facility] Address [address] [place] [address] Care Team Providers Care Corporate Travel Agent Name Role Phone Jong Gutiérrez MD Primary Care Provider [phone] Encounter Details Date Type Department Care Team (Late st Contact Info) Description 02/06/2016 12:57 PM EDT Hospital Encounter [facility] PULMONARY & CRITICAL CARE MEDICINE [address] [place] [phone] Social History Tobacco Use Types Packs/Day Years [...] Description 05/30/2026 9:45 AM EST Office Visit [facility] CARDIOLOGY [address] [facility] [address] [place] [phone] Lam Schmidt MD [address] [facility] [address] [address] [place] [address] documented as of this encounter Procedures Procedure Name Priority Date/Time Associated Diagnosis Comments XR CHEST PA AND LATERAL Routine 02/06/2016 1:00 PM EDT Hemoptysis documented in this encounter Results * XR chest pa and lateral (02/06/2016 1:00 PM EDT) Narrative Aleksandra Overton MA - 02/06/2016 1:00 PM EDT Results sent to laminator printed circuit boards, signed report will be scanned into [employer] once available. Please see performing physicians notes. [...] documented as of this encounter Care Teams Corporate Travel Agent Relationship Specialty Start Date End Date Jong Gutiérrez MD [address] [place] [address] PCP - General 07/11/15 08/06/16 documented as of this encounter
--- OUTSIDE RECORDS SUMMARY | 2019-08-24 13:25 | XMS_ITS | Encounter Summary ---
Author Organization [facility] Address [address] [place] [address] Care Team Providers Care Table Filler Name Role Phone Zo Dailey Primary Care Provider [phone] Encounter Details Date Type Department Care Team (Late st Contact Info) Description 08/24/2019 1:25 PM EDT Hospital Encounter [facility] PULMONARY & CRITICAL CARE MEDICINE [address] [place] [phone] Social History Tobacco Use Types Packs/Day Years [...] Description 05/30/2026 9:45 AM EST Office Visit [facility]IOLOGY [address] [facility] [address] [place] [address] Lam Schmidt MD [address] [facility] [address] [address] [place] [address] documented as of this encounter Procedures Procedure [...] documented as of this encounter Care Teams Table Filler Relationship Specialty Start Date End Date Zo Dailey DO [facility] [place] [address] PCP - General Family Medicine 08/07/16 01/21/22 documented as of this encounter
--- OUTSIDE RECORDS SUMMARY | 2025-03-27 15:22 | XMS_ITS | Clinical Summary ---
Author Organization [facility] ([place], [place], [place], [place]) Address [address] [place] [address] Care Team Providers Care Wad Printing Machine Operator Name Role Phone Unavailable Primary Care Provider Unavailabl e Encounters Date Type Department Care Team Description 01/25/2025 Refill [facility] Urology - [address] [place] [address] Mathew Rinaldi Jr., MD from Last 3 Months Social History Tobacco Use Types Packs/Day Years Used Date Smoking Tobacco: Never Assessed Sex and Gender Information Value Date Recorded Sex Assigned at Not on file Legal Sex Male 4:22 PM CDT Gender Identity Not on file Sexual Orientation Not on file Plan of Treatment Not on file
--- OUTSIDE RECORDS SUMMARY | 2025-03-27 15:22 | XMS_ITS | Encounter Summary ---
Author Organization [facility] Address [address] [place] [address] Care Team Providers Care Sticker Hand Name Role Phone Miguel A Bernabe MD Primary Care Provider [phone] Encounter Details Date Type Department Care Team (Late st Contact Info) Description 05/02/2015 External CPT II PROJECT [employer] - [employer] Social History Tobacco Use [...] Description 05/30/2026 9:45 AM EST Office Visit [facility] [address] [phone] Lam Schmidt MD [address] [facility] [address] [facility] [address] [place] [address] documented as of this encounter Visit Diagnoses Not on filedocumented in this encounter Additional Health Concerns Infection Onset Date Last Indicated Resolved Time COVID Screen (preop/placement) 04/23/2020 04/23/2020 04/23/2020 6:13 PM EST COVID (rule out) 11/13/2020 11/14/2020 11/20/2020 9:08 PM EDT documented as of this encounter Care Teams Sticker Hand Relationship Specialty Start Date End Date Miguel A Bernabe MD [address] [facility] [place] [address] PCP - General Family Medicine 01/22/22 documented as of this encounter
--- OUTSIDE RECORDS SUMMARY | 2025-03-27 15:22 | XMS_ITS | Referral Summary ---
Author Organization [employer] ([place], [place], [place], [place]) Address [address] [place] [address] Care Team Providers Care Facilities Director Name Role Phone Unavailable Primary Care Provider Unavailabl e Encounters Date Type Department Care Team Description 01/25/2025 Refill [facility] Urology - [address] [place] [address] Mathew Rinaldi Jr., MD from [...]
--- OUTSIDE RECORDS SUMMARY | 2025-03-27 15:22 | XMS_ITS | Encounter Summary ---
Author Organization [employer] ([place], [place], [place], [place]) Address [address] [place] [address] Care Team Providers Care Director Of Spa And Guest Experience Name Role Phone Unavailable Primary Care Provider Unavailabl e Reason for Visit * Reason Comments New Med Request Encounter Details Date Type Department Care Team (Late st Contact Info) Description [facility] [address] [place] [address] Mathew Rinaldi Jr., MD [address] [place] [address] [address] [place] [id number] Social History Tobacco Use Types Packs/Day Years Used Date Smoking Tobacco: Never Assessed Sex and Gender Information Value Date Recorded Sex Assigned at Not on file Legal Sex Male 4:22 PM CDT Gender Identity Not on file Sexual Orientation Not on file documented as of this encounter Plan of Treatment Not on file documented as of this encounter Visit Diagnoses Not on filedocumented in this encounter
--- OUTSIDE RECORDS SUMMARY | 2025-03-27 15:22 | XMS_ITS | Clinical Summary ---
Author Organization [facility] Address [address] [place] [id number] Care Team Providers Care Judicial Reporter Name Role Phone Miguel A Bernabe MD Primary Care Provider [phone] Allergies Active Allergy Reactions Criticality Noted Date Comments Amiodarone 03/06/2016 Codeine 01/30/2016 Iodinated Contrast Media 01/30/2016 Contrast media Penicillins 01/30/2016 Sotalol 01/30/2016 Medications furosemide (LASIX) 40 MG tablet TAKE 1 TABLET BY MOUTH ONCE DAILY 30 tablet 5 02/25/20 17 Active Additional Information Patient taking differently: 40 mg Daily, Reported on 01/25/2025 albuterol sulfate HFA 108 (90 Base) MCG/ACT [...] tablet by mouth Daily. 12/04/19 22 Active spironolactone (ALDACTONE) 25 MG tablet Take 1 tablet by mouth Daily. 12/06/19 23 Active alfuzosin (UROXATRAL) 10 MG 24 hr tablet Take 1 tablet by mouth Daily. Active Active Problems Problem Noted Date Diagnosed Date Prostate nodule 10/19/2022 COPD (chronic obstructive pulmonary disease) 04/2020 Dependence on nocturnal oxygen therapy 7 Atrial flutter 03/06/2016 Overview (03/06/2016): 1. Atrial flutter, status post electrophysiology study with radiofrequency ablation of a right atrial isthmus-dependent flutter on 04/10/2003. History of NH (myocardial infarction) 03/06/2016 Overview (03/06/2016): 1. 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 01/25/2025 Travel 01/16/2025 Travel from Last 3 Months Immunizations Immunization Administration Dates Next Due COVID-19 [...] Orientation Straight 01/18/2025 1: 01 PM EDT Last Filed Vital Signs Vital Sign Reading Time Taken Comments Blood Pressure 136/58 01/25/2025 2:01 PM EDT Pulse 62 01/25/2025 2:01 PM EDT Temperature 36.7 C (98.1 F) 04/04/2021 2:48 PM EDT Respiratory Rate 16 03/06/2017 11:34 AM EDT Oxygen Saturation 96% 01/25/2025 2:01 PM EDT Inhaled Oxygen Concentration - - Weight 81.4 kg (179 lb 6.4 oz) 01/25/2025 2:01 P M EDT Height 172.7 cm (5' 8 ) 01/25/2025 2:01 PM EDT Body Mass Index 27.28 01/25/2025 2:01 PM EDT Plan of Treatment Upcoming Encounters Date Type Department Care Team (Late st Contact Info) Description 05/30/2026 9:45 AM EST Office Visit [facility] [address] [facility] [address] [place] [address] Lam Schmidt MD [address] [facility] [address] [place] [address] Health Maintenance Due Date Last Done Comments [...] (1 - 1- dose 75+ series) 2021 INFLUENZA VACCINE 01/13/2025 05/10/2018 COVID-19 Vaccine ( season) 2025, 07/11/2020 TDAP/TD VACCINES (2 - Td or Tdap) 11/21/2032 023 LUNG CANCER SCREENING Discontinued 09/08/2014, 014 Procedures Procedure Name Priority Date/Time Associated Diagnosis Comments ECG 12-LEAD Routine 01/25/2025 Atypical atrial flutter Hypertrophic cardiomyopathy AR (obstructive sleep apnea) Chronic obstructive pulmonary disease, unspecified COPD type 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 CT CHEST WO CONTRAST DIAGNOSTIC Routine 09/08/2014 6:06 PM EDT LIPID PANEL Routine 09/08/2014 9:22 AM EDT from Last 3 Months or Most Recently Relevant to Health Maintenance Results * ECG 12-LEAD (01/25/2025) Narrative 01/25/2025 Lam Schmidt MD 01/25/2025 5:01 PM ECG 12 Lead Date/Time: 01/25/2025 5:00 PM Performed by: Lam Schmidt MD Authorized by: Lam Schmidt MD Comparison: compared with previous ECG from 02/02/2024 Similar to previous ECG Rhythm: atrial flutter BPM: 62 Procedure Note Lam Schmidt MD - 01/25/2025 2:30 PM EDT Ned Pako Cronin 1945 Home phone not available 01/25/2025 [facility] Referring Provider: No ref. provider found Miguel A Bernabe MD [address] [place] [id number] Chief Complaint Patient presents with NOGUEIRA (dyspnea [...] heart catheterization, 04/28/2002: A 95% ostial septal machine tracer,eccentric 40%, mid-LAD plaque, grossly normal left ventricular [...] nosignificant ischemia low to intermediate risk 11/15/2021 LHC at [facility] with stents to LM and LAD [...] , Rfl: Vitamin D, Cholecalciferol, 50 MCG (1999 UT) capsule, Take 1 capsule bymouth Daily., [...] by: Lam Schmidt MD Authorized by: Lam Shcmidt MD Comparison: compared with previousECG from 02/02/2024 Similar to previous ECG Rhythm: atrial flutter BPM: 62 Advance Care Planning ACP discussion was declined by the patient. Patient does not have anadvance directive, declines further assistance. 1. Atypical atrial flutter 2. Hypertrophic cardiomyopathy 3. AR (obstructive sleep apnea) 4. Chronic obstructive pulmonary disease, unspecified COPD type 5. 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 Long discussion with the patient today. Would notpursue more aggressive measures in maintaining sinus rhythm. 2) Hypertrophic cardiomyopathy. Per power machine operator. Continuebeta-blockers. Continue present medications. 3) Anticoagulation Continue warfarin, INR's 4) AR: Bipap 5) CAD: recent [facility] results noted. F/up in 12 months us Lam Schmidt MD ECG ORDERABLES Final Result * CT chest wo contrast (09/08/2014 6:06 [...] RAGHAV MONTANEZ Released Date Time- 09/09/14 1324 Radio/Tv Technician- Varsha. Procedure Note Raghav Lange MD - 03/07/2015 [...] RAGHAV MONTANEZ Released Date Time- 09/09/14 1324 Radio/Tv Technician- L.S. Emile Lyon MD [facility] CT ORDERABLES Anne-Marie l Result * (ABNORMAL) Lipid panel (09/08/2014 9:22 AM EDT) Total Cholesterol 184 0 - 200 mg/dL [facility] Comment: DF by IF @ 09/08/2014 09:41 Cholesterol Reference Ranges: Desirable: less than 200 mg/dL Borderline: 200-239 mg/dL High: greater than 239 mg/dL Triglycerides 85 0 - 150 mg/dL [facility] Comment: DF by IF @ 09/08/2014 09:41 Triglyceride Reference Ranges: Normal less than 150 mg/dL Borderline 150-199 mg/dL High 200-499 mg/dL Very High greater than 499 mg/dL HDL Cholesterol 40 40 - 60 mg/dL [facility] Comment: DF by IF @ 09/08/2014 09:41 HDL Cholesterol Reference Ranges: Low less than 40 mg/dL High greater than 59 mg/dL LDL Cholesterol 133(H) 0 - 130 mg/dL [facility] Comment: US by IF @ 09/08/2014 09:41 LDL Cholesterol Reference Ranges: Optimal less than 100 mg/dL Near Optimal 100-129 mg/dL Borderline 130-159 mg/dL High 160-189 mg/dL Very High greater than 189 mg/dL Blood specimen (specimen) 09/08/2014 9:22 AM EDT Narrative [facility] - 09/08/2014 9:41 AM EDT Specimen Type: Blood Alo Patsrana MD LAB BLOOD ORDERABLES Final Re sult [facility] [address] [place] [address], from Last 3 Months or Most Recently Relevant to Health Maintenance Insurance MEDICARE A & [facility] Care Teams Judicial Reporter Relationship Specialty Start Date End Date Miguel A Bernabe MD [address] [place] [id number] PCP - General Family Medicine 01/22/22
[2025-03-27 16:15] LABS: PHA INR Fingerstick 2.0 (0.9-1.1)
== END 2025-03-27 16:16 ==
LOC: ACC 15:20
PROVIDERS: PCP Family Medicine; Visit Provider Physician Assistant
DX: I48.0 Paroxysmal atrial fibrillation (principal); Z79.01 Long term (current) use of anticoagulants
CPT/HCPCS: 85610; 99211; G0463

== ENCOUNTER 2025-03-31 13:36 | Outpatient (CLI) | payer MEDICARE, OTHER, SELFPAY ==
--- OUTSIDE RECORDS SUMMARY | 2025-03-31 13:39 | XMS_ITS | Referral Summary ---
Author Organization [employer] ([place], [place], [place], [place]) Address [address] [place] [address] Care Team Providers Care Event Promotions Coordinator Name Role Phone Unavailable Primary Care Provider Unavailabl e Encounters Date Type Department Care Team Description 01/25/2025 Refill [facility] Urology - [address] [place] [address] Mathew Rinaldi Jr., MD from [...]
--- OUTSIDE RECORDS SUMMARY | 2025-03-31 13:40 | XMS_ITS | Clinical Summary ---
Author Organization [employer] ([place], [place], [place], [place]) Address [address] [place] [address] Care Team Providers Care Door Captain Name Role Phone Unavailable Primary Care Provider Unavailabl e Encounters Date Type Department Care Team Description 01/25/2025 Refill [facility] Urology - [address] [place] [address] Mathew Rinaldi Jr., MD from [...]
--- OUTSIDE RECORDS SUMMARY | 2025-03-31 13:40 | XMS_ITS | Encounter Summary ---
Author Organization [employer] ([place], [place], [place], [place]) Address [address] [place] [address] Care Team Providers Care Digital Marketing Manager Name Role Phone Unavailable Primary Care Provider Unavailabl e Reason for Visit * Reason Comments New Med Request Encounter Details Date Type Department Care Team (Late st Contact Info) Description [facility] [address] [place] [address] Mathew Rinaldi Jr., MD [address] [place] [address] [address] [place] [id number] Social History Tobacco Use Types Packs/Day Years [...]
--- NOTE | 2025-03-31 14:00 | CT_ITS ---
FINAL REPORT TECHNIQUE: Axial CT images through the temporal bones was performed without intravenous contrast, and sagittal and coronal reconstructions were obtained. This study was performed with techniques to keep radiation doses as low as reasonably achievable (ALARA). Individualized dose reduction techniques using automated exposure control or adjustment of mA and/or kV according to the patient's size were employed. CLINICAL HISTORY: LEFT SIDED HEARING LOSS COMPARISON: None FINDINGS: CT FACIAL BONES, TEMPORAL BONES: Thin section examinations through the temporal bones were obtained. The middle ear cavities are clear bilaterally. The ossicles are intact. No acute bony abnormality is identified. The mastoid air cells are clear. The internal auditory canals are intact as well. There is asymmetric narrowing of the left external auditory canal near the auricle, that may be secondary to skin thickening or a normal anatomical evaluation. Correlation with clinical exam is suggested. IMPRESSION: 1. No evidence of mastoiditis or middle ear abnormality. 2. Asymmetric narrowing of the left external auditory canal as described, that may be secondary to skin thickening or a normal anatomic variant. Correlate with clinical exam. Reviewed, Interpreted and Dictated by Kyle Servin MD Transcribed by Jennifer Cabrales Authenticated and [facility]
--- NOTE | 2025-03-31 14:00 | CT_ITS ---
FINAL REPORT TECHNIQUE: Thin section axial CT with coronal reconstruction without IV contrast This study was performed with techniques to keep radiation doses as low as reasonably achievable, (ALARA). Individualized dose reduction techniques using automated exposure control or adjustment of mA and/or kV according to the patient's size were employed. CLINICAL HISTORY: rule out sinusitis COMPARISON: None FINDINGS: No fracture is present. Paranasal sinuses are clear. The TMJs are intact. There is mild nasal septal deviation to the left. The ostiomeatal complexes are unremarkable. The mastoid air cells are also unremarkable. IMPRESSION: No evidence of acute or chronic sinusitis. Mild nasal septal deviation to the left. Reviewed, Interpreted and Dictated by Kyle Servin MD Transcribed by Jennifer Cabrales Authenticated and [facility]
== END 2025-03-31 23:59 | disposition home or self-care (01) ==
LOC: RAD 13:37
PROVIDERS: PCP Family Medicine; Visit Provider Nurse Practitioner
DX: H61.302 Acquired stenosis of left external ear canal, unspecified (principal); J34.2 Deviated nasal septum; H91.92 Unspecified hearing loss, left ear; H73.892 Other specified disorders of tympanic membrane, left ear; J32.9 Chronic sinusitis, unspecified
CPT/HCPCS: 70486

== ENCOUNTER 2025-04-03 11:43 | Outpatient (CLI) | payer MEDICARE, OTHER, SELFPAY ==
--- OUTSIDE RECORDS SUMMARY | 2016-02-06 12:57 | XMS_ITS | Encounter Summary ---
Author Organization [facility] Address [address] [place] [address] Care Team Providers Care Insulation Estimator Name Role Phone Jong Gutiérrez MD Primary Care Provider [phone] Encounter Details Date Type Department Care Team (Late st Contact Info) Description 02/06/2016 12:57 PM EDT Hospital Encounter [facility] PULMONARY & CRITICAL CARE MEDICINE [address] [place] [phone] Social History Tobacco Use Types Packs/Day Years [...] Description 05/30/2026 9:45 AM EST Office Visit [facility] CARDIOLOGY [address] [facility] [address] [place] [phone] Lam Schmidt MD [address] [facility] [address] [place] [address] documented as of this encounter Procedures Procedure Name Priority Date/Time Associated Diagnosis Comments XR CHEST PA AND LATERAL Routine 02/06/2016 1:00 PM EDT Hemoptysis documented in this encounter Results * XR chest pa and lateral (02/06/2016 1:00 PM EDT) Narrative Aleksandra Overton MA - 02/06/2016 1:00 PM EDT Results sent to carton wrapper, signed report will be scanned into [employer] once available. Please see performing physicians notes. [...] documented as of this encounter Care Teams Insulation Estimator Relationship Specialty Start Date End Date Jong Gutiérrez MD [address] [place] [address] PCP - General 07/11/15 08/06/16 documented as of this encounter
--- OUTSIDE RECORDS SUMMARY | 2019-08-24 13:25 | XMS_ITS | Encounter Summary ---
Author Organization [facility] Address [address] [place] [address] Care Team Providers Care Business Info Consultant Name Role Phone Zo Dailey Primary Care Provider [phone] Encounter Details Date Type Department Care Team (Late st Contact Info) Description 08/24/2019 1:25 PM EDT Hospital Encounter [facility] PULMONARY & CRITICAL CARE MEDICINE [address] [place] [phone] Social History Tobacco Use Types Packs/Day Years [...] Description 05/30/2026 9:45 AM EST Office Visit [facility]IOLOGY [address] [facility] [address] [place] [phone] Lam Schmidt MD [address] [facility] [address] [address] [place] [address] documented as of this encounter Procedures Procedure [...] documented as of this encounter Care Teams Business Info Consultant Relationship Specialty Start Date End Date Zo Dailey DO [facility] [place] [address] PCP - General Family Medicine 08/07/16 01/21/22 documented as of this encounter
[2025-04-03 21:02] LABS: Hematocrit 42.3 % (42.0-52.0); Hemoglobin 13.5 g/dL (14.1-18.0); Immature Granulocytes % 0.2 %; Mean Corpuscular HGB Conc 31.9 g/dL (31.8-35.4); Mean Corpuscular Hemoglobin 32.1 pg (27.0-31.2); Mean Corpuscular Volume 100.7 fl (80-94); Nucleated Red Blood Cells % 0 %; Platelet Count 146 K/mm3 (142-424); Red Blood Count 4.20 M/mm3 (4.60-6.20); Red Cell Distribution Width-SD 55.8 fL; White Blood Count 4.5 K/mm3 (4.8-10.8)
[2025-04-03 21:24] LABS: Alanine Aminotransferase 32 U/L (12-78); Albumin Level 3.9 g/dl (3.5-5.0); Albumin/Globulin Ratio 1.5 (1.1-1.8); Alkaline Phosphatase 118 U/L (38-126); Anion Gap 12.0 mEq/L (5-15); Aspartate Amino Transferase 48 U/L (17-59); Bilirubin,Total 1.3 mg/dl (0.2-1.3); Blood Urea Nitrogen 29 mg/dl (9-20); Calcium 9.8 mg/dl (8.4-10.2); Carbon Dioxide 27 mmol/L (22.0-30.0); Chloride 107 mmol/L (98-107); Cholesterol 111 mg/dl (140-200); Creatinine,Serum 1.50 mg/dl (0.66-1.25); Estimated Glomerular Filt Rate 45 ml/min (>60); GFR (African American) 55 ML/MIN (>60); Globulin 2.6 g/dL (1.3-3.2); Glucose 96 mg/dl (74-100); HDL Cholesterol 45 mg/dl (40-60); Potassium 5.0 mmoL/L (3.5-5.1); Sodium 141 mmol/L (136-145); Total Protein,Serum 6.5 g/dl (6.3-8.2); Triglycerides 68 mg/dl (30-150)
[2025-04-03 21:35] LABS: Macrocytosis 1+; Total Cells Counted 100
--- OUTSIDE RECORDS SUMMARY | 2025-04-05 12:24 | XMS_ITS | Clinical Summary ---
Author Organization [employer] ([place], [place], [place], [place]) Address [address] [place] [address] Care Team Providers Care Vision Teacher Name Role Phone Unavailable Primary Care Provider Unavailabl e Encounters Date Type Department Care Team Description 01/25/2025 Refill [facility] Urology - [address] [place] [address] Mathew Rinaldi Jr., MD from [...]
--- OUTSIDE RECORDS SUMMARY | 2025-04-05 12:24 | XMS_ITS | Encounter Summary ---
Author Organization [facility] Address [address] [place] [address] Care Team Providers Care Professor Of Social Work Name Role Phone Miguel A Bernabe MD Primary Care Provider [phone] Encounter Details Date Type Department Care Team (Late st Contact Info) Description 05/02/2015 External CPT II LAWN MAINTENANCE WORKER - [employer] Social History Tobacco Use [...] Description 05/30/2026 9:45 AM EST Office Visit [facility] [address] [id number] Lam Schmidt MD [address] [facility] [address] [facility] [address] [place] [address] documented as of this encounter Visit Diagnoses Not on filedocumented in this encounter Additional Health Concerns Infection Onset Date Last Indicated Resolved Time COVID Screen (preop/placement) 04/23/2020 04/23/2020 04/23/2020 6:13 PM EST COVID (rule out) 11/13/2020 11/14/2020 11/20/2020 9:08 PM EDT documented as of this encounter Care Teams Professor Of Social Work Relationship Specialty Start Date End Date Miguel A Bernabe MD [address] [facility] [place] [address] PCP - General Family Medicine 01/22/22 documented as of this encounter
--- OUTSIDE RECORDS SUMMARY | 2025-04-05 12:24 | XMS_ITS | Continuity of Care Document ---
Author Organization [facility] Syed stewart [facility] Address [address] [place] [address] Care Team Providers Care Circular Tank Cooper Name Role Phone RICHARD CABELLO Primary Care Provider Assessment Encounter Date Assessment Date Assessment LastModified by Organization Details LastModified Time 03/16/2025 03/16/2025 80-year-old male with a history of Benign Prostatic Hyperplasia presenting with a follow-up visit. The patient underwent a UroLift procedure in 2015 and is currently on alfuzosin monotherapy, which has been effective in managing his symptoms. His PSA levels have been normal, and a PSA test is planned for continued monitoring. In 2020, a prostate biopsy revealed high-grade prostatic intraepithelial neoplasia, necessitating ongoing surveillance. The patient denies any recent kidney stones, hematuria, or urinary tract infections, and reports no nocturia. Benign Prostatic Hyperplasia (Bph): - Continue alfuzosin monotherapy. - Monitor PSA levels regularly. High-Grade Prostatic Intraepithelial Neoplasia: - Continue surveillance with regular PSA testing. [email or web address] Not available 03/16/2025 14:46:50 Plan of Treatment Reminders Order Date Submit Date Provider Last Modified By Organization Details Last Modified Time Details Appointments RECHECK 2025 02:30P Dequan DOE MD Not available Not available Not available Lab None recorded . Referral None recorded . Procedures None recorded . Surgeries None recorded . Imaging None recorded . Medication Orders None recorded . Patient TargetsNo targets recorded. Patient Instructions Encounter Date Encounter Id Patient Instructions Last Modified By Organization Details Last Modified Time 03/16/2025 [id number] - Continue takin g alfuzosin as prescribed. - Schedule regular PSA tests to monitor prostate health. - Report any new symptoms such as blood in urine or difficulty urinating. [email or web address] Not available 03/16/2025 14:46:53 Reason for Referral None Reported. Problems Name Problem SNOMED Code Status Onset Date Resolution Date Notes Provider Name and Address Organization Details Recorded Time Calculus of kidney and ureter 211324601 Active 2014 From Automated Load;Prov ider: Rolf Doe Jr;St atus: Active Not Available [facility] 6 09:06:25 Kidney stone 19112825 Active 2014 Provider: Rolf Doe Jr;St atus: Active Not Available [facility] 6 09:06:25 Ureteric stone 80394459 Active 2014 Provider: Rolf Doe Jr;St atus: Active Not Available [facility] 6 09:06:25 Sunday hematuria 610670507 Active 2015 From Automated Load;Prov ider: Rolf Doe Jr;St atus: Active Not Available [facility] 6 09:06:25 Epididymi tis 44198329 Active 2015 From Automated Load;Prov ider: Rolf Doe Jr;St atus: Active Not Available [facility] 6 09:06:25 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 61188471340 101 Active 2015 From Automated Load;Prov ider: Rolf Doe Jr;St atus: Active Not Available [facility] 6 09:06:25 Nocturia 773725703 Active 2015 From Automated Load;Prov ider: Rolf Doe Jr;St atus: Active Not Available [facility] 6 09:06:25 Prostate nodule 11895904227 9109 Active 2022 ROLF DOE JR, MD [address] [place] [address] [place], [address] , [facility] 3 10:20:35 Acute urinary tract infection 757373304 Active 2022 ROLF DOE JR, MD [address] [place] [address] [place], [address] , [facility] 3 10:20:35 Problem Notes None recorded. Medical Equipment None Reported. Allergies Allergen ID Allergen Name Allergen Category Reaction Reaction Severity Criticality Documentation Date Start Date Code Code System Note Provider Name and Address Organization Details Recorded Time 307675 Flomax medicatio n Not available Not available Not available 05/09/20162012 79752 3 RxNorm Comme nt: Creat ed By: [facility] rt ICCha rt;Cr eated Date: 2012 1:16: 29 PM; Not Available [facility] 6 03:08:20 401341 sotalol hydrochlo ride medicatio n Not available Not available Not available 05/09/20162014 7008 RxNorm Comme nt: Creat ed By: Lewis bell Date: 2014 1:36: 35 PM; Not Available [facility] 6 06:21:01 345521 iodine medicatio n Not available Not available Not available 05/09/20162012 5933 RxNorm Comme nt: Creat ed By: [facility] rt ICCha rt;Cr eated Date: 2012 1:16: 40 PM; Not Available [facility] 6 09:08:45 271928 acetamino phen / hydrocodo ne medicatio n Not available Not available Not available 05/09/20162012 79354 2 RxNorm Comme nt: Creat ed By: [facility] rt ICCha rt;Cr eated Date: 2012 1:16: 49 PM; Not Available [facility] 6 09:08:45 588707 Product containin g penicilli n (product) medicatio n Not available Not available Not available 05/09/20162012 43121 8001 SNOMED Comme nt: Creat ed By: [facility] rt ICC rt;Cr eated Date: 2012 1:17: 02 PM; Not Available [facility] 6 09:08:45 402093 codeine medicatio n Not available Not available Not available 05/09/20162012 2670 RxNorm Comme nt: Creat ed By: [facility] rt [facility] rt;Cr eated Date: 2012 1:16: 17 PM; Not Available [facility] 10:37:35 Medications Name Sig Start Date Stop [...] mg tablet Daily 10/10 completed Frequen cy: daily; edicati on Descrip tion: warfari n; Dosage: [...] equency : daily;M edicati on Descrip tion: aspirin ; Dosage: 1; Route:o ral; refills :0; Quantit y:30 tablet Not Available Not Available Not Available alfuzosin ER 10 mg tablet,ext ended release 24 hr Take 1 tablet(s ) every day by oral route. 2024 active [...] and Address Organization Details Last Updated DateTime 03/16/2025 172.72 cm 25.8 kg/m2 98991.7 g Alina Palmer [facility] 03/16/2025 14:39:00 Social History Question Answer Notes LastModified by Organizat ion Details LastModified Time Tobacco Smoking Status [facility] 04/10/2017 10:57:31 How Much Tobacco Do You Chew? None [email or web address] Information not available 09/02/2018 What Was The Date Of Your Most Recent Tobacco Screening? 12/14/2024 [email or web address] Information not available 12/14/2024 How Much Tobacco Do You Smoke? No [email or web address] Information not available 03/10/2019 Sex: Unknown Functional [...] 14:10:04 Medical History No medical history recorded. Immunizations Vaccine Type Date Status Note Provider Nam e and Address Organization Details Recorded Time influenza, unspecified formulation 8 completed Not Available [facility] 03/16/2025 13:49:39 COVID-19, mRNA, LNP-S, PF, 100 mcg/0.5mL dose or 50 mcg/0.25mL dose 1 completed Not Available [facility] 03/16/2025 13:49:39 COVID-19, mRNA, LNP-S, PF, 100 mcg/0.5mL dose or 50 mcg/0.25mL dose 1 completed Not Available [facility] 03/16/2025 13:49:39 Tdap 3 completed Not Available [facility] 03/16/2025 13:49:39 Past Encounters Encounter ID Performer Location Encounter Start Date Encounter Closed Date Diagnosis/Indication Diagnosis SNOMED-CT Code Diagnosis ICD10 Code Diagnosis IMO Codes Diagnosis Note [id number] ROLF DOE JR, MD [facility] [address] [facility] [address] [place] [address] 03/16/2025 13:49:09 03/16/2025 15:04:25 Lower urinary tract symptoms due to benign prostatic hypertrophy 5393988923 9101 N40.1 - Initiate treatment with an Alpha sindhu, monitor blood pressure due to potential hypotensiv e effects. - Follow-up in three to four months to assess symptom improvemen t. Kidney stone 14996828 N2 0.0 Health Concerns Section Related Observation LastModified by Organization Detai ls LastModified Time None Recorded Concern Status LastModified by Organization Details LastModified Time None Recorded Payers Encounter Date Sequence Insurance Name Policy Number Policy Curiel Covered Member ID Curiel Member ID Guarantor Name 03/16/2025 1 [place] Ned Cronin [id number] Ned Cronin 03/16/2025 2 [employer] (MEDICARE SUPPLEMENT) Ned Cronin [id number] Ned Cronin Notes Date Note Type Note Provider Name and Address Organization Details Recorded Time 03/16/2025 text/html The patient is a 80-year-old male presenting with a follow-up for Benign Prostatic Hyperplasia (BPH). He underwent a UroLift procedure in 2015 and was previously on combination therapy for BPH, which included alfuzosin and finasteride. Currently, he is only on alfuzosin monotherapy, which he reports has been effective. In 2020, a prostate biopsy revealed high-grade prostatic intraepithelial neoplasia. His PSA levels have been normal recently, and a PSA test is planned to ensure continued monitoring. The patient denies any recent kidney stones, hematuria, or urinary tract infections. He reports no nocturia, having slept through the night without needing to urinate. Documentation on this patient encounter was supported using voice-enabled Al technology. The patient consented to recording for the purpose of documenting the encounter. Provider reviewed content of the generated note prior to signature. ROLF DOE JR, MD [address] [place] [address], [phone], [facility] 03/18/2025 11:08:02
--- OUTSIDE RECORDS SUMMARY | 2025-04-05 12:24 | XMS_ITS | Referral Summary ---
Author Organization [employer] ([place], [place], [place], [place]) Address [address] [place] [address] Care Team Providers Care Veterinarian Helper Name Role Phone Unavailable Primary Care Provider Unavailabl e Encounters Date Type Department Care Team Description 01/25/2025 Refill [facility] Urology - [address] [place] [address] Mathew Rinaldi Jr., MD from [...]
--- OUTSIDE RECORDS SUMMARY | 2025-04-05 12:24 | XMS_ITS | Encounter Summary ---
Author Organization [employer] ([place], [place], [place], [place]) Address [address] [place] [address] Care Team Providers Care Community Service Patrol Officer Name Role Phone Unavailable Primary Care Provider Unavailabl e Reason for Visit * Reason Comments New Med Request Encounter Details Date Type Department Care Team (Late st Contact Info) Description [facility] [address] [place] [address] Mathew Rinaldi Jr., MD [address] [place] [address] [address] [place] [id number] Social History Tobacco Use Types Packs/Day Years [...]
--- OUTSIDE RECORDS SUMMARY | 2025-04-05 12:25 | XMS_ITS | Clinical Summary ---
Author Organization [facility] Address [address] [place] [id number] Care Team Providers Care Crystal Report Developer Name Role Phone Miguel A Bernabe MD Primary Care Provider [phone] Allergies Active Allergy Reactions Criticality Noted Date [...] atrial isthmus-dependent flutter on 04/10/2003. History of AL (myocardial infarction) 03/06/2016 Overview (03/06/2016): 1. Myocardial [...] heart catheterization, 04/28/2002: A 95% ostial septal school of nursing director, eccentric 40%, mid-LAD plaque, grossly normal left [...] Description 01/25/2025 2:30 PM EDT Office Visit [facility] [address] [facility] [address] [place] [address] Lam Schmidt MD Atypical atrial flutter (Primary Dx); Hypertrophic cardiomyopathy; AR (obstructive sleep apnea); Chronic obstructive pulmonary disease, unspecified COPD type; Coronary artery disease involving [place] coronary artery of [place] heart without angina pectoris 01/25/2025 Travel 01/16/2025 [...] Description 05/30/2026 9:45 AM EST Office [facility] [address] [facility] [address] [place] [address] Lam Schmidt MD [address] [facility] [address] [place] [address] Health Maintenance Due Date Last Done Comments Pneumococcal Vaccine 50+ (1 of 2 - PCV) 1965 COLOGUARD 1991 COLON CANCER SCREENING 5 YEA R SIGMOIDOSCOPY 1991 COLONOSCOPY [address] SCREENING 1991 [address] COLONOGRAPHY 1991 FECAL OCCULT BLOOD TEST 1991 FIT Testing (1 year) 1991 ZOSTER VACCINE (1 of 2) 02/15/1996 LIPID PANEL 09/09/2015 09/08/2014 ANNUAL WELLNESS VISIT 09/19/2016 HEPATITIS C SCREENING 09/19/2016 COVID-19 Vaccine (3 - Modern a risk series) 09/05/2020 08/08/2020, 07/11/2020 RSV Vaccine - Adults (1 - 1- dose 75+ series) 2021 INFLUENZA VACCINE 01/13/2025 05/10/2018 TDAP/TD VACCINES (2 - Td or Tdap) 11/21/2032 023 LUNG CANCER SCREENING Discontinued 09/08/2014, 014 Procedures Procedure Name Priority Date/Time Associated Diagnosis Comments ECG 12-LEAD Routine 01/25/2025 Atypical atrial flutter Hypertrophic cardiomyopathy AR (obstructive sleep apnea) Chronic obstructive pulmonary disease, unspecified COPD type Coronary artery disease involving [place] coronary artery of [place] heart without angina pectoris CT CHEST WO [...] MD - 01/25/2025 2:30 PM EDT Ned Gutierrezronaldo Cronin 1945 Home phone not available 01/25/2025 [facility] Referring Provider: No ref. provider found Miguel A Bernabe MD [address] [place] [id number] Chief Complaint Patient presents with NOGUEIRA (dyspnea [...] heart catheterization, 04/28/2002: A 95% ostial septal school of nursing director,eccentric 40%, mid-LAD plaque, grossly normal left ventricular [...] low to intermediate risk 11/15/2021 LHC at [facility] with stents to LM and LAD -data [...] COPD type 5. Coronary artery disease involving [place] coronary artery of native[place] without angina pectoris Plan: 1) Permanent atypical atrial flutter asymptomatic in nature with adequateheart rate control. Long discussion with the patient today. Would notpursue more aggressive measures in maintaining sinus rhythm. 2) Hypertrophic cardiomyopathy. Per pointer helper. Continuebeta-blockers. Continue present medications. 3) Anticoagulation Continue warfarin, INR's 4) AR: Bipap 5) CAD: recent [facility] results noted. F/up in 12 months [...] RAGHAV MONTANEZ Released Date Time- 09/09/14 1324 Ordained Minister- Varsha. Procedure Note Raghav Lagne MD - 03/07/2015 EXAMINATION: CT CHEST WITHOUT [...] RAGHAV MONTANEZ Released Date Time- 09/09/14 1324 Ordained Minister- L.S. Emile Lyon MD IM CT ORDERABLES Anne-Marie l Result * (ABNORMAL) Lipid panel (09/08/2014 9:22 AM EDT) Total Cholesterol 184 0 - 200 mg/dL [facility] Comment: DF by IF @ 09/08/2014 09:41 Cholesterol Reference Ranges: Desirable: less than 200 mg/dL Borderline: 200-239 mg/dL High: greater than 239 mg/dL Triglycerides 85 0 - 150 mg/dL [facility] Comment: DF by IF @ 09/08/2014 09:41 Triglyceride Reference Ranges: Normal less than 150 mg/dL Borderline 150-199 mg/dL High 200-499 mg/dL Very High greater than 499 mg/dL HDL Cholesterol 40 40 - 60 mg/dL [facility] Comment: DF by IF @ 09/08/2014 09:41 HDL Cholesterol Reference Ranges: Low less than 40 mg/dL High greater than 59 mg/dL LDL Cholesterol 133(H) 0 - 130 mg/dL [facility] Comment: US by IF @ 09/08/2014 09:41 LDL Cholesterol Reference Ranges: Optimal less than 100 mg/dL Near Optimal 100-129 mg/dL Borderline 130-159 mg/dL High 160-189 mg/dL Very High greater than 189 mg/dL Blood specimen (specimen) 09/08/2014 9:22 AM EDT Narrative [facility] - 09/08/2014 9:41 AM EDT Specimen Type: Blood Alo Pastrana MD LAB BLOOD ORDERABLES Final Re sult [facility] [address] [place] [address], from Last 3 Months or Most Recently Relevant to Health Maintenance Insurance MEDICARE A & B [facility] Care Teams Crystal Report Developer Relationship Specialty Start Date End Date Miguel A Bernabe MD [address] [place] [phone] PCP - General Family Medicine 01/22/22
--- OUTSIDE RECORDS SUMMARY | 2025-04-05 12:25 | XMS_ITS | Data Portability ---
Author Organization [facility] [place] [facility] Address [address] [place] [address] Care Team Providers Care Risk Investigator Name Role Phone RICHARD CABELLO Primary Care [...] intervention required. [id number] Not available 12/14/2024 11:59:23 03/16/2025 03/16/2025 80-year-old male with a history of Benign Prostatic Hyperplasia presenting with a follow-up visit. The patient underwent a UroLift procedure in 2015 and is currently on alfuzosin monotherapy, which has been effective in managing his symptoms. His PSA levels have been normal, and a PSA test is planned for continued monitoring. In 2021, a prostate biopsy revealed high-grade prostatic intraepithelial [...] Lab urinalysi s panel, auto 2024 025 [facility], [address], [address], [place], [address], 12/14/2024 11:57:21 PSA, serum or plasma 2023 024 [facility], [address], [address], [place], [address], 12/06/2023 09:05:40 urinalysi s panel, auto 2023 024 [facility], [address], [address], [place], [address], 12/06/2023 09:05:38 culture, urine 2022 023 [facility], [address] [facility], [place], [address], 10/11/2022 10:20:34 urinalysi s panel, auto 2022 023 [facility], [address], [address], [place], [address], 10/19/2022 10:21:30 PSA, serum or plasma 2022 023 [facility], [address], [address], [place], [address], 10/19/2022 10:21:30 urinalysi s panel, auto 2021 022 [facility], [address], [address], [place], [address], 10/06/2021 18:50:37 PSA, serum or plasma 2021 022 [facility], [address], [address], [place], [address], 10/06/2021 18:50:37 Referral None recorded. Procedures None recorded. Surgeries None recorded. Imaging None recorded. Medication Orders alfuzosin ER 10 mg tablet,ex tended release 24 hr 2024 025 [facility], [address], [address], 12/14/2024 11:57:29 Patient TargetsNo targets recorded. Patient Instructions Encounter Date Encounter Id Patient Instructions Last Modified By Organization Details Last Modified Time 10/09/2022 [id number] Prostate nodule feels benign, but is new. Correlate with PSA [facility] Not available 10/19/2022 10:21:08 12/14/2024 [id number] - Continue jovan grace your prostate medications as prescribed. - Return for PSA testing in six months. - Report any new symptoms or changes to your healthcare provider. - Start taking the prescribed Alpha sindhu and monitor your blood pressure regularly. - Schedule a follow-up appointment in three to four months to evaluate your symptoms. [id number] Not available 12/14/2024 11:59:24 03/16/2025 [id number] - Continue takin g alfuzosin as prescribed. - Schedule regular PSA tests to monitor prostate health. - Report any new symptoms such as blood in urine or difficulty urinating. [id number] Not available 03/16/2025 14:46:53 Reason for Referral None Reported. Results Created Date Observation Date Name Description Value Unit Range Abnormal Flag Note LastModifiedBy Organization Detail LastModifiedTime 10/04/19 22 10/03/2021 PSA, serum or plasm a PSA 0.42 NG/mL 0.0 - 4.0 Not Available [facility] [address], [place], [address], 10/03/2021 14:15:11 10/04/19 22 10/03/2021 urina lysis panel , auto Unknown Analyte Clean Catch Not Available [facility] [address], [place], [address], 10/03/2021 14:09:29 10/04/19 22 10/03/2021 urina lysis panel , auto Unknown Analyte Yellow Not Available [facility] [address], [place], [address], 10/03/2021 14:09:29 10/04/19 22 10/03/2021 urina lysis panel , auto Unknown Analyte Clear Not Available [facility] [address], [place], [address], 10/03/2021 14:09:29 10/04/19 22 10/03/2021 urina lysis panel , auto Unknown Analyte 1.020 Not Available [facility] [address], [place], [address], 10/03/2021 14:09:29 10/04/19 22 10/03/2021 urina lysis panel , auto Unknown Analyte 1.003- 1.035 Not Available [facility] [address], [place], [address], 10/03/2021 14:09:29 10/04/19 22 10/03/2021 urina lysis panel , auto Unknown Analyte 6.0 Not Available [facility] [address], [place], [address], 10/03/2021 14:09:29 10/04/19 22 10/03/2021 urina lysis panel , auto Unknown Analyte 5.0-8. 0 Not Available [facility] [address], [place], [address], 10/03/2021 14:09:29 10/04/19 22 10/03/2021 urina lysis panel , auto Unknown Analyte Negati ve Not Available [facility] [address], [place], [address], 10/03/2021 14:09:29 10/04/19 22 10/03/2021 urina lysis panel , auto Unknown Analyte Negati ve Not Available [facility] [address], [place], [address], 10/03/2021 14:09:29 10/04/19 22 10/03/2021 urina lysis panel , auto Unknown Analyte Negati ve Not Available [facility] [address], [place], [address], 10/03/2021 14:09:29 10/04/19 22 10/03/2021 urina lysis panel , auto Unknown Analyte Negati ve Not Available [facility] [address], [place], [address], 10/03/2021 14:09:29 10/04/19 22 10/03/2021 urina lysis panel , auto Unknown Analyte Negati ve Not Available [facility] [address], [place], [address], 10/03/2021 14:09:29 10/04/19 22 10/03/2021 urina lysis panel , auto Unknown Analyte Negati ve Not Available [facility] [address], [place], [address], 10/03/2021 14:09:29 10/04/19 22 10/03/2021 urina lysis panel , auto Unknown Analyte Normal Not Available [facility] [address], [place], [address], 10/03/2021 14:09:29 10/04/19 22 10/03/2021 urina lysis panel , auto Unknown Analyte Normal Not Available [facility] [address], [place], [address], 10/03/2021 14:09:29 10/04/19 22 10/03/2021 urina lysis panel , auto Unknown Analyte Negati ve Not Available [facility] [address], [place], [address], 10/03/2021 14:09:29 10/04/19 22 10/03/2021 urina lysis panel , auto Unknown Analyte Negati ve Not Available [facility] [address], [place], [address], 10/03/2021 14:09:29 10/04/19 22 10/03/2021 urina lysis panel , auto Unknown Analyte Normal Not Available [facility] [address], [place], [address], 10/03/2021 14:09:29 10/04/19 22 10/03/2021 urina lysis panel , auto Unknown Analyte Normal 1 mg/dl Not Available [facility] [address], [place], [address], 10/03/2021 14:09:29 10/04/19 22 10/03/2021 urina lysis panel , auto Unknown Analyte Negati ve Not Available [facility] [address], [place], [address], 10/03/2021 14:09:29 10/04/19 22 10/03/2021 urina lysis panel , auto Unknown Analyte Negati ve Not Available [facility] [address], [place], [address], 10/03/2021 14:09:29 10/04/19 22 10/03/2021 urina lysis panel , auto Unknown Analyte 50 Darren/ul Not Available [facility] [address], [place], [address], 10/03/2021 14:09:29 10/04/19 22 10/03/2021 urina lysis panel , auto Unknown Analyte Negati ve Not Available [facility] [address] [place] [address] [address], [place], [address], 10/03/2021 14:09:29 10/10/19 23 10/09/2022 URINE CULTU RE results Sourc e: CCUR Colle cted: 10/09 16:31 Site: Recei maxine : 10/10 10:20 URINE CULTU RE FINAL 10/13 11:46 10/11 ISOLA TE #1 COLON Y COUNT : > 100,0 00 CFU/M L Proba ble Staph yloco ccus sp.; ID and sensi tivit y in progr ess. 10/13 See [facility] Resul t(s) Below ISOLA ROSI AND SENSI TIVIT Y RESUL TS [facility] 01 Staph yloco ccus inter mediu s __ [facility] ORG# 01 ANTIB IOTIC S KRISHNA [...] S Vanco mycin 2 S Not Available [facility] [address] [facility], [place], [address], 10/13/2022 11:46:16 10/11/19 23 10/10/2022 PSA, serum or plasm a PSA 1.1 NG/mL 0.0 - 4.0 Not Available [facility] [address], [place], [address], 10/10/2022 07:47:40 10/11/19 23 10/10/2022 urina lysis panel , auto Unknown Analyte Clean Catch Not Available [facility] [address], [place], [address], 10/10/2022 07:21:04 10/11/19 23 10/10/2022 urina lysis panel , auto Unknown Analyte Yellow Not Available [facility] [address], [place], [address], 10/10/2022 07:21:04 10/11/19 23 10/10/2022 urina lysis panel , auto Unknown Analyte Hazy Not Available [facility] [address], [place], [address], 10/10/2022 07:21:04 10/11/19 23 10/10/2022 urina lysis panel , auto Unknown Analyte 1.010 Not Available [facility] [address], [place], [address], 10/10/2022 07:21:04 10/11/19 23 10/10/2022 urina lysis panel , auto Unknown Analyte 1.003- 1.035 Not Available [facility] [address], [place], [address], 10/10/2022 07:21:04 10/11/19 23 10/10/2022 urina lysis panel , auto Unknown Analyte 7.0 Not Available [facility] [address], [place], [address], 10/10/2022 07:21:04 10/11/19 23 10/10/2022 urina lysis panel , auto Unknown Analyte 5.0-8. 0 Not Available [facility] [address], [place], [address], 10/10/2022 07:21:04 10/11/19 23 10/10/2022 urina lysis panel , auto Unknown Analyte 500 Alina/ul (++) Not Available [facility] [address], [place], [address], 10/10/2022 07:21:04 10/11/19 23 10/10/2022 urina lysis panel , auto Unknown Analyte Negati ve Not Available [facility] [address], [place], [address], 10/10/2022 07:21:04 10/11/19 23 10/10/2022 urina lysis panel , auto Unknown Analyte Negati ve Not Available [facility] [address], [place], [address], 10/10/2022 07:21:04 10/11/19 23 10/10/2022 urina lysis panel , auto Unknown Analyte Negati ve Not Available [facility] [address], [place], [address], 10/10/2022 07:21:04 10/11/19 23 10/10/2022 urina lysis panel , auto Unknown Analyte 100 mg/dl (++) Not Available [facility] [address], [place], [address], 10/10/2022 07:21:04 10/11/19 23 10/10/2022 urina lysis panel , auto Unknown Analyte Negati ve Not Available [facility] [address], [place], [address], 10/10/2022 07:21:04 10/11/19 23 10/10/2022 urina lysis panel , auto Unknown Analyte Normal Not Available [facility] [address], [place], [address], 10/10/2022 07:21:04 10/11/19 23 10/10/2022 urina lysis panel , auto Unknown Analyte Normal Not Available [facility] [address], [place], [address], 10/10/2022 07:21:04 10/11/19 23 10/10/2022 urina lysis panel , auto Unknown Analyte Negati ve Not Available [facility] [address], [place], [address], 10/10/2022 07:21:04 10/11/19 23 10/10/2022 urina lysis panel , auto Unknown Analyte Negati ve Not Available [facility] [address], [place], [address], 10/10/2022 07:21:04 10/11/19 23 10/10/2022 urina lysis panel , auto Unknown Analyte Normal Not Available [facility] [address], [place], [address], 10/10/2022 07:21:04 10/11/19 23 10/10/2022 urina lysis panel , auto Unknown Analyte Normal 1 mg/dl Not Available [facility] [address], [place], [address], 10/10/2022 07:21:04 10/11/19 23 10/10/2022 urina lysis panel , auto Unknown Analyte Negati ve Not Available [facility] [address], [place], [address], 10/10/2022 07:21:04 10/11/19 23 10/10/2022 urina lysis panel , auto Unknown Analyte Negati ve Not Available [facility] [address], [place], [address], 10/10/2022 07:21:04 10/11/19 23 10/10/2022 urina lysis panel , auto Unknown Analyte 250 Darren/ul Not Available [facility] [address] [place] [address] [address], [place], [address], 10/10/2022 07:21:04 10/11/19 23 10/10/2022 urina lysis panel , auto Unknown Analyte Negati ve Not Available [facility] [address], [place], [address], 10/10/2022 07:21:04 12/02/19 24 12/02/2023 urina lysis panel , auto Unknown Analyte Clean Catch Not Available [facility] [address], [place], [address], 12/02/2023 12:28:39 12/02/19 24 12/02/2023 urina lysis panel , auto Unknown Analyte Yellow Not Available [facility] [address], [place], [address], 12/02/2023 12:28:39 12/02/19 24 12/02/2023 urina lysis panel , auto Unknown Analyte Clear Not Available [facility] [address], [place], [address], 12/02/2023 12:28:39 12/02/19 24 12/02/2023 urina lysis panel , auto Unknown Analyte 1.015 Not Available [facility] [address], [place], [address], 12/02/2023 12:28:39 12/02/19 24 12/02/2023 urina lysis panel , auto Unknown Analyte 1.003- 1.035 Not Available [facility] [address], [place], [address], 12/02/2023 12:28:39 12/02/19 24 12/02/2023 urina lysis panel , auto Unknown Analyte 6.0 Not Available [facility] [address], [place], [address], 12/02/2023 12:28:39 12/02/19 24 12/02/2023 urina lysis panel , auto Unknown Analyte 5.0-8. 0 Not Available [facility] [address], [place], [address], 12/02/2023 12:28:39 12/02/19 24 12/02/2023 urina lysis panel , auto Unknown Analyte Negati ve Not Available [facility] [address], [place], [address], 12/02/2023 12:28:39 12/02/19 24 12/02/2023 urina lysis panel , auto Unknown Analyte Negati ve Not Available [facility] [address], [place], [address], 12/02/2023 12:28:39 12/02/19 24 12/02/2023 urina lysis panel , auto Unknown Analyte Negati ve Not Available [facility] [address], [place], [address], 12/02/2023 12:28:39 12/02/19 24 12/02/2023 urina lysis panel , auto Unknown Analyte Negati ve Not Available [facility] [address], [place], [address], 12/02/2023 12:28:39 12/02/19 24 12/02/2023 urina lysis panel , auto Unknown Analyte Trace Not Available [facility] [address], [place], [address], 12/02/2023 12:28:39 12/02/19 24 12/02/2023 urina lysis panel , auto Unknown Analyte Negati ve Not Available [facility] [address], [place], [address], 12/02/2023 12:28:39 12/02/19 24 12/02/2023 urina lysis panel , auto Unknown Analyte Normal Not Available [facility] [address], [place], [address], 12/02/2023 12:28:39 12/02/19 24 12/02/2023 urina lysis panel , auto Unknown Analyte Normal Not Available [facility] [address], [place], [address], 12/02/2023 12:28:39 12/02/19 24 12/02/2023 urina lysis panel , auto Unknown Analyte Negati ve Not Available [facility] [address], [place], [address], 12/02/2023 12:28:39 12/02/19 24 12/02/2023 urina lysis panel , auto Unknown Analyte Negati ve Not Available [facility] [address], [place], [address], 12/02/2023 12:28:39 12/02/19 24 12/02/2023 urina lysis panel , auto Unknown Analyte Normal Not Available [facility] [address], [place], [address], 12/02/2023 12:28:39 12/02/19 24 12/02/2023 urina lysis panel , auto Unknown Analyte Normal 1 mg/dl Not Available [facility] [address], [place], [address], 12/02/2023 12:28:39 12/02/19 24 12/02/2023 urina lysis panel , auto Unknown Analyte Negati ve Not Available [facility] [address], [place], [address], 12/02/2023 12:28:39 12/02/19 24 12/02/2023 urina lysis panel , auto Unknown Analyte Negati ve Not Available [facility] [address], [place], [address], 12/02/2023 12:28:39 12/02/19 24 12/02/2023 urina lysis panel , auto Unknown Analyte Negati ve Not Available [facility] [address], [place], [address], 12/02/2023 12:28:39 12/02/19 24 12/02/2023 urina lysis panel , auto Unknown Analyte Negati ve Not Available [facility] [address], [place], [address], 12/02/2023 12:28:39 12/02/19 24 12/02/2023 PSA, serum or plasm a PSA 0.67 NG/mL 0.0 - 4.0 Not Available [facility] [address], [place], [address], 12/02/2023 12:28:24 12/15/19 25 12/14/2024 urina lysis panel , auto Unknown Analyte Clean Catch Not Available [facility] [address], [place], [address], 12/14/2024 11:30:02 12/15/19 25 12/14/2024 urina lysis panel , auto Unknown Analyte Yellow Not Available [facility] [address], [place], [address], 12/14/2024 11:30:02 12/15/19 25 12/14/2024 urina lysis panel , auto Unknown Analyte Clear Not Available [facility] [address], [place], [address], 12/14/2024 11:30:02 12/15/19 25 12/14/2024 urina lysis panel , auto Unknown Analyte 1.020 Not Available [facility] [address], [place], [address], 12/14/2024 11:30:02 12/15/19 25 12/14/2024 urina lysis panel , auto Unknown Analyte 1.003 - 1.030 Not Available [facility] [address], [place], [address], 12/14/2024 11:30:02 12/15/19 25 12/14/2024 urina lysis panel , auto Unknown Analyte 5.0 Not Available [facility] [address], [place], [address], 12/14/2024 11:30:02 12/15/19 25 12/14/2024 urina lysis panel , auto Unknown Analyte 5.0 - 8.0 Not Available [facility] [address], [place], [address], 12/14/2024 11:30:02 12/15/19 25 12/14/2024 urina lysis panel , auto Unknown Analyte Negati ve Not Available [facility] [address], [place], [address], 12/14/2024 11:30:02 12/15/19 25 12/14/2024 urina lysis panel , auto Unknown Analyte Negati ve Not Available [facility] [address], [place], [address], 12/14/2024 11:30:02 12/15/19 25 12/14/2024 urina lysis panel , auto Unknown Analyte Negati ve Not Available [facility] [address], [place], [address], 12/14/2024 11:30:02 12/15/19 25 12/14/2024 urina lysis panel , auto Unknown Analyte Negati ve Not Available [facility] [address], [place], [address], 12/14/2024 11:30:02 12/15/19 25 12/14/2024 urina lysis panel , auto Unknown Analyte 100 mg/dL Not Available [facility] [facility] [address], [place], [address], 12/14/2024 11:30:02 12/15/19 25 12/14/2024 urina lysis panel , auto Unknown Analyte Negati ve Not Available [facility] [address], [place], [address], 12/14/2024 11:30:02 12/15/19 25 12/14/2024 urina lysis panel , auto Unknown Analyte Normal Not Available [facility] [address], [place], [address], 12/14/2024 11:30:02 12/15/19 25 12/14/2024 urina lysis panel , auto Unknown Analyte Normal Not Available [facility] [address], [place], [address], 12/14/2024 11:30:02 12/15/19 25 12/14/2024 urina lysis panel , auto Unknown Analyte Negati ve Not Available [facility] [address], [place], [address], 12/14/2024 11:30:02 12/15/19 25 12/14/2024 urina lysis panel , auto Unknown Analyte Negati ve Not Available [facility] [address], [place], [address], 12/14/2024 11:30:02 12/15/19 25 12/14/2024 urina lysis panel , auto Unknown Analyte Normal Not Available [facility] [address], [place], [address], 12/14/2024 11:30:02 12/15/19 25 12/14/2024 urina lysis panel , auto Unknown Analyte Normal Not Available [facility] [address], [place], [address], 12/14/2024 11:30:02 12/15/19 25 12/14/2024 urina lysis panel , auto Unknown Analyte Negati ve Not Available [facility] [address], [place], [address], 12/14/2024 11:30:02 12/15/19 25 12/14/2024 urina lysis panel , auto Unknown Analyte Negati ve Not Available [facility] [address], [place], [address], 12/14/2024 11:30:02 12/15/19 25 12/14/2024 urina lysis panel , auto Unknown Analyte Negati ve Not Available [facility] [address], [place], [address], 12/14/2024 11:30:02 12/15/19 25 12/14/2024 urina lysis panel , auto Unknown Analyte Negati ve Not Available [facility] [address], [place], [address], 12/14/2024 11:30:02 12/23/19 24 12/23/2023 US, retro perit oneum , limit ed No observ ation record ed. IMER Not Available 2023 17:14:52 Result Notes None recorded. Problems Name Problem SNOMED Code Status Onset Date Resolution Date Notes Provider Name and Address Organization Details Recorded Time Calculus of kidney and ureter 816154442 Active 2014 From Automated Load;Prov ider: Kyle Doe Jr atus: Active Not Available [facility] 6 09:06:25 Kidney stone 21225034 Active 2014 Provider: Rolf Doe Jr;St atus: Active Not Available [facility] 6 09:06:25 Ureteric stone 21110767 Active 2014 Provider: Rolf Doe Jr;St atus: Active Not Available [facility] 6 09:06:25 Sunday hematuria 892163933 Active 2015 From Automated Load;Prov ider: Rolf Doe Jr;St atus: Active Not Available [facility] 6 09:06:25 Epididymi tis 86214353 Active 2015 From Automated Load;Prov ider: Rolf Doe Jr;St atus: Active Not Available [facility] 6 09:06:25 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 24466418919 101 Active 2015 From Automated Load;Prov ider: Rolf Doe Jr;St atus: Active Not Available [facility] 6 09:06:25 Nocturia 940039689 Active 2015 From Automated Load;Prov ider: Rolf Doe Jr;St atus: Active Not Available [facility] 6 09:06:25 Prostate nodule 73463518642 9109 Active 2022 ROLF DOE JR, MD [address] [place] [address], [phone] 3 10:20:35 Acute urinary tract infection 756113600 Active 2022 ROLF DOE JR, MD [address] [place] [address] 3 10:20:35 Problem Notes None recorded. Medical Equipment None Reported. Allergies Allergen ID Allergen Name Allergen Category Reaction Reaction Severity Criticality Documentation Date Start Date Code Code System Note Provider Name and Address Organization Details Recorded Time 913757 Flomax medicatio n Not available Not available Not available 05/09/20162012 18055 3 RxNorm Comme nt: Creat ed By: ICCha rt ICCha rt;Cr eated Date: 2012 1:16: 29 PM; Not Available [facility] 6 03:08:20 440530 sotalol hydrochlo ride medicatio n Not available Not available Not available 05/09/20162014 7008 RxNorm Comme nt: Creat ed By: Lewis Li ;Carolyna arabella Date: 2014 1:36: 35 PM; Not Available [facility] 6 06:21:01 681309 iodine medicatio n Not available Not available Not available 05/09/20162012 5933 RxNorm Comme nt: Creat ed [facility]: [facility];Cr eated Date: 2012 1:16: 40 PM; Not Available [facility] 6 09:08:45 248968 acetamino phen / hydrocodo ne medicatio n Not available Not available Not available 05/09/20162012 38428 2 RxNorm Comme nt: Creat ed By: [facility] rt;Cr eated Date: 2012 1:16: 49 PM; Not Available [facility] 6 09:08:45 431563 Product containin g penicilli n (product) medicatio n Not available Not available Not available 05/09/20162012 04177 8001 SNOMED Comme nt: Creat ed By: [facility] ICC rt;Cr eated Date: 2012 1:17: 02 PM; Not Available [facility] 6 09:08:45 809157 codeine medicatio n Not available Not available Not available 05/09/20162012 2670 RxNorm Comme nt: Creat ed By: [facility] rt;Cr eated Date: 2012 1:16: 17 PM; Not Available [facility] 6 10:37:35 Medications Name Sig [...] Updated DateTime 10/03/2021 172.72 cm 30.6 kg/m2 87216.07 g Eloise Daly [facility] 10/03/2021 14:08:58 Date Recorded Body height Body mass index (BMI) Body weight Provider Name and Address Organization Details Last Updated DateTime 10/09/2022 172.72 cm 27.7 kg/m2 94485.81 g Addis Cabrales [facility] 10/10/2022 07:19:58 Date Recorded Body weight Provider Name an d Address Organization Details Last Updated DateTime 12/14/2024 24760.63 g Ewa Wiseman [facility] 12/14/2024 11:54:20 Date Recorded Body height Body mass index (BMI) Body weight Provider Name and Address Organization Details Last Updated DateTime 03/16/2025 172.72 cm 25.8 kg/m2 05967.7 g Alina Palmer [facility] 03/16/2025 14:39:00 Social History Question Answer Notes LastModified by Organizat ion Details LastModified Time Tobacco Smoking Status [facility] 04/10/2017 10:57:31 How Much Tobacco Do You Chew? None [email or web address] Information not available 09/02/2018 What Was The Date Of Your Most Recent Tobacco Screening? 12/14/2024 Information not available 12/14/2024 How Much Tobacco Do You Smoke? No [email or web address] Information not available 03/10/2019 Sex: Unknown Functional Status Question Answer Note LastModified by Organization D etails LastModified Time What is your level of alcohol consumption? None [email or web address] Information not available 09/02/2018 Mental Status None [...] influenza, unspecified formulation 8 completed Not Available [facility] 03/16/2025 13:49:39 COVID-19, mRNA, LNP-S, PF, 100 mcg/0.5mL dose or 50 mcg/0.25mL dose 1 completed Not Available [facility] 03/16/2025 13:49:39 COVID-19, mRNA, LNP-S, PF, 100 mcg/0.5mL dose or 50 mcg/0.25mL dose 1 completed Not Available [facility] 03/16/2025 13:49:39 Tdap 3 completed Not Available [facility] 03/16/2025 13:49:39 Past Encounters Encounter ID Performer Location Encounter Start Date Encounter Closed Date Diagnosis/Indication Diagnosis SNOMED-CT Code Diagnosis ICD10 Code Diagnosis IMO Codes Diagnosis Note [id number] ROLF DOE JR, MD [facility] [address] [place] [address] [address] [place] [address] 0 08/08/2016 10:21:41 08/14/2016 15:49:51 Lower urinary tract symptoms due to benign prostatic hypertrophy 0149903474 9101 N40.1 Kidney stone 62797696 N2 0.0 [id number] ROLF DOE JR, MD [facility] [address] [place] [address] RD,[address] [place] [address] 02/12/2017 12:48:37 02/13/2017 08:34:28 Lower urinary tract symptoms due to benign prostatic hypertrophy 1914711543 9101 N40.1 Kidney stone 70706242 N2 0.0 [id number] ROLF DOE JR, MD [facility] [address] [place] [address] [address] [place] [address] 0 09/03/2017 12:54:23 09/03/2017 13:53:06 Lower urinary tract symptoms due to benign prostatic hypertrophy 5641467088 9101 N40.1 Kidney stone 85049801 N2 0.0 [id number] ROLF DOE JR, MD [facility] [address] [place] [address] RD,[address] [place] [address] 0 03/04/2018 14:56:13 03/04/2018 15:36:34 Lower urinary tract symptoms due to benign prostatic hypertrophy 8843134377 9101 N40.1 Kidney stone 78850339 N2 0.0 [id number] ROLF DOE JR, MD [facility] [address] [place] [address] RD,[place] [address] 09/02/2018 13:13:25 09/02/2018 14:09:12 Lower urinary tract symptoms due to benign prostatic hypertrophy 6757485282 9101 N40.1 Kidney stone 57556069 N2 0.0 [id number] ROLF DOE JR, MD [facility] [address] [place] [address] [address] [place] [address] 0 03/10/2019 13:17:58 03/10/2019 13:38:20 Lower urinary tract symptoms due to benign prostatic hypertrophy 8395536797 9101 N40.1 Calculus o f kidney and ureter 491623270 N20.2 [id number] ROLF DEO JR, MD [facility] [address] [place] [address] RD,[place] [address] 09/28/2020 09:27:05 09/28/2020 10:16:01 Kidney stone 39484025 N20.0 Lower urin colby tract symptoms due to benign prostatic hypertrophy 9265198298 9101 N40.1 [id number] ROLF DOE JR, MD [facility] [address] [place] [address] RD,[place] [place] [address] 0 10/03/2021 13:46:04 10/03/2021 14:34:07 Kidney stone 53644255 N20.0 Lower urin colby tract symptoms due to benign prostatic hypertrophy 1645274840 9101 N40.1 [id number] ROLF DOE JR, MD [facility] [address] [place] [address] [address] [place] [address] 0 10/09/2022 13:43:22 10/09/2022 14:04:42 Acute urinary tract infection 842658242 N39.0 Prostate nodule 94265423 01 93974 N40.2 Kidney stone 36329184 N2 0.0 Lower urin colby tract symptoms due to benign prostatic hypertrophy 0788629703 9101 N40.1 [id number] ROLF DOE JR, MD [facility] [address] [facility] [address] [place] [phone] 12/02/2023 11:21:32 12/02/2023 13:42:22 Calculus of kidney and ureter 154420894 N20.2 Lower urin colby tract symptoms due to benign prostatic hypertrophy 2288803274 9101 N40.1 [id number] ROLF DOE JR, MD [facility] [address] [facility] [address] [place] [address] 12/14/2024 11:19:09 12/14/2024 12:07:42 Lower urinary tract symptoms due to benign prostatic hypertrophy 0017958522 9101 N40.1 - Initiate treatment with an Alpha sindhu, monitor blood pressure due to potential hypotensiv e effects. - Follow-up in three to four months to assess symptom improvemen t. Kidney stone 14993717 N2 0.0 [id number] ROLF DOE JR, MD [facility] [address] [facility] [address] [place] [address] 03/16/2025 13:49:09 03/16/2025 15:04:25 Lower urinary tract symptoms due to benign prostatic hypertrophy 2679786038 9101 N40.1 - Initiate treatment with an Alpha sindhu, monitor blood pressure due to potential hypotensiv e effects. - Follow-up in three to four months to assess symptom improvemen t. Kidney stone 84287792 N2 0.0 Health Concerns Section Related Observation LastModified by Organization Detai ls LastModified Time None Recorded Concern Status LastModified by Organization Details LastModified Time None Recorded Advance Directives Directive None Recorded Payers Insurance Date Sequence Insurance Name Policy Number Policy Curiel Covered Member ID Curiel Member ID Guarantor Name 03/16/2025 2 [employer] (MEDICARE SUPPLEMENT) Ned Cronin [id number] Ned Cronin 03/15/2025 1 [place] Ned Cronin [id number] Ned Cronin 12/14/2024 3 [employer] Ned Cronin [id number] Ned Cronin 12/02/2023 2 [employer] (MEDICARE SUPPLEMENT) Ned Cronin 03/16/2025 2 [employer] (MEDICARE SUPPLEMENT) Ned Cronin [id number] Ned Cronin Notes Date Note Type Note Provider Name and Address Organization Details Recorded Time 10/03/2021 text/html In for f/u of BPH and nephrolithiasis. he underwent Urolift procedure on 04/16/2016 with resolution of LUTS. He is quite pleased with outcome of procedure. he does have ah/o nephrolithiasis which is followed conservatively. KUB is reviewed today revealing nonobstructing nephrolithiasis, stable. Denies recent stone episode/flank pain. ROLF DOE JR, MD [address] [place] [address], [phone], [facility] 10/06/2021 18:50:55 10/09/2022 text/html In for f/u of BPH and nephrolithiasis. he underwent Urolift procedure on 04/16/2016 with resolution of LUTS. He is quite pleased with outcome of procedure. he does have ah/o nephrolithiasis which is followed conservatively. KUB is reviewed today revealing nonobstructing nephrolithiasis, stable. Denies recent stone episode/flank pain. ROLF DOE JR, MD [address] [place] [address], [address], [facility] 10/19/2022 10:21:34 12/02/2023 text/html In for f/u of BPH and nephrolithiasis. he underwent Urolift procedure on 04/16/2016 with resolution of LUTS. He is quite pleased with outcome of procedure. he does have ah/o nephrolithiasis which is followed conservatively. KUB is reviewed today revealing nonobstructing nephrolithiasis, stable. Denies recent stone episode/flank pain. ROLF DOE JR, MD [address] [place] [address] [place], [address], [facility] 12/06/2023 09:05:42 12/14/2024 text/html The patient [...] prostate cancer concerns. ROLF DOE JR, MD [facility] [place], [address], [facility] 12/18/2024 10:04:17 03/16/2025 text/html The patient is a 80-year-old [...] of the generated note prior to signature. [place], [address], [facility] 03/18/2025 11:08:02
== END 2025-04-03 23:59 ==
LOC: LAB.DROPOF 04-05 11:44
PROVIDERS: PCP Family Medicine; Visit Provider Family Medicine
DX: E78.5 Hyperlipidemia, unspecified (principal); I10 Essential (primary) hypertension
CPT/HCPCS: 80053; 80061; 85007; 85025

== ENCOUNTER 2025-05-08 13:53 | Outpatient (CLI) | payer MEDICARE, OTHER, SELFPAY ==
--- OUTSIDE RECORDS SUMMARY | 2016-02-06 11:57 | XMS_ITS | Encounter Summary ---
Author Organization [facility] Address [address] [place] [address] Care Team Providers Care Lawn Service Supervisor Name Role Phone Jong Gutiérrez MD Primary Care Provider [phone] Encounter Details Date Type Department Care Team (Late st Contact Info) Description 02/06/2016 12:57 PM EDT Hospital Encounter [facility] PULMONARY & CRITICAL CARE MEDICINE [address] [place] [phone] Social History Tobacco Use Types Packs/Day Years Used Date Smoking Tobacco: Former Cigarettes 1 40 1 965 - 2005 Smokeless Tobacco: Never Alcohol Use Standard Drinks/Week Comments Yes 0 (1 standard drink = 0.6 oz pur e alcohol) rarely Sex and Gender Information Value Date Recorded Sex Assigned at Male 01/18/2025 1:01 PM EDT Legal Sex Male 10:41 AM EDT Gender Identity Not on file Sexual Orientation Straight 01/18/2025 1: 01 PM EDT documented as of this encounter Plan of Treatment Upcoming Encounters Date Type Department Care Team (Late st Contact Info) Description 05/30/2026 9:45 AM EST Office Visit [facility] CARDIOLOGY [address] [facility] [address] [place] [phone] Lam Schmidt MD [address] [facility] [address] [address] [place] [address] documented as of this encounter Procedures Procedure Name Priority Date/Time Associated Diagnosis Comments XR CHEST PA AND LATERAL Routine 02/06/2016 1:00 PM EDT Hemoptysis documented in this encounter Results * XR chest pa and lateral (02/06/2016 1:00 PM EDT) Narrative Aleksandra Overton MA - 02/06/2016 1:00 PM EDT Results sent to probate paralegal, signed report will be scanned into [employer] once available. Please see performing physicians notes. us Emile Lyon MD IMG DIAGNOSTIC IMAGING ORDERABLES Final Result documented in this encounter Visit Diagnoses Not on filedocumented in this encounter Additional Health Concerns Infection Onset Date Last Indicated Resolved Time COVID Screen (preop/placement) 04/23/2020 04/23/2020 04/23/2020 6:13 PM EST COVID (rule out) 11/13/2020 11/14/2020 11/20/2020 9:08 PM EDT documented as of this encounter Care Teams Lawn Service Supervisor Relationship Specialty Start Date End Date Jong Gutiérrez MD [address] [place] [place] [address] PCP - General 07/11/15 08/06/16 documented as of this encounter
--- OUTSIDE RECORDS SUMMARY | 2019-08-24 12:25 | XMS_ITS | Encounter Summary ---
Author Organization [facility] Address [address] [place] [address] Care Team Providers Care Brand Lead Name Role Phone Zo Dailey Primary Care Provider [phone] Encounter Details Date Type Department Care Team (Late st Contact Info) Description 08/24/2019 1:25 PM EDT Hospital Encounter [facility] PULMONARY & CRITICAL CARE MEDICINE [address] [place] [phone] Social History Tobacco Use Types Packs/Day Years [...] Description 05/30/2026 9:45 AM EST Office Visit [facility] CARDIOLOGY [address] [facility] [address] [place] [phone] Lam Schmidt MD [address] [facility] [address] [address] [place] [address] documented as of this encounter Procedures Procedure Name Priority Date/Time Associated Diagnosis Comments XR CHEST PA AND LATERAL Routine 08/24/2019 1:38 PM EDT Bronchiectasis without complication documented in this encounter Results * XR Chest PA & Lateral (08/24/2019 1:38 PM EDT) Anatomical Region Laterality Modality Body, Chest N/A Radiographic Dotty ging Narrative 08/24/2019 5:09 PM EDT Chest x-ray PA and lateral was performed on 08/24/2019 and compared to prior studies of 02/06/2016 Findings: Cardiac silhouette is enlarged. The hilar and mediastinal structures are stable compared to prior films. Cardiac enlargement is likewise stable. The interstitial pattern is minimally prominent but also unchanged. The pleural spaces are clear. Impression: No acute cardiopulmonary disease. Enlarged cardiac silhouette which is stable. Emile Lyon MD Emile Lyon MD IMG DIAGNOSTIC IMAGING ORDERABLES Final Result documented in this encounter Visit Diagnoses Not on filedocumented in this encounter Additional Health Concerns Infection Onset Date Last Indicated Resolved Time COVID Screen (preop/placement) 04/23/2020 04/23/2020 04/23/2020 6:13 PM EST COVID (rule out) 11/13/2020 11/14/2020 11/20/2020 9:08 PM EDT documented as of this encounter Care Teams Brand Lead Relationship Specialty Start Date End Date Zo Dailey DO [facility] [place] [address] PCP - General Family Medicine 08/07/16 01/21/22 documented as of this encounter
--- OUTSIDE RECORDS SUMMARY | 2025-05-08 14:13 | XMS_ITS | Encounter Summary ---
Author Organization [facility] Address [address] [place] [address] Care Team Providers Care Ncr Operator Name Role Phone Miguel A Bernabe MD Primary Care Provider [phone] Encounter Details Date Type Department Care Team (Late st Contact Info) Description 05/02/2015 External CPT II ORDER RUNNER - [facility] Social History Tobacco Use [...] Description 05/30/2026 9:45 AM EST Office Visit [facility] [address] [phone] Lam Schmidt MD [address] [facility] [address] [place] [address] documented as of this encounter Visit Diagnoses Not on filedocumented in this encounter Additional Health Concerns Infection Onset Date Last Indicated Resolved Time COVID Screen (preop/placement) 04/23/2020 04/23/2020 04/23/2020 6:13 PM EST COVID (rule out) 11/13/2020 11/14/2020 11/20/2020 9:08 PM EDT documented as of this encounter Care Teams Ncr Operator Relationship Specialty Start Date End Date Miguel A Bernabe MD 9 [facility] [place] [address] PCP - General Family Medicine 01/22/22 documented as of this encounter
--- OUTSIDE RECORDS SUMMARY | 2025-05-08 14:13 | XMS_ITS | Clinical Summary ---
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 History of [place] (myocardial infarction) 03/06/2016 Overview (03/06/2016): 1. Myocardial [...] heart catheterization, 04/28/2002: A 95% ostial septal sample distributor, eccentric 40%, mid-LAD plaque, grossly normal left [...] Description 05/30/2026 9:45 AM EST Office Visit [facility] [address] [place] [address] Lam Schmidt MD [address] [place] [address] Health Maintenance Due Date Last Done Comments [...] RAGHAV MONTANEZ Released Date Time- 09/09/14 1324 Home Paraprofessional- Rodrick Procedure Note Raghav Lange MD - 03/07/2015 [...] RAGHAV MONTANEZ Released Date Time- 09/09/14 1324 Home Paraprofessional- LNasreenS. us Emile Lyon MD [facility] [place] ORDERABLES Anne-Marie justin Result * (ABNORMAL) Lipid panel (09/08/2014 9:22 AM EDT) Total Cholesterol 184 0 - 200 mg/dL [facility] Comment: DF by IF @ 09/08/2014 09:41 Cholesterol Reference Ranges: Desirable: less than 200 mg/dL Borderline: 200-239 mg/dL High: greater than 239 mg/dL Triglycerides 85 0 - 150 mg/dL [facility] Comment: DF by IF @ 09/08/2014 09:41 Triglyceride Reference Ranges: Normal less than 150 mg/dL Borderline 150-199 mg/dL High 200-499 mg/dL Very High greater than 499 mg/dL HDL Cholesterol 40 40 - 60 mg/dL [facility] Comment: DF by IF @ 09/08/2014 09:41 HDL Cholesterol Reference Ranges: Low less than 40 mg/dL High greater than 59 mg/dL LDL Cholesterol 133(H) 0 - 130 mg/dL [facility] Comment: US by IF @ 09/08/2014 09:41 LDL Cholesterol Reference Ranges: Optimal less than 100 mg/dL Near Optimal 100-129 mg/dL Borderline 130-159 mg/dL High 160-189 mg/dL Very High greater than 189 mg/dL Blood specimen (specimen) 09/08/2014 9:22 AM EDT Narrative [facility] - 09/08/2014 9:41 AM EDT Specimen Type: Blood Alo Pastrana MD LAB BLOOD ORDERABLES Final Re sult [facility] [address] [place] [address], from Last 3 Months or Most Recently Relevant to Health Maintenance Insurance MEDICARE A & B Member Subscriber Plan / Payer (Ef fective 2011-Present) Name:Ned Cronin Member ID:[id number] Relation to Subscriber:Self Name:Ned Cronin Subscriber ID:[id number] Payer ID:[id number] Group ID:Not on file Type:Not on file Address: [address] [place] [address] Care Teams Geographic Information Systems Director Relationship Specialty Start Date End Date Miguel A Bernabe MD [address] [place] [id number] PCP - General Family Medicine 01/22/22
[2025-05-08 14:35] LABS: PHA INR Fingerstick 3.2 (0.9-1.1)
== END 2025-05-08 14:37 ==
LOC: ACC 13:54
PROVIDERS: PCP Family Medicine; Visit Provider Physician Assistant
DX: I48.0 Paroxysmal atrial fibrillation (principal); Z79.01 Long term (current) use of anticoagulants
CPT/HCPCS: 85610; 99211; G0463

== ENCOUNTER 2025-05-29 13:04 | Outpatient (CLI) | payer MEDICARE, OTHER, SELFPAY ==
[2025-05-29 15:27] LABS: PHA INR Fingerstick 4.1 (0.9-1.1)
== END 2025-05-29 15:37 ==
LOC: ACC 13:04
PROVIDERS: PCP Family Medicine; Visit Provider Physician Assistant
DX: I48.0 Paroxysmal atrial fibrillation (principal); Z79.01 Long term (current) use of anticoagulants
CPT/HCPCS: 85610; 99211; G0463

== ENCOUNTER 2025-06-12 13:58 | Outpatient (CLI) | payer MEDICARE, OTHER, SELFPAY ==
--- OUTSIDE RECORDS SUMMARY | 2016-02-06 11:57 | XMS_ITS | Encounter Summary ---
Author Organization [facility] Address [address] [place] [address] Care Team Providers Care Pv Installer Tech Name Role Phone Jong Gutiérrez MD Primary Care Provider [phone] Encounter Details Date Type Department Care Team (Late st Contact Info) Description 02/06/2016 12:57 PM EDT Hospital Encounter [facility] PULMONARY & CRITICAL CARE MEDICINE [address] [place] [phone] Social History Tobacco Use Types Packs/Day Years Used Date Smoking Tobacco: Former Cigarettes 1 40 1 965 - 2005 Passive Smoke Exposure: Past Smokeless Tobacco: Never Alcohol Use Standard Drinks/Week [...] Description 05/30/2026 9:45 AM EST Office Visit [facility] CARDIOLOGY [address] [facility] [address] [place] [address] Lam Schmidt MD [address] [facility] [address] [address] [place] [address] documented as of this encounter Procedures Procedure Name Priority Date/Time Associated Diagnosis Comments XR CHEST PA AND LATERAL Routine 02/06/2016 1:00 PM EDT Hemoptysis documented in this encounter Results * XR chest pa and lateral (02/06/2016 1:00 PM EDT) Narrative Aleksandra Overton MA - 02/06/2016 1:00 PM EDT Results sent to bullard machine operator, signed report will be scanned into [employer] once available. Please see performing physicians notes. [...] documented as of this encounter Care Teams Pv Installer Tech Relationship Specialty Start Date End Date Jong Gutiérrez MD [address] [place] [address] PCP - General 07/11/15 08/06/16 documented as of this encounter
--- OUTSIDE RECORDS SUMMARY | 2019-08-24 12:25 | XMS_ITS | Encounter Summary ---
Author Organization [facility] Address [address] [place] [address] Care Team Providers Care Certified Phlebotomist Name Role Phone Zo Dailey Primary Care Provider [phone] Encounter Details Date Type Department Care Team (Late st Contact Info) Description 08/24/2019 1:25 PM EDT Hospital Encounter [facility] PULMONARY & CRITICAL CARE MEDICINE [address] [place] [phone] Social History Tobacco Use Types Packs/Day Years [...] Description 05/30/2026 9:45 AM EST Office Visit [facility] CARDIOLOGY [address] [facility] [address] [place] [phone] Lam Schmidt MD [address] [facility] [address] [place] [address] documented as of this encounter Procedures Procedure [...] documented as of this encounter Care Teams Certified Phlebotomist Relationship Specialty Start Date End Date Zo Dailey DO [facility] [place] [address] PCP - General Family Medicine 08/07/16 01/21/22 documented as of this encounter
--- OUTSIDE RECORDS SUMMARY | 2025-01-25 13:30 | XMS_ITS | Encounter Summary ---
Author Organization [facility] Address [address] [place] [address] Care Team Providers Care Outpatient Case Manager Name Role Phone Miguel A Bernabe MD Primary Care Provider [phone] Reason for Visit * Reason Comments NOGUEIRA (dyspnea on exertion) Encounter Details Date Type Department Care Team (Late st Contact Info) Description 01/25/2025 2:30 PM EDT Office Visit [facility] [address] [facility] [facility] [address] [place] [address] Lam Schmidt MD [address] [place] [address] Atypical atrial flutter (Primary Dx); Hypertrophic cardiomyopathy; AR (obstructive sleep apnea); Chronic obstructive pulmonary disease, unspecified COPD type; 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 Social History Tobacco Use Types Packs/Day Years [...] PM EDT documented as of this encounter Last Filed Vital Signs Vital Sign Reading Time Taken Comments Blood Pressure 136/58 01/25/2025 2:01 PM EDT Pulse 62 01/25/2025 2:01 PM EDT Temperature - - Respiratory Rate - - Oxygen Saturation 96% 01/25/2025 2:01 PM EDT Inhaled Oxygen Concentration - - Weight 81.4 kg (179 lb 6.4 oz) 01/25/2025 2:01 P M EDT Height 172.7 cm (5' 8 ) 01/25/2025 2:01 PM EDT Body Mass Index 27.28 01/25/2025 2:01 PM EDT documented in this encounter Progress Notes * Lam Schmidt MD - 01/25/2025 2:30 PM EDTAssociated Order(s): ECG 12 Lead Post-Procedure Diagnose(s): Hypertrophic cardiomyopathy; AR (obstructive sleep apnea); Atypical atrial flutter; 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 provider found Miguel A Bernabe MD [address] [place], [place] [id number] Chief Complaint Patient presents with NOGUEIRA (dyspnea on exertion) Problem List: Persistent atrial fibrillation: Diagnosed on 03/01/2002. Initiation of amiodarone for atrial fibrillation in May 2002. Discontinuation of amiodarone, 02/03/2007. Pulmonary vein ablation, 06/09/2007. Recurrent episodes of paroxysmal atrial fibrillation, November 2012: Echocardiogram, 02/02/2013; EF 55%to 60%, diastolic dysfunction, moderate aortic regurgitation, moderate mitral regurgitation. QT prolongation on sotalol and intolerance to Multaq, fall 2012. Recurrent episodes of symptomatic paroxysmal atrial fibrillation; August 2013. Status post successful electrophysiology study and radiofrequency ablation of pulmonary veins as well as 2 separate left atrial flutters, 1 left atrial rotor and pulmonary veins utilizing Topera therapy on 03/06/2014. Initiation of amiodarone therapy. External cardioversion to normal sinus rhythm, 06/26/2014, with return to atrial fibrillation 07/01/2014. HERNÁN 10/2023 LVEF 55%, mild AI, mod MR, small apical aneurysm, PFO External cardioversion was atrial flutter 11/02/2024 with subsequent recurrence 2 weeks later. Atrial flutter, status post electrophysiology study with radiofrequency ablation of a right atrial isthmus-dependent flutter on 04/10/2003. Myocardial infarction, 02/02/2002: Left heart catheterization, 02/02/2002: Circumflex 95%, status post stent, ejection fraction 75%, 1-2+ aortic insufficiency: Echocardiogram on 02/02/2002: Intraventricular septum 1.5 cm, LV posterior wall 1.2 cm, mild left atrial enlargement, 4.5 cm, hypertrophic motion with left ventricular ejection fraction 70%. Adenosine Cardiolite, 03/23/2002: Normal response to adenosine, depressed ejection fraction at 48% with anteroapical hypokinesis. Left heart catheterization, 04/28/2002: A 95% ostial septal supervisor incising, eccentric 40%, mid-LAD plaque, grossly normal left ventricular function. Echocardiogram, 01/04/2003: Left ventricular ejection fraction 75%, mild mitral regurgitation, mildaortic insufficiency, mild tricuspid regurgitation, and concentric left ventricular hypertrophy noted. Echocardiogram in October 2005 with left ventricular ejection fraction of 55%, mild concentric left ventricular hypertrophy, apical hypertrophy, moderate mitral regurgitation, left atrial size 4.7 cm. 04/25/2020 Regadenoson LVEF 49%, medium sized infarct in apex with no significant ischemia low to intermediate risk 11/15/2021 LH at [facility] with stents to LM and LAD - data deficit. - renal arterystenosis with stent placement at later date 12/02/2021 Abnormal Myoview stress test 11/01/2024 LVEF 46 to 48%. Left heart catheterization 11/02/2024 patent LAD stent with 30% distal stenosis, patent left circumflex with 80% proximal IR branch which has been deemed a small vessel, 20 to 30% stenosis of the RCA. Hypertrophic cardiomyopathy: Left heart catheterization, 12/31/2006, Dr. Pierce: With subtotal occlusion of small proximal obtuse marginal branch of the circumflex. Normal left ventricular function. Transesophageal echocardiogram, 01/08/2007: Eccentric mild jet of aortic insufficiency, small patent foramen ovale with left to right flow, no thrombus, no ventricular septal defect, moderate mitral regurgitation. HERNÁN, May 2007, with moderate concentric left ventricular hypertrophy, mild mitral regurgitation, aortic insufficiency, normal left ventricular function. Echocardiogram, January 2010: Normal left ventricular size and function, mild mitral regurgitation, right ventricular pressure 35 mmHg, moderate tricuspid regurgitation. 09/08/2013: Right and left heart catheterization: Right atrial mean pressure 6 mmHg, right ventricular pressure 30/6 mmHg. Pulmonary artery mean is 25 mmHg. Pulmonary capillary wedge position mean 12mmHg. Left heart pressures - aortic 120/60, left ventricular 120/12 mmHg. No pullback gradient assessed by pigtail catheter. No significant CAD Echocardiogram 08/2016: EF 45-55% (in atrial fibrillation), mild concentric left ventricular hypertrophy Embolic cerebrovascular accident, 1993. Declined respiratory function with ground glass appearance and possible amiodarone toxicity. Patient underwent extensive pulmonary workup, per Dr. Lyon, including chest CT, bronchoscopy, and serologies including ANCA panel, ALEXANDRE level fungal serologies, QuantiFERON-TB, and sedimentation rate. C onservative therapy recommended. Hypertension. Hyperlipidemia. Nephrolithiasis. Urinary tract infection. Renal Artery Stenosis - s/p 3 stents 11/2021 Acute cholecystitis: Cholecystectomy, 11/30/2008, associated with an episode of atrial fibrillation. Obstructive sleep apnea, on CPAP Allergies Allergies Allergen Reactions Amiodarone Codeine Iodinated Contrast Media Contrast media Penicillins Sotalol Current Medications Current Outpatient Medications: albuterol sulfate HFA 108 (90 Base) MCG/ACT inhaler, Inhale 2 puffs Every 6 (Six) Hours As Needed for Wheezing., Disp: 3 inhaler, Rfl: 3 alfuzosin (UROXATRAL) 10 MG 24 hr tablet, Take 1 tablet by mouth Daily., Disp: , Rfl: furosemide (LASIX) 40 MG tablet, TAKE 1 TABLET BY MOUTH ONCE DAILY (Patient taking differently: 1 tablet Daily.), Disp: 30 tablet, Rfl: 5 Magnesium 200 MG tablet, Take 1 tablet by mouth 2 (Two) Times a Day., Disp: , Rfl: metoprolol succinate XL (TOPROL-XL) 100 MG 24 hr tablet, Take 1 tablet by mouth Daily., Disp: 90 tablet, Rfl: 3 rosuvastatin (CRESTOR) 40 MG tablet, Take 1 tablet by mouth Daily., Disp: , Rfl: spironolactone (ALDACTONE) 25 MG tablet, Take 1 tablet by mouth Daily., Disp: , Rfl: Vitamin D, Cholecalciferol, 50 MCG (2000 UT) capsule, Take 1 capsule by mouth Daily., Disp: , Rfl: warfarin (COUMADIN) 5 MG tablet, TAKE 1/2 TO 1 TABLET EVERY DAY DIRECTED BY THE ANTICOGULATION CLINIC., Disp: 90 tablet, Rfl: 1 Zinc 50 MG tablet, Take 1 tablet by mouth., Disp: , Rfl: History of Present Illness Pt presents for follow up of AF/HCM/HTN/CVA. Since we last saw the pt, pt was apparently hospitalized in October 2024 secondary to the flu. Workup at that time included a positive troponin level. He had an echocardiogram that demonstrated normal LVEF with mild to moderate aortic insufficiency and elevated right ventricular systolic pressure. He apparently also had a Myoview stress test due to his elevated troponin that demonstrated abnormalities with potential sites of ischemia. He underwent left heart catheterization on 11/02/2024 that demonstrated LVEF to be normal. He had 30% stenosis after a patent LAD stent, proximal 80% intermedial size IR branch of the left circumflex system, and 20% multiple small stenosis's of the RCA. He underwent external cardioversion of his atrial flutter. Subsequently he maintained sinus rhythm for a few weeks and then developed atrial flutter again. The patient did not feel any improvement when he was in sinus rhythm. Presently overall he is doing well. He does have chronic dyspnea on exertion which is multifactorial in nature most likely due to pulmonary fibrosis, COPD, and CAD. Blood pressures for the most part of been well-controlled. Vitals: 01/25/25 1401 BP: 136/58 BP Location: Left arm Patient Position: Sitting Cuff Size: Adult Pulse: 62 SpO2: 96% Weight: 81.4 kg (179 lb 6.4 oz) Height: 172.7 cm (68 ) Body mass index is 27.28 kg/m??. PE: General: NAD Neck: no JVD, no carotid bruits, no TM Heart irregular regular rate rhythm normal S1-S2. No murmurs appreciated. Lungs: CTA, no wheezes, rhonchi, or rales Abd: soft, non-tender, NL BS Ext: No musculoskeletal deformities, no edema, cyanosis, or clubbing Psych: normal mood and affect Diagnostic Data: ECG 12 Lead Date/Time: 01/25/2025 5:00 PM Performed by: Lam Schmidt MD Authorized by: Lam Schmidt MD Comparison: compared with previous ECG from 02/02/2024 Similar to previous ECG Rhythm: atrial flutter BPM: 62 Advance Care Planning ACP discussion was declined by the patient. Patient does not have an advance directive, declines further assistance. 1. Atypical atrial flutter 2. Hypertrophic cardiomyopathy 3. AR (obstructive sleep apnea) 4. Chronic obstructive pulmonary disease, unspecified COPD type 5. 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 Long discussion with the patient today. Would not pursue more aggressive measures in maintaining sinus rhythm. 2) Hypertrophic cardiomyopathy. Per lean engineer. Continue beta-blockers. Continue present medications. 3) Anticoagulation Continue warfarin, INR's 4) AR: Bipap 5) CAD: recent [facility] results noted. F/up in 12 months documented in this encounter Plan of Treatment Upcoming Encounters Date Type Department Care Team (Late st Contact Info) Description 05/30/2026 9:45 AM EST Office Visit [facility] [address] [phone] Lam Schmidt MD [address] [address] documented as of this encounter Procedures Procedure Name Priority Date/Time Associated Diagnosis Comments ECG 12-LEAD Routine 01/25/2025 Atypical atrial flutter Hypertrophic cardiomyopathy AR (obstructive sleep apnea) Chronic obstructive pulmonary disease, unspecified COPD type 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 provider found Miguel A Bernabe MD [address] [place] [id number] Chief Complaint Patient presents with NOGUEIRA (dyspnea on exertion) Problem List: Persistent atrial fibrillation: Diagnosed on 03/01/2002. Initiation of amiodarone for atrial fibrillation in May 2002. Discontinuation of amiodarone, 02/03/2007. Pulmonary vein ablation, 06/09/2007. Recurrent episodes of paroxysmal atrial fibrillation, November 2012:Echocardiogram, 02/02/2013; EF 55% to 60%, diastolic dysfunction, moderateaortic regurgitation, moderate mitral regurgitation. QT prolongation on sotalol and intolerance to Multaq, fall 2012. Recurrent episodes of symptomatic paroxysmal atrial fibrillation; August2013. Status post successful electrophysiology study and radiofrequency ablationof pulmonary veins as well as 2 separate left atrial flutters, 1 leftatrial rotor and pulmonary veins utilizing Topera therapy on 03/06/2014. Initiation of amiodarone therapy. External cardioversion to normal sinus rhythm, 06/26/2014, with return toatrial fibrillation 07/01/2014. HERNÁN 10/2023 LVEF 55%, mild AI, mod MR, small apical aneurysm, PFO External cardioversion was atrial flutter 11/02/2024 with subsequentrecurrence 2 weeks later. Atrial flutter, status post electrophysiology study with radiofrequencyablation of a right atrial isthmus-dependent flutter on 04/10/2003. Myocardial infarction, 02/02/2002: Left heart catheterization, 02/02/2002:Circumflex 95%, status post stent, ejection fraction 75%, 1-2+ aorticinsufficiency: Echocardiogram on 02/02/2002: Intraventricular septum 1.5 cm, LV posteriorwall 1.2 cm, mild left atrial enlargement, 4.5 cm, hypertrophic motionwith left ventricular ejection fraction 70%. Adenosine Cardiolite, 03/23/2002: Normal response to adenosine, depressedejection fraction at 48% with anteroapical hypokinesis. Left heart catheterization, 04/28/2002: A 95% ostial septal supervisor incising,eccentric 40%, mid-LAD plaque, grossly normal left ventricular function. Echocardiogram, 01/04/2003: Left ventricular ejection fraction 75%, mildmitral regurgitation, mild aortic insufficiency, mild tricuspidregurgitation, and concentric left ventricular hypertrophy noted. Echocardiogram in October 2005 with left ventricular ejection fraction of 55%,mild concentric left ventricular hypertrophy, apical hypertrophy, moderatemitral regurgitation, left atrial size 4.7 cm. 04/25/2020 Regadenoson LVEF 49%, medium sized infarct in apex with nosignificant ischemia low to intermediate risk 11/15/2021 [facility] with stents to LM and LAD -data deficit. - renal artery stenosis with stent placement at later date12/02/2021 Abnormal Myoview stress test 11/01/2024 LVEF 46 to 48%. Left heart catheterization 11/02/2024 patent LAD stent with 30% distalstenosis, patent left circumflex with 80% proximal IR branch which hasbeen deemed a small vessel, 20 to 30% stenosis of the RCA. Hypertrophic cardiomyopathy: Left heart catheterization, 12/31/2006, Dr. Pierce: With subtotalocclusion of small proximal obtuse marginal branch of the circumflex.Normal left ventricular function. Transesophageal echocardiogram, 01/08/2007: Eccentric mild jet of aorticinsufficiency, small patent foramen ovale with left to right flow, nothrombus, no ventricular septal defect, moderate mitral regurgitation. HERNÁN, May 2007, with moderate concentric left ventricular hypertrophy,mild mitral regurgitation, aortic insufficiency, normal left ventricularfunction. Echocardiogram, January 2010: Normal left ventricular size and function,mild mitral regurgitation, right ventricular pressure 35 mmHg, moderatetricuspid regurgitation. 09/08/2013: Right and left heart catheterization: Right atrial meanpressure 6 mmHg, right ventricular pressure 30/6 mmHg. Pulmonary arterymean is 25 mmHg. Pulmonary capillary wedge position mean 12 mmHg. Leftheart pressures - aortic 120/60, left ventricular 120/12 mmHg. No pullbackgradient assessed by pigtail catheter. No significant CAD Echocardiogram 08/2016: EF 45-55% (in atrial fibrillation), mild concentricleft ventricular hypertrophy Embolic cerebrovascular accident, 1993. Declined respiratory function with ground glass appearance and possibleamiodarone toxicity. Patient underwent extensive pulmonary workup, per , including chest CT, bronchoscopy, and serologies includingANCA panel, ALEXANDRE level fungal serologies, QuantiFERON-TB, and sedimentationrate. Conservative therapy recommended. Hypertension. Hyperlipidemia. Nephrolithiasis. Urinary tract infection. Renal Artery Stenosis - s/p 3 stents 11/2021 Acute cholecystitis: Cholecystectomy, 11/30/2008, associated with an episode of atrialfibrillation. Obstructive sleep apnea, on CPAP Allergies Allergies Allergen Reactions Amiodarone Codeine Iodinated Contrast Media Contrast media Penicillins Sotalol Current Medications Current Outpatient Medications: albuterol sulfate HFA 108 (90 Base) MCG/ACT inhaler, Inhale 2 puffsEvery 6 (Six) Hours As Needed for Wheezing., Disp: 3 inhaler, Rfl: 3 alfuzosin (UROXATRAL) 10 MG 24 hr tablet, Take 1 tablet by mouth Daily.,Disp: , Rfl: furosemide (LASIX) 40 MG tablet, TAKE 1 TABLET BY MOUTH ONCE DAILY(Patient taking differently: 1 tablet Daily.), Disp: 30 tablet, Rfl: 5 Magnesium 200 MG tablet, Take 1 tablet by mouth 2 (Two) Times a Day.,Disp: , Rfl: metoprolol succinate XL (TOPROL-XL) 100 MG 24 hr tablet, Take 1 tabletby mouth Daily., Disp: 90 tablet, Rfl: 3 rosuvastatin (CRESTOR) 40 MG tablet, Take 1 tablet by mouth Daily.,Disp: , Rfl: spironolactone (ALDACTONE) 25 MG tablet, Take 1 tablet by mouth Daily.,Disp: , Rfl: Vitamin D, Cholecalciferol, 50 MCG (2000 UT) capsule, Take 1 capsule bymouth Daily., Disp: , Rfl: warfarin (COUMADIN) 5 MG tablet, TAKE 1/2 TO 1 TABLET EVERY DAY ASDIRECTED BY THE ANTICOGULATION CLINIC., Disp: 90 tablet, Rfl: 1 Zinc 50 MG tablet, Take 1 tablet by mouth., Disp: , Rfl: History of Present Illness Pt presents for follow up of AF/HCM/HTN/CVA. Since we last saw the pt, ptwas apparently hospitalized in October 2024 secondary to the flu. Workup atthat time included a positive troponin level. He had an echocardiogramthat demonstrated normal LVEF with mild to moderate aortic insufficiencyand elevated right ventricular systolic pressure. He apparently also hada Myoview stress test due to his elevated troponin that demonstratedabnormalities with potential sites of ischemia. He underwent left heartcatheterization on 11/02/2024 that demonstrated LVEF to be normal. He had30% stenosis after a patent LAD stent, proximal 80% intermedial size IRbranch of the left circumflex system, and 20% multiple small stenosis's ofthe RCA. He underwent external cardioversion of his atrial flutter.Subsequently he maintained sinus rhythm for a few weeks and then developedatrial flutter again. The patient did not feel any improvement when hewas in sinus rhythm. Presently overall he is doing well. He does havechronic dyspnea on exertion which is multifactorial in nature most likelydue to pulmonary fibrosis, COPD, and CAD. Blood pressures for the mostpart of been well-controlled. Vitals: 01/25/25 1401 BP: 136/58 BP Location: Left arm Patient Position: Sitting Cuff Size: Adult Pulse: 62 SpO2: 96% Weight: 81.4 kg (179 lb 6.4 oz) Height: 172.7 cm (68 ) Body mass index is 27.28 kg/m . PE: General: NAD Neck: no JVD, no carotid bruits, no TM Heart irregular regular rate rhythm normal S1-S2. No murmursappreciated. Lungs: CTA, no wheezes, rhonchi, or rales Abd: soft, non-tender, NL BS Ext: No musculoskeletal deformities, no edema, cyanosis, or clubbing Psych: normal mood and affect Diagnostic Data: ECG 12 Lead Date/Time: 01/25/2025 5:00 PM Performed by: Lam Schmidt MD Authorized by: Lam Schmidt MD Comparison: compared with previousECG from 02/02/2024 Similar to previous ECG Rhythm: atrial flutter BPM: 62 Advance Care Planning ACP discussion was declined by the patient. Patient does not have anadvance directive, declines further assistance. 1. Atypical atrial flutter 2. Hypertrophic cardiomyopathy 3. AR (obstructive sleep apnea) 4. Chronic obstructive pulmonary disease, unspecified COPD type 5. Coronary artery disease involving comanche coronary artery of nativeheart without angina pectoris Plan: 1) Permanent atypical atrial flutter asymptomatic in nature with adequateheart rate control. Long discussion with the patient today. Would notpursue more aggressive measures in maintaining sinus rhythm. 2) Hypertrophic cardiomyopathy. Per lean engineer. Continuebeta-blockers. Continue present medications. 3) Anticoagulation Continue warfarin, INR's 4) AR: Bipap 5) CAD: recent [facility] results noted. 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
--- OUTSIDE RECORDS SUMMARY | 2025-06-12 14:02 | XMS_ITS | Continuity of Care Document ---
Author Organization [facility] Syed stewart [facility] Address [address] [place] [address] Care Team Providers Care Cobol Application Developer Name Role Phone RICHARD CABELLO Primary Care Provider [phone] Assessment Encounter Date Assessment Date Assessment LastModified [...] By Organization Details Last Modified Time 03/16/2025 [id number] - Continue takin g alfuzosin as prescribed. - Schedule regular PSA tests to monitor prostate health. - Report any new symptoms such as blood in urine or difficulty urinating. [email or web address] Not available 03/16/2025 14:46:53 Reason for Referral None Reported. Problems Name Problem SNOMED Code Status Onset Date Resolution Date Notes Provider Name and Address Organization Details Recorded Time Calculus of kidney and ureter 258335525 Active 2014 From Automated Load;Prov ider: Rolf Doe Jr;St atus: Active Not Available [facility] 6 09:06:25 Kidney stone 66740332 Active 2014 Provider: Rolf Doe Jr;St atus: Active Not Available [facility] 6 09:06:25 Ureteric stone 84341955 Active 2014 Provider: Rolf Doe Jr;St atus: Active Not Available [facility] 6 09:06:25 Sunday hematuria 707743975 Active 2015 From Automated Load;Prov ider: Rolf Doe Jr;St atus: Active Not Available [facility] 6 09:06:25 Epididymi tis 12635670 Active 2015 From Automated Load;Prov ider: Rolf Doe Jr;St atus: Active Not Available [facility] 6 09:06:25 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 71377633187 101 Active 2015 From Automated Load;Prov ider: Rolf Doe Jr;St atus: Active Not Available [facility] 6 09:06:25 Nocturia 982347880 Active 2015 From Automated Load;Prov ider: Rolf Doe Jr;St atus: Active Not Available [facility] 6 09:06:25 Prostate nodule 70299462372 9109 Active 2022 ROLF DOE JR, MD [address] [place] [address] [place], [address] , [facility] 3 10:20:35 Acute urinary tract infection 154144275 Active 2022 ROLF DOE JR, MD [address] [place] [address] [place], [address] , [facility] 3 10:20:35 Problem Notes None recorded. Medical Equipment None Reported. Allergies Allergen ID Allergen Name Allergen Category Reaction Reaction Severity Criticality Documentation Date Start Date Code Code System Note Provider Name and Address Organization Details Recorded Time 644353 Flomax medicatio n Not available Not available Not available 05/09/20162012 54464 3 RxNorm Comme nt: Creat ed By: [facility] rt ICCha rt;Cr eated Date: 2012 1:16: 29 PM; Not Available [facility] 6 03:08:20 350819 sotalol hydrochlo ride medicatio n Not available Not available Not available 05/09/20162014 7008 RxNorm Comme nt: Creat ed By: Lewis bell Date: 2014 1:36: 35 PM; Not Available [facility] 6 06:21:01 671478 iodine medicatio n Not available Not available Not available 05/09/20162012 5933 RxNorm Comme nt: Creat ed By: [facility] rt ICCha rt;Cr eated Date: 2012 1:16: 40 PM; Not Available [facility] 6 09:08:45 948435 acetamino phen / hydrocodo ne medicatio n Not available Not available Not available 05/09/20162012 50662 2 RxNorm Comme nt: Creat ed By: [facility] rt ICCha rt;Cr eated Date: 2012 1:16: 49 PM; Not Available [facility] 6 09:08:45 389473 Product containin g penicilli n (product) medicatio n Not available Not available Not available 05/09/20162012 73084 8001 SNOMED Comme nt: Creat ed By: [facility] rt ICC rt;Cr eated Date: 2012 1:17: 02 PM; Not Available [facility] 6 09:08:45 569033 codeine medicatio n Not available Not available Not available 05/09/20162012 2670 RxNorm Comme nt: Creat ed By: [facility] rt [facility] rt;Cr eated Date: 2012 1:16: 17 PM; Not Available [facility] 10:37:35 Medications Name Sig Start Date [...] Updated DateTime 03/16/2025 172.72 cm 25.8 kg/m2 36107.7 g [facility] 03/16/2025 14:39:00 Social History Question Answer Notes LastModified by Organizat ion Details LastModified Time Tobacco Smoking Status [facility] 04/10/2017 10:57:31 How Much Tobacco Do You Chew? None [email or web address] Information not available 09/02/2018 What Was The Date Of Your Most Recent Tobacco Screening? 12/14/2024 [email or web address] Information not available 12/14/2024 How Much Tobacco Do You Smoke? No [email or web address] Information not available 03/10/2019 Sex: Unknown Functional [...] influenza, unspecified formulation 8 completed Not Available [facility] 03/16/2025 13:49:39 COVID-19, mRNA, LNP-S, PF, 100 mcg/0.5mL dose or 50 mcg/0.25mL dose 1 completed Not Available [facility] 03/16/2025 13:49:39 COVID-19, mRNA, LNP-S, PF, 100 mcg/0.5mL dose or 50 mcg/0.25mL dose 1 completed Not Available [facility] 03/16/2025 13:49:39 Tdap 3 completed Not Available [facility] 03/16/2025 13:49:39 Past Encounters Encounter ID Performer Location Encounter Start Date Encounter Closed Date Diagnosis/Indication Diagnosis SNOMED-CT Code Diagnosis ICD10 Code Diagnosis IMO Codes Diagnosis Note [id number] ROLF DOE JR, MD [facility] [address] [place] [address] 03/16/2025 13:49:09 03/16/2025 15:04:25 Lower urinary tract symptoms due to benign prostatic hypertrophy 8547376149 9101 N40.1 - Initiate treatment with an Alpha sindhu, monitor blood pressure due to potential hypotensiv e effects. - Follow-up in three to four months to assess symptom improvemen t. Kidney stone 10632856 N2 0.0 Health Concerns Section Related Observation LastModified by Organization Detai ls LastModified Time None Recorded Concern Status LastModified by Organization Details LastModified Time None Recorded Payers Encounter Date Sequence Insurance Name Policy Number Policy Curiel Covered Member ID Curiel Member ID Guarantor Name 03/16/2025 1 [place] Ned Cronin [id number] Ned Cronin 03/16/2025 2 [employer] (MEDICARE SUPPLEMENT) Ned Cronin [id number] Ned Cronin Notes Date Note Type Note [...] prior to signature. ROLF DOE JR, MD [address] [place] [address], [address], [facility] 03/18/2025 11:08:02
--- OUTSIDE RECORDS SUMMARY | 2025-06-12 14:02 | XMS_ITS | Encounter Summary ---
Author Organization [facility] Address [address] [place] [address] Care Team Providers Care Service Delivery Management Consultant Name Role Phone Miguel A Bernabe MD Primary Care Provider [phone] Encounter Details Date Type Department Care Team (Late st Contact Info) Description 05/02/2015 External CPT II COMPUTER TECHNOLOGY INSTRUCTOR - [employer] Social History Tobacco Use [...] Description 05/30/2026 9:45 AM EST Office Visit [facility] [address] [phone] Lam Schmidt MD [address] [facility] [address] [facility] [address] [place] [address] documented as of this encounter Visit Diagnoses Not on filedocumented in this encounter Additional Health Concerns Infection Onset Date Last Indicated Resolved Time COVID Screen (preop/placement) 04/23/2020 04/23/2020 04/23/2020 6:13 PM EST COVID (rule out) 11/13/2020 11/14/2020 11/20/2020 9:08 PM EDT documented as of this encounter Care Teams Service Delivery Management Consultant Relationship Specialty Start Date End Date Miugel A Bernabe MD [address] [facility] [place] [address] PCP - General Family Medicine 01/22/22 documented as of this encounter
--- OUTSIDE RECORDS SUMMARY | 2025-06-12 14:03 | XMS_ITS | Data Portability ---
Author Organization [facility]ATH[facility]OS[facility] Address [address] [place] [address] Care Team Providers Care Business Systems Analyst Name Role Phone RICHARD CABELLO Primary Care [...] Lab urinalysi s panel, auto 2024 025 [facility], [address], [address], [place], [address], 12/14/2024 11:57:21 PSA, serum or plasma 2023 024 [facility], [address], [address], [place], [address], 12/06/2023 09:05:40 urinalysi s panel, auto 2023 024 [facility], [address], [address], [place], [address], 12/06/2023 09:05:38 culture, urine 2022 023 [facility], [facility], [place], [address], 10/11/2022 10:20:34 urinalysi s panel, auto 2022 023 [facility], [address], [address], [place], [address], 10/19/2022 10:21:30 PSA, serum or plasma 2022 023 [facility], [address], [address], [place], [address], 10/19/2022 10:21:30 urinalysi s panel, auto 2021 022 [facility], [address], [address], [place], [address], 10/06/2021 18:50:37 PSA, serum or plasma 2021 022 [facility], [address], [address], [place], [address], 10/06/2021 18:50:37 Referral None recorded. Procedures None recorded. Surgeries None recorded. Imaging None recorded. Medication Orders alfuzosin ER 10 mg tablet,ex tended release 24 hr 2024 025 [facility], [address], [address], 12/14/2024 11:57:29 Patient TargetsNo targets recorded. Patient Instructions Encounter Date Encounter Id Patient Instructions Last Modified By Organization Details Last Modified Time 10/09/2022 [id number] Prostate nodule feels benign, but is new. Correlate with PSA [facility] Not available 10/19/2022 10:21:08 12/14/2024 [id number] - Continue jovan grace your prostate medications as prescribed. - Return for PSA testing in six months. - Report any new symptoms or changes to your healthcare provider. - Start taking the prescribed Alpha sindhu and monitor your blood pressure regularly. - Schedule a follow-up appointment in three to four months to evaluate your symptoms. [id number] Not available 12/14/2024 11:59:24 03/16/2025 [id number] - Continue takin g alfuzosin as prescribed. [...] 0.42 NG/mL 0.0 - 4.0 Not Available [facility] [address], [place], [address], 10/03/2021 14:15:11 10/04/19 22 10/03/2021 urina lysis panel , auto Unknown Analyte Clean Catch Not Available [facility] [address], [place], [address], 10/03/2021 14:09:29 10/04/19 22 10/03/2021 urina lysis panel , auto Unknown Analyte Yellow Not Available [facility] [address], [place], [address], 10/03/2021 14:09:29 10/04/19 22 10/03/2021 urina lysis panel , auto Unknown Analyte Clear Not Available [facility] [address], [place], [address], 10/03/2021 14:09:29 10/04/19 22 10/03/2021 urina lysis panel , auto Unknown Analyte 1.020 Not Available [facility] [address], [place], [address], 10/03/2021 14:09:29 10/04/19 22 10/03/2021 urina lysis panel , auto Unknown Analyte 1.003- 1.035 Not Available [facility] [address], [place], [address], 10/03/2021 14:09:29 10/04/19 22 10/03/2021 urina lysis panel , auto Unknown Analyte 6.0 Not Available [facility] [address], [place], [address], 10/03/2021 14:09:29 10/04/19 22 10/03/2021 urina lysis panel , auto Unknown Analyte 5.0-8. 0 Not Available [facility] [address], [place], [address], 10/03/2021 14:09:29 10/04/19 22 10/03/2021 urina lysis panel , auto Unknown Analyte Negati ve Not Available [facility] [address], [place], [address], 10/03/2021 14:09:29 10/04/19 22 10/03/2021 urina lysis panel , auto Unknown Analyte Negati ve Not Available [facility] [address], [place], [address], 10/03/2021 14:09:29 10/04/19 22 10/03/2021 urina lysis panel , auto Unknown Analyte Negati ve Not Available [facility] [address], [place], [address], 10/03/2021 14:09:29 10/04/19 22 10/03/2021 urina lysis panel , auto Unknown Analyte Negati ve Not Available [facility] [address], [place], [address], 10/03/2021 14:09:29 10/04/19 22 10/03/2021 urina lysis panel , auto Unknown Analyte Negati ve Not Available [facility] [address], [place], [address], 10/03/2021 14:09:29 10/04/19 22 10/03/2021 urina lysis panel , auto Unknown Analyte Negati ve Not Available [facility] [address], [place], [address], 10/03/2021 14:09:29 10/04/19 22 10/03/2021 urina lysis panel , auto Unknown Analyte Normal Not Available [facility] [address], [place], [address], 10/03/2021 14:09:29 10/04/19 22 10/03/2021 urina lysis panel , auto Unknown Analyte Normal Not Available [facility] [address], [place], [address], 10/03/2021 14:09:29 10/04/19 22 10/03/2021 urina lysis panel , auto Unknown Analyte Negati ve Not Available [facility] [address] [place] [address] Rd [address], [place], [address], 10/03/2021 14:09:29 10/04/19 22 10/03/2021 urina lysis panel , auto Unknown Analyte Negati ve Not Available [facility] [address], [place], [address], 10/03/2021 14:09:29 10/04/19 22 10/03/2021 urina lysis panel , auto Unknown Analyte Normal Not Available [facility] [address], [place], [address], 10/03/2021 14:09:29 10/04/19 22 10/03/2021 urina lysis panel , auto Unknown Analyte Normal 1 mg/dl Not Available [facility] [address], [place], [address], 10/03/2021 14:09:29 10/04/19 22 10/03/2021 urina lysis panel , auto Unknown Analyte Negati ve Not Available [facility] [address], [place], [address], 10/03/2021 14:09:29 10/04/19 22 10/03/2021 urina lysis panel , auto Unknown Analyte Negati ve Not Available [facility] [address], [place], [address], 10/03/2021 14:09:29 10/04/19 22 10/03/2021 urina lysis panel , auto Unknown Analyte 50 Darren/ul Not Available [facility] [address], [place], [address], 10/03/2021 14:09:29 10/04/19 22 10/03/2021 urina lysis panel , auto Unknown Analyte Negati ve Not Available [facility] [address] [place] [address] [address], [place], [address], 10/03/2021 14:09:29 10/10/19 23 10/09/2022 URINE CULTU RE results Sourc e: CCUR Colle cted: 10/09 16:31 Site: Recei maxine : 10/10 10:20 URINE CULTU RE FINAL 10/13 11:46 10/11 ISOLA TE #1 COLON Y COUNT : > 100,0 00 CFU/M L Proba ble Staph yloco ccus sp.; ID and sensi tivit y in progr ess. 10/13 See [place] [facility] Resul t(s) Below ISOLA ROSI AND SENSI TIVIT Y RESUL TS [place] [facility] 01 Staph yloco ccus inter mediu s __ [place] [facility] ORG# 01 ANTIB IOTIC S KRISHNA [...] S Vanco mycin 2 S Not Available [facility] [address] [facility], [place], [address], 10/13/2022 11:46:16 10/11/19 23 10/10/2022 PSA, serum or plasm a PSA 1.1 NG/mL 0.0 - 4.0 Not Available [facility] [address], [place], [address], 10/10/2022 07:47:40 10/11/19 23 10/10/2022 urina lysis panel , auto Unknown Analyte Clean Catch Not Available [facility] [address] [place] [address], [address], 10/10/2022 07:21:04 10/11/19 23 10/10/2022 urina lysis panel , auto Unknown Analyte Yellow Not Available [facility] [address], [place], [address], 10/10/2022 07:21:04 10/11/19 23 10/10/2022 urina lysis panel , auto Unknown Analyte Hazy Not Available [facility] [address], [place], [address], 10/10/2022 07:21:04 10/11/19 23 10/10/2022 urina lysis panel , auto Unknown Analyte 1.010 Not Available [facility] [address], [place], [address], 10/10/2022 07:21:04 10/11/19 23 10/10/2022 urina lysis panel , auto Unknown Analyte 1.003- 1.035 Not Available [facility] [address], [place], [address], 10/10/2022 07:21:04 10/11/19 23 10/10/2022 urina lysis panel , auto Unknown Analyte 7.0 Not Available [facility] [address], [place], [address], 10/10/2022 07:21:04 10/11/19 23 10/10/2022 urina lysis panel , auto Unknown Analyte 5.0-8. 0 Not Available [facility] [address], [place], [address], 10/10/2022 07:21:04 10/11/19 23 10/10/2022 urina lysis panel , auto Unknown Analyte 500 Alina/ul (++) Not Available [facility] [address], [place], [address], 10/10/2022 07:21:04 10/11/19 23 10/10/2022 urina lysis panel , auto Unknown Analyte Negati ve Not Available [facility] [address], [place], [address], 10/10/2022 07:21:04 10/11/19 23 10/10/2022 urina lysis panel , auto Unknown Analyte Negati ve Not Available [facility] [address], [place], [address], 10/10/2022 07:21:04 10/11/19 23 10/10/2022 urina lysis panel , auto Unknown Analyte Negati ve Not Available [facility] [address], [place], [address], 10/10/2022 07:21:04 10/11/19 23 10/10/2022 urina lysis panel , auto Unknown Analyte 100 mg/dl (++) Not Available [facility] [address], [place], [address], 10/10/2022 07:21:04 10/11/19 23 10/10/2022 urina lysis panel , auto Unknown Analyte Negati ve Not Available [facility] [address], [place], [address], 10/10/2022 07:21:04 10/11/19 23 10/10/2022 urina lysis panel , auto Unknown Analyte Normal Not Available [facility] [address], [place], [address], 10/10/2022 07:21:04 10/11/19 23 10/10/2022 urina lysis panel , auto Unknown Analyte Normal Not Available [facility] [address], [place], [address], 10/10/2022 07:21:04 10/11/19 23 10/10/2022 urina lysis panel , auto Unknown Analyte Negati ve Not Available [facility] [address], [place], [address], 10/10/2022 07:21:04 10/11/19 23 10/10/2022 urina lysis panel , auto Unknown Analyte Negati ve Not Available [facility] [address], [place], [address], 10/10/2022 07:21:04 10/11/19 23 10/10/2022 urina lysis panel , auto Unknown Analyte Normal Not Available [facility] [address], [place], [address], 10/10/2022 07:21:04 10/11/19 23 10/10/2022 urina lysis panel , auto Unknown Analyte Normal 1 mg/dl Not Available [facility] [address], [place], [address], 10/10/2022 07:21:04 10/11/19 23 10/10/2022 urina lysis panel , auto Unknown Analyte Negati ve Not Available [facility] [address], [place], [address], 10/10/2022 07:21:04 10/11/19 23 10/10/2022 urina lysis panel , auto Unknown Analyte Negati ve Not Available [facility] [address], [place], [address], 10/10/2022 07:21:04 10/11/19 23 10/10/2022 urina lysis panel , auto Unknown Analyte 250 Darren/ul Not Available [facility] [address], [place], [address], 10/10/2022 07:21:04 10/11/19 23 10/10/2022 urina lysis panel , auto Unknown Analyte Negati ve Not Available [facility] [address], [place], [address], 10/10/2022 07:21:04 12/02/19 24 12/02/2023 urina lysis panel , auto Unknown Analyte Clean Catch Not Available [facility] [address], [place], [address], 12/02/2023 12:28:39 12/02/19 24 12/02/2023 urina lysis panel , auto Unknown Analyte Yellow Not Available [facility] [address], [place], [address], 12/02/2023 12:28:39 12/02/19 24 12/02/2023 urina lysis panel , auto Unknown Analyte Clear Not Available [facility] [address], [place], [address], 12/02/2023 12:28:39 12/02/19 24 12/02/2023 urina lysis panel , auto Unknown Analyte 1.015 Not Available [facility] [address], [place], [address], 12/02/2023 12:28:39 12/02/19 24 12/02/2023 urina lysis panel , auto Unknown Analyte 1.003- 1.035 Not Available [facility] [address] [place] [address] Rd [address], [place], [address], 12/02/2023 12:28:39 12/02/19 24 12/02/2023 urina lysis panel , auto Unknown Analyte 6.0 Not Available [facility] [address], [place], [address], 12/02/2023 12:28:39 12/02/19 24 12/02/2023 urina lysis panel , auto Unknown Analyte 5.0-8. 0 Not Available [facility] [address] [place] [address] Rd [address], [place], [address], 12/02/2023 12:28:39 12/02/19 24 12/02/2023 urina lysis panel , auto Unknown Analyte Negati ve Not Available [facility] [address] [place] [address] Rd [address], [place], [address], 12/02/2023 12:28:39 12/02/19 24 12/02/2023 urina lysis panel , auto Unknown Analyte Negati ve Not Available [facility] [address], [place], [address], 12/02/2023 12:28:39 12/02/19 24 12/02/2023 urina lysis panel , auto Unknown Analyte Negati ve Not Available [facility] [address], [place], [address], 12/02/2023 12:28:39 12/02/19 24 12/02/2023 urina lysis panel , auto Unknown Analyte Negati ve Not Available [facility] [address] [place] [address] Rd [address], [place], [address], 12/02/2023 12:28:39 12/02/19 24 12/02/2023 urina lysis panel , auto Unknown Analyte Trace Not Available [facility] [address] [place] [address] Rd [address], [place], [address], 12/02/2023 12:28:39 12/02/19 24 12/02/2023 urina lysis panel , auto Unknown Analyte Negati ve Not Available [facility] [address], [place], [address], 12/02/2023 12:28:39 12/02/19 24 12/02/2023 urina lysis panel , auto Unknown Analyte Normal Not Available [facility] [address], [place], [address], 12/02/2023 12:28:39 12/02/19 24 12/02/2023 urina lysis panel , auto Unknown Analyte Normal Not Available [facility] [address], [place], [address], 12/02/2023 12:28:39 12/02/19 24 12/02/2023 urina lysis panel , auto Unknown Analyte Negati ve Not Available [facility] [address], [place], [address], 12/02/2023 12:28:39 12/02/19 24 12/02/2023 urina lysis panel , auto Unknown Analyte Negati ve Not Available [facility] [address], [place], [address], 12/02/2023 12:28:39 12/02/19 24 12/02/2023 urina lysis panel , auto Unknown Analyte Normal Not Available [facility] [address], [place], [address], 12/02/2023 12:28:39 12/02/19 24 12/02/2023 urina lysis panel , auto Unknown Analyte Normal 1 mg/dl Not Available [facility] [address], [place], [address], 12/02/2023 12:28:39 12/02/19 24 12/02/2023 urina lysis panel , auto Unknown Analyte Negati ve Not Available [facility] [address], [place], [address], 12/02/2023 12:28:39 12/02/19 24 12/02/2023 urina lysis panel , auto Unknown Analyte Negati ve Not Available [facility] [address], [place], [address], 12/02/2023 12:28:39 12/02/19 24 12/02/2023 urina lysis panel , auto Unknown Analyte Negati ve Not Available [facility] [address], [place], [address], 12/02/2023 12:28:39 12/02/19 24 12/02/2023 urina lysis panel , auto Unknown Analyte Negati ve Not Available [facility] [address], [place], [address], 12/02/2023 12:28:39 12/02/19 24 12/02/2023 PSA, serum or plasm a PSA 0.67 NG/mL 0.0 - 4.0 Not Available [facility] [address], [place], [address], 12/02/2023 12:28:24 12/15/19 25 12/14/2024 urina lysis panel , auto Unknown Analyte Clean Catch Not Available [facility] [address], [place], [address], 12/14/2024 11:30:02 12/15/19 25 12/14/2024 urina lysis panel , auto Unknown Analyte Yellow Not Available [facility] [address], [place], [address], 12/14/2024 11:30:02 12/15/19 25 12/14/2024 urina lysis panel , auto Unknown Analyte Clear Not Available [facility] [address], [place], [address], 12/14/2024 11:30:02 12/15/19 25 12/14/2024 urina lysis panel , auto Unknown Analyte 1.020 Not Available [facility] [address], [place], [address], 12/14/2024 11:30:02 12/15/19 25 12/14/2024 urina lysis panel , auto Unknown Analyte 1.003 - 1.030 Not Available [facility] [address], [place], [address], 12/14/2024 11:30:02 12/15/19 25 12/14/2024 urina lysis panel , auto Unknown Analyte 5.0 Not Available [facility] [address], [place], [address], 12/14/2024 11:30:02 12/15/19 25 12/14/2024 urina lysis panel , auto Unknown Analyte 5.0 - 8.0 Not Available [facility] [address], [place], [address], 12/14/2024 11:30:02 12/15/19 25 12/14/2024 urina lysis panel , auto Unknown Analyte Negati ve Not Available [facility] [address], [place], [address], 12/14/2024 11:30:02 12/15/1912/14/2024 urina lysis panel , auto Unknown Analyte Negati ve Not Available [facility] [address], [place], [address], 12/14/2024 11:30:02 12/15/19 25 12/14/2024 urina lysis panel , auto Unknown Analyte Negati ve Not Available [facility] [address], [place], [address], 12/14/2024 11:30:02 12/15/19 25 12/14/2024 urina lysis panel , auto Unknown Analyte Negati ve Not Available [facility] [address], [place], [address], 12/14/2024 11:30:02 12/15/19 25 12/14/2024 urina lysis panel , auto Unknown Analyte 100 mg/dL Not Available [facility] [address], [place], [address], 12/14/2024 11:30:02 12/15/19 25 12/14/2024 urina lysis panel , auto Unknown Analyte Negati ve Not Available [facility] [address], [place], [address], 12/14/2024 11:30:02 12/15/19 25 12/14/2024 urina lysis panel , auto Unknown Analyte Normal Not Available [facility] [address], [place], [address], 12/14/2024 11:30:02 12/15/19 25 12/14/2024 urina lysis panel , auto Unknown Analyte Normal Not Available [facility] [address], [place], [address], 12/14/2024 11:30:02 12/15/19 25 12/14/2024 urina lysis panel , auto Unknown Analyte Negati ve Not Available [facility] With [address], [place], [address], 12/14/2024 11:30:02 12/15/19 25 12/14/2024 urina lysis panel , auto Unknown Analyte Negati ve Not Available [facility] With [address], [place], [address], 12/14/2024 11:30:02 12/15/19 25 12/14/2024 urina lysis panel , auto Unknown Analyte Normal Not Available [facility] [address], [place], [address], 12/14/2024 11:30:02 12/15/19 25 12/14/2024 urina lysis panel , auto Unknown Analyte Normal Not Available [facility] [facility] [address] [place] [address] Rd [address], [place], [address], 12/14/2024 11:30:02 12/15/19 25 12/14/2024 urina lysis panel , auto Unknown Analyte Negati ve Not Available [facility] [address] [place] [address], [address], 12/14/2024 11:30:02 12/15/19 25 12/14/2024 urina lysis panel , auto Unknown Analyte Negati ve Not Available [facility] [address], [place], [address], 12/14/2024 11:30:02 12/15/19 25 12/14/2024 urina lysis panel , auto Unknown Analyte Negati ve Not Available [facility] [address], [place], [address], 12/14/2024 11:30:02 12/15/19 25 12/14/2024 urina lysis panel , auto Unknown Analyte Negati ve Not Available [facility] [address] [place] [address], [address], 12/14/2024 11:30:02 12/23/19 24 12/23/2023 US, retro perit oneum , limit ed No observ ation record ed. IMER Not Available 2023 17:14:52 Result Notes None recorded. Problems Name Problem SNOMED Code Status Onset Date Resolution Date Notes Provider Name and Address Organization Details Recorded Time Calculus of kidney and ureter 249982990 Active 2014 From Automated Load;Prov ider: Kyle Doe Jr atus: Active Not Available [facility] 6 09:06:25 Kidney stone 00477428 Active 2014 Provider: Rolf Doe Jr;St atus: Active Not Available [facility] 6 09:06:25 Ureteric stone 31731565 Active 2014 Provider: Rolf Doe Jr;St atus: Active Not Available [facility] 6 09:06:25 Sunday hematuria 231472156 Active 2015 From Automated Load;Prov ider: Rolf Doe Jr;St atus: Active Not Available [facility] 6 09:06:25 Epididymi tis 47934551 Active 2015 From Automated Load;Prov ider: Rolf Doe Jr;St atus: Active Not Available [facility] 6 09:06:25 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 80196300726 101 Active 2015 From Automated Load;Prov ider: Rolf Doe Jr;St atus: Active Not Available [facility] 6 09:06:25 Nocturia 026035443 Active 2015 From Automated Load;Prov ider: Rolf Doe Jr;St atus: Active Not Available [facility] 6 09:06:25 Prostate nodule 56236060675 9109 Active 2022 ROLF DOE JR, MD [address] [place] [address], [phone] 3 10:20:35 Acute urinary tract infection 042583942 Active 2022 ROLF DOE JR, MD [address] [place] [address] 3 10:20:35 Problem Notes None recorded. Medical Equipment None Reported. Allergies Allergen ID Allergen Name Allergen Category Reaction Reaction Severity Criticality Documentation Date Start Date Code Code System Note Provider Name and Address Organization Details Recorded Time 075980 Flomax medicatio n Not available Not available Not available 05/09/20162012 36673 3 RxNorm Comme nt: Creat ed By: ICCha rt ICCha rt;Cr eated Date: 2012 1:16: 29 PM; Not Available [facility] 6 03:08:20 994619 sotalol hydrochlo ride medicatio n Not available Not available Not available 05/09/20162014 7008 RxNorm Comme nt: Creat ed By: Lewis Li ;Carolyna arabella Date: 2014 1:36: 35 PM; Not Available [facility] 6 06:21:01 038225 iodine medicatio n Not available Not available Not available 05/09/20162012 5933 RxNorm Comme nt: Creat ed By: [facility] rt [facility] rt;Cr eated Date: 2012 1:16: 40 PM; Not Available [facility] 6 09:08:45 023690 acetamino phen / hydrocodo ne medicatio n Not available Not available Not available 05/09/20162012 47382 2 RxNorm Comme nt: Creat ed By: [facility] rt ICC rt;Cr eated Date: 2012 1:16: 49 PM; Not Available [facility] 6 09:08:45 949359 Product containin g penicilli n (product) medicatio n Not available Not available Not available 05/09/20162012 92396 8001 SNOMED Comme nt: Creat ed By: [facility] rt ICC rt;Cr eated Date: 2012 1:17: 02 PM; Not Available [facility] 6 09:08:45 803045 codeine medicatio n Not available Not available Not available 05/09/20162012 2670 RxNorm Comme nt: Creat ed By: [facility] rt [facility] rt;Cr eated Date: 2012 1:16: 17 PM; Not Available [facility] 6 10:37:35 Medications Name Sig [...] Updated DateTime 10/03/2021 172.72 cm 30.6 kg/m2 64327.07 g Eloise Daly [facility] 10/03/2021 14:08:58 Date Recorded Body height Body mass index (BMI) Body weight Provider Name and Address Organization Details Last Updated DateTime 10/09/2022 172.72 cm 27.7 kg/m2 20727.81 g Addis Cabrales [facility] 10/10/2022 07:19:58 Date Recorded Body weight Provider Name an d Address Organization Details Last Updated DateTime 12/14/2024 66364.63 g Ewa Wiseman [facility] 12/14/2024 11:54:20 Date Recorded Body height Body mass index (BMI) Body weight Provider Name and Address Organization Details Last Updated DateTime 03/16/2025 172.72 cm 25.8 kg/m2 96304.7 g Alina Palmer [facility] 03/16/2025 14:39:00 Social History Question Answer Notes LastModified by Organizat ion Details LastModified Time Tobacco Smoking Status [facility] 04/10/2017 10:57:31 How Much Tobacco Do You Chew? None [email or web address] Information not available 09/02/2018 What Was The Date Of Your Most Recent Tobacco Screening? 12/14/2024 [email or web address] Information not available 12/14/2024 How Much Tobacco Do You Smoke? No [email or web address] Information not available 03/10/2019 Sex: Unknown Functional [...] 50 mcg/0.25mL dose 1 completed Not Available [facility] 03/16/2025 13:49:39 COVID-19, mRNA, LNP-S, PF, 100 mcg/0.5mL dose or 50 mcg/0.25mL dose 1 completed Not Available [facility] 03/16/2025 13:49:39 Tdap 3 completed Not Available [facility] 03/16/2025 13:49:39 Past Encounters Encounter ID Performer Location Encounter Start Date Encounter Closed Date Diagnosis/Indication Diagnosis SNOMED-CT Code Diagnosis ICD10 Code Diagnosis IMO Codes Diagnosis Note [id number] ROLF DOE JR, MD [facility] [address] [place] [address] RD,[place] [place] [address] 0 08/08/2016 10:21:41 08/14/2016 15:49:51 Lower urinary tract symptoms due to benign prostatic hypertrophy 0561349354 9101 N40.1 Kidney stone 40946395 N2 0.0 [id number] ROLF DOE JR, MD [facility] [address] [place] [address] RD,[address] [place] [address] 0 02/12/2017 12:48:37 02/13/2017 08:34:28 Lower urinary tract symptoms due to benign prostatic hypertrophy 0451075087 9101 N40.1 Kidney stone 53946796 N2 0.0 [id number] ROLF DOE JR, MD [facility] [address] [place] [address] RD,[address] [place] [address] 0 09/03/2017 12:54:23 09/03/2017 13:53:06 Lower urinary tract symptoms due to benign prostatic hypertrophy 3195919023 9101 N40.1 Kidney stone 34995501 N2 0.0 [id number] ROLF DOE JR, MD [facility] [address] [place] [address] RD,[address] [place] [address] 0 03/04/2018 14:56:13 03/04/2018 15:36:34 Lower urinary tract symptoms due to benign prostatic hypertrophy 4697815446 9101 N40.1 Kidney stone 99237956 N2 0.0 [id number] ROLF DOE JR, MD [facility] [address] [place] [address] RD,[place] [address] 09/02/2018 13:13:25 09/02/2018 14:09:12 Lower urinary tract symptoms due to benign prostatic hypertrophy 0142071118 9101 N40.1 Kidney stone 93279758 N2 0.0 [id number] ROFL DOE JR, MD [facility] [address] [place] [address] [address] [place] [address] 0 03/10/2019 13:17:58 03/10/2019 13:38:20 Lower urinary tract symptoms due to benign prostatic hypertrophy 2982422561 9101 N40.1 Calculus o f kidney and ureter 846496907 N20.2 [id number] ROLF DOE JR, MD [facility] [address] [place] [address] RD,[place] [address] 09/28/2020 09:27:05 09/28/2020 10:16:01 Kidney stone 33347721 N20.0 Lower urin colby tract symptoms due to benign prostatic hypertrophy 2425874115 9101 N40.1 [id number] ROLF DOE JR, MD [facility] [address] [place] [address] RD,[address] [place] [address] 0 10/03/2021 13:46:04 10/03/2021 14:34:07 Kidney stone 78901658 N20.0 Lower urin colby tract symptoms due to benign prostatic hypertrophy 7974291910 9101 N40.1 [id number] ROLF DOE JR, MD [facility] [address] [place] [address] RD,[place] [place] [address] 0 10/09/2022 13:43:22 10/09/2022 14:04:42 Acute urinary tract infection 703510884 N39.0 Prostate nodule 46757000 01 10066 N40.2 Kidney stone 47433308 N2 0.0 Lower urin colby tract symptoms due to benign prostatic hypertrophy 8424618730 9101 N40.1 [id number] ROLF ODE JR, MD [facility] [address] [facility] [address] [place] [phone] 12/02/2023 11:21:32 12/02/2023 13:42:22 Calculus of kidney and ureter 293401506 N20.2 Lower urin colby tract symptoms due to benign prostatic hypertrophy 6897383258 9101 N40.1 [id number] ROLF DOE JR, MD [facility] [address] [facility] [address] [place] [address] 12/14/2024 11:19:09 12/14/2024 12:07:42 Lower urinary tract symptoms due to benign prostatic hypertrophy 1054148550 9101 N40.1 - Initiate treatment with an Alpha sindhu, monitor blood pressure due to potential hypotensiv e effects. - Follow-up in three to four months to assess symptom improvemen t. Kidney stone 67570790 N2 0.0 [id number] ROLF DOE JR, MD [facility] [address] [facility] [address] [place] [address] 03/16/2025 13:49:09 03/16/2025 15:04:25 Lower urinary tract symptoms due to benign prostatic hypertrophy 7818995730 9101 N40.1 - Initiate treatment with an Alpha sindhu, monitor blood pressure due to potential hypotensiv e effects. - Follow-up in three to four months to assess symptom improvemen t. Kidney stone 11963314 N2 0.0 Health Concerns Section Related Observation LastModified by Organization Detai ls LastModified Time None Recorded Concern Status LastModified by Organization Details LastModified Time None Recorded Advance Directives Directive None Recorded Payers Insurance Date Sequence Insurance Name Policy Number Policy Curiel Covered Member ID Curiel Member ID Guarantor Name 03/16/2025 2 [employer] (MEDICARE SUPPLEMENT) Ned Cronin [id number] Ned Cronin 03/15/2025 1 MEDIC[employer] (MEDICARE) Ned Cronin [id number] Ned Cronin 12/14/2024 3 [employer] Ned Cronin [id number] Ned Cronin 12/02/2023 2 [employer] (MEDICARE SUPPLEMENT) Ned Cronin 03/16/2025 2 [employer] (MEDICARE SUPPLEMENT) Ned Cronin [id number] Ned Cronin Notes Date Note Type Note [...] episode/flank pain. ROLF DOE JR, MD [address] [place] [address], [phone], [facility] 10/06/2021 18:50:55 10/09/2022 text/html In for f/u of BPH and nephrolithiasis. he underwent Urolift procedure on 04/16/2016 with resolution of LUTS. He is quite pleased with outcome of procedure. he does have ah/o nephrolithiasis which is followed conservatively. KUB is reviewed today revealing nonobstructing nephrolithiasis, stable. Denies recent stone episode/flank pain. ROLF DOE JR, MD [address] [place] [address], [phone], [facility] 10/19/2022 10:21:34 12/02/2023 text/html In for f/u of BPH and nephrolithiasis. he underwent Urolift procedure on 04/16/2016 with resolution of LUTS. He is quite pleased with outcome of procedure. he does have ah/o nephrolithiasis which is followed conservatively. KUB is reviewed today revealing nonobstructing nephrolithiasis, stable. Denies recent stone episode/flank pain. ROLF DOE JR, MD [address] [place] [address] [place], [address], [facility] 12/06/2023 09:05:42 12/14/2024 text/html The patient is [...] prostate cancer concerns. ROLF DOE JR, MD [facility] [place], [address], [facility] 12/18/2024 10:04:17 03/16/2025 text/html The patient is [...] note prior to signature. [place], [address], [facility] 03/18/2025 11:08:02
--- OUTSIDE RECORDS SUMMARY | 2025-06-12 14:03 | XMS_ITS | Clinical Summary ---
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 History of DC (myocardial infarction) 03/06/2016 Overview (03/06/2016): 1. 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 [address] [place] [address] Lam Schmidt MD [address] [place] [address] Health Maintenance Due Date Last [...] RAGHAV MONTANEZ Released Date Time- 09/09/14 1324 Senior Engineering Technician- Rodrick Procedure Note Raghav Lange MD - [...] RAGHAV MONTANEZ Released Date Time- 09/09/14 1324 Senior Engineering Technician- L.S. us Emile Lyon MD IMG CT ORDERABLES Anne-Marie anderson Result * (ABNORMAL) Lipid panel (09/08/2014 9:22 AM EDT) Total Cholesterol 184 0 - 200 mg/dL [facility] Comment: DF by IF @ 09/08/2014 09:41 Cholesterol Reference Ranges: Desirable: less than 200 mg/dL Borderline: 200-239 mg/dL High: greater than 239 mg/dL Triglycerides 85 0 - 150 mg/dL [facility] Comment: DF by IF @ 09/08/2014 09:41 Triglyceride Reference Ranges: Normal less than 150 mg/dL Borderline 150-199 mg/dL High 200-499 mg/dL Very High greater than 499 mg/dL HDL Cholesterol 40 40 - 60 mg/dL [facility] Comment: DF by IF @ 09/08/2014 09:41 HDL Cholesterol Reference Ranges: Low less than 40 mg/dL High greater than 59 mg/dL LDL Cholesterol 133(H) 0 - 130 mg/dL [facility] Comment: US by IF @ 09/08/2014 09:41 LDL Cholesterol Reference Ranges: Optimal less than 100 mg/dL Near Optimal 100-129 mg/dL Borderline 130-159 mg/dL High 160-189 mg/dL Very High greater than 189 mg/dL Blood specimen (specimen) 09/08/2014 9:22 AM EDT Narrative [facility] - 09/08/2014 9:41 AM EDT Specimen Type: Blood Alo Pastrana MD LAB BLOOD ORDERABLES Final Re sult [facility] [address] [place] [address], from Last 3 Months or Most Recently Relevant to Health Maintenance Insurance MEDICARE A & B Member Subscriber Plan / Payer (Ef fective 2011-Present) Name:Ned Cronin Member ID:[id number] Relation to Subscriber:Self Name:Ned Cronin Subscriber ID:[id number] Payer ID:[id number] Group ID:Not on file Type:Not on file [address] [place] [address] Care Teams Engineering Technology Instructor Relationship Specialty Start Date End Date Miguel A Bernabe MD [address] [place] [id number] PCP - General Family Medicine 01/22/22
[2025-06-12 14:20] LABS: PHA INR Fingerstick 2.3 (0.9-1.1)
== END 2025-06-12 14:21 ==
LOC: ACC 14:00
PROVIDERS: PCP Family Medicine; Visit Provider Physician Assistant
DX: I48.0 Paroxysmal atrial fibrillation (principal); Z79.01 Long term (current) use of anticoagulants
CPT/HCPCS: 85610; 99211; G0463